=== PATIENT | female | born 1940 | race Caucasian/White ===

== ENCOUNTER → 2017-02-22 | Outpatient (CLI) | payer MEDICARE ==
--- NOTE | 2017-02-22 12:15 | CARD ---
APPROVED REPORT EXAM: Two-dimensional and M-mode echocardiogram with Doppler and color Doppler. Other Information Quality : Good INDICATION Aortic Valve Disease Murmur 2D DIMENSIONS RVDd1.9 (2.9-3.5cm)Left Atrium(2D)3.4 (1.6-4.0cm) IVSd1.1 (0.7-1.1cm)Aortic Root(2D)2.4 (2.0-3.7cm) LVDd4.3 (3.9-5.9cm)LVOT Diameter1.9 (1.8-2.4cm) PWd1.0 (0.7-1.1cm)LVDs2.4 (2.5-4.0cm) FS (%) 30.0 %SV61.8 ml LVEF(%)60.0 (>50%) M-Mode DIMENSIONS Aortic Cusp Exc1.21 (1.5-2.0cm) Aortic Valve AoV Peak Richard.222.2cm/sAoV VTI42.1cm AO Peak GR.21.0mmHgLVOT Peak Richard.113.7cm/s LVOT VTI 25.35cmAO Mean GR.12mmHg ASHA (VMAX)1.02hu1DRQ (VTI)1.53cm2 Mitral Valve MV E Eaauygsa93.6cm/sMV DECEL GCDT412ze MV A Ptsrnkor548.3cm/sMV VCW58rv E/A Ratio0.7MVA (PHT)2.69cm2 TDI E/Lateral E'10.6E/Medial E'12.7 Tricuspid Valve TR P. Qwljwskr589wj/sRAP MQYYDJSO1aiZs TR Peak Gr.51kzIiCAKB17uzBs Pulmonary Vein S1 Cqfkxatu48.4cm/sD2 Ofufpbwn53.8cm/s LEFT VENTRICLE The left ventricle is normal size. There is normal left ventricular wall thickness. The left ventricu lar systolic function is normal. The Ejection Fraction is 55-60%. There is normal LV segmental wall m otion. Transmitral Doppler flow pattern is Grade I-abnormal relaxation pattern. RIGHT VENTRICLE The right ventricle is normal size. The right ventricular systolic function is normal. ATRIA The left atrium size is normal. The right atrium size is normal. The interatrial septum is intact wit h no evidence for an atrial septal defect or patent foramen ovale as noted on 2-D or Doppler imaging. AORTIC VALVE The aortic valve is calcified and displays decreased opening. Doppler and Color Flow revealed no sign ificant aortic regurgitation. Calculated aortic valve area is 1.53 cm2 with maximum pressure gradient of 21 mmHg and mean pressure gradient of 12 mmHg. Doppler and color-flow analysis revealed mild aort ic stenosis. MITRAL VALVE The mitral valve is calcified but opens well. There is no evidence of mitral valve prolapse. There is no mitral valve stenosis. Doppler and Color-flow revealed trace to mild mitral regurgitation. TRICUSPID VALVE The tricuspid valve is normal in structure and function. Doppler and Color Flow revealed trace tricus pid regurgitation. The PA pressure was estimated at 18 mmHg. There is no tricuspid valve stenosis. PULMONIC VALVE The pulmonary valve is normal in structure and function. Doppler and Color Flow revealed no pulmonic valvular regurgitation. There is no pulmonic valvular stenosis. GREAT VESSELS The aortic root is normal in size. The ascending aorta is normal in size. The IVC is normal in size a nd collapses >50% with inspiration. PERICARDIAL EFFUSION There is no evidence of significant pericardial effusion. Critical Notification Critical Value: No <Conclusion> The left ventricular systolic function is normal. The Ejection Fraction is 55-60%. There is normal LV segmental wall motion. Transmitral Doppler flow pattern is Grade I-abnormal relaxation pattern. Mild aortic stenosis. Trace to mild mitral regurgitation. Trace tricuspid regurgitation. The PA pressure was estimated at 18 mmHg. There is no evidence of significant pericardial effusion.
== END | disposition home or self-care (01) ==
LOC: ECHO 09:38
PROVIDERS: ATTEND Family Medicine
DX: I35.0 Nonrheumatic aortic (valve) stenosis (principal); R01.1 Cardiac murmur, unspecified
CPT/HCPCS: 93306

== ENCOUNTER 2017-03-27 09:53 | Emergency (ER) | payer MEDICARE ==
[2017-03-27] MEDS ORDERED: OXYMETAZOLINE 0.05% NASAL SPRAY 30ML BOTTLE. NS ONE ×2 (10:06→10:15)
--- NOTE | 2017-03-27 10:29 | ED.ADGEN ---
Past Medical History Past Medical History: No Pertinent History Past Surgical History: Other Additional Past Surgical Histo: EGD, cataracts Alcohol Use: None Drug Use: None Adult General Chief Complaint Chief Complaint: NOSEBLEED HPI HPI Patient is a 76 year old woman, who does not take any medications regular basis , who presents to the emergency department with complaint of recurrent nosebleed. Patient states that on , , she began experiencing a nosebleed, on the right nostril. She states this occurred after she blew her nose, states she had been experiencing some nasal congestion and a mild cough over the past several days. She denies any difficulty breathing or swallowing, any chest pain or shortness of breath. No fevers or chills. Denies any digital manipulation or insertions. She states that she began having recurrent bleeding around around 8:45 this morning states that she had began blowing her nose before the bleeding started only from the right Mun[place]. She states that she did insert a cotton ball into the nose, but then subsequently did sneeze that out. She denies any other insertions, denies any nausea, vomiting, or other concerns. As stated she has not take any medications regular basis, does not use any blood thinners or anticoagulants, she states she is around more dry air and "sawdust", due to construction that is occurring in her home which she believes may have triggered the symptoms. Review of Systems Review of Systems Constitutional: Denies fever or chills. [] Eyes: Denies change in visual acuity. [] HENT: Nasal congestion, no sore throat, with recurrent bleeding from the right Muniz.[] Respiratory: Denies cough or shortness of breath. [] Cardiovascular: Denies chest pain or edema. [] GI: Denies abdominal pain, nausea, vomiting, bloody stools or diarrhea. [] : Denies dysuria. [] Musculoskeletal: Denies back pain or joint pain. [] Integument: Denies rash. [] Neurologic: Denies headache, focal weakness or sensory changes. [] Endocrine: Denies polyuria or polydipsia. [] Lymphatic: Denies swollen glands. [] Psychiatric: Denies depression or anxiety. [] Current Medications Current Medications Current Medications Medications (Trade) Dose Ordered Sig/Sugar Start Time Stop Time Status Last Admin Dose Admin Acetaminophen (Tylenol) 1,000 mg 1X ONCE 03/27/17 16:30 03/27/17 16:31 DC Amoxicillin/ Clavulanate Potassium (Augmentin 875/ 125mg) 1 tab 1X ONCE 03/27/17 16:30 03/27/17 16:31 DC Lidocaine HCl (Viscous Lidocaine) 15 ml STK-MED ONCE 03/27/17 13:39 03/27/17 13:40 DC Oxymetazoline HCl (Afrin) 2 spray 1X ONCE 03/27/17 10:15 03/27/17 10:20 DC 03/27/17 10:37 2 SPRAY Allergies Allergies Allergies Coded Allergies Type Severity Reaction Last Updated Verified No Known Drug Allergies 03/27/17 No Physical Exam Physical Exam Constitutional: Well developed, well nourished, no acute distress, non-toxic appearance. [] HENT: Normocephalic, atraumatic, bilateral external ears normal, oropharynx moist, no oral exudates, external nose is normal, patient noted to have bright red blood from the right Muniz, no visualization of foreign body or significant turbinate swelling identified, left naris clear, mild mucosal irritation noted. No evidence of deep nature vessels identified, patient partially cleared Muniz by blowing nose, with application of Afrin. Continued to have oozing from right Muniz. Noted to have blood in the oropharynx, which did clear after patient gargled with water. Eyes: PERRLA, EOMI, conjunctiva normal, no discharge. [] Neck: Normal range of motion, no tenderness, supple, no stridor. [] Cardiovascular:Heart rate regular rhythm, no murmur [, S1, S2, no rubs or gallops.] Lungs & Thorax: Bilateral breath sounds clear to auscultation , no wheezing, rhonchi, rales. No chest wall crepitus or tenderness.[] Abdomen: Bowel sounds normal, soft, no tenderness, no masses, no pulsatile masses. [] Skin: Warm, dry, no erythema, no rash. [] Back: No tenderness, no CVA tenderness. [] Extremities: No tenderness, no cyanosis, no clubbing, ROM intact, no edema. Negative Homans sign. [] Neurologic: Alert and oriented X 3, normal motor function, normal sensory function, no focal deficits noted. [] Psychologic: Affect normal, judgement normal, mood normal. [] Current Patient Data Vital Signs Vital Signs Date Time Temp Pulse Resp B/P (MAP) Pulse Ox O2 Delivery O2 Flow Rate FiO2 03/27/17 16:15 72 175/77 (109) 98 Room Air 03/27/17 12:45 18 03/27/17 09:56 98.4 98.4 Lab Values Laboratory Tests Test 03/27/17 10:38 White Blood Count 5.0 x10^3/uL (4.0-11.0) Red Blood Count 4.82 x10^6/uL (3.50-5.40) Hemoglobin 11.6 g/dL (12.0-15.5) L Hematocrit 36.6 % (36.0-47.0) Mean Corpuscular Volume 76 fL (79-100) L Mean Corpuscular Hemoglobin 24 pg (25-35) L Mean Corpuscular Hemoglobin Concent 32 g/dL (31-37) Red Cell Distribution Width 16.1 % (11.5-14.5) H Platelet Count 350 x10^3/uL (140-400) Neutrophils (%) (Auto) 71 % (31-73) Lymphocytes (%) (Auto) 16 % (24-48) L Monocytes (%) (Auto) 10 % (0-9) H Eosinophils (%) (Auto) 2 % (0-3) Basophils (%) (Auto) 1 % (0-3) Neutrophils # (Auto) 3.5 x10^3uL (1.8-7.7) Lymphocytes # (Auto) 0.8 x10^3/uL (1.0-4.8) L Monocytes # (Auto) 0.5 x10^3/uL (0.0-1.1) Eosinophils # (Auto) 0.1 x10^3/uL (0.0-0.7) Basophils # (Auto) 0.1 x10^3/uL (0.0-0.2) Laboratory Tests 03/27/17 10:38 EKG EKG Not indicated. Radiology/Procedures Radiology/Procedures Not indicated.[] Course & Med Decision Making Course & Med Decision Making Pertinent Labs and Imaging studies reviewed. (See chart for details) Patient states that she has been experiencing increasingly dry air, and irritation due to sawdust and other elements in her home due to her son's construction project at this time. She states she does have [employer] [place] at home which she has not been using. Patient initially evaluated did have noted to have some small amount of oozing from the right Muniz, did not visualize any area of discrete due to vessels or injury. Isolated to the right Muniz. Patient had nasal clamp placed in the ED, for about 25 minutes, on reevaluation patient is not evidencing any active bleeding, Afrin was also applied. However, patient did sneeze, and was noted to have continued oozing from the right Muniz. Patient' s hemoglobin At that point nasal tampon was placed, and then patient was observed again. Patient again was noted to have a small amount of leakage from the Muniz, which again was consistent with an anterior bleeding, I do not have any evidence of posterior bleeding on examination she is a small amount of blood in the back of the throat which did clear after she again gargled with cold water. At that time his nasal tampon was not apparently effective, a anterior posterior 7.5 Rhino Rocket was placed, with a total of 10 mL of normal saline injected into the balloon. Patient was then again observed for period of time without any evidence of significant bleeding or other complication. She did decline pain medication, I did discuss findings as above with Dr. Blanchard of otolaryngology, she requested the patient follow-up in office on Tuesday, I did confirm with patient that the doctor's office will be close enough for her to obtain a ride, we also discussed the ENT recommendation the patient be given Augmentin as a prophylactic measure, patient states that she is uncomfortable taking antibiotics due to previous, locations, however was agreeable to receiving a good Rx coupon, and prescription for Augmentin, states she will consider taking the medication but did decline taking medication in the ED. As stated she has declined pain medication, states she's been comfortable this time. Patient is ambulating in the ED without issue, vital signs remained within normal limits. Hemoglobin was 11.6 stated, she does not have evidence of significant bleeding after a prolonged observation in the ED, states she is rated be discharged home, and I do not anticipate any complications at this time based in her examination was consistent with an anterior epistaxis bleed. I did discuss in detail with patient concerning symptoms that prompt return to the emergency department for additional evaluation, and importance of follow-up with ENT, patient contact the office tomorrow morning to schedule an appointment. Patient instructed use [place] in the other Muniz, where she is noted to have some mucosal irritation but no evidence of bleeding. Patient voiced understanding and agreement with plan as stated, was discharged home with friend, she states her son will be at her home this afternoon and this evening, and she will return immediately if any concerning symptoms to develop. Patient ambulating without difficulty upon exiting the emergency department with prescriptions, precautions, and plan as stated. Dragon Disclaimer Dragon Disclaimer This electronic medical record was generated, in whole or in part, using a voice recognition dictation system. Departure Impression: Primary Impression: Acute anterior epistaxis Additional Impression: Nose irritation Disposition: 01 HOME, SELF-CARE Condition: IMPROVED Scripts Amoxicillin/Potassium Clav (AMOX TR-K CLV 875-125 MG TAB) 1 Each Tablet 1 TAB PO BID, #20 TAB Prov: PILLO MITCHELL DO 03/27/17 Problem Qualifiers PILLO MITCHELL DO Mar 27, 2017 10:29
[2017-03-27 11:23] LABS: BASO # 0.1 x10^3/uL (0.0-0.2); BASO % 1 % (0-3); EOS % 2 % (0-3); HEMATOCRIT 36.6 % (36.0-47.0); HEMOGLOBIN 11.6 g/dL (12.0-15.5); LYMPH # 0.8 x10^3/uL (1.0-4.8); LYMPH % 16 % (24-48); MEAN CORPUSCULAR HEMOGLOBIN 24 pg (25-35); MEAN CORPUSCULAR HGB CONC 32 g/dL (31-37); MEAN CORPUSCULAR VOLUME 76 fL (79-100); MONO % 10 % (0-9); NEUT % 71 % (31-73); PLATELET COUNT 350 x10^3/uL (140-400); RED BLOOD COUNT 4.82 x10^6/uL (3.50-5.40); RED CELL DISTRIBUTION WIDTH 16.1 % (11.5-14.5)
[2017-03-27] MEDS ORDERED: LIDOCAINE 2% VISCOUS 15 ML SOLUTION. ONE (13:39)
[2017-03-27] MEDS ORDERED: LIDOCAINE 2% VISCOUS 15 ML SOLUTION. SWSW ONE (14:00)
[2017-03-27 16:15] VITALS: BP 175/77
[2017-03-27] MEDS ORDERED: AMOX1TAB11 PO (16:17)
[2017-03-27] MEDS ORDERED: ACETAMINOPHEN 500 MG TABLET PO ONE (16:30)
[2017-03-27] MEDS ORDERED: AMOXICILLIN/K CLAV 875/125MG TABLET. PO ONE (16:30)
== END 2017-03-27 16:39 | disposition home or self-care (01) ==
LOC: ER 09:53
DX: R04.0 Epistaxis (principal); J34.89 Other specified disorders of nose and nasal sinuses; R05 Cough; R09.81 Nasal congestion; Z98.49 Cataract extraction status, unspecified eye
CPT/HCPCS: 30903; 30905; 36415; 85025; 99284-25

== ENCOUNTER → 2017-10-11 | Outpatient (CLI) | payer MEDICARE | END | disposition home or self-care (01) | LOC: KCIC US 11:44 | DX: I65.23 Occlusion and stenosis of bilateral carotid arteries (principal) | CPT/HCPCS: 93880 ==

== ENCOUNTER → 2018-02-27 | Outpatient (CLI) | payer MEDICARE ==
[~2018-02-27] MED LIST: AMOX1TAB11 PO
--- NOTE | 2018-02-27 15:28 | CARD ---
MR#: [id number] Date of Study: 02/27/2018 Ordering Physician: GAYLA ELIZABETH, Referring Physician: GAYLA ELIZABETH, Tech: Beatriz Sepulveda APPROVED REPORT EXAM: Two-dimensional and M-mode echocardiogram with Doppler and color Doppler. Other Information Quality : AverageHR: 73bpm Rhythm : NSR INDICATION Aortic Stenosis RISK FACTORS Hypertension Hyperlipidemia 2D DIMENSIONS Left Atrium(2D)3.2 (1.6-4.0cm)IVSd0.8 (0.7-1.1cm) Aortic Root(2D)3.0 (2.0-3.7cm)LVDd3.9 (3.9-5.9cm) LVOT Diameter2.0 (1.8-2.4cm)PWd0.7 (0.7-1.1cm) LVDs2.3 (2.5-4.0cm)FS (%) 40.9 % SV47.1 mlLVEF(%)72.4 (>50%) Aortic Valve AoV Peak Richard.243.0cm/sAoV VTI53.2cm AO Peak GR.23.6mmHgLVOT Peak Richard.114.2cm/s AO Mean GR.13mmHgAVA (VMAX)1.41cm2 Mitral Valve MV E Kbsumsis68.9cm/sMV DECEL JCZI151kx MV A Cxkinput01.2cm/sE/A Ratio0.7 Pulmonary Valve PV Peak Lmtrayyu730.5cm/s Tricuspid Valve TR P. Fikoopdb866lc/sRAP VUYZUBBZ20zbQm TR Peak Gr.19mmHg Pulmonary Vein S1 Hbxfyrsz79.1cm/sD2 Oytvwurb17.6cm/s PVa [id number] LEFT VENTRICLE The left ventricle is normal size. There is normal left ventricular wall thickness. The Left ventricu lar systolic function is normal. The Ejection Fraction is 60-65%. There is normal LV segmental wall m otion. Transmitral Doppler flow pattern is Grade I-abnormal relaxation pattern. RIGHT VENTRICLE The right ventricle is normal size. There is normal right ventricular wall thickness. The right ventr icular systolic function is normal. ATRIA The left atrium size is normal. The right atrium size is normal. The interatrial septum is intact wit h no evidence for an atrial septal defect or patent foramen ovale as noted on 2-D or Doppler imaging. AORTIC VALVE The aortic valve is moderately thickened. Doppler and Color Flow revealed trace to mild aortic regurg itation. There is mild aortic valvular stenosis. MITRAL VALVE The mitral valve is thickened but opens well. There is no mitral valve stenosis. Doppler and Color-fl ow revealed trace mitral regurgitation. TRICUSPID VALVE The tricuspid valve is normal in structure and function. Doppler and Color Flow revealed trace tricus pid regurgitation. There is no tricuspid valve stenosis. PULMONIC VALVE The pulmonic valve is not well visualized. Doppler and Color Flow revealed trace pulmonic valvular re gurgitation. GREAT VESSELS The aortic root is normal in size. The IVC is normal in size and collapses >50% with inspiration. PERICARDIAL EFFUSION There is no evidence of significant pericardial effusion. Critical Notification Critical Value: No <Conclusion> The Left ventricular systolic function is normal. The Ejection Fraction is 60-65%. There is normal LV segmental wall motion. Transmitral Doppler flow pattern is Grade I-abnormal relaxation pattern. There is mild aortic valvular stenosis. Trace mitral regurgitation. Trace tricuspid regurgitation. There is no evidence of significant pericardial effusion. Signed by : Kishor Denis, Electronically Approved : 02/27/2018 15:27:34
== END | disposition home or self-care (01) ==
LOC: ECHO 09:37
PROVIDERS: ATTEND Family Medicine
DX: I35.0 Nonrheumatic aortic (valve) stenosis (principal); I10 Essential (primary) hypertension; E78.5 Hyperlipidemia, unspecified
CPT/HCPCS: 93306

== ENCOUNTER → 2018-06-05 | Outpatient (CLI) | payer MEDICARE ==
--- NOTE | 2018-06-05 16:47 | RAD ---
Two-view chest 06/05/2017 CLINICAL INDICATION: Dyspnea. COMPARISON: None. FINDINGS: Cardiac and mediastinal silhouettes are unremarkable. There are diffuse, predominant coarse, interstitial opacities throughout both lungs. There are patchy airspace opacities in the right perihilar and lower lungs. No pleural effusion or pneumothorax. There is multilevel thoracic spondylosis. Gas-filled small bowel loops beneath the left hemidiaphragm. IMPRESSION: 1. Diffuse coarse interstitial opacities consistent with fibrosis, however there are additional bilateral airspace opacities concerning for superimposed infection versus pulmonary edema versus pneumonitis with aspiration not excluded. Follow-up two-view chest radiograph is recommended after a course of therapy to assess for resolution. 2. Gaseous distended small bowel loops, may be physiologic. If clinically indicated, dedicated abdominal radiograph could be obtained for further evaluation. Electronically signed by: Adam Rocha MD (06/05/2018 4:42 PM) [facility]
== END | disposition home or self-care (01) ==
LOC: RAD 16:08
PROVIDERS: ATTEND Internal Medicine Pulmonary Disease
DX: R91.8 Other nonspecific abnormal finding of lung field (principal); M47.894 Other spondylosis, thoracic region
CPT/HCPCS: 71046

== ENCOUNTER → 2018-06-09 | Outpatient (CLI) | payer MEDICARE ==
[~2018-06-09] MED LIST changes: +IPRA3AMP29 NEB; +SODI14.1 NS
[2018-06-09 12:30] LABS: CALCIUM 9.2 mg/dL (8.5-10.1); CREATININE 0.5 mg/dL (0.6-1.0); GFR 119.3; POTASSIUM 4.2 mmol/L (3.5-5.1)
== END | disposition home or self-care (01) ==
LOC: LAB 11:43
PROVIDERS: ATTEND Internal Medicine Pulmonary Disease
DX: R06.02 Shortness of breath (principal)
CPT/HCPCS: 36415; 80048; 83880

== ENCOUNTER → 2018-06-12 | Outpatient (CLI) | payer MEDICARE ==
[~2018-06-12] MED LIST changes: -IPRA3AMP29 NEB; -SODI14.1 NS
== END | disposition home or self-care (01) ==
LOC: LAB 16:28
PROVIDERS: ATTEND Internal Medicine Pulmonary Disease
DX: R93.89 Abnormal findings on diagnostic imaging of other specified body structures (principal); R05 Cough; R06.02 Shortness of breath
CPT/HCPCS: 36415; 84443; 86703; 87070; 87102; 87116; 87205

== ENCOUNTER 2018-06-27 11:02 | Inpatient (IN) | payer MEDICARE ==
[~2018-06-27] VITALS: Ht 160 cm; Wt 50.8 kg
[2018-06-27] MEDS ORDERED: ALBUTEROL SULFATE 2.5 MG/3 ML NEBU. NEB ONE (11:15)
[2018-06-27] MEDS ORDERED: IPRATRPIUM/ALBUTEROL 0.5/2.5MG 3 ML NEBU. NEB ONE (11:15)
--- NOTE | 2018-06-27 11:21 | PHYS DOC ---
Past Medical History Past Medical History: No Pertinent History Past Surgical History: Other Additional Past Surgical Histo: EGD, cataracts Alcohol Use: None Drug Use: None Adult General Chief Complaint Chief Complaint: SHORTNESS OF BREATH HPI HPI Patient is a 78 year old male who presents with shortness of breath that has been going on since March 2018. Patient was seen by her primary care physician within the past 2 weeks and started on home oxygen therapy which helps but she is still short of breath. Were short of breath with laying flat, she is unable to sleep in her bed having to sleep instead in a recliner. Denies any new swelling in her legs feet or ankles. Denies any recent travel, trauma, or known hypercoagulable state. Denies any fevers. Does note that there is a mild cough. Symptoms are moderate in intensity. She denies any chest pain or palpitations.[] Review of Systems Review of Systems Constitutional: Denies fever or chills [] Eyes: Denies change in visual acuity, redness, or eye pain [] HENT: Denies nasal congestion or sore throat [] Respiratory: See history of present illness[] Cardiovascular: No chest pain or palpitations[] GI: Denies abdominal pain, nausea, vomiting, bloody stools or diarrhea [] : Denies dysuria or hematuria [] Musculoskeletal: Denies back pain or joint pain [] Integument: Denies rash or skin lesions [] Neurologic: Denies headache, focal weakness or sensory changes [] Endocrine: Denies polyuria or polydipsia [] All other systems were reviewed and found to be within normal limits, except as documented in this note. Current Medications Current Medications Current Medications Medications (Trade) Dose Ordered Sig/Sugar Start Time Stop Time Status Last Admin Dose Admin Albuterol Sulfate (Ventolin Neb Soln) 2.5 mg 1X ONCE 06/27/18 11:15 06/27/18 11:18 DC 06/27/18 12:01 2.5 MG Albuterol/ Ipratropium (Duoneb) 3 ml 1X ONCE 06/27/18 11:15 06/27/18 11:18 DC 06/27/18 12:01 3 ML Info (CONTRAST GIVEN -- Rx MONITORING) 1 each PRN DAILY PRN 06/27/18 12:30 06/29/18 12:29 Iohexol (Omnipaque 350 Mg/ml) 75 ml 1X ONCE 06/27/18 12:30 06/27/18 12:31 DC 06/27/18 12:31 75 ML Methylprednisolone Sodium Succinate (SOLU-Medrol 125MG VIAL) 125 mg 1X ONCE 06/27/18 12:15 06/27/18 12:16 DC 06/27/18 12:42 125 MG Allergies Allergies Allergies Coded Allergies Type Severity Reaction Last Updated Verified No Known Drug Allergies 03/27/17 No Physical Exam Physical Exam Constitutional: Well developed, well nourished, no acute distress, non-toxic appearance. [] HENT: Normocephalic, atraumatic, bilateral external ears normal, oropharynx moist, no oral exudates, nose normal. [] Eyes: PERRLA, EOMI, conjunctiva normal, no discharge. [] Neck: Normal range of motion, no tenderness, supple, no stridor. [] Cardiovascular:Heart rate is tachycardic in the low 100s, with a regular rhythm , no murmur [] Lungs & Thorax: Bilateral breath sounds are diminished[] Abdomen: Bowel sounds normal, soft, no tenderness, no masses, no pulsatile masses. [] Skin: Warm, dry, no erythema, no rash. [] Back: No tenderness, no CVA tenderness. [] Extremities: No tenderness, no cyanosis, no clubbing, ROM intact, 1-2+ pretibial edema. [] Neurologic: Alert and oriented X 3, normal motor function, normal sensory function, no focal deficits noted. [] Psychologic: Affect normal, judgement normal, mood normal. [] Current Patient Data Vital Signs Vital Signs Date Time Temp Pulse Resp B/P (MAP) Pulse Ox O2 Delivery O2 Flow Rate FiO2 06/27/18 12:10 99 Nasal Cannula 2.0 06/27/18 11:10 98.1 101 22 172/85 (114) 98.1 Lab Values Laboratory Tests Test 06/27/18 11:20 White Blood Count 9.9 x10^3/uL (4.0-11.0) Red Blood Count 6.01 x10^6/uL (3.50-5.40) H Hemoglobin 14.2 g/dL (12.0-15.5) Hematocrit 43.5 % (36.0-47.0) Mean Corpuscular Volume 72 fL (79-100) L Mean Corpuscular Hemoglobin 24 pg (25-35) L Mean Corpuscular Hemoglobin Concent 33 g/dL (31-37) Red Cell Distribution Width 18.8 % (11.5-14.5) H Platelet Count 452 x10^3/uL (140-400) H Neutrophils (%) (Auto) 77 % (31-73) H Lymphocytes (%) (Auto) 11 % (24-48) L Monocytes (%) (Auto) 10 % (0-9) H Eosinophils (%) (Auto) 2 % (0-3) Basophils (%) (Auto) 1 % (0-3) Neutrophils # (Auto) 7.6 x10^3uL (1.8-7.7) Lymphocytes # (Auto) 1.1 x10^3/uL (1.0-4.8) Monocytes # (Auto) 1.0 x10^3/uL (0.0-1.1) Eosinophils # (Auto) 0.2 x10^3/uL (0.0-0.7) Basophils # (Auto) 0.1 x10^3/uL (0.0-0.2) Prothrombin Time 13.1 SEC (11.7-14.0) Prothrombin Time INR 1.0 (0.8-1.1) D-Dimer (Cara) 0.75 ug/mlFEU (0.00-0.50) H Sodium Level 131 mmol/L (136-145) L Potassium Level 4.5 mmol/L (3.5-5.1) Chloride Level 93 mmol/L (98-107) L Carbon Dioxide Level 28 mmol/L (21-32) Anion Gap 10 (6-14) Blood Urea Nitrogen 13 mg/dL (7-20) Creatinine 0.6 mg/dL (0.6-1.0) Estimated GFR (Cockcroft-Gault) 96.7 BUN/Creatinine Ratio 22 (6-20) H Glucose Level 132 mg/dL (70-99) H Calcium Level 9.3 mg/dL (8.5-10.1) Total Bilirubin 0.4 mg/dL (0.2-1.0) Aspartate Amino Transferase (AST) 26 U/L (15-37) Alanine Aminotransferase (ALT) 24 U/L (14-59) Alkaline Phosphatase 111 U/L (46-116) Troponin I Quantitative < 0.017 ng/mL (0.000-0.055) OJ-Mqm-K-Type Natriuretic Peptide 220 pg/mL (0-449) Total Protein 8.1 g/dL (6.4-8.2) Albumin 3.1 g/dL (3.4-5.0) L Albumin/Globulin Ratio 0.6 (1.0-1.7) L Laboratory Tests 06/27/18 11:20 Laboratory Tests 06/27/18 11:20 EKG EKG EKG shows a sinus rhythm at 96 bpm, normal axis, QTC of 408 ms, no ST elevations , no old EKG available for comparison, interpreted by me at 1120[] Radiology/Procedures Radiology/Procedures Examination: CT angiography chest HISTORY: History of shortness of breath, elevated d-dimer COMPARISON: None available TECHNIQUE: Axial CT angiography images of chest were performed with IV contrast. Coronal and sagittal reformats are performed Exposure: One or more of the following individualized dose reduction techniques were utilized for this examination: 1. Automated exposure control 2. Adjustment of the mA and/or kV according to patient size 3. Use of iterative reconstruction technique FINDINGS: Moderate cardiomegaly. The caliber of the aorta grossly appears unremarkable. Coronary artery calcifications. There is no evidence of filling defect identified in the main pulmonary arterial trunk and right and left main pulmonary arteries and the visualized lobar, segmental branches of the pulmonary arteries. Mildly enlarged bilateral hilar lymph nodes and subcarinal lymph lymph node measuring 2.6 cm. Diffuse reticular interstitial lung markings with honeycombing changes identified in the periphery of the lungs with bronchiectatic changes identified in the bilateral upper lobes, right middle lobe and right bilateral lower lobes of the lungs. Mild groundglass airspace opacities identified in the bilateral lungs. The visualized liver, spleen, adrenals grossly appears unremarkable Moderate degenerative changes thoracic spine. IMPRESSION: 1. No evidence of pulmonary embolism. 2. Diffuse interstitial lung markings identified diffuse bronchiectatic changes with honeycombing changes identified in bilateral lungs likely interstitial lung disease probably idiopathic pulmonary fibrosis. 3. Mild groundglass airspace opacities identified in the bilateral lungs likely atelectasis or infiltrates with the few prominent mediastinal and bilateral hilar lymph nodes probably reactive lymphadenopathy. Follow-up examination is recommended to document stability. Electronically signed by: Amaury Pedersen MD (06/27/2018 1:01 PM) [facility] Portable chest, 06/27/2018: HISTORY: Shortness of breath, cough Comparison is made to a study from 06/05/2018. The heart is within normal limits in size. There are moderate diffuse interstitial opacities in both lungs which appear unchanged. No pleural fluid or pneumothorax is evident. Surgical clips are present in the upper abdomen. IMPRESSION: Unchanged diffuse interstitial pulmonary opacities suggesting a chronic fibrosing process. A component of ongoing or recurrent pulmonary edema or atypical pneumonia cannot be excluded. Electronically signed by: Henry Germain MD (06/27/2018 11:45 AM) [facility][] Course & Med Decision Making Course & Med Decision Making Pertinent Labs and Imaging studies reviewed. (See chart for details) ED course and medical decision making: Patient arrived, was placed in bed, in tolerated exam well. She was able to oxygenate better with turning the supplemental nasal cannula oxygen to a higher level. She reported feeling better after breathing treatments but not to her usual baseline. Baseline of the past couple weeks since she's been on oxygen therapy. She was noted to have an elevated d-dimer so she was transported to [place] with any complications and there was no evidence for pulmonary embolism on her CT scan. Due to the continued need for supple mental oxygen along with not feeling at her baseline, discussion was made with the patient regarding the results and options. Patient requests to be admitted for further evaluation and treatment and I feel that this is a reasonable option. Consultation was made with hospitalist service who graciously admitted the patient.[] Dragon Disclaimer Dragon Disclaimer This electronic medical record was generated, in whole or in part, using a voice recognition dictation system. Departure Departure Impression: Primary Impression: Dyspnea Additional Impression: Interstitial lung disease Disposition: ADMITTED INPATIENT Admitting Physician: Other Condition: IMPROVED Referrals: GAYLA ELIZABETH MD (PCP) Problem Qualifiers Primary Impression: Dyspnea Dyspnea type: unspecified Qualified Codes: R06.00 - Dyspnea, unspecified ABBYMARY DO Jun 27, 2018 11:21
[2018-06-27 11:34] LABS: BASO # 0.1 x10^3/uL (0.0-0.2); BASO % 1 % (0-3); EOS # 0.2 x10^3/uL (0.0-0.7); EOS % 2 % (0-3); HEMATOCRIT 43.5 % (36.0-47.0); HEMOGLOBIN 14.2 g/dL (12.0-15.5); LYMPH # 1.1 x10^3/uL (1.0-4.8); LYMPH % 11 % (24-48); MEAN CORPUSCULAR HEMOGLOBIN 24 pg (25-35); MEAN CORPUSCULAR HGB CONC 33 g/dL (31-37); MEAN CORPUSCULAR VOLUME 72 fL (79-100); MONO % 10 % (0-9); NEUT # 7.6 x10^3uL (1.8-7.7); NEUT % 77 % (31-73); PLATELET COUNT 452 x10^3/uL (140-400); RED BLOOD COUNT 6.01 x10^6/uL (3.50-5.40); RED CELL DISTRIBUTION WIDTH 18.8 % (11.5-14.5); WHITE BLOOD COUNT 9.9 x10^3/uL (4.0-11.0)
[2018-06-27 11:45] LABS: CALCIUM 9.3 mg/dL (8.5-10.1); CREATININE 0.6 mg/dL (0.6-1.0); GFR 96.7; POTASSIUM 4.5 mmol/L (3.5-5.1)
--- NOTE | 2018-06-27 11:48 | RAD ---
Portable chest, 06/27/2018: HISTORY: Shortness of breath, cough Comparison is made to a study from 06/05/2018. The heart is within normal limits in size. There are moderate diffuse interstitial opacities in both lungs which appear unchanged. No pleural fluid or pneumothorax is evident. Surgical clips are present in the upper abdomen. IMPRESSION: Unchanged diffuse interstitial pulmonary opacities suggesting a chronic fibrosing process. A component of ongoing or recurrent pulmonary edema or atypical pneumonia cannot be excluded. Electronically signed by: Henry Germain MD (06/27/2018 11:45 AM) [facility]
[2018-06-27 11:50] LABS: ALBUMIN 3.1 g/dL (3.4-5.0); ALBUMIN/GLOBULIN RATIO 0.6 (1.0-1.7); TOTAL BILIRUBIN 0.4 mg/dL (0.2-1.0); TOTAL PROTEIN 8.1 g/dL (6.4-8.2)
[2018-06-27] MEDS ORDERED: methylPREDNISolone SOD SUCC PF 125 MG/2 ML VIAL. IV ONE (12:15)
[2018-06-27 12:23] LABS: PROTHROMBIN TIME PATIENT 13.1 SEC (11.7-14.0)
[2018-06-27] MEDS ORDERED: CONTRAST GIVEN. MC PRN (12:30)
[2018-06-27] MEDS ORDERED: IOHEXOL 350 MG/ML 100 ML VIAL. IV ONE (12:30)
--- NOTE | 2018-06-27 13:04 | RAD ---
Examination: CT angiography chest HISTORY: History of shortness of breath, elevated d-dimer COMPARISON: None available TECHNIQUE: Axial CT angiography images of chest were performed with IV contrast. Coronal and sagittal reformats are performed Exposure: One or more of the following individualized dose reduction techniques were utilized for this examination: 1. Automated exposure control 2. Adjustment of the mA and/or kV according to patient size 3. Use of iterative reconstruction technique FINDINGS: Moderate cardiomegaly. The caliber of the aorta grossly appears unremarkable. Coronary artery calcifications. There is no evidence of filling defect identified in the main pulmonary arterial trunk and right and left main pulmonary arteries and the visualized lobar, segmental branches of the pulmonary arteries. Mildly enlarged bilateral hilar lymph nodes and subcarinal lymph lymph node measuring 2.6 cm. Diffuse reticular interstitial lung markings with honeycombing changes identified in the periphery of the lungs with bronchiectatic changes identified in the bilateral upper lobes, right middle lobe and right bilateral lower lobes of the lungs. Mild groundglass airspace opacities identified in the bilateral lungs. The visualized liver, spleen, adrenals grossly appears unremarkable Moderate degenerative changes thoracic spine. IMPRESSION: 1. No evidence of pulmonary embolism. 2. Diffuse interstitial lung markings identified diffuse bronchiectatic changes with honeycombing changes identified in bilateral lungs likely interstitial lung disease probably idiopathic pulmonary fibrosis. 3. Mild groundglass airspace opacities identified in the bilateral lungs likely atelectasis or infiltrates with the few prominent mediastinal and bilateral hilar lymph nodes probably reactive lymphadenopathy. Follow-up examination is recommended to document stability. Electronically signed by: Amaury Pedersen MD (06/27/2018 1:01 PM) [place] [id number]
[2018-06-27 14:05] LABS: BILIRUBIN,URINE NEGATIVE (NEG); CLARITY,URINE CLEAR; COLOR,URINE YELLOW; NITRITE,URINE NEGATIVE (NEG); PH,URINE 6.5; PROTEIN,URINE NEGATIVE (NEG-TRACE); UROBILINOGEN,URINE 0.2 mg/dL (0.2 mg/dL)
[2018-06-27] MEDS ORDERED: ONDANSETRON PF 4 MG/2 ML VIAL. IV PRN ×2 (14:30→14:45)
[2018-06-27] MEDS ORDERED: ACETAMINOPHEN 325 MG TABLET. PO PRN ×2 (14:30→14:45)
[2018-06-27 14:34] LABS: BACTERIA,URINE 0 /HPF (0-FEW); RBC,URINE 0 /HPF (0-2); WBC,URINE 0 /HPF (0-4)
[2018-06-27] MEDS ORDERED: ELECTROLYTE (NON-ICU) PROTOCOL MC PRN (14:45)
[2018-06-27] MEDS ORDERED: ZOLPIDEM 5 MG TABLET. PO PRN (14:45)
[2018-06-27] MEDS ORDERED: LACTULOSE 20 GM/30 ML SOLUTION. PO PRN (14:45)
[2018-06-27] MEDS ORDERED: CALCIUM CARBONATE 500 MG TAB.CHEW PO PRN (14:45)
[2018-06-27] MEDS ORDERED: ALBUTEROL SULFATE 2.5 MG/3 ML NEBU. NEB PRN (14:45)
[2018-06-27 15:25] VITALS: BP 142/98
[2018-06-27] MEDS ORDERED: IPRATRPIUM/ALBUTEROL 0.5/2.5MG 3 ML NEBU. NEB SCH (16:00)
[2018-06-27] MEDS: IPRATRPIUM/ALBUTEROL 0.5/2.5MG 3 ML NEBU. NEB SCH ×2 (16:15→19:11)
--- NOTE | 2018-06-27 16:33 | PDOC1 ---
History and Physical Date of Admission Date of Admission June 27, 2018 Identification/Chief Complaint Chief Complaint I can't breathe Problems: (1) Interstitial lung disease (2) Dyspnea Source Source: Chart review, Patient History of Present Illness History of Present Illness Patient is a 78-year-old female who comes today with a history of several months duration off aggressive dyspnea and initially started on exertion and she started noticing that she could not go up and down her driveway without significant symptoms. The patient denies pleurisy she denies cold-like symptoms no cough sputum production has been reported no sick contacts, the patient denies chest pain palpitations no paroxysmal nocturnal dyspnea nor orthopnea although she refers that lately she has been sleeping on an angle since it's more comfortable for her to sleep at a 45 angle. The patient denies night sweats no lymphadenopathy. She does relate having some weight loss over the last month approximately 10 pounds. This has been unintentional and most likely is associated with a lack of appetite. Patient denies having pets at home, she was exposed to fumes in the early specifically pesticides and she used to work in the [employer]y. She denies history of smoking was not exposed to secondhand smoking either. Patient was evaluated in the emergency department and findings on CAT scan revealed some interstitial lung disease reason why we have been asked to admit the patient for further evaluation by pulmonology. There is also a comment on pulmonary fibrosis which could explain certainly the symptoms at this time. Reassurance has been provided she has voiced no other complaints except for her dyspnea plan of care explained detail all concerns address to the best of my abilities Past Medical History Cardiovascular: No pertinent hx Pulmonary: No pertinent hx GI: No pertinent hx Heme/Onc: No pertinent hx Hepatobiliary: No pertinent hx Psych: No pertinent hx Rheumatologic: No pertinent hx Infectious disease: No pertinent hx ENT: No pertinent hx Renal/: No pertinent hx Endocrine: No pertinent hx Dermatology: No pertinent hx Past Surgical History Past Surgical History: No pertinent history Family History Family History: Other (reviewed and found noncontributory to the present) Social History Smoke: No ALCOHOL: rare Drugs: None Current Problem List Problem List Problems Medical Problems: (1) Dyspnea Status: Acute (2) Interstitial lung disease Status: Acute Current Medications Current Medications Current Medications Medications (Trade) Dose Ordered Sig/Sugar Start Time Stop Time Status Last Admin Dose Admin Acetaminophen (Tylenol) 650 mg PRN Q6HRS PRN 06/27/18 14:45 Albuterol Sulfate (Ventolin Neb Soln) 2.5 mg PRN Q4HRS PRN 06/27/18 14:45 Albuterol/ Ipratropium (Duoneb) 3 ml RTQID 06/27/18 16:00 Calcium Carbonate/ Glycine (Tums) 500 mg PRN Q3HRS PRN 06/27/18 14:45 Enoxaparin Sodium (Lovenox 40mg Syringe) 30 mg Q24H 06/27/18 21:00 Guaifenesin (Mucinex) 600 mg BID 06/27/18 21:00 Info (CONTRAST GIVEN -- Rx MONITORING) 1 each PRN DAILY PRN 06/27/18 12:30 06/29/18 12:29 Info (Non-Icu Electrolyte Protocol) 1 ea PRN DAILY PRN 06/27/18 14:45 Iohexol (Omnipaque 350 Mg/ml) 75 ml 1X ONCE 06/27/18 12:30 06/27/18 12:31 DC 06/27/18 12:31 75 ML Lactulose (Lactulose) 20 gm PRN Q12HR PRN 06/27/18 14:45 Methylprednisolone Sodium Succinate (SOLU-Medrol 125MG VIAL) 125 mg Q8HRS 06/27/18 22:00 Ondansetron HCl (Zofran) 4 mg PRN Q6HRS PRN 06/27/18 14:45 Senna/Docusate Sodium (Senna Plus) 1 tab BID 06/27/18 21:00 Zolpidem Tartrate (Ambien) 5 mg PRN QHS PRN 06/27/18 14:45 Allergies Allergies Allergies Coded Allergies Type Severity Reaction Last Updated Verified No Known Drug Allergies 03/27/17 No ROS Review of System CONSTITUTIONAL: No fever or chills EYES: No recent changes SKIN: No rash or itching CARDIOVASCULAR: No chest pain, syncope, palpitations, or edema RESPIRATORY: postive for SOB no cough GASTROINTESTINAL: No nausea, vomiting or abdominal pain NEUROLOGICAL: No headaches or weakness ENDOCRINE: No cold or heat intolerance GENITOURINARY: No urgency or frequency of urination MUSCULOSKELETAL: No back pain or joint pain LYMPHATICS: No enlarged lymph nodes PSYCHIATRIC: No anxiety or depression Physical Exam Physical Exam GEN.: No apparent distress. Alert and oriented. HEENT: Head is normocephalic, atraumatic NECK: Supple. No JVD carotid bruit present LUNGS: Bilateral rails shallow inspiratory effort no wheezing no other abnormal lung findings no accessory muscle use HEART: RRR, S1, S2 present. Loud holosystolic murmur 3 out of 6E to carotids Peripheral pulses intact ABDOMEN: Soft, nontender. Positive bowel sounds. EXTREMITIES: Without any cyanosis. NEUROLOGIC: Normal speech, normal tone PSYCHIATRIC: Normal affect, normal mood. SKIN: No ulcerations Vitals Vitals Vital Signs Date Time Temp Pulse Resp B/P (MAP) Pulse Ox O2 Delivery O2 Flow Rate FiO2 06/27/18 14:30 92 160/81 (107) 98 Nasal Cannula 2.0 06/27/18 11:30 20 06/27/18 11:10 98.1 98.1 Labs Labs Laboratory Tests Test 06/27/18 11:20 06/27/18 13:50 White Blood Count 9.9 x10^3/uL (4.0-11.0) Red Blood Count 6.01 x10^6/uL (3.50-5.40) Hemoglobin 14.2 g/dL (12.0-15.5) Hematocrit 43.5 % (36.0-47.0) Mean Corpuscular Volume 72 fL (79-100) Mean Corpuscular Hemoglobin 24 pg (25-35) Mean Corpuscular Hemoglobin Concent 33 g/dL (31-37) Red Cell Distribution Width 18.8 % (11.5-14.5) Platelet Count 452 x10^3/uL (140-400) Neutrophils (%) (Auto) 77 % (31-73) Lymphocytes (%) (Auto) 11 % (24-48) Monocytes (%) (Auto) 10 % (0-9) Eosinophils (%) (Auto) 2 % (0-3) Basophils (%) (Auto) 1 % (0-3) Neutrophils # (Auto) 7.6 x10^3uL (1.8-7.7) Lymphocytes # (Auto) 1.1 x10^3/uL (1.0-4.8) Monocytes # (Auto) 1.0 x10^3/uL (0.0-1.1) Eosinophils # (Auto) 0.2 x10^3/uL (0.0-0.7) Basophils # (Auto) 0.1 x10^3/uL (0.0-0.2) Prothrombin Time 13.1 SEC (11.7-14.0) Prothromb Time International Ratio 1.0 (0.8-1.1) D-Dimer (Cara) 0.75 ug/mlFEU (0.00-0.50) Sodium Level 131 mmol/L (136-145) Potassium Level 4.5 mmol/L (3.5-5.1) Chloride Level 93 mmol/L (98-107) Carbon Dioxide Level 28 mmol/L (21-32) Anion Gap 10 (6-14) Blood Urea Nitrogen 13 mg/dL (7-20) Creatinine 0.6 mg/dL (0.6-1.0) Estimated GFR (Cockcroft-Gault) 96.7 BUN/Creatinine Ratio 22 (6-20) Glucose Level 132 mg/dL (70-99) Calcium Level 9.3 mg/dL (8.5-10.1) Total Bilirubin 0.4 mg/dL (0.2-1.0) Aspartate Amino Transf (AST/SGOT) 26 U/L (15-37) Alanine Aminotransferase (ALT/SGPT) 24 U/L (14-59) Alkaline Phosphatase 111 U/L (46-116) Troponin I Quantitative < 0.017 ng/mL (0.000-0.055) WZ-Lpf-G-Type Natriuretic Peptide 220 pg/mL (0-449) Total Protein 8.1 g/dL (6.4-8.2) Albumin 3.1 g/dL (3.4-5.0) Albumin/Globulin Ratio 0.6 (1.0-1.7) Urine Color Yellow Urine Clarity Clear Urine pH 6.5 Urine Specific Leonardo >=1.030 Urine Protein Negative mg/dL (NEG-TRACE) Urine Glucose (UA) Negative mg/dL (NEG) Urine Ketones (Stick) Negative mg/dL (NEG) Urine Blood Negative (NEG) Urine Nitrite Negative (NEG) Urine Bilirubin Negative (NEG) Urine Urobilinogen Dipstick 0.2 mg/dL (0.2 mg/dL) Urine Leukocyte Esterase Negative (NEG) Urine RBC 0 /HPF (0-2) Urine WBC 0 /HPF (0-4) Urine Squamous Epithelial Cells None /LPF Urine Bacteria 0 /HPF (0-FEW) Laboratory Tests Test 06/27/18 11:20 06/27/18 13:50 White Blood Count 9.9 x10^3/uL (4.0-11.0) Red Blood Count 6.01 x10^6/uL (3.50-5.40) Hemoglobin 14.2 g/dL (12.0-15.5) Hematocrit 43.5 % (36.0-47.0) Mean Corpuscular Volume 72 fL (79-100) Mean Corpuscular Hemoglobin 24 pg (25-35) Mean Corpuscular Hemoglobin Concent 33 g/dL (31-37) Red Cell Distribution Width 18.8 % (11.5-14.5) Platelet Count 452 x10^3/uL (140-400) Neutrophils (%) (Auto) 77 % (31-73) Lymphocytes (%) (Auto) 11 % (24-48) Monocytes (%) (Auto) 10 % (0-9) Eosinophils (%) (Auto) 2 % (0-3) Basophils (%) (Auto) 1 % (0-3) Neutrophils # (Auto) 7.6 x10^3uL (1.8-7.7) Lymphocytes # (Auto) 1.1 x10^3/uL (1.0-4.8) Monocytes # (Auto) 1.0 x10^3/uL (0.0-1.1) Eosinophils # (Auto) 0.2 x10^3/uL (0.0-0.7) Basophils # (Auto) 0.1 x10^3/uL (0.0-0.2) Prothrombin Time 13.1 SEC (11.7-14.0) Prothromb Time International Ratio 1.0 (0.8-1.1) D-Dimer (Cara) 0.75 ug/mlFEU (0.00-0.50) Sodium Level 131 mmol/L (136-145) Potassium Level 4.5 mmol/L (3.5-5.1) Chloride Level 93 mmol/L (98-107) Carbon Dioxide Level 28 mmol/L (21-32) Anion Gap 10 (6-14) Blood Urea Nitrogen 13 mg/dL (7-20) Creatinine 0.6 mg/dL (0.6-1.0) Estimated GFR (Cockcroft-Gault) 96.7 BUN/Creatinine Ratio 22 (6-20) Glucose Level 132 mg/dL (70-99) Calcium Level 9.3 mg/dL (8.5-10.1) Total Bilirubin 0.4 mg/dL (0.2-1.0) Aspartate Amino Transf (AST/SGOT) 26 U/L (15-37) Alanine Aminotransferase (ALT/SGPT) 24 U/L (14-59) Alkaline Phosphatase 111 U/L (46-116) Troponin I Quantitative < 0.017 ng/mL (0.000-0.055) RP-Gcu-R-Type Natriuretic Peptide 220 pg/mL (0-449) Total Protein 8.1 g/dL (6.4-8.2) Albumin 3.1 g/dL (3.4-5.0) Albumin/Globulin Ratio 0.6 (1.0-1.7) Urine Color Yellow Urine Clarity Clear Urine pH 6.5 Urine Specific Leonardo >=1.030 Urine Protein Negative mg/dL (NEG-TRACE) Urine Glucose (UA) Negative mg/dL (NEG) Urine Ketones (Stick) Negative mg/dL (NEG) Urine Blood Negative (NEG) Urine Nitrite Negative (NEG) Urine Bilirubin Negative (NEG) Urine Urobilinogen Dipstick 0.2 mg/dL (0.2 mg/dL) Urine Leukocyte Esterase Negative (NEG) Urine RBC 0 /HPF (0-2) Urine WBC 0 /HPF (0-4) Urine Squamous Epithelial Cells None /LPF Urine Bacteria 0 /HPF (0-FEW) VTE Prophylaxis Ordered VTE Prophylaxis Devices: No VTE Pharmacological Prophylaxi: Yes Assessment/Plan Assessment/Plan Dyspnea at rest secondary to pulmonary fibrosis evident on CAT scan Arctic stenosis? Elevated d-dimer which is normal adjusted for age Hyponatremia most likely secondary to low effective circulatory volume. No clinical consequence Plan Start steroids Consult pulmonology Supportive measures Reassess in the a.m. Further recommendations based on the clinical course DVT prophylaxis with Lovenox Problem Qualifiers (1) Dyspnea: Dyspnea type: unspecified Qualified Codes: R06.00 - Dyspnea, unspecified AIXA MCCALLUM MD Jun 27, 2018 16:33
[2018-06-27 19:46] VITALS: BP 155/82
[2018-06-27] MEDS: ENOXAPARIN 40 MG/0.4 ML SYRINGE. SQ SCH ×2 (21:00→22:17)
--- NOTE | 2018-06-27 22:00 | NUR ---
Pt refusing Lovenox. Education provided on VTE prophylaxis. Will attempt to administer if pt becomes agreeable.
[2018-06-27] MEDS: SENNOSIDES/DOCUSATE 8.6/50MG TABLET. PO SCH (22:14)
[2018-06-27] MEDS: methylPREDNISolone SOD SUCC PF 125 MG/2 ML VIAL. IV SCH (22:15)
[2018-06-27 23:57] VITALS: BP 149/84
[2018-06-28 03:43] VITALS: BP 134/84
[2018-06-28] MEDS: methylPREDNISolone SOD SUCC PF 125 MG/2 ML VIAL. IV SCH (06:27)
[2018-06-28 07:09] VITALS: BP 152/83
[2018-06-28] MEDS: SENNOSIDES/DOCUSATE 8.6/50MG TABLET. PO SCH ×2 (07:48→21:00)
[2018-06-28] MEDS: IPRATRPIUM/ALBUTEROL 0.5/2.5MG 3 ML NEBU. NEB SCH ×4 (09:12→20:11)
--- NOTE | 2018-06-28 10:13 | EKG ---
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
--- NOTE | 2018-06-28 10:27 | PDOC ---
PROGRESS NOTES Chief Complaint Chief Complaint Dyspnea at rest secondary to pulmonary fibrosis evident on CAT scan Arctic stenosis? Elevated d-dimer which is normal adjusted for age Hyponatremia most likely secondary to low effective circulatory volume. No clinical consequence History of Present Illness History of Present Illness 78-year-old female who comes with a history of several months duration off aggressive dyspnea and initially started on exertion and she started noticing that she could not go up and down her driveway without significant symptoms. The patient denies pleurisy she denies cold-like symptoms no cough sputum production has been reported no sick contacts, the patient denies chest pain palpitations no paroxysmal nocturnal dyspnea nor orthopnea although she refers that lately she has been sleeping on an angle since it's more comfortable for her to sleep at a 45 angle. The patient denies night sweats no lymphadenopathy. She does relate having some weight loss over the last month approximately 10 pounds. This has been unintentional and most likely is associated with a lack of appetite. Patient denies having pets at home, she was exposed to fumes in the early specifically pesticides and she used to work in the [employer]. She denies history of smoking was not exposed to secondhand smoking either. Patient was evaluated in the emergency department and findings on CAT scan revealed some interstitial lung disease reason why we have been asked to admit the patient for further evaluation by pulmonology. There is also a comment on pulmonary fibrosis which could explain certainly the symptoms at this time. Feeling improved, would like to take her home supplements and c/o dry mouth at night and occasional dry nares and epistaxis. Still SOB on even minimal movements with quick desaturations. Plan Start steroids Biotene and nasal saline Consult pulmonology Supportive measures Reassess daily Further recommendations based on the clinical course DVT prophylaxis with Lovenox Vitals Vitals Vital Signs Date Time Temp Pulse Resp B/P (MAP) Pulse Ox O2 Delivery O2 Flow Rate FiO2 06/28/18 09:12 94 Nasal Cannula 3.0 06/28/18 07:09 97.4 90 19 152/83 (106) 97.4 Physical Exam General: Alert, Oriented X3, Cooperative Heart: Regular rate, Normal S1, Normal S2 Lungs: Wheezing Abdomen: Normal bowel sounds Extremities: No clubbing, No cyanosis Skin: No rashes, No breakdown Labs LABS Laboratory Tests Test 06/27/18 11:20 06/27/18 13:50 White Blood Count 9.9 x10^3/uL (4.0-11.0) Red Blood Count 6.01 x10^6/uL (3.50-5.40) Hemoglobin 14.2 g/dL (12.0-15.5) Hematocrit 43.5 % (36.0-47.0) Mean Corpuscular Volume 72 fL (79-100) Mean Corpuscular Hemoglobin 24 pg (25-35) Mean Corpuscular Hemoglobin Concent 33 g/dL (31-37) Red Cell Distribution Width 18.8 % (11.5-14.5) Platelet Count 452 x10^3/uL (140-400) Neutrophils (%) (Auto) 77 % (31-73) Lymphocytes (%) (Auto) 11 % (24-48) Monocytes (%) (Auto) 10 % (0-9) Eosinophils (%) (Auto) 2 % (0-3) Basophils (%) (Auto) 1 % (0-3) Neutrophils # (Auto) 7.6 x10^3uL (1.8-7.7) Lymphocytes # (Auto) 1.1 x10^3/uL (1.0-4.8) Monocytes # (Auto) 1.0 x10^3/uL (0.0-1.1) Eosinophils # (Auto) 0.2 x10^3/uL (0.0-0.7) Basophils # (Auto) 0.1 x10^3/uL (0.0-0.2) Prothrombin Time 13.1 SEC (11.7-14.0) Prothromb Time International Ratio 1.0 (0.8-1.1) D-Dimer (Cara) 0.75 ug/mlFEU (0.00-0.50) Sodium Level 131 mmol/L (136-145) Potassium Level 4.5 mmol/L (3.5-5.1) Chloride Level 93 mmol/L (98-107) Carbon Dioxide Level 28 mmol/L (21-32) Anion Gap 10 (6-14) Blood Urea Nitrogen 13 mg/dL (7-20) Creatinine 0.6 mg/dL (0.6-1.0) Estimated GFR (Cockcroft-Gault) 96.7 BUN/Creatinine Ratio 22 (6-20) Glucose Level 132 mg/dL (70-99) Calcium Level 9.3 mg/dL (8.5-10.1) Total Bilirubin 0.4 mg/dL (0.2-1.0) Aspartate Amino Transf (AST/SGOT) 26 U/L (15-37) Alanine Aminotransferase (ALT/SGPT) 24 U/L (14-59) Alkaline Phosphatase 111 U/L (46-116) Troponin I Quantitative < 0.017 ng/mL (0.000-0.055) MM-Yvu-O-Type Natriuretic Peptide 220 pg/mL (0-449) Total Protein 8.1 g/dL (6.4-8.2) Albumin 3.1 g/dL (3.4-5.0) Albumin/Globulin Ratio 0.6 (1.0-1.7) Urine Color Yellow Urine Clarity Clear Urine pH 6.5 Urine Specific Hoffman >=1.030 Urine Protein Negative mg/dL (NEG-TRACE) Urine Glucose (UA) Negative mg/dL (NEG) Urine Ketones (Stick) Negative mg/dL (NEG) Urine Blood Negative (NEG) Urine Nitrite Negative (NEG) Urine Bilirubin Negative (NEG) Urine Urobilinogen Dipstick 0.2 mg/dL (0.2 mg/dL) Urine Leukocyte Esterase Negative (NEG) Urine RBC 0 /HPF (0-2) Urine WBC 0 /HPF (0-4) Urine Squamous Epithelial Cells None /LPF Urine Bacteria 0 /HPF (0-FEW) Assessment and Plan Assessmemt and Plan Problems Medical Problems: (1) Dyspnea Status: Acute (2) Interstitial lung disease Status: Acute Comment Review of Relevant I have reviewed the following items alyce (where applicable) has been applied. Labs Laboratory Tests Test 06/27/18 11:20 06/27/18 13:50 White Blood Count 9.9 x10^3/uL (4.0-11.0) Red Blood Count 6.01 x10^6/uL (3.50-5.40) Hemoglobin 14.2 g/dL (12.0-15.5) Hematocrit 43.5 % (36.0-47.0) Mean Corpuscular Volume 72 fL (79-100) Mean Corpuscular Hemoglobin 24 pg (25-35) Mean Corpuscular Hemoglobin Concent 33 g/dL (31-37) Red Cell Distribution Width 18.8 % (11.5-14.5) Platelet Count 452 x10^3/uL (140-400) Neutrophils (%) (Auto) 77 % (31-73) Lymphocytes (%) (Auto) 11 % (24-48) Monocytes (%) (Auto) 10 % (0-9) Eosinophils (%) (Auto) 2 % (0-3) Basophils (%) (Auto) 1 % (0-3) Neutrophils # (Auto) 7.6 x10^3uL (1.8-7.7) Lymphocytes # (Auto) 1.1 x10^3/uL (1.0-4.8) Monocytes # (Auto) 1.0 x10^3/uL (0.0-1.1) Eosinophils # (Auto) 0.2 x10^3/uL (0.0-0.7) Basophils # (Auto) 0.1 x10^3/uL (0.0-0.2) Prothrombin Time 13.1 SEC (11.7-14.0) Prothromb Time International Ratio 1.0 (0.8-1.1) D-Dimer (Cara) 0.75 ug/mlFEU (0.00-0.50) Sodium Level 131 mmol/L (136-145) Potassium Level 4.5 mmol/L (3.5-5.1) Chloride Level 93 mmol/L (98-107) Carbon Dioxide Level 28 mmol/L (21-32) Anion Gap 10 (6-14) Blood Urea Nitrogen 13 mg/dL (7-20) Creatinine 0.6 mg/dL (0.6-1.0) Estimated GFR (Cockcroft-Gault) 96.7 BUN/Creatinine Ratio 22 (6-20) Glucose Level 132 mg/dL (70-99) Calcium Level 9.3 mg/dL (8.5-10.1) Total Bilirubin 0.4 mg/dL (0.2-1.0) Aspartate Amino Transf (AST/SGOT) 26 U/L (15-37) Alanine Aminotransferase (ALT/SGPT) 24 U/L (14-59) Alkaline Phosphatase 111 U/L (46-116) Troponin I Quantitative < 0.017 ng/mL (0.000-0.055) CT-Wsa-S-Type Natriuretic Peptide 220 pg/mL (0-449) Total Protein 8.1 g/dL (6.4-8.2) Albumin 3.1 g/dL (3.4-5.0) Albumin/Globulin Ratio 0.6 (1.0-1.7) Urine Color Yellow Urine Clarity Clear Urine pH 6.5 Urine Specific Hoffman >=1.030 Urine Protein Negative mg/dL (NEG-TRACE) Urine Glucose (UA) Negative mg/dL (NEG) Urine Ketones (Stick) Negative mg/dL (NEG) Urine Blood Negative (NEG) Urine Nitrite Negative (NEG) Urine Bilirubin Negative (NEG) Urine Urobilinogen Dipstick 0.2 mg/dL (0.2 mg/dL) Urine Leukocyte Esterase Negative (NEG) Urine RBC 0 /HPF (0-2) Urine WBC 0 /HPF (0-4) Urine Squamous Epithelial Cells None /LPF Urine Bacteria 0 /HPF (0-FEW) Laboratory Tests Test 06/27/18 11:20 06/27/18 13:50 White Blood Count 9.9 x10^3/uL (4.0-11.0) Red Blood Count 6.01 x10^6/uL (3.50-5.40) Hemoglobin 14.2 g/dL (12.0-15.5) Hematocrit 43.5 % (36.0-47.0) Mean Corpuscular Volume 72 fL (79-100) Mean Corpuscular Hemoglobin 24 pg (25-35) Mean Corpuscular Hemoglobin Concent 33 g/dL (31-37) Red Cell Distribution Width 18.8 % (11.5-14.5) Platelet Count 452 x10^3/uL (140-400) Neutrophils (%) (Auto) 77 % (31-73) Lymphocytes (%) (Auto) 11 % (24-48) Monocytes (%) (Auto) 10 % (0-9) Eosinophils (%) (Auto) 2 % (0-3) Basophils (%) (Auto) 1 % (0-3) Neutrophils # (Auto) 7.6 x10^3uL (1.8-7.7) Lymphocytes # (Auto) 1.1 x10^3/uL (1.0-4.8) Monocytes # (Auto) 1.0 x10^3/uL (0.0-1.1) Eosinophils # (Auto) 0.2 x10^3/uL (0.0-0.7) Basophils # (Auto) 0.1 x10^3/uL (0.0-0.2) Prothrombin Time 13.1 SEC (11.7-14.0) Prothromb Time International Ratio 1.0 (0.8-1.1) D-Dimer (Cara) 0.75 ug/mlFEU (0.00-0.50) Sodium Level 131 mmol/L (136-145) Potassium Level 4.5 mmol/L (3.5-5.1) Chloride Level 93 mmol/L (98-107) Carbon Dioxide Level 28 mmol/L (21-32) Anion Gap 10 (6-14) Blood Urea Nitrogen 13 mg/dL (7-20) Creatinine 0.6 mg/dL (0.6-1.0) Estimated GFR (Cockcroft-Gault) 96.7 BUN/Creatinine Ratio 22 (6-20) Glucose Level 132 mg/dL (70-99) Calcium Level 9.3 mg/dL (8.5-10.1) Total Bilirubin 0.4 mg/dL (0.2-1.0) Aspartate Amino Transf (AST/SGOT) 26 U/L (15-37) Alanine Aminotransferase (ALT/SGPT) 24 U/L (14-59) Alkaline Phosphatase 111 U/L (46-116) Troponin I Quantitative < 0.017 ng/mL (0.000-0.055) FD-Mhy-K-Type Natriuretic Peptide 220 pg/mL (0-449) Total Protein 8.1 g/dL (6.4-8.2) Albumin 3.1 g/dL (3.4-5.0) Albumin/Globulin Ratio 0.6 (1.0-1.7) Urine Color Yellow Urine Clarity Clear Urine pH 6.5 Urine Specific Hoffman >=1.030 Urine Protein Negative mg/dL (NEG-TRACE) Urine Glucose (UA) Negative mg/dL (NEG) Urine Ketones (Stick) Negative mg/dL (NEG) Urine Blood Negative (NEG) Urine Nitrite Negative (NEG) Urine Bilirubin Negative (NEG) Urine Urobilinogen Dipstick 0.2 mg/dL (0.2 mg/dL) Urine Leukocyte Esterase Negative (NEG) Urine RBC 0 /HPF (0-2) Urine WBC 0 /HPF (0-4) Urine Squamous Epithelial Cells None /LPF Urine Bacteria 0 /HPF (0-FEW) Medications Current Medications Albuterol/ Ipratropium (Duoneb) 3 ml 1X ONCE NEB Last administered on at 12:01; Start 06/27/18 at 11:15; Stop 06/27/18 at 11:18; Status DC Albuterol Sulfate (Ventolin Neb Soln) 2.5 mg 1X ONCE NEB Last administered on 06/27/18at 12:01; Start 06/27/18 at 11:15; Stop 06/27/18 at 11:18; Status DC Methylprednisolone Sodium Succinate (SOLU-Medrol 125MG VIAL) 125 mg 1X ONCE IV Last administered on 06/27/18at 12:42; Start 06/27/18 at 12:15; Stop 06/27/18 at 12:16; Status DC Iohexol (Omnipaque 350 Mg/ml) 75 ml 1X ONCE IV Last administered on 06/27/18at 12:31; Start 06/27/18 at 12:30; Stop 06/27/18 at 12:31; Status DC Info (CONTRAST GIVEN -- Rx MONITORING) 1 each PRN DAILY PRN MC SEE COMMENTS; Start 06/27/18 at 12:30; Stop 06/29/18 at 12:29 Ondansetron HCl (Zofran) 4 mg PRN Q8HRS PRN IV NAUSEA/VOMITING; Start 06/27/18 at 14:30; Stop 06/28/18 at 14:29 Acetaminophen (Tylenol) 650 mg PRN Q4HRS PRN PO FEVER; Start 06/27/18 at 14:30 ; Stop 06/28/18 at 14:29 Albuterol/ Ipratropium (Duoneb) 3 ml RTQID NEB ; Start 06/27/18 at 16:00; Stop 06/27/18 at 16:00; Status DC Ondansetron HCl (Zofran) 4 mg PRN Q6HRS PRN IV NAUSEA/VOMITING; Start 06/27/18 at 14:45 Calcium Carbonate/ Glycine (Tums) 500 mg PRN Q3HRS PRN PO UPSET STOMACH; Start 06/27/18 at 14:45 Zolpidem Tartrate (Ambien) 5 mg PRN QHS PRN PO INSOMNIA, MAY REPEAT IN 1HR; Start 06/27/18 at 14:45 Info (Non-Icu Electrolyte Protocol) 1 ea PRN DAILY PRN MC SEE COMMENTS; Start 06/27/18 at 14:45 Acetaminophen (Tylenol) 650 mg PRN Q6HRS PRN PO Headaches, Temp > 101.5F; Start 06/27/18 at 14:45 Senna/Docusate Sodium (Senna Plus) 1 tab BID PO Last administered on 06/27/18at 22:14; Start 06/27/18 at 21:00 Lactulose (Lactulose) 20 gm PRN Q12HR PRN PO CONSTIPATION; Start 06/27/18 at 14 :45 Enoxaparin Sodium (Lovenox 40mg Syringe) 30 mg Q24H SQ ; Start 06/27/18 at 21:00 Methylprednisolone Sodium Succinate (SOLU-Medrol 125MG VIAL) 125 mg Q8HRS IV Last administered on 06/28/18at 06:27; Start 06/27/18 at 22:00 Albuterol Sulfate (Ventolin Neb Soln) 2.5 mg PRN Q4HRS PRN NEB SHORTNESS OF BREATH; Start 06/27/18 at 14:45 Albuterol/ Ipratropium (Duoneb) 3 ml RTQID NEB Last administered on 06/28/18at 09:12; Start 06/27/18 at 16:00 Guaifenesin (Mucinex) 600 mg BID PO Last administered on 06/28/18at 07:47; Start 06/27/18 at 21:00 Active Scripts Active Amox Tr-K Clv 875-125 Mg Tab (Amoxicillin/Potassium Clav) 1 Each Tablet 1 Tab PO BID Vitals/I & O Vital Sign - Last 24 Hours 06/27/18 06/27/18 06/27/18 06/27/18 11:10 11:30 12:00 12:01 Temp 98.1 98.1 Pulse 101 96 84 Resp 22 20 B/P (MAP) 172/85 (114) 136/76 (96) 143/79 (100) Pulse Ox 94 97 94 94 O2 Delivery Room Air Nasal Cannula Nasal Cannula Nasal Cannula O2 Flow Rate 2.0 2.0 2.0 2/19/19 06/27/18 06/27/18 06/27/18 12:10 13:00 13:30 14:00 Pulse 90 92 92 B/P (MAP) 153/78 (103) 152/80 (104) 151/79 (103) Pulse Ox 99 98 98 98 O2 Delivery Nasal Cannula Nasal Cannula Nasal Cannula Nasal Cannula O2 Flow Rate 2.0 2.0 2.0 2.0 06/27/18 06/27/18 06/27/18 06/27/18 14:30 15:25 16:00 16:15 Temp 98.1 98.1 Pulse 92 102 Resp 19 B/P (MAP) 160/81 (107) 142/98 (113) Pulse Ox 98 95 98 O2 Delivery Nasal Cannula Room Air Nasal Cannula Nasal Cannula O2 Flow Rate 2.0 2.0 2.0 06/27/18 06/27/18 06/27/18 06/27/18 19:11 19:46 20:15 23:57 Temp 98.1 98.2 98.1 98.2 Pulse 106 78 Resp 18 18 B/P (MAP) 155/82 (106) 149/84 (105) Pulse Ox 96 92 96 O2 Delivery Nasal Cannula Room Air Nasal Cannula Nasal Cannula O2 Flow Rate 2.0 2.0 2.0 06/28/18 06/28/18 06/28/18 06/28/18 03:43 07:09 08:00 09:12 Temp 97.9 97.4 97.9 97.4 Pulse 78 90 Resp 16 19 B/P (MAP) 134/84 (101) 152/83 (106) Pulse Ox 96 97 94 O2 Delivery Room Air Room Air Nasal Cannula Nasal Cannula O2 Flow Rate 3.0 3.0 Intake and Output 06/27/18 06/27/18 06/28/18 14:59 22:59 06:59 Intake Total 0 ml 600 ml Balance 0 ml 600 ml DEBORAH HERNANDEZ MD Jun 28, 2018 10:27
[2018-06-28 10:30] VITALS: BP 148/87
--- NOTE | 2018-06-28 10:31 | CARD ---
MR#: [id number] Date of Study: 06/28/2018 Ordering Physician: AIXA MCCALLUM, Referring Physician: AIXA MCCALLUM, Tech: Beatriz Sepulveda APPROVED REPORT EXAM: Two-dimensional and M-mode echocardiogram with Doppler and color Doppler. INDICATION Dyspnea Tachycardia RISK FACTORS Smoking 2D DIMENSIONS Left Atrium(2D)3.3 (1.6-4.0cm)IVSd1.1 (0.7-1.1cm) Aortic Root(2D)2.8 (2.0-3.7cm)LVDd3.9 (3.9-5.9cm) LVOT Diameter2.1 (1.8-2.4cm)PWd1.0 (0.7-1.1cm) LVDs2.7 (2.5-4.0cm)FS (%) 32.2 % SV41.0 mlLVEF(%)61.1 (>50%) Aortic Valve AoV Peak Richard.233.3cm/sAoV VTI43.3cm AO Peak GR.21.8mmHgLVOT Peak Richard.106.8cm/s LVOT VTI 23.90cmAO Mean GR.10mmHg ASHA (VMAX)1.06zj0VQI (VTI)1.88cm2 Mitral Valve MV E Zkojsrpb51.2cm/sMV A Evbsfjyf341.2cm/s E/A Ratio0.5MV A [id number] TDI E/Lateral E'10.1E/Medial E'10.9 Pulmonary Valve PV Peak Dpbrarwm170.2cm/sPV Peak Grad.5mmHg Tricuspid Valve TR P. Ydvefoua103mt/sRAP QUYWZXGF3nrVr TR Peak Gr.34ntEjJPJA67lrTf Pulmonary Vein S1 Wucckyto62.3cm/sD2 Yzflopce99.1cm/s PVa [id number] LEFT VENTRICLE The left ventricle is normal size. There is borderline concentric left ventricular hypertrophy. The l eft ventricular systolic function is normal. The Ejection Fraction is 60%. There is normal LV segment al wall motion. Transmitral Doppler flow pattern is Grade I-abnormal relaxation pattern. RIGHT VENTRICLE The right ventricle is normal size. There is normal right ventricular wall thickness. The right ventr icular systolic function is normal. ATRIA The left atrium size is normal. The right atrium size is normal. The interatrial septum is intact wit h no evidence for an atrial septal defect or patent foramen ovale as noted on 2-D or Doppler imaging. AORTIC VALVE The aortic valve is thickened but opens well. Doppler and Color Flow revealed trace aortic regurgitat ion. There is mild aortic valvular stenosis. MITRAL VALVE The mitral valve is thickened but opens well. There is no evidence of mitral valve prolapse. There is no mitral valve stenosis. Doppler and Color Flow revealed trace mitral valve regurgitation. TRICUSPID VALVE The tricuspid valve is normal in structure and function. Doppler and Color Flow revealed trace tricus pid regurgitation. There is no tricuspid valve stenosis. PULMONIC VALVE The pulmonic valve is not well visualized. Doppler and Color Flow revealed no pulmonic valvular regur gitation. GREAT VESSELS The aortic root is normal in size. The IVC is normal in size and collapses >50% with inspiration. PERICARDIAL EFFUSION There is no evidence of significant pericardial effusion. Critical Notification Critical Value: No <Conclusion> The left ventricular systolic function is normal. The Ejection Fraction is 60%. There is normal LV segmental wall motion. Transmitral Doppler flow pattern is Grade I-abnormal relaxation pattern. There is mild aortic valvular stenosis. Trace mitral valve regurgitation. Trace tricuspid regurgitation. There is no evidence of significant pericardial effusion. Signed by : Kishor Denis, Electronically Approved : 06/28/2018 10:30:51
--- NOTE | 2018-06-28 10:57 | CONS ---
DATE OF CONSULTATION: ATTENDING PHYSICIAN: Dr. Spaulding. REASON FOR CONSULTATION: Abnormal CT chest. HISTORY OF PRESENT ILLNESS: The patient is a 78-year-old female who has no significant history of tobacco use. She was hospitalized with complaint of progressive dyspnea. In the history and physical, it was mentioned that she had several months of progressive dyspnea; however, she felt that it was worse and noticeable only in the last week or so. She has a cough, which dates back to March. The patient states it is nonproductive. No fever, no chills. No chest pain, no headache, no nausea or vomiting, no diarrhea. No focal edema and no focal weakness. The patient underwent imaging study including a chest x-ray and a CT of the chest. I have reviewed the CT of the chest and chest x-ray. There was no old CT available. She has extensive fibrotic lung disease. In the upper lobe, there is some more peripheral location was observed. She has honeycombing in the lower lobes. There may be some mild ground-glass infiltrates. As a result, I have been asked to see her for further evaluation. She denies any significant occupational exposures to any chemicals. 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 She does not have any pets at home. She takes herbal medication for her heart, she does not know the name and she states she takes it for years. PAST MEDICAL HISTORY: Significant for no chronic medical conditions. PAST SURGICAL HISTORY: No recent surgeries. FAMILY HISTORY: Noncontributory to lungs. SOCIAL HISTORY: Nonsmoker. ALLERGIES: None. MEDICATIONS: All reviewed, including IV steroids. Lovenox for DVT prophylaxis, SajioNeharvey. REVIEW OF SYSTEMS: Twelve-point system obtained. Pertinent positives discussed in my history of present illness, otherwise noncontributory. All systems that were negative were reviewed as well. PHYSICAL EXAMINATION: VITAL SIGNS: Reviewed. Pulse ox 95% on 2 liters, afebrile. Blood pressure is stable. HEENT: Sclerae nonicteric. NECK: Supple. LUNGS: With crackles chcf up. CARDIOVASCULAR: Regular rate. ABDOMEN: Soft, nontender. EXTREMITIES: With no pitting edema. LABORATORY DATA: Reviewed. White cell count 9.9, hemoglobin 14.2 and platelets are 452. BUN and creatinine 13 and 0.6. Albumin 3.1. IMPRESSION: 1. Acute hypoxic respiratory failure secondary to pulmonary fibrosis. 2. Abnormal CT chest with extensive fibrotic lung disease along with honeycombing at the bases. She has mild peripheral fibrotic changes. There is some mild ground-glass infiltrates. 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 4. Likely superimposed viral pneumonia, which cannot be ruled out. We will check influenza screen. 5. No significant history of tobacco use. RECOMMENDATIONS: 1. At this time, continue with present oxygen. She may likely need oxygen at home. We will do a 6-minute walk test at discharge. 2. Obtain sed rate and if it is high, we will continue with the slow steroid taper. 3. PFTs. 4. Obtain viral screen, rule out influenza. 5. Discussed with Dr. Spaulding, discussed with RN. We will also look at her ingredients in her herbal medication to make sure that is not the etiology for her fibrosis. MIGUEL A LAMBERT MD DR: AIMEE/severino JOB#: [id number] / [id number] AIXA Ann MD
[2018-06-28] MEDS ORDERED: SALIVA STIMULANT AGENT 44ML SPRAY BOTTLE. PO PRN (13:15)
[2018-06-28] MEDS ORDERED: guaiFENesin DM 200MG/20MG 10 ML SYRUP PO PRN (13:15)
[2018-06-28] MEDS ORDERED: SODIUM CHL/ALOE VERA NASAL GEL 14.1GM TUBE. NS PRN (13:15)
[2018-06-28 15:04] LABS: INFLUENZA A PATIENT NEGATIVE (NEGATIVE); INFLUENZA B PATIENT NEGATIVE (NEGATIVE)
[2018-06-28 15:14] VITALS: BP 138/80
[2018-06-28] MEDS: ENOXAPARIN 40 MG/0.4 ML SYRINGE. SQ SCH (15:48)
--- NOTE | 2018-06-28 16:00 | NUR ---
SW following pt for anticipated dc needs. Chart reviewed and GEORGES RN. Pt is from home alone and 2L 02. PT/OT pending. SW will await PT/OT recommendation to evaluate skilled needs. Will continue to follow.
[2018-06-28 19:56] VITALS: BP 139/84
[2018-06-28 23:33] VITALS: BP 164/96
[2018-06-29 03:42] VITALS: BP 140/80
[2018-06-29 07:05] VITALS: BP 127/77
[2018-06-29] MEDS: IPRATRPIUM/ALBUTEROL 0.5/2.5MG 3 ML NEBU. NEB SCH ×4 (07:13→18:55)
[2018-06-29] MEDS: SENNOSIDES/DOCUSATE 8.6/50MG TABLET. PO SCH ×2 (07:28→20:28)
--- NOTE | 2018-06-29 07:59 | PDOC ---
PROGRESS NOTES Chief Complaint Chief Complaint Dyspnea at rest secondary to pulmonary fibrosis evident on CAT scan Arctic stenosis? Elevated d-dimer which is normal adjusted for age Hyponatremia most likely secondary to low effective circulatory volume. No clinical consequence History of Present Illness History of Present Illness 78-year-old female who comes with a history of several months duration off aggressive dyspnea and initially started on exertion and she started noticing that she could not go up and down her driveway without significant symptoms. The patient denies pleurisy she denies cold-like symptoms no cough sputum production has been reported no sick contacts, the patient denies chest pain palpitations no paroxysmal nocturnal dyspnea nor orthopnea although she refers that lately she has been sleeping on an angle since it's more comfortable for her to sleep at a 45 angle. The patient denies night sweats no lymphadenopathy. She does relate having some weight loss over the last month approximately 10 pounds. This has been unintentional and most likely is associated with a lack of appetite. Patient denies having pets at home, she was exposed to fumes in the early specifically pesticides and she used to work in the [employer]. She denies history of smoking was not exposed to secondhand smoking either. Patient was evaluated in the emergency department and findings on CAT scan revealed some interstitial lung disease reason why we have been asked to admit the patient for further evaluation by pulmonology. There is also a comment on pulmonary fibrosis which could explain certainly the symptoms at this time. Feeling improved, would like to take her home supplements and c/o dry mouth at night and occasional dry nares and epistaxis. Still SOB on even minimal movements with quick desaturations. She worked with PT well, but desaturated to 84%. Her supplements from [employer] don't appear to have been reported for pulmonary fibrosis. ESR was 23. She is anxious feels she could get home right after breakfast tomorrow Plan Quick steroid taper if ok with pulm Biotene and nasal saline Consulted pulmonology Supportive measures Reassess daily 6 minute walk test today. She is trying to find her home O2 company name DVT prophylaxis with Lovenox Vitals Vitals Vital Signs Date Time Temp Pulse Resp B/P (MAP) Pulse Ox O2 Delivery O2 Flow Rate FiO2 06/29/18 07:14 98 Nasal Cannula 2.0 06/29/18 07:05 97.9 75 20 127/77 (94) 97.9 Physical Exam General: Alert, Oriented X3, Cooperative Heart: Regular rate, Normal S1, Normal S2 Lungs: Wheezing Abdomen: Normal bowel sounds Extremities: No clubbing, No cyanosis Skin: No rashes, No breakdown Labs LABS Laboratory Tests Test 06/28/18 11:15 06/28/18 13:48 Erythrocyte Sedimentation Rate 23 (0-25) Influenza Type A Antigen Negative (NEGATIVE) Influenza Type B Antigen Negative (NEGATIVE) Assessment and Plan Assessmemt and Plan Problems Medical Problems: (1) Dyspnea Status: Acute (2) Interstitial lung disease Status: Acute Comment Review of Relevant I have reviewed the following items alyce (where applicable) has been applied. Labs Laboratory Tests Test 06/27/18 11:20 06/27/18 13:50 06/28/18 11:15 06/28/18 13:48 White Blood Count 9.9 x10^3/uL (4.0-11.0) Red Blood Count 6.01 x10^6/uL (3.50-5.40) Hemoglobin 14.2 g/dL (12.0-15.5) Hematocrit 43.5 % (36.0-47.0) Mean Corpuscular Volume 72 fL (79-100) Mean Corpuscular Hemoglobin 24 pg (25-35) Mean Corpuscular Hemoglobin Concent 33 g/dL (31-37) Red Cell Distribution Width 18.8 % (11.5-14.5) Platelet Count 452 x10^3/uL (140-400) Neutrophils (%) (Auto) 77 % (31-73) Lymphocytes (%) (Auto) 11 % (24-48) Monocytes (%) (Auto) 10 % (0-9) Eosinophils (%) (Auto) 2 % (0-3) Basophils (%) (Auto) 1 % (0-3) Neutrophils # (Auto) 7.6 x10^3uL (1.8-7.7) Lymphocytes # (Auto) 1.1 x10^3/uL (1.0-4.8) Monocytes # (Auto) 1.0 x10^3/uL (0.0-1.1) Eosinophils # (Auto) 0.2 x10^3/uL (0.0-0.7) Basophils # (Auto) 0.1 x10^3/uL (0.0-0.2) Prothrombin Time 13.1 SEC (11.7-14.0) Prothromb Time International Ratio 1.0 (0.8-1.1) D-Dimer (Cara) 0.75 ug/mlFEU (0.00-0.50) Sodium Level 131 mmol/L (136-145) Potassium Level 4.5 mmol/L (3.5-5.1) Chloride Level 93 mmol/L (98-107) Carbon Dioxide Level 28 mmol/L (21-32) Anion Gap 10 (6-14) Blood Urea Nitrogen 13 mg/dL (7-20) Creatinine 0.6 mg/dL (0.6-1.0) Estimated GFR (Cockcroft-Gault) 96.7 BUN/Creatinine Ratio 22 (6-20) Glucose Level 132 mg/dL (70-99) Calcium Level 9.3 mg/dL (8.5-10.1) Total Bilirubin 0.4 mg/dL (0.2-1.0) Aspartate Amino Transf (AST/SGOT) 26 U/L (15-37) Alanine Aminotransferase (ALT/SGPT) 24 U/L (14-59) Alkaline Phosphatase 111 U/L (46-116) Troponin I Quantitative < 0.017 ng/mL (0.000-0.055) UG-Qst-V-Type Natriuretic Peptide 220 pg/mL (0-449) Total Protein 8.1 g/dL (6.4-8.2) Albumin 3.1 g/dL (3.4-5.0) Albumin/Globulin Ratio 0.6 (1.0-1.7) Urine Color Yellow Urine Clarity Clear Urine pH 6.5 Urine Specific Danielson >=1.030 Urine Protein Negative mg/dL (NEG-TRACE) Urine Glucose (UA) Negative mg/dL (NEG) Urine Ketones (Stick) Negative mg/dL (NEG) Urine Blood Negative (NEG) Urine Nitrite Negative (NEG) Urine Bilirubin Negative (NEG) Urine Urobilinogen Dipstick 0.2 mg/dL (0.2 mg/dL) Urine Leukocyte Esterase Negative (NEG) Urine RBC 0 /HPF (0-2) Urine WBC 0 /HPF (0-4) Urine Squamous Epithelial Cells None /LPF Urine Bacteria 0 /HPF (0-FEW) Erythrocyte Sedimentation Rate 23 (0-25) Influenza Type A Antigen Negative (NEGATIVE) Influenza Type B Antigen Negative (NEGATIVE) Laboratory Tests Test 06/28/18 11:15 06/28/18 13:48 Erythrocyte Sedimentation Rate 23 (0-25) Influenza Type A Antigen Negative (NEGATIVE) Influenza Type B Antigen Negative (NEGATIVE) Microbiology 06/27/18 Blood Culture - Preliminary, Resulted NO GROWTH AFTER 1 DAY Medications Current Medications Albuterol/ Ipratropium (Duoneb) 3 ml 1X ONCE NEB Last administered on at 12:01; Start 06/27/18 at 11:15; Stop 06/27/18 at 11:18; Status DC Albuterol Sulfate (Ventolin Neb Soln) 2.5 mg 1X ONCE NEB Last administered on 06/27/18at 12:01; Start 06/27/18 at 11:15; Stop 06/27/18 at 11:18; Status DC Methylprednisolone Sodium Succinate (SOLU-Medrol 125MG VIAL) 125 mg 1X ONCE IV Last administered on 06/27/18at 12:42; Start 06/27/18 at 12:15; Stop 06/27/18 at 12:16; Status DC Iohexol (Omnipaque 350 Mg/ml) 75 ml 1X ONCE IV Last administered on 06/27/18at 12:31; Start 06/27/18 at 12:30; Stop 06/27/18 at 12:31; Status DC Info (CONTRAST GIVEN -- Rx MONITORING) 1 each PRN DAILY PRN MC SEE COMMENTS; Start 06/27/18 at 12:30; Stop 06/29/18 at 12:29 Ondansetron HCl (Zofran) 4 mg PRN Q8HRS PRN IV NAUSEA/VOMITING; Start 06/27/18 at 14:30; Stop 06/28/18 at 14:29; Status DC Acetaminophen (Tylenol) 650 mg PRN Q4HRS PRN PO FEVER; Start 06/27/18 at 14:30 ; Stop 06/28/18 at 14:29; Status DC Albuterol/ Ipratropium (Duoneb) 3 ml RTQID NEB ; Start 06/27/18 at 16:00; Stop 06/27/18 at 16:00; Status DC Ondansetron HCl (Zofran) 4 mg PRN Q6HRS PRN IV NAUSEA/VOMITING; Start 06/27/18 at 14:45 Calcium Carbonate/ Glycine (Tums) 500 mg PRN Q3HRS PRN PO UPSET STOMACH; Start 06/27/18 at 14:45 Zolpidem Tartrate (Ambien) 5 mg PRN QHS PRN PO INSOMNIA, MAY REPEAT IN 1HR; Start 06/27/18 at 14:45 Info (Non-Icu Electrolyte Protocol) 1 ea PRN DAILY PRN MC SEE COMMENTS; Start 06/27/18 at 14:45 Acetaminophen (Tylenol) 650 mg PRN Q6HRS PRN PO Headaches, Temp > 101.5F; Start 06/27/18 at 14:45 Senna/Docusate Sodium (Senna Plus) 1 tab BID PO Last administered on 06/27/18at 22:14; Start 06/27/18 at 21:00 Lactulose (Lactulose) 20 gm PRN Q12HR PRN PO CONSTIPATION; Start 06/27/18 at 14 :45 Enoxaparin Sodium (Lovenox 40mg Syringe) 30 mg Q24H SQ ; Start 06/27/18 at 21:00 ; Stop 06/28/18 at 15:48; Status DC Methylprednisolone Sodium Succinate (SOLU-Medrol 125MG VIAL) 125 mg Q8HRS IV Last administered on 06/28/18at 06:27; Start 06/27/18 at 22:00; Stop 06/28/18 at 14:17; Status DC Albuterol Sulfate (Ventolin Neb Soln) 2.5 mg PRN Q4HRS PRN NEB SHORTNESS OF BREATH; Start 06/27/18 at 14:45 Albuterol/ Ipratropium (Duoneb) 3 ml RTQID NEB Last administered on 06/29/18at 07:13; Start 06/27/18 at 16:00 Guaifenesin (Mucinex) 600 mg BID PO Last administered on 06/28/18at 20:56; Start 06/27/18 at 21:00 Guaifenesin (Robitussin Dm) 10 ml PRN Q6HRS PRN PO COUGH Last administered on at 13:44; Start 06/28/18 at 13:15 Sodium Chloride ([place] Saline Nasal) 1 jamal PRN DAILY PRN NS NASAL CONGESTION; Start 06/28/18 at 13:15 Saliva Substitute (Biotene Moisturizing Mouth) 2 spray PRN Q15MIN PRN PO DRY MOUTH; Start 06/28/18 at 13:15 Enoxaparin Sodium (Lovenox 40mg Syringe) 40 mg Q24H SQ ; Start 06/28/18 at 15:48 Active Scripts Active Amox Tr-K Clv 875-125 Mg Tab (Amoxicillin/Potassium Clav) 1 Each Tablet 1 Tab PO BID Vitals/I & O Vital Sign - Last 24 Hours 06/28/18 06/28/18 06/28/18 06/28/18 08:00 09:12 10:30 12:05 Temp 98.1 98.1 Pulse 93 Resp 20 B/P (MAP) 148/87 (107) Pulse Ox 94 95 94 O2 Delivery Nasal Cannula Nasal Cannula Nasal Cannula Nasal Cannula O2 Flow Rate 3.0 3.0 2.0 2.0 06/28/18 06/28/18 06/28/18 06/28/18 15:14 15:38 19:56 20:00 Temp 97.7 97.6 97.7 97.6 Pulse 92 89 Resp 22 20 B/P (MAP) 138/80 (99) 139/84 (102) Pulse Ox 93 94 100 O2 Delivery Nasal Cannula Nasal Cannula Nasal Cannula Nasal Cannula O2 Flow Rate 2.0 2.0 2.0 3.0 06/28/18 06/28/18 06/29/18 06/29/18 20:11 23:33 03:42 07:05 Temp 98.1 97.8 97.9 98.1 97.8 97.9 Pulse 85 73 75 Resp 20 18 20 B/P (MAP) 164/96 (118) 140/80 (100) 127/77 (94) Pulse Ox 94 97 96 95 O2 Delivery Nasal Cannula Nasal Cannula Nasal Cannula Nasal Cannula O2 Flow Rate 2.0 2.0 2.0 2.0 06/29/18 07:14 Pulse Ox 98 O2 Delivery Nasal Cannula O2 Flow Rate 2.0 Intake and Output 06/28/18 06/28/18 06/29/18 14:59 22:59 06:59 Intake Total 300 ml 2100 ml 1110 ml Balance 300 ml 2100 ml 1110 ml DEBORAH HERNANDEZ MD Jun 29, 2018 07:59
[2018-06-29 11:05] VITALS: BP 139/66
--- NOTE | 2018-06-29 11:46 | NUR ---
SW following pt. Pt was evaluated by OT and not OT needs indicated. 6 min walk ordered to evaluate home 02 needs. Will continue to follow.
--- NOTE | 2018-06-29 12:50 | PDOC ---
PULMONARY PROGRESS NOTES Subjective feels better does not want to be on steroids Vitals Vital Signs Date Time Temp Pulse Resp B/P (MAP) Pulse Ox O2 Delivery O2 Flow Rate FiO2 06/29/18 11:55 Nasal Cannula 2.0 06/29/18 11:05 98.1 86 19 139/66 (90) 99 98.1 General: Alert, No acute distress Lungs: Crackles (half way up) Cardiovascular: S1 Abdomen: Soft Neuro Exam: Alert Extremities: No Edema Skin: Warm Labs Laboratory Tests Test 06/27/18 13:50 06/28/18 11:15 06/28/18 13:48 Urine Color Yellow Urine Clarity Clear Urine pH 6.5 Urine Specific [place] >=1.030 Urine Protein Negative mg/dL (NEG-TRACE) Urine Glucose (UA) Negative mg/dL (NEG) Urine Ketones (Stick) Negative mg/dL (NEG) Urine Blood Negative (NEG) Urine Nitrite Negative (NEG) Urine Bilirubin Negative (NEG) Urine Urobilinogen Dipstick 0.2 mg/dL (0.2 mg/dL) Urine Leukocyte Esterase Negative (NEG) Urine RBC 0 /HPF (0-2) Urine WBC 0 /HPF (0-4) Urine Squamous Epithelial Cells None /LPF Urine Bacteria 0 /HPF (0-FEW) Erythrocyte Sedimentation Rate 23 (0-25) Influenza Type A Antigen Negative (NEGATIVE) Influenza Type B Antigen Negative (NEGATIVE) Laboratory Tests Test 06/28/18 13:48 Influenza Type A Antigen Negative (NEGATIVE) Influenza Type B Antigen Negative (NEGATIVE) Medications Active Scripts Medications Dose Route/Sig Max Daily Dose Days Date Category Amox Tr-K Clv 875-125 Mg Tab (Amoxicillin/Potassium Clav) 1 Each Tablet 1 Tab PO BID 03/27/17 Rx Impression . 1. Acute hypoxic respiratory failure secondary to pulmonary fibrosis. 2. Abnormal CT chest with extensive fibrotic lung disease along with honeycombing at the bases. She has mild peripheral fibrotic changes. There is some mild ground-glass infiltrates. 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 4. Likely superimposed viral pneumonia, 5. No significant history of tobacco use. Plan . RECOMMENDATIONS: 1. At this time, continue with present oxygen. She may likely need oxygen at home. We will do a 6-minute walk test at discharge. 2. sed rate not high. she does not want steroids. Won't work either/ Does not want to consider anti-fibrotic agents either. Happy with oxygen 3. PFTs.as OP 4. influenza.NEG 5. Discussed with Dr. Spaulding, discussed with RN. Likely dc home in am with O2/ DC herbal meds MIGUEL A LAMBERT MD Jun 29, 2018 12:50
[2018-06-29] MEDS: ENOXAPARIN 40 MG/0.4 ML SYRINGE. SQ SCH (15:05)
[2018-06-29 15:18] VITALS: BP 140/79
--- NOTE | 2018-06-29 16:19 | NUR ---
SW following. Pt is already on service with [facility]. Plan of dc is to home tomorrow. Pt declined HH services. [facility] Physician.
[2018-06-29 19:30] VITALS: BP 138/78
[2018-06-29 23:30] VITALS: BP 145/80
[2018-06-30 03:30] VITALS: BP 139/76
[2018-06-30 07:00] VITALS: BP 164/83
--- NOTE | 2018-06-30 07:39 | PDOC ---
PROGRESS NOTES Chief Complaint Chief Complaint Dyspnea at rest secondary to pulmonary fibrosis evident on CAT scan Arctic stenosis? Elevated d-dimer which is normal adjusted for age Hyponatremia most likely secondary to low effective circulatory volume. No clinical consequence History of Present Illness History of Present Illness 78-year-old female who comes with a history of several months duration off aggressive dyspnea and initially started on exertion and she started noticing that she could not go up and down her driveway without significant symptoms. The patient denies pleurisy she denies cold-like symptoms no cough sputum production has been reported no sick contacts, the patient denies chest pain palpitations no paroxysmal nocturnal dyspnea nor orthopnea although she refers that lately she has been sleeping on an angle since it's more comfortable for her to sleep at a 45 angle. The patient denies night sweats no lymphadenopathy. She does relate having some weight loss over the last month approximately 10 pounds. This has been unintentional and most likely is associated with a lack of appetite. Patient denies having pets at home, she was exposed to fumes in the early specifically pesticides and she used to work in the [employer]. She denies history of smoking was not exposed to secondhand smoking either. Patient was evaluated in the emergency department and findings on CAT scan revealed some interstitial lung disease reason why we have been asked to admit the patient for further evaluation by pulmonology. There is also a comment on pulmonary fibrosis which could explain certainly the symptoms at this time. Feeling improved, would like to take her home supplements and c/o dry mouth at night and occasional dry nares and epistaxis. Still SOB on even minimal movements with quick desaturations. She worked with PT well, but desaturated to 84%. Her supplements from [employer] don't appear to have been reported for pulmonary fibrosis. ESR was 23. She is anxious feels she could get home right after breakfast tomorrow Plan Quick steroid taper if ok with pulm Does not want antifibrotic agents Biotene and nasal saline Consulted pulmonology Supportive measures Reassess daily 6 minute walk test - 6 liters on exertion. 2L at rest - She is trying to find her home O2 company name DVT prophylaxis with Lovenox Ok with d/c home today Vitals Vitals Vital Signs Date Time Temp Pulse Resp B/P (MAP) Pulse Ox O2 Delivery O2 Flow Rate FiO2 06/30/18 03:30 97.7 66 20 139/76 (97) 95 Nasal Cannula 2.0 97.7 Physical Exam General: Alert, Oriented X3, Cooperative Heart: Regular rate, Normal S1, Normal S2 Lungs: Crackles (half way up) Abdomen: Normal bowel sounds Extremities: No clubbing, No cyanosis Skin: No rashes, No breakdown Assessment and Plan Assessmemt and Plan Problems Medical Problems: (1) Dyspnea Status: Acute (2) Interstitial lung disease Status: Acute Comment Review of Relevant I have reviewed the following items alyce (where applicable) has been applied. Labs Laboratory Tests Test 06/28/18 11:15 06/28/18 13:48 Erythrocyte Sedimentation Rate 23 (0-25) Influenza Type A Antigen Negative (NEGATIVE) Influenza Type B Antigen Negative (NEGATIVE) Microbiology 06/27/18 Blood Culture - Preliminary, Resulted NO GROWTH AFTER 2 DAYS Medications Current Medications Albuterol/ Ipratropium (Duoneb) 3 ml 1X ONCE NEB Last administered on at 12:01; Start 06/27/18 at 11:15; Stop 06/27/18 at 11:18; Status DC Albuterol Sulfate (Ventolin Neb Soln) 2.5 mg 1X ONCE NEB Last administered on 06/27/18at 12:01; Start 06/27/18 at 11:15; Stop 06/27/18 at 11:18; Status DC Methylprednisolone Sodium Succinate (SOLU-Medrol 125MG VIAL) 125 mg 1X ONCE IV Last administered on 06/27/18at 12:42; Start 06/27/18 at 12:15; Stop 06/27/18 at 12:16; Status DC Iohexol (Omnipaque 350 Mg/ml) 75 ml 1X ONCE IV Last administered on 06/27/18at 12:31; Start 06/27/18 at 12:30; Stop 06/27/18 at 12:31; Status DC Info (CONTRAST GIVEN -- Rx MONITORING) 1 each PRN DAILY PRN MC SEE COMMENTS; Start 06/27/18 at 12:30; Stop 06/29/18 at 12:29; Status DC Ondansetron HCl (Zofran) 4 mg PRN Q8HRS PRN IV NAUSEA/VOMITING; Start 06/27/18 at 14:30; Stop 06/28/18 at 14:29; Status DC Acetaminophen (Tylenol) 650 mg PRN Q4HRS PRN PO FEVER; Start 06/27/18 at 14:30 ; Stop 06/28/18 at 14:29; Status DC Albuterol/ Ipratropium (Duoneb) 3 ml RTQID NEB ; Start 06/27/18 at 16:00; Stop 06/27/18 at 16:00; Status DC Ondansetron HCl (Zofran) 4 mg PRN Q6HRS PRN IV NAUSEA/VOMITING; Start 06/27/18 at 14:45 Calcium Carbonate/ Glycine (Tums) 500 mg PRN Q3HRS PRN PO UPSET STOMACH; Start 06/27/18 at 14:45 Zolpidem Tartrate (Ambien) 5 mg PRN QHS PRN PO INSOMNIA, MAY REPEAT IN 1HR; Start 06/27/18 at 14:45 Info (Non-Icu Electrolyte Protocol) 1 ea PRN DAILY PRN MC SEE COMMENTS; Start 06/27/18 at 14:45 Acetaminophen (Tylenol) 650 mg PRN Q6HRS PRN PO Headaches, Temp > 101.5F; Start 06/27/18 at 14:45 Senna/Docusate Sodium (Senna Plus) 1 tab BID PO Last administered on 06/27/18at 22:14; Start 06/27/18 at 21:00 Lactulose (Lactulose) 20 gm PRN Q12HR PRN PO CONSTIPATION; Start 06/27/18 at 14 :45 Enoxaparin Sodium (Lovenox 40mg Syringe) 30 mg Q24H SQ ; Start 06/27/18 at 21:00 ; Stop 06/28/18 at 15:48; Status DC Methylprednisolone Sodium Succinate (SOLU-Medrol 125MG VIAL) 125 mg Q8HRS IV Last administered on 06/28/18at 06:27; Start 06/27/18 at 22:00; Stop 06/28/18 at 14:17; Status DC Albuterol Sulfate (Ventolin Neb Soln) 2.5 mg PRN Q4HRS PRN NEB SHORTNESS OF BREATH; Start 06/27/18 at 14:45 Albuterol/ Ipratropium (Duoneb) 3 ml RTQID NEB Last administered on 06/29/18at 18:55; Start 06/27/18 at 16:00 Guaifenesin (Mucinex) 600 mg BID PO Last administered on 06/29/18at 21:12; Start 06/27/18 at 21:00 Guaifenesin (Robitussin Dm) 10 ml PRN Q6HRS PRN PO COUGH Last administered on at 13:44; Start 06/28/18 at 13:15 Sodium Chloride ([place] Saline Nasal) 1 jamal PRN DAILY PRN NS NASAL CONGESTION; Start 06/28/18 at 13:15 Saliva Substitute (Biotene Moisturizing Mouth) 2 spray PRN Q15MIN PRN PO DRY MOUTH; Start 06/28/18 at 13:15 Enoxaparin Sodium (Lovenox 40mg Syringe) 40 mg Q24H SQ ; Start 06/28/18 at 15:48 Active Scripts Active Amox Tr-K Clv 875-125 Mg Tab (Amoxicillin/Potassium Clav) 1 Each Tablet 1 Tab PO BID Vitals/I & O Vital Sign - Last 24 Hours 06/29/18 06/29/18 06/29/18 06/29/18 08:00 11:05 11:55 15:18 Temp 98.1 98.3 98.1 98.3 Pulse 86 64 Resp 19 18 B/P (MAP) 139/66 (90) 140/79 (99) Pulse Ox 99 98 O2 Delivery Nasal Cannula Nasal Cannula Nasal Cannula Nasal Cannula O2 Flow Rate 2.0 2.0 2.0 2.0 06/29/18 06/29/18 06/29/18 06/29/18 15:24 18:56 19:30 20:10 Temp 98.3 98.3 Pulse 83 Resp 20 B/P (MAP) 138/78 (98) Pulse Ox 96 O2 Delivery Nasal Cannula Nasal Cannula Nasal Cannula Nasal Cannula O2 Flow Rate 2.0 2.0 2.0 2.0 06/29/18 06/30/18 23:30 03:30 Temp 97.9 97.7 97.9 97.7 Pulse 69 66 Resp 20 20 B/P (MAP) 145/80 (101) 139/76 (97) Pulse Ox 96 95 O2 Delivery Nasal Cannula Nasal Cannula O2 Flow Rate 2.0 2.0 Intake and Output 06/29/18 06/29/18 06/30/18 15:00 23:00 07:00 Intake Total 1400 ml 360 ml 500 ml Balance 1400 ml 360 ml [address] Chest - Abnormal CT chest with extensive fibrotic lung disease along with honeycombing at the bases. She has mild peripheral fibrotic changes. There is some mild ground-glass infiltrates. 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 DEBORAH HERNANDEZ MD Jun 30, 2018 07:39
[2018-06-30] MEDS: IPRATRPIUM/ALBUTEROL 0.5/2.5MG 3 ML NEBU. NEB SCH ×2 (07:50→11:50)
[2018-06-30] MEDS: SENNOSIDES/DOCUSATE 8.6/50MG TABLET. PO SCH (08:14)
[2018-06-30] MEDS ORDERED: LACTOBACILLUS RHAMNOSUS GG 1 CAPSULE. PO SCH (09:00)
[2018-06-30 11:00] VITALS: BP 137/81
--- NOTE | 2018-06-30 12:05 | PDOC ---
PULMONARY PROGRESS NOTES Subjective c/o stomach pain does not want to be on steroids Vitals Vital Signs Date Time Temp Pulse Resp B/P (MAP) Pulse Ox O2 Delivery O2 Flow Rate FiO2 06/30/18 11:51 96 Nasal Cannula 2.0 06/30/18 11:00 97.9 87 20 137/81 (99) 97.9 General: Alert, No acute distress Lungs: Crackles (half way up) Cardiovascular: S1 Abdomen: Soft Neuro Exam: Alert Extremities: No Edema Skin: Warm Labs Laboratory Tests Test 06/28/18 13:48 Influenza Type A Antigen Negative (NEGATIVE) Influenza Type B Antigen Negative (NEGATIVE) Medications Active Scripts Medications Dose Route/Sig Max Daily Dose Days Date Category Amox Tr-K Clv 875-125 Mg Tab (Amoxicillin/Potassium Clav) 1 Each Tablet 1 Tab PO BID 03/27/17 Rx Impression . 1. Acute hypoxic respiratory failure secondary to pulmonary fibrosis. 2. Abnormal CT chest with extensive fibrotic lung disease along with honeycombing at the bases. She has mild peripheral fibrotic changes. There is some mild ground-glass infiltrates. 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 4. Likely superimposed viral pneumonia, 5. No significant history of tobacco use. Plan . 1. At this time, continue with present oxygen. Arrange home O2 based on a 6- minute walk test result 2. sed rate not high. she does not want steroids. Won't work either/ Does not want to consider anti-fibrotic agents either. Happy with oxygen 3. PFTs.as OP 4. influenza.NEG 5. Discussed with RN. Likely dc home today or am with O2/ DC herbal meds MIGUEL A LAMBERT MD Jun 30, 2018 12:05
--- NOTE | 2018-06-30 12:25 | NUR ---
SW following pt. SW phoned and faxed updated 02 orders to [facility]. Pt now wants [facility]. Physician notified for orders.
[2018-06-30] MEDS ORDERED: SODI14.1 NS (12:54)
[2018-06-30] MEDS ORDERED: IPRA3AMP29 NEB (12:54)
--- NOTE | 2018-06-30 12:56 | DISCH ---
DISCHARGE WITH HOME HEALTH DISCHARGE INFORMATION: Discharge Date: Jun 30, 2018 Final Diagnosis: Problems Medical Problems: (1) Dyspnea Status: Acute (2) Interstitial lung disease Status: Acute Condition on Discharge: Stable CODE STATUS: Code Status: Full HOME HEALTH: Face to Face: I certify this patient is under my care and that I, or a nurse practitioner or physician's animal care assistant working with me, had a face to face encounter that meets the physician face to face encounter requirements with this patient on 06/30/18. Medical Complications: COPD Care Home For: Assess Cardiopulm Status, Medication Management Home Health Aide For: Self-care TITLE CHECKER For: Community Resources Pt Meets Homebound Status: Extreme weakness w/ amb., Limited distance walking POST DISCHARGE ORDERS: Activity Instructions for Disc: No restrictions Weight Bearing Status after Di: No restrictions DIET AFTER DISCHARGE: Regular FOLLOW-UP: Follow up with: Pulmonology - Dr. Vickey Dailey TREATMENT/EQUIPMENT ORDERS: Adaptive Equipment Issued: None Discharge Respiratory Equipmen: Oxygen (2-6 Liters), Nebulizer CERTIFICATION STATEMENT: Certification Statement: Certification Statement: Based on the above finding, I certify that this patient is confined to the home and needs intermittent half-way care, physical therapy and/or speech therapy, or continues to need occupational therapy.~ This patient is under my care, and I have initiated the establishment of the plan of care.~ This patient will be followed by myself or a community physician who will periodically review the plan of care. Home Meds Active Scripts Sodium Chloride/Aloe Vera (AYR SALINE NASAL GEL) 14.1 Gm Gel..gram., 1 QUANG NS PRN DAILY PRN for NASAL CONGESTION for 30 Days, #30 EACH Prov:DEBORAH HERNANDEZ MD 06/30/18 Ipratropium/Albuterol Sulfate (DUONEB 0.5-3(2.5) MG/3 ML) 3 Ml Ampul.neb, 3 ML NEB RTQID for Pulm Fibrosis for 30 Days, #120 EACH 2 Refills Prov:DEBORAH HERNANDEZ MD 06/30/18 Discontinued Scripts Amoxicillin/Potassium Clav (AMOX TR-K CLV 875-125 MG TAB) 1 Each Tablet, 1 TAB PO BID, #20 TAB Prov:PILLO MITCHELL DO 03/27/17 DEBORAH HERNANDEZ MD Jun 30, 2018 12:56
--- NOTE | 2018-06-30 15:18 | NUR ---
RUDY following pt. RUDY phoned and faxed orders to [facility] . They will see pt tomorrow. RUDY provided pt with [facility] 02 tanks and informed her to call [facility] once she gets home. SW notified [facility] regarding tank and increased o2 needs. Pt reported she will drive herself back home. GEORGES VASQUES.
--- NOTE | 2018-06-30 15:45 | NUR ---
Discharge Note: KILO DIEZ F 6 [facility] Discharge instructions and discharge home medications reviewed with Patient and a copy given. All questions have been answered and understanding verbalized. The following instructions and handouts were given: Diet, activity, medication list and follow up instructions provided to patient. Discontinued lines and drains: Peripheral IV discontinued and catheter intact. Patient discharged to Home w/services with[facility]
--- NOTE | 2018-07-10 21:12 | PDOC3 ---
Discharge Summary Visit Information Date of Admission: Jun 27, 2018 Date of Discharge: Jun 30, 2018 Admitting Diagnosis: ILD Final Diagnosis Problems Medical Problems: (1) Dyspnea Status: Acute (2) Interstitial lung disease Status: Acute Brief Hospital Course Allergies Allergies Coded Allergies Type Severity Reaction Last Updated Verified No Known Drug Allergies 03/27/17 No Brief Hospital Course 78-year-old female who comes with a history of several months duration off aggressive dyspnea and initially started on exertion and she started noticing that she could not go up and down her driveway without significant symptoms. The patient denies pleurisy she denies cold-like symptoms no cough sputum production has been reported no sick contacts, the patient denies chest pain palpitations no paroxysmal nocturnal dyspnea nor orthopnea although she refers that lately she has been sleeping on an angle since it's more comfortable for her to sleep at a 45 angle. The patient denies night sweats no lymphadenopathy. She does relate having some weight loss over the last month approximately 10 pounds. This has been unintentional and most likely is associated with a lack of appetite. Patient denies having pets at home, she was exposed to fumes in the early specifically pesticides and she used to work in the [employer]. She denies history of smoking was not exposed to secondhand smoking either. Patient was evaluated in the emergency department and findings on CAT scan revealed some interstitial lung disease reason why we have been asked to admit the patient for further evaluation by pulmonology. There is also a comment on pulmonary fibrosis which could explain certainly the symptoms at this time. Feeling improved, would like to take her home supplements and c/o dry mouth at night and occasional dry nares and epistaxis. Still SOB on even minimal movements with quick desaturations. She worked with PT well, but desaturated to 84%. Her supplements from [email or web address] don't appear to have been reported for pulmonary fibrosis. ESR was 23. She is anxious feels she could get home [facility] Assessment: Dyspnea at rest secondary to pulmonary fibrosis evident on CAT scan Aortic stenosis Elevated d-dimer which is normal adjusted for age Hyponatremia most likely secondary to low effective circulatory volume. No clinical consequence Plan Quick steroid taper if ok with pulm Does not want antifibrotic agents Biotene and nasal saline Consulted pulmonology Supportive measures Reassess daily 6 minute walk test - 6 liters on exertion. 2L at rest - She is trying to find her home O2 company name DVT prophylaxis with Lovenox Ok with d/c home today. Greater than 30 minutes spent on discharge including confirmation of home Discharge Information Condition at Discharge: Improved Follow Up: Weeks (2) Disposition/Orders: D/C to Home w/ HH Scheduled Ipratropium/Albuterol Sulfate (Duoneb 0.5-3(2.5) Mg/3 Ml) 3 Ml Ampul.neb, 3 ML NEB RTQID for Pulm Fibrosis for 30 Days, #120 Ref 2 Prescribed by: DEBORAH HERNANDEZ MD on 06/30/18 1254 Scheduled PRN Sodium Chloride/Aloe Vera (Eolia Saline Nasal Gel) 14.1 Gm Gel..gram., 1 QUANG NS PRN DAILY PRN for NASAL CONGESTION for 30 Days, #30 Prescribed by: DEBORAH HERNANDEZ MD on 06/30/18 8434 DEBORAH HERNANDEZ MD Jul 10, 2018 21:12
== END 2018-06-30 15:00 | disposition home health service (06) | DRG 189 ==
LOC: ER 11:02 → 6 SOUTH 14:18
PROVIDERS: ADMIT Internal Medicine; ATTEND Internal Medicine
DX: J96.01 Acute respiratory failure with hypoxia (principal); J47.0 Bronchiectasis with acute lower respiratory infection; E87.1 Hypo-osmolality and hyponatremia; J84.112 Idiopathic pulmonary fibrosis; Z98.49 Cataract extraction status, unspecified eye
CPT/HCPCS: 36415; 71045; 71275; 80053; 81001; 83880; 84484; 85025; 85379; 85610; 85651; 87040; 87804; 93005; 93306; 94618; 94640; 94760; 96374; J1650; J2930; J7613; J7620; Q9967; 97116; 97535; 99285-25

== ENCOUNTER → 2018-08-30 | Day surgery (SDC) | payer MEDICARE ==
[~2018-08-30] MED LIST changes: +ALBUTEROL SULFATE 2.5 MG/3 ML NEBU. NEB PRN; +EPINEPHrine 1 MG/ML VIAL INJ PRN; +IPRA3AMP29 NEB; +IV RINGERS,LACTATED 1000ML 1,000 ML IV SCH; +LIDOCAINE 1% Multi-Dose 20 ML VIAL. INJ PRN; +LIDOCAINE 2% VISCOUS for RT 15 ML SOLUTION. SWSW PRN; +LIDOCAINE 4% TOPICAL 50 ML SOLUTION. MM PRN; +PROPOFOL 20 ML IV ONE; +SODI14.1 NS
[2018-08-30 13:15] LABS: BASO # 0.1 x10^3/uL (0.0-0.2); BASO % 1 % (0-3); EOS # 0.3 x10^3/uL (0.0-0.7); EOS % 4 % (0-3); HEMATOCRIT 40.6 % (36.0-47.0); HEMOGLOBIN 13.5 g/dL (12.0-15.5); LYMPH # 1.4 x10^3/uL (1.0-4.8); LYMPH % 17 % (24-48); MEAN CORPUSCULAR HEMOGLOBIN 26 pg (25-35); MEAN CORPUSCULAR HGB CONC 33 g/dL (31-37); MEAN CORPUSCULAR VOLUME 77 fL (79-100); MONO # 0.7 x10^3/uL (0.0-1.1); MONO % 8 % (0-9); NEUT # 5.7 x10^3uL (1.8-7.7); NEUT % 70 % (31-73); PLATELET COUNT 407 x10^3/uL (140-400); RED CELL DISTRIBUTION WIDTH 20.4 % (11.5-14.5); WHITE BLOOD COUNT 8.2 x10^3/uL (4.0-11.0)
[2018-08-30 13:31] LABS: PROTHROMBIN TIME PATIENT 12.4 SEC (11.7-14.0)
[2018-08-30 14:01] LABS: ANISOCYTOSIS SLIGHT; MICROCYTOSIS SLIGHT; PLT ESTIMATE ADEQUATE (ADEQUATE)
--- NOTE | 2018-08-30 14:35 | HP ---
ADMIT DATE: 08/30/2018 HISTORY OF PRESENT ILLNESS: The patient is a 78-year-old, undergoing diagnostic bronchoscopy. She presented back in May with bilateral pulmonary infiltrates, shortness of breath, cough. Sputum was collected, growing out Mycobacterium avium complex. She was seen in consultation by Infectious Disease. It was recommended that she undergo a diagnostic bronchoscopy to collect additional specimen. The patient reports continued shortness of breath, cough. No fever or chills. PAST MEDICAL HISTORY: Remarkable for a previous viral pneumonia superimposed with idiopathic pulmonary fibrosis, chronic respiratory failure. She has never smoked. Recent diagnosis of Mycobacterium avium infection in sputum. SOCIAL HISTORY: She has never smoked. FAMILY HISTORY: Negative for lung disease. REVIEW OF SYSTEMS: As indicated above; otherwise, a 10-point system was reviewed and negative. PHYSICAL EXAMINATION: VITAL SIGNS: Stable. O2 saturation was greater than 92%. LUNGS: Crackles bilaterally. CARDIOVASCULAR: Regular rate and rhythm with S1, S2. No S3. ABDOMEN: Soft. EXTREMITIES: No edema. ASSESSMENT: 1. Chronic respiratory failure. 2. Idiopathic pulmonary fibrosis. 3. 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 PLAN: I reviewed the risks, benefits and alternatives to bronchoscopy. The patient is undergoing a diagnostic bronchoscopy to obtain additional specimen and make ultimate decision on treatment for MAC. DENVER DAY MD DR: RONNIE/severino JOB#: [id number] / [id number] GAYLA De La Torre MD
[2018-08-30 15:24] VITALS: BP 140/72
--- NOTE | 2018-08-30 15:51 | OP ---
DATE OF SURGERY: 08/30/2018 PROCEDURE: Bronchoscopy, bronchoalveolar lavage. INDICATIONS: The patient with persistent bilateral infiltrates, previous sputum positive for MAC, undergoing a diagnostic bronchoscopy. Risks, benefits, and alternatives reviewed with the patient, she consented. SEDATION: Please see anesthesia's notes. DESCRIPTION OF PROCEDURE: Timeout was performed prior to sedation. Vital signs and O2 saturations were maintained within normal limits throughout the procedure. The bronchoscope was passed through the right naris. The vocal cords were identified moving bilaterally without any dysfunction. The bronchoscope was passed through the vocal cords into the proximal trachea, which was normal. The right and left segments and subsegments were visualized. There were no endobronchial lesions, no purulent secretions, no mucus plugging. Bronchoalveolar lavage was performed of the right lower lobe. Likewise, a bronchoalveolar lavage was performed of the left lower lobe. FINDINGS: 1. Normal vocal cords. 2. No endobronchial lesions. 3. No purulent secretions. 4. No mucus plugging. PLAN: We will await the bilateral BAL results. The patient tolerated procedure well with no immediate complications. DENVER DAY MD DR: RONNIE/severino JOB#: [id number] / [id number]
--- NOTE | 2018-08-30 21:40 | CONS ---
DATE OF CONSULTATION: 08/30/2018 ATTENDING PHYSICIAN: Dr. Day. HISTORY OF PRESENT ILLNESS: The patient is a 78-year-old that was initially seen in consultation back in 2019 for bilateral pulmonary infiltrates, shortness of breath. She had a sputum collected that grew out nontuberculous mycobacteria. She was referred to Infectious Disease for the possibility of treating Mycobacterium avium complex. The patient is undergoing diagnostic bronchoscopy with previous Mycobacterium growing on sputum. The patient continues to have a cough mainly productive of thick green sputum at times. No fever or chills. No nausea, vomiting or diarrhea. PAST MEDICAL HISTORY: Otherwise, unremarkable except for DICTATION ENDS HERE. DENVER DAY MD DR: RONNIE/nts JOB#: [id number] / [id number]
--- NOTE | 2018-09-01 16:06 | PATHOLOGY ---
Note [facility] Accession Number: [id number] TESTS RESULT FLAG UNITS REF RANGE LAB Clinician Provided Cytology Information No. of containers..01 Other (Miscellaneous) Source: RT BAL DIAGNOSIS: RT BAL NEGATIVE FOR MALIGNANT CELLS. BRONCHIAL EPITHELIAL CELLS, PULMONARY MACROPHAGES, AND SCATTERED INFLAMMATORY CELLS ARE PRESENT. Signed out by: 02 Jose Luis Hastings MD, Pathologist NPI- [id number] Performed by: Ashok Sampson, Director Medicare Sales ([facility]) Gross description: 01 5ML, PINK, CLOUDY /LCS FLAG LEGEND: L-Low Normal,H-High Normal,LL-Alert Low,HH-Alert High <-Panic Low,>-Panic High,A-Abnormal,AA-Critical Abnormal Performed at: [address] [place] [address] Kb Lawler MD, 02 [facility] [address] [place] [address] Jose Luis Hastings MD, Specimen Comment: A courtesy copy of this report has been sent to Specimen Comment: [phone], . Specimen Comment: Report sent to / DR ELIZABETH Specimen Comment: A duplicate report has been generated due to demographic updates. Performed at: [address] [place] [address] [address], [place], [place] [id number] MD Kb Lawler MD Phone: [phone]
--- NOTE | 2018-09-01 16:06 | PATHOLOGY ---
Note [facility] Accession Number: [id number] TESTS RESULT FLAG UNITS REF RANGE LAB Clinician Provided Cytology Information No. of containers..01 Other (Miscellaneous) Source: LT BAL DIAGNOSIS: LT BAL NEGATIVE FOR MALIGNANT CELLS. BRONCHIAL EPITHELIAL CELLS, PULMONARY MACROPHAGES, AND SCATTERED INFLAMMATORY CELLS PRESENT. Signed out by: 02 Jose Luis Hastings MD, Pathologist NPI- [id number] Performed by: Ashok Sampson, Superintendent Overhead Distribution ([facility]) Gross description: 01 5ML, OPAQUE PINK, CLEAR /LCS FLAG LEGEND: L-Low Normal,H-High Normal,LL-Alert Low,HH-Alert High <-Panic Low,>-Panic High,A-Abnormal,AA-Critical Abnormal Performed at: [address] [place] [address] Kb Lawler MD, 02 [facility] [address] [place] [address] Jose Luis Hastings MD, Specimen Comment: A courtesy copy of this report has been sent to Specimen Comment: [phone], . Specimen Comment: Report sent to / DR ELIZABETH Specimen Comment: A duplicate report has been generated due to demographic updates. Performed at: [address] [place] [address] [address], [place], [place] [id number] MD Kb Lawler MD Phone: [phone]
== END | disposition home or self-care (01) ==
LOC: SURG 12:08
PROVIDERS: ATTEND Internal Medicine Pulmonary Disease
DX: J84.112 Idiopathic pulmonary fibrosis (principal); J96.10 Chronic respiratory failure, unspecified whether with hypoxia or hypercapnia; Z91.09 Other allergy status, other than to drugs and biological substances; E78.5 Hyperlipidemia, unspecified; J44.9 Chronic obstructive pulmonary disease, unspecified; Z98.49 Cataract extraction status, unspecified eye; Z96.1 Presence of intraocular lens; Z98.890 Other specified postprocedural states
CPT/HCPCS: 31624; 36415; 85025; 85610; 87070; 87102; 87116; 87205; 88112; 94070; 94640; J2704; J7613

== ENCOUNTER 2018-09-08 13:07 | Inpatient (IN) | payer MEDICARE ==
[~2018-09-08] VITALS: Ht 154.9 cm; Wt 43.1 kg
[~2018-09-08 13:07] MED LIST changes: -ALBUTEROL SULFATE 2.5 MG/3 ML NEBU. NEB PRN; -EPINEPHrine 1 MG/ML VIAL INJ PRN; -IV RINGERS,LACTATED 1000ML 1,000 ML IV SCH; -LIDOCAINE 1% Multi-Dose 20 ML VIAL. INJ PRN; -LIDOCAINE 2% VISCOUS for RT 15 ML SOLUTION. SWSW PRN; -LIDOCAINE 4% TOPICAL 50 ML SOLUTION. MM PRN; -PROPOFOL 20 ML IV ONE
[2018-09-08] MEDS ORDERED: IV NORMAL SALINE 1000ML BAG 1,000 ML IV SCH (13:26)
[2018-09-08 13:33] LABS: HEMATOCRIT 41.4 % (36.0-47.0); HEMOGLOBIN 13.6 g/dL (12.0-15.5); RED BLOOD COUNT 5.35 x10^6/uL (3.50-5.40); RED CELL DISTRIBUTION WIDTH 19.3 % (11.5-14.5); WHITE BLOOD COUNT 8.8 x10^3/uL (4.0-11.0)
--- NOTE | 2018-09-08 13:34 | PHYS DOC ---
Past Medical History Past Medical History: Unknown Additional Past Medical Histor: PT DENIES HOME MEDS, STATES SHE HAS AN "UNKNOWN LUNG INFECTION" Past Surgical History: Other Additional Past Surgical Histo: EGD, cataracts Alcohol Use: None Drug Use: None Adult General Chief Complaint Chief Complaint: DIZZY/LIGHT HEADED HPI HPI Patient is a 78-year-old female who presents with acute onset of dizziness that started at about noon. She states that the dizziness felt like she might faint but states that when she got up to walk, she stumbled and fell and states that she tried to get up and walk again and stumbled and fell. Patient states that her balance is completely off and she is not able to even walk when she is holding onto something. She denies any nausea or vomiting. She also denies any chest pain or shortness of breath. Review of Systems Review of Systems Constitutional: Denies fever or chills [] Respiratory: Denies cough or shortness of breath [] Cardiovascular: No additional information not addressed in HPI [] GI: Denies abdominal pain, nausea, vomiting or diarrhea [] Integument: Denies rash or skin lesions [] Neurologic: Denies headache, focal weakness or sensory changes. Complains of dizziness with ataxic gait. [] All other systems were reviewed and found to be within normal limits, except as documented in this note. Current Medications Current Medications Current Medications Medications (Trade) Dose Ordered Sig/Sugar Start Time Stop Time Status Last Admin Dose Admin Aspirin (Josemanuel Aspirin) 325 mg 1X ONCE 09/08/18 15:30 09/08/18 15:31 UNV Info (CONTRAST GIVEN -- Rx MONITORING) 1 each PRN DAILY PRN 09/08/18 14:30 09/10/18 14:29 Iohexol (Omnipaque 350 Mg/ml) 75 ml 1X ONCE 09/08/18 14:30 09/08/18 14:31 DC 09/08/18 14:39 75 ML Sodium Chloride 1,000 ml @ 100 mls/hr Q10H 09/08/18 13:26 09/08/18 23:25 09/08/18 14:07 100 MLS/HR Allergies Allergies Allergies Coded Allergies Type Severity Reaction Last Updated Verified No Known Drug Allergies 08/30/18 No Physical Exam Physical Exam Constitutional: Well developed, well nourished, no acute distress, non-toxic appearance. [] HENT: Normocephalic, atraumatic, bilateral external ears normal, oropharynx moist, no oral exudates, nose normal. [] Eyes: PERRLA, EOMI, conjunctiva normal, no discharge. [] Neck: Normal range of motion, no tenderness, supple. [] Cardiovascular: Regular rate and rhythm[] Lungs & Thorax: Bilateral breath sounds clear to auscultation [] Abdomen: Bowel sounds normal, soft, no tenderness. [] Skin: Warm, dry, no erythema, no rash. [] Extremities: No tenderness, no cyanosis, no clubbing, ROM intact, no edema. [] Neurologic: Alert and oriented X 3, normal motor function, normal sensory function, cranial nerves II through XII are grossly intact. [] Current Patient Data Vital Signs Vital Signs Date Time Temp Pulse Resp B/P (MAP) Pulse Ox O2 Delivery O2 Flow Rate FiO2 09/08/18 14:48 82 97 09/08/18 13:07 98.2 24 158/73 (101) Nasal Cannula 4.0 98.2 Lab Values Laboratory Tests Test 09/08/18 13:21 White Blood Count 8.8 x10^3/uL (4.0-11.0) Red Blood Count 5.35 x10^6/uL (3.50-5.40) Hemoglobin 13.6 g/dL (12.0-15.5) Hematocrit 41.4 % (36.0-47.0) Mean Corpuscular Volume 77 fL (79-100) L Mean Corpuscular Hemoglobin 25 pg (25-35) Mean Corpuscular Hemoglobin Concent 33 g/dL (31-37) Red Cell Distribution Width 19.3 % (11.5-14.5) H Platelet Count 416 x10^3/uL (140-400) H Prothrombin Time 13.4 SEC (11.7-14.0) Prothrombin Time INR 1.1 (0.8-1.1) PTT 29 SEC (24-38) Sodium Level 134 mmol/L (136-145) L Potassium Level 4.6 mmol/L (3.5-5.1) Chloride Level 95 mmol/L (98-107) L Carbon Dioxide Level 32 mmol/L (21-32) Anion Gap 7 (6-14) Blood Urea Nitrogen 14 mg/dL (7-20) Creatinine 0.7 mg/dL (0.6-1.0) Estimated GFR (Cockcroft-Gault) 80.9 Glucose Level 188 mg/dL (70-99) H Calcium Level 8.8 mg/dL (8.5-10.1) Troponin I Quantitative < 0.017 ng/mL (0.000-0.055) Laboratory Tests 09/08/18 13:21 Laboratory Tests 09/08/18 13:21 EKG EKG [] Interpretation Time: EKG demonstrates normal sinus rhythm with rate of 89. Radiology/Procedures Radiology/Procedures [] Impressions: CT CODE STROKE HEAD WO History: Dizziness Comparison: None. Technique: Noncontrast CT imaging was performed of the head. Exposure: One or more of the following individualized dose reduction techniques were utilized for this examination: 1. Automated exposure control 2. Adjustment of the mA and/or kV according to patient size 3. Use of iterative reconstruction technique. Findings: No acute extra-axial or parenchymal hemorrhage is identified. There is no significant intra-axial mass effect, midline shift, or extra-axial fluid collection. The ramirez-white differentiation of the major vascular territories is preserved. There is some scattered at least mild ill-defined low-density of the supratentorial parenchyma bilaterally including of the bilateral basal ganglia greater on the right. The ventricles, sulci, and cisterns are within normal limits in size and configuration. The mastoid air cells and the visualized paranasal sinuses are aerated. No acute calvarial abnormality is identified. There is atherosclerotic calcification of the carotid siphons bilaterally. Impression: 1. No acute intracranial hemorrhage is identified. There is some scattered ill-defined low-density of the supratentorial parenchyma probably due to chronic microvascular ischemic disease in a patient this age. If there is suspicion for evolving or acute ischemia, MRI or CT follow-up may be beneficial. FOR INTERNAL CODING PURPOSES Critical result: Findings discussed with Dr. Peter at 09/08/2018 1:37 PM. RESULT CODE: (C) Electronically signed by: Arthur Bosch MD (09/08/2018 1:40 PM) [facility] Course & Med Decision Making Course & Med Decision Making Pertinent Labs and Imaging studies reviewed. (See chart for details) [] Dragon Disclaimer Dragon Disclaimer This electronic medical record was generated, in whole or in part, using a voice recognition dictation system. Departure Departure Impression: Primary Impression: Dizziness Additional Impression: Ataxia Disposition: 09 ADMITTED INPATIENT Admitting Physician: Kulwinder Butler Condition: IMPROVED Referrals: GAYLA ELIZABETH MD (PCP) Problem Qualifiers MOON PETER Jr. DO September 08, 2018 13:34
[2018-09-08 13:43] LABS: PROTHROMBIN TIME PATIENT 13.4 SEC (11.7-14.0)
--- NOTE | 2018-09-08 13:43 | RAD ---
CT CODE STROKE HEAD WO History: Dizziness Comparison: None. Technique: Noncontrast CT imaging was performed of the head. Exposure: One or more of the following individualized dose reduction techniques were utilized for this examination: 1. Automated exposure control 2. Adjustment of the mA and/or kV according to patient size 3. Use of iterative reconstruction technique. Findings: No acute extra-axial or parenchymal hemorrhage is identified. There is no significant intra-axial mass effect, midline shift, or extra-axial fluid collection. The ramirez-white differentiation of the major vascular territories is preserved. There is some scattered at least mild ill-defined low-density of the supratentorial parenchyma bilaterally including of the bilateral basal ganglia greater on the right. The ventricles, sulci, and cisterns are within normal limits in size and configuration. The mastoid air cells and the visualized paranasal sinuses are aerated. No acute calvarial abnormality is identified. There is atherosclerotic calcification of the carotid siphons bilaterally. Impression: 1. No acute intracranial hemorrhage is identified. There is some scattered ill-defined low-density of the supratentorial parenchyma probably due to chronic microvascular ischemic disease in a patient this age. If there is suspicion for evolving or acute ischemia, MRI or CT follow-up may be beneficial. FOR INTERNAL CODING PURPOSES Critical result: Findings discussed with Dr. Peter at 09/08/2018 1:37 PM. RESULT CODE: (C) Electronically signed by: Arthur Bosch MD (09/08/2018 1:40 PM) [facility]
--- NOTE | 2018-09-08 13:50 | RAD ---
EXAM: CHEST 1 VIEW History: Dizziness, ataxia COMPARISON: 06/27/2018 TECHNIQUE: Single portable radiograph of the chest FINDINGS: The cardiac silhouette is unremarkable. There is diffuse interstitial lung markings identified throughout the bilateral lungs could be chronic diffuse interstitial lung markings. Patchy bibasilar lung airspace opacities likely atelectasis or infiltrates.. IMPRESSION: Diffuse bilateral interstitial lung markings likely chronic interstitial changes or fibrosis with bibasilar lung airspace opacities likely atelectasis or infiltrates. Electronically signed by: Amaury Pedersen MD (09/08/2018 1:47 PM) [facility]
--- NOTE | 2018-09-08 14:10 | PDOC1 ---
History and Physical Date of Admission Date of Admission DATE: 09/08/18 TIME: 14:10 Identification/Chief Complaint Chief Complaint seen in er , 78-year-old female who presents with acute onset of dizziness that started at about noon. She states that the dizziness felt like she might faint but states that when she got up to walk, she stumbled and fell and states that she tried to get up and walk again and stumbled and fell. Patient states that her balance is completely off and she is not able to even walk She denies any nausea or vomiting. She also denies any chest pain or shortness of breath. Past Medical History Past Medical History Past Medical History Past Medical History: Unknown Additional Past Medical Histor: PT DENIES HOME MEDS, STATES SHE HAS AN "UNKNOWN LUNG INFECTION" Past Surgical History: Other Additional Past Surgical Histo: EGD, cataracts Alcohol Use: None Drug Use: None family hx htn Cardiovascular: No pertinent hx Pulmonary: No pertinent hx GI: No pertinent hx Heme/Onc: No pertinent hx Hepatobiliary: No pertinent hx Psych: No pertinent hx Rheumatologic: No pertinent hx Infectious disease: No pertinent hx Renal/: No pertinent hx Endocrine: No pertinent hx Dermatology: No pertinent hx Past Surgical History Past Surgical History: No pertinent history Family History Family History: High Cholestrol, Other Social History Smoke: No ALCOHOL: rare Drugs: None Current Medications Current Medications Current Medications Sodium Chloride 1,000 ml @ 100 mls/hr Q10H IV Last administered on 09/08/18at 14:07; Start 09/08/18 at 13:26; Stop 09/08/18 at 23:25 Active Scripts Active [place] Saline Nasal Gel (Sodium Chloride/Aloe Vera) 14.1 Gm Gel..gram. 1 [place] NS PRN DAILY PRN 30 Days Duoneb 0.5-3(2.5) Mg/3 Ml (Albuterol/Ipratropium) 3 Ml Ampul.neb 3 Ml NEB RTQID 30 Days Allergies Allergies: Coded Allergies: No Known Drug Allergies (Unverified , 08/30/18) ROS Review of System Review of Systems Review of Systems Constitutional: Denies fever or chills [] Respiratory: Denies cough or shortness of breath [] Cardiovascular: No additional information not addressed in HPI [] GI: Denies abdominal pain, nausea, vomiting or diarrhea [] Integument: Denies rash or skin lesions [] Neurologic: Denies headache, focal weakness or sensory changes. Complains of dizziness with ataxic gait. [] 14 pt systems were reviewed and found to be within normal limits, except as documented . PSYCHOLOGICAL ROS: YES: Anxiety Hematological and Lymphatic: No: Bleeding Problems, Blood Clots, Blood Transfusions, Brusing, Night Sweats, Pallor, Swollen Lymph Nodes, Other ENDOCRINE: No: Breast Changes, Galactorrhea, Hair Pattern Changes, Hot Flashes, Malaise/lethargy, Mood Swings, Palpitations, Polydipsia/polyuria, Skin Changes, Temperature Intolerance, Unexpected Weight Changes, Other Musculoskeletal: Yes Gait Disturbance Neurological: Yes Dizziness, Yes Gait Disturbance Skin: Yes Dry Skin Physical Exam Physical Exam Physical Exam Physical Exam Constitutional: Well developed, well nourished, mild acute distress, non-toxic appearance. [] HENT: Normocephalic, atraumatic, bilateral external ears normal, oropharynx moist, no oral exudates, nose normal. [] Eyes: PERRLA, EOMI, conjunctiva normal, no discharge. [] Neck: Normal range of motion, no tenderness, supple. [] Cardiovascular: Regular rate and rhythm[] Lungs & Thorax: Bilateral breath sounds clear to auscultation [] Abdomen: Bowel sounds normal, soft, no tenderness. [] Skin: Warm, dry, no erythema, no rash. [] Extremities: No tenderness, no cyanosis, no clubbing, ROM intact, no edema. [] Neurologic: Alert and oriented X 3, ataxic gait , normal sensory function, cranial nerves II through XII are grossly intact. [] General: mild distress HEENT: EOMI Lungs: Clear to auscultation, Normal air movement Heart: RRR, no thrills Breasts: Not examined Abdomen: Normal bowel sounds, Soft Rectal Exam: not examined PELVIC: Examination not indicated Extremities: No cyanosis Skin: No breakdown Neuro: Normal speech, Cranial nerves 3-12 NL Psych/Mental Status: Mental status NL, Mood NL Vitals Vitals Vital Signs Date Time Temp Pulse Resp B/P (MAP) Pulse Ox O2 Delivery O2 Flow Rate FiO2 09/08/18 13:07 98.2 98 24 158/73 (101) 95 Nasal Cannula 4.0 98.2 Labs Labs Laboratory Tests Test 09/08/18 13:21 White Blood Count 8.8 x10^3/uL (4.0-11.0) Red Blood Count 5.35 x10^6/uL (3.50-5.40) Hemoglobin 13.6 g/dL (12.0-15.5) Hematocrit 41.4 % (36.0-47.0) Mean Corpuscular Volume 77 fL (79-100) Mean Corpuscular Hemoglobin 25 pg (25-35) Mean Corpuscular Hemoglobin Concent 33 g/dL (31-37) Red Cell Distribution Width 19.3 % (11.5-14.5) Platelet Count 416 x10^3/uL (140-400) Prothrombin Time 13.4 SEC (11.7-14.0) Prothromb Time International Ratio 1.1 (0.8-1.1) Activated Partial Thromboplast Time 29 SEC (24-38) Laboratory Tests Test 09/08/18 13:21 White Blood Count 8.8 x10^3/uL (4.0-11.0) Red Blood Count 5.35 x10^6/uL (3.50-5.40) Hemoglobin 13.6 g/dL (12.0-15.5) Hematocrit 41.4 % (36.0-47.0) Mean Corpuscular Volume 77 fL (79-100) Mean Corpuscular Hemoglobin 25 pg (25-35) Mean Corpuscular Hemoglobin Concent 33 g/dL (31-37) Red Cell Distribution Width 19.3 % (11.5-14.5) Platelet Count 416 x10^3/uL (140-400) Prothrombin Time 13.4 SEC (11.7-14.0) Prothromb Time International Ratio 1.1 (0.8-1.1) Activated Partial Thromboplast Time 29 SEC (24-38) Images Images MITRAL VALVE The mitral valve is thickened but opens well. There is no evidence of mitral valve prolapse. There is no mitral valve stenosis. Doppler and Color Flow revealed trace mitral valve regurgitation. TRICUSPID VALVE The tricuspid valve is normal in structure and function. Doppler and Color Flow revealed trace tricuspid regurgitation. There is no tricuspid valve stenosis. PULMONIC VALVE The pulmonic valve is not well visualized. Doppler and Color Flow revealed no pulmonic valvular regurgitation. GREAT VESSELS The aortic root is normal in size. The IVC is normal in size and collapses >50% with inspiration. PERICARDIAL EFFUSION There is no evidence of significant pericardial effusion. Critical Notification Critical Value: No <Conclusion> The left ventricular systolic function is normal. The Ejection Fraction is 60%. There is normal LV segmental wall motion. Transmitral Doppler flow pattern is Grade I-abnormal relaxation pattern. There is mild aortic valvular stenosis. Trace mitral valve regurgitation. Trace tricuspid regurgitation. There is no evidence of significant pericardial effusion. Signed by : Kishor Denis, Electronically Approved : 06/28/2018 10:30:51 STATUS: PRE ER ORD. PHYSICIAN: MOON GRESHAM Jr. DO REASON: acute dizziness; ataxia-INJ 75ML OMNI 350 NO PREV PROCEDURE: CTA HEAD/NECK - CODE STROKE Examination: CT angiography head and neck with IV contrast COMPARISON: CT head same day exam History: Code stroke, acute dizziness, ataxia. TECHNIQUE: Axial CT images of the head was performed without contrast. Axial CT angiographic images of the head and neck were performed with IV contrast. Coronal and sagittal 3-D MIP reformats are performed. 3-D Volumetric reformats of the carotids and [place] were performed. Exposure: One or more of the following individualized dose reduction techniques were utilized for this examination: 1. Automated exposure control 2. Adjustment of the mA and/or kV according to patient size 3. Use of iterative reconstruction technique Stenosis calculations for CT, MR, and conventional angiography are based upon measurements of the distal ICA diameter in accordance with the NASCET methodology. Stenosis calculations for carotid ultrasound studies are derived from validated velocity criteria which are known to correlate with the NASCET methodology. FINDINGS: The visualized great vessels from the arch of the aorta grossly appears unremarkable. Partially visualized mild aortic atherosclerosis. The bilateral common carotid arteries, are patent. There is mild atherosclerotic plaque identified in the left carotid bulb. The bilateral internal carotid arteries are patent. The petrous portion of the bilateral internal carotid arteries are patent. There is mild atherosclerotic plaque identified in the bilateral cavernous internal carotid arteries. The bilateral middle cerebral arteries, anterior cerebral arteries are patent. The bilateral vertebral arteries are patent. The basilar artery, posterior cerebral arteries are patent. Apical lung scarring changes identified. Small hypodensity identified in the thyroid gland particularly in the left lobe of the largest measuring 9 mm likely thyroid nodules. Mild degenerative changes cervical spine. IMPRESSION: 1. No evidence of hemodynamically significant stenosis or occlusive thrombus identified in the major cervical and intracranial arteries. 2. Mild atherosclerotic calcifications identified in the cavernous internal carotid arteries. 3. Thyroid nodules with the largest measuring 9 mm in the left lower thyroid gland. Electronically signed by: Amaury Pedersen MD (09/08/2018 3:22 PM) [id number] DICTATED and SIGNED BY: AMAURY PEDERSEN MD DATE: 09/08/18 1522 VTE Prophylaxis Ordered VTE Prophylaxis Devices: Yes VTE Pharmacological Prophylaxi: Yes Assessment/Plan Assessment/Plan IMPRESSION: 1. No evidence of hemodynamically significant stenosis or occlusive thrombus identified in the major cervical and intracranial arteries. 2. DIZZINESS WITH ATAXIA 3. Dyspnea at rest secondary to pulmonary fibrosis evident on recent CAT scan 4. Aortic stenosis//// mild aortic valvular stenosis. PLAN Neurology consult mri head neurochecks q 4 hrs home meds dvt prophylaxis asa FLP ECHO 72 min pt exam, chart review, > 50% of time spent with exam, chart review, pt care coordination NICHOLE ARGUETA MD September 08, 2018 14:10
[2018-09-08 14:20] LABS: CALCIUM 8.8 mg/dL (8.5-10.1); CREATININE 0.7 mg/dL (0.6-1.0); GFR 80.9; POTASSIUM 4.6 mmol/L (3.5-5.1)
[2018-09-08] MEDS ORDERED: IOHEXOL 350 MG/ML 100 ML VIAL. IV ONE (14:30)
[2018-09-08] MEDS ORDERED: CONTRAST GIVEN. MC PRN (14:30)
--- NOTE | 2018-09-08 14:54 | EKG ---
[facility] [address] [place] [address] Test Date: 2018-09-08 Test Time: 13:16:26 Pat Name: KILO DIEZ Department: Room: Gender: F Garment Folder: : [phone] Requested By: MOON GRESHAM Order Number: [id number] Reading MD: Mati Lane MD Measurements Intervals [place] Rate: 89 P: 14 [place]: 204 QRS: -7 QRSD: 70 T: 40 QT: 342 QTc: 417 Interpretive Statements SINUS RHYTHM NON-SPECIFIC ST/T CHANGES Electronically Signed On 09-12-2018 14:03:[address] MD
--- NOTE | 2018-09-08 15:25 | RAD ---
Examination: CT angiography head and neck with IV contrast COMPARISON: CT head same day exam History: Code stroke, acute dizziness, ataxia. TECHNIQUE: Axial CT images of the head was performed without contrast. Axial CT angiographic images of the head and neck were performed with IV contrast. Coronal and sagittal 3-D MIP reformats are performed. 3-D Volumetric reformats of the carotids and [place] were performed. Exposure: One or more of the following individualized dose reduction techniques were utilized for this examination: 1. Automated exposure control 2. Adjustment of the mA and/or kV according to patient size 3. Use of iterative reconstruction technique Stenosis calculations for CT, MR, and conventional angiography are based upon measurements of the distal ICA diameter in accordance with the NASCET methodology. Stenosis calculations for carotid ultrasound studies are derived from validated velocity criteria which are known to correlate with the NASCET methodology. FINDINGS: The visualized great vessels from the arch of the aorta grossly appears unremarkable. Partially visualized mild aortic atherosclerosis. The bilateral common carotid arteries, are patent. There is mild atherosclerotic plaque identified in the left carotid bulb. The bilateral internal carotid arteries are patent. The petrous portion of the bilateral internal carotid arteries are patent. There is mild atherosclerotic plaque identified in the bilateral cavernous internal carotid arteries. The bilateral middle cerebral arteries, anterior cerebral arteries are patent. The bilateral vertebral arteries are patent. The basilar artery, posterior cerebral arteries are patent. Apical lung scarring changes identified. Small hypodensity identified in the thyroid gland particularly in the left lobe of the largest measuring 9 mm likely thyroid nodules. Mild degenerative changes cervical spine. IMPRESSION: 1. No evidence of hemodynamically significant stenosis or occlusive thrombus identified in the major cervical and intracranial arteries. 2. Mild atherosclerotic calcifications identified in the cavernous internal carotid arteries. 3. Thyroid nodules with the largest measuring 9 mm in the left lower thyroid gland. Electronically signed by: Amaury Pedersen MD (09/08/2018 3:22 PM) [id number]
[2018-09-08 15:29] LABS: BILIRUBIN,URINE NEGATIVE (NEG); CLARITY,URINE CLEAR; COLOR,URINE YELLOW; NITRITE,URINE NEGATIVE (NEG); PROTEIN,URINE NEGATIVE (NEG-TRACE); UROBILINOGEN,URINE 0.2 mg/dL (0.2 mg/dL)
[2018-09-08] MEDS ORDERED: ASPIRIN 325 MG TABLET PO ONE (15:30)
[2018-09-08 15:36] LABS: BACTERIA,URINE 0 /HPF (0-FEW); RBC,URINE 0 /HPF (0-2); SQUAMOUS EPITHELIAL CELL,UR FEW /LPF; WBC,URINE 0 /HPF (0-4)
[2018-09-08] MEDS ORDERED: ASPIRIN CHEWABLE 81 MG TABLET. PO ONE (15:45)
[2018-09-08] MEDS ORDERED: SODIUM CHL/ALOE VERA NASAL GEL 14.1GM TUBE. NS PRN (15:45)
[2018-09-08] MEDS: IPRATRPIUM/ALBUTEROL 0.5/2.5MG 3 ML NEBU. NEB SCH ×2 (16:00→20:00)
[2018-09-08 16:55] VITALS: BP 169/85
--- NOTE | 2018-09-08 17:05 | NUR ---
Pt arrives via gurney from ED. Report given by CAPRICE Vivar. Pt A&O x4 c/o pain 0. Pt son at bedside. Pt currently on 4L O2. Pt laying in bed with call light in reach, son at bedside. Admission requirements in progress.
[2018-09-08 19:00] VITALS: BP 150/87
[2018-09-08] MEDS: ATORVASTATIN CALCIUM 20 MG TABLET PO SCH (21:00)
[2018-09-08] MEDS: ENOXAPARIN 40 MG/0.4 ML SYRINGE. SQ SCH (21:00)
[2018-09-08 23:00] VITALS: BP 148/91
[2018-09-09 03:00] VITALS: BP 128/70
[2018-09-09 07:00] VITALS: BP 142/75
[2018-09-09 07:06] LABS: BASO # 0.1 x10^3/uL (0.0-0.2); BASO % 1 % (0-3); EOS # 0.3 x10^3/uL (0.0-0.7); EOS % 5 % (0-3); HEMATOCRIT 39.6 % (36.0-47.0); HEMOGLOBIN 12.7 g/dL (12.0-15.5); LYMPH # 1.6 x10^3/uL (1.0-4.8); LYMPH % 21 % (24-48); MEAN CORPUSCULAR HEMOGLOBIN 25 pg (25-35); MEAN CORPUSCULAR HGB CONC 32 g/dL (31-37); MEAN CORPUSCULAR VOLUME 77 fL (79-100); MONO # 0.8 x10^3/uL (0.0-1.1); MONO % 10 % (0-9); NEUT # 4.7 x10^3uL (1.8-7.7); NEUT % 63 % (31-73); PLATELET COUNT 407 x10^3/uL (140-400); RED BLOOD COUNT 5.12 x10^6/uL (3.50-5.40); RED CELL DISTRIBUTION WIDTH 18.9 % (11.5-14.5); WHITE BLOOD COUNT 7.5 x10^3/uL (4.0-11.0)
[2018-09-09] MEDS: IPRATRPIUM/ALBUTEROL 0.5/2.5MG 3 ML NEBU. NEB SCH ×4 (07:41→20:00)
[2018-09-09 07:42] LABS: CALCIUM 8.5 mg/dL (8.5-10.1); CREATININE 0.5 mg/dL (0.6-1.0); GFR 119.3; POTASSIUM 3.9 mmol/L (3.5-5.1)
[2018-09-09 07:45] LABS: ALBUMIN 2.6 g/dL (3.4-5.0); ALBUMIN/GLOBULIN RATIO 0.6 (1.0-1.7); TOTAL BILIRUBIN 0.2 mg/dL (0.2-1.0); TOTAL PROTEIN 6.7 g/dL (6.4-8.2)
--- NOTE | 2018-09-09 09:59 | PDOC ---
PROGRESS NOTES Chief Complaint Chief Complaint syncope weakness, ataxia, dizzyness recent hypoxia Dyspnea at rest secondary to pulmonary fibrosis, recent bronch, hypxoia, on 2 litersr mild aortic stenosis History of Present Illness History of Present Illness consult pulm, recent bronch on 08/30, Dr. Miller MRI today neuro consult, pulm issues need addressed Vitals Vitals Vital Signs Date Time Temp Pulse Resp B/P (MAP) Pulse Ox O2 Delivery O2 Flow Rate FiO2 09/09/18 07:00 97.5 69 18 142/75 (97) 95 Nasal Cannula 4.0 97.5 Physical Exam General: Alert, Oriented X3, Cooperative, No acute distress, mild distress Heart: Regular rate Lungs: Crackles, Other (lmited vol) Abdomen: Normal bowel sounds, Soft Extremities: No cyanosis Skin: No breakdown Labs LABS Laboratory Tests Test 09/08/18 13:21 09/08/18 13:55 09/09/18 06:30 White Blood Count 8.8 x10^3/uL (4.0-11.0) 7.5 x10^3/uL (4.0-11.0) Red Blood Count 5.35 x10^6/uL (3.50-5.40) 5.12 x10^6/uL (3.50-5.40) Hemoglobin 13.6 g/dL (12.0-15.5) 12.7 g/dL (12.0-15.5) Hematocrit 41.4 % (36.0-47.0) 39.6 % (36.0-47.0) Mean Corpuscular Volume 77 fL (79-100) 77 fL (79-100) Mean Corpuscular Hemoglobin 25 pg (25-35) 25 pg (25-35) Mean Corpuscular Hemoglobin Concent 33 g/dL (31-37) 32 g/dL (31-37) Red Cell Distribution Width 19.3 % (11.5-14.5) 18.9 % (11.5-14.5) Platelet Count 416 x10^3/uL (140-400) 407 x10^3/uL (140-400) Prothrombin Time 13.4 SEC (11.7-14.0) Prothromb Time International Ratio 1.1 (0.8-1.1) Activated Partial Thromboplast Time 29 SEC (24-38) Sodium Level 134 mmol/L (136-145) 138 mmol/L (136-145) Potassium Level 4.6 mmol/L (3.5-5.1) 3.9 mmol/L (3.5-5.1) Chloride Level 95 mmol/L (98-107) 101 mmol/L (98-107) Carbon Dioxide Level 32 mmol/L (21-32) 31 mmol/L (21-32) Anion Gap 7 (6-14) 6 (6-14) Blood Urea Nitrogen 14 mg/dL (7-20) 9 mg/dL (7-20) Creatinine 0.7 mg/dL (0.6-1.0) 0.5 mg/dL (0.6-1.0) Estimated GFR (Cockcroft-Gault) 80.9 119.3 Glucose Level 188 mg/dL (70-99) 111 mg/dL (70-99) Calcium Level 8.8 mg/dL (8.5-10.1) 8.5 mg/dL (8.5-10.1) Troponin I Quantitative < 0.017 ng/mL (0.000-0.055) Urine Collection Type Void Urine Color Yellow Urine Clarity Clear Urine pH 6.0 Urine Specific [place] 1.015 Urine Protein Negative mg/dL (NEG-TRACE) Urine Glucose (UA) Negative mg/dL (NEG) Urine Ketones (Stick) Negative mg/dL (NEG) Urine Blood Negative (NEG) Urine Nitrite Negative (NEG) Urine Bilirubin Negative (NEG) Urine Urobilinogen Dipstick 0.2 mg/dL (0.2 mg/dL) Urine Leukocyte Esterase Negative (NEG) Urine RBC 0 /HPF (0-2) Urine WBC 0 /HPF (0-4) Urine Squamous Epithelial Cells Few /LPF Urine Bacteria 0 /HPF (0-FEW) Neutrophils (%) (Auto) 63 % (31-73) Lymphocytes (%) (Auto) 21 % (24-48) Monocytes (%) (Auto) 10 % (0-9) Eosinophils (%) (Auto) 5 % (0-3) Basophils (%) (Auto) 1 % (0-3) Neutrophils # (Auto) 4.7 x10^3uL (1.8-7.7) Lymphocytes # (Auto) 1.6 x10^3/uL (1.0-4.8) Monocytes # (Auto) 0.8 x10^3/uL (0.0-1.1) Eosinophils # (Auto) 0.3 x10^3/uL (0.0-0.7) Basophils # (Auto) 0.1 x10^3/uL (0.0-0.2) BUN/Creatinine Ratio 18 (6-20) Total Bilirubin 0.2 mg/dL (0.2-1.0) Aspartate Amino Transf (AST/SGOT) 21 U/L (15-37) Alanine Aminotransferase (ALT/SGPT) 22 U/L (14-59) Alkaline Phosphatase 90 U/L (46-116) Total Protein 6.7 g/dL (6.4-8.2) Albumin 2.6 g/dL (3.4-5.0) Albumin/Globulin Ratio 0.6 (1.0-1.7) Triglycerides Level 51 mg/dL (0-150) Cholesterol Level 204 mg/dL (0-200) LDL Cholesterol, Calculated 126 mg/dL (0-100) VLDL Cholesterol, Calculated 10 mg/dL (0-40) Non-HDL Cholesterol Calculated 136 mg/dL (0-129) HDL Cholesterol 68 mg/dL (40-60) Cholesterol/HDL Ratio 3.0 Review of Systems Review of Systems weakness, dizzyness is better Assessment and Plan Assessmemt and Plan Problems Medical Problems: (1) Ataxia Status: Acute (2) Dizziness Status: Acute Comment Review of Relevant I have reviewed the following items alyce (where applicable) has been applied. Labs Laboratory Tests Test 09/08/18 13:21 09/08/18 13:55 09/09/18 06:30 White Blood Count 8.8 x10^3/uL (4.0-11.0) 7.5 x10^3/uL (4.0-11.0) Red Blood Count 5.35 x10^6/uL (3.50-5.40) 5.12 x10^6/uL (3.50-5.40) Hemoglobin 13.6 g/dL (12.0-15.5) 12.7 g/dL (12.0-15.5) Hematocrit 41.4 % (36.0-47.0) 39.6 % (36.0-47.0) Mean Corpuscular Volume 77 fL (79-100) 77 fL (79-100) Mean Corpuscular Hemoglobin 25 pg (25-35) 25 pg (25-35) Mean Corpuscular Hemoglobin Concent 33 g/dL (31-37) 32 g/dL (31-37) Red Cell Distribution Width 19.3 % (11.5-14.5) 18.9 % (11.5-14.5) Platelet Count 416 x10^3/uL (140-400) 407 x10^3/uL (140-400) Prothrombin Time 13.4 SEC (11.7-14.0) Prothromb Time International Ratio 1.1 (0.8-1.1) Activated Partial Thromboplast Time 29 SEC (24-38) Sodium Level 134 mmol/L (136-145) 138 mmol/L (136-145) Potassium Level 4.6 mmol/L (3.5-5.1) 3.9 mmol/L (3.5-5.1) Chloride Level 95 mmol/L (98-107) 101 mmol/L (98-107) Carbon Dioxide Level 32 mmol/L (21-32) 31 mmol/L (21-32) Anion Gap 7 (6-14) 6 (6-14) Blood Urea Nitrogen 14 mg/dL (7-20) 9 mg/dL (7-20) Creatinine 0.7 mg/dL (0.6-1.0) 0.5 mg/dL (0.6-1.0) Estimated GFR (Cockcroft-Gault) 80.9 119.3 Glucose Level 188 mg/dL (70-99) 111 mg/dL (70-99) Calcium Level 8.8 mg/dL (8.5-10.1) 8.5 mg/dL (8.5-10.1) Troponin I Quantitative < 0.017 ng/mL (0.000-0.055) Urine Collection Type Void Urine Color Yellow Urine Clarity Clear Urine pH 6.0 Urine Specific [place] 1.015 Urine Protein Negative mg/dL (NEG-TRACE) Urine Glucose (UA) Negative mg/dL (NEG) Urine Ketones (Stick) Negative mg/dL (NEG) Urine Blood Negative (NEG) Urine Nitrite Negative (NEG) Urine Bilirubin Negative (NEG) Urine Urobilinogen Dipstick 0.2 mg/dL (0.2 mg/dL) Urine Leukocyte Esterase Negative (NEG) Urine RBC 0 /HPF (0-2) Urine WBC 0 /HPF (0-4) Urine Squamous Epithelial Cells Few /LPF Urine Bacteria 0 /HPF (0-FEW) Neutrophils (%) (Auto) 63 % (31-73) Lymphocytes (%) (Auto) 21 % (24-48) Monocytes (%) (Auto) 10 % (0-9) Eosinophils (%) (Auto) 5 % (0-3) Basophils (%) (Auto) 1 % (0-3) Neutrophils # (Auto) 4.7 x10^3uL (1.8-7.7) Lymphocytes # (Auto) 1.6 x10^3/uL (1.0-4.8) Monocytes # (Auto) 0.8 x10^3/uL (0.0-1.1) Eosinophils # (Auto) 0.3 x10^3/uL (0.0-0.7) Basophils # (Auto) 0.1 x10^3/uL (0.0-0.2) BUN/Creatinine Ratio 18 (6-20) Total Bilirubin 0.2 mg/dL (0.2-1.0) Aspartate Amino Transf (AST/SGOT) 21 U/L (15-37) Alanine Aminotransferase (ALT/SGPT) 22 U/L (14-59) Alkaline Phosphatase 90 U/L (46-116) Total Protein 6.7 g/dL (6.4-8.2) Albumin 2.6 g/dL (3.4-5.0) Albumin/Globulin Ratio 0.6 (1.0-1.7) Triglycerides Level 51 mg/dL (0-150) Cholesterol Level 204 mg/dL (0-200) LDL Cholesterol, Calculated 126 mg/dL (0-100) VLDL Cholesterol, Calculated 10 mg/dL (0-40) Non-HDL Cholesterol Calculated 136 mg/dL (0-129) HDL Cholesterol 68 mg/dL (40-60) Cholesterol/HDL Ratio 3.0 Laboratory Tests Test 09/08/18 13:21 09/08/18 13:55 09/09/18 06:30 White Blood Count 8.8 x10^3/uL (4.0-11.0) 7.5 x10^3/uL (4.0-11.0) Red Blood Count 5.35 x10^6/uL (3.50-5.40) 5.12 x10^6/uL (3.50-5.40) Hemoglobin 13.6 g/dL (12.0-15.5) 12.7 g/dL (12.0-15.5) Hematocrit 41.4 % (36.0-47.0) 39.6 % (36.0-47.0) Mean Corpuscular Volume 77 fL (79-100) 77 fL (79-100) Mean Corpuscular Hemoglobin 25 pg (25-35) 25 pg (25-35) Mean Corpuscular Hemoglobin Concent 33 g/dL (31-37) 32 g/dL (31-37) Red Cell Distribution Width 19.3 % (11.5-14.5) 18.9 % (11.5-14.5) Platelet Count 416 x10^3/uL (140-400) 407 x10^3/uL (140-400) Prothrombin Time 13.4 SEC (11.7-14.0) Prothromb Time International Ratio 1.1 (0.8-1.1) Activated Partial Thromboplast Time 29 SEC (24-38) Sodium Level 134 mmol/L (136-145) 138 mmol/L (136-145) Potassium Level 4.6 mmol/L (3.5-5.1) 3.9 mmol/L (3.5-5.1) Chloride Level 95 mmol/L (98-107) 101 mmol/L (98-107) Carbon Dioxide Level 32 mmol/L (21-32) 31 mmol/L (21-32) Anion Gap 7 (6-14) 6 (6-14) Blood Urea Nitrogen 14 mg/dL (7-20) 9 mg/dL (7-20) Creatinine 0.7 mg/dL (0.6-1.0) 0.5 mg/dL (0.6-1.0) Estimated GFR (Cockcroft-Gault) 80.9 119.3 Glucose Level 188 mg/dL (70-99) 111 mg/dL (70-99) Calcium Level 8.8 mg/dL (8.5-10.1) 8.5 mg/dL (8.5-10.1) Troponin I Quantitative < 0.017 ng/mL (0.000-0.055) Urine Collection Type Void Urine Color Yellow Urine Clarity Clear Urine pH 6.0 Urine Specific [place] 1.015 Urine Protein Negative mg/dL (NEG-TRACE) Urine Glucose (UA) Negative mg/dL (NEG) Urine Ketones (Stick) Negative mg/dL (NEG) Urine Blood Negative (NEG) Urine Nitrite Negative (NEG) Urine Bilirubin Negative (NEG) Urine Urobilinogen Dipstick 0.2 mg/dL (0.2 mg/dL) Urine Leukocyte Esterase Negative (NEG) Urine RBC 0 /HPF (0-2) Urine WBC 0 /HPF (0-4) Urine Squamous Epithelial Cells Few /LPF Urine Bacteria 0 /HPF (0-FEW) Neutrophils (%) (Auto) 63 % (31-73) Lymphocytes (%) (Auto) 21 % (24-48) Monocytes (%) (Auto) 10 % (0-9) Eosinophils (%) (Auto) 5 % (0-3) Basophils (%) (Auto) 1 % (0-3) Neutrophils # (Auto) 4.7 x10^3uL (1.8-7.7) Lymphocytes # (Auto) 1.6 x10^3/uL (1.0-4.8) Monocytes # (Auto) 0.8 x10^3/uL (0.0-1.1) Eosinophils # (Auto) 0.3 x10^3/uL (0.0-0.7) Basophils # (Auto) 0.1 x10^3/uL (0.0-0.2) BUN/Creatinine Ratio 18 (6-20) Total Bilirubin 0.2 mg/dL (0.2-1.0) Aspartate Amino Transf (AST/SGOT) 21 U/L (15-37) Alanine Aminotransferase (ALT/SGPT) 22 U/L (14-59) Alkaline Phosphatase 90 U/L (46-116) Total Protein 6.7 g/dL (6.4-8.2) Albumin 2.6 g/dL (3.4-5.0) Albumin/Globulin Ratio 0.6 (1.0-1.7) Triglycerides Level 51 mg/dL (0-150) Cholesterol Level 204 mg/dL (0-200) LDL Cholesterol, Calculated 126 mg/dL (0-100) VLDL Cholesterol, Calculated 10 mg/dL (0-40) Non-HDL Cholesterol Calculated 136 mg/dL (0-129) HDL Cholesterol 68 mg/dL (40-60) Cholesterol/HDL Ratio 3.0 Medications Current Medications Sodium Chloride 1,000 ml @ 100 mls/hr Q10H IV Last administered on 09/08/18at 14:07; Start 09/08/18 at 13:26; Stop 09/08/18 at 23:25; Status DC Iohexol (Omnipaque 350 Mg/ml) 75 ml 1X ONCE IV Last administered on 09/08/18at 14:39; Start 09/08/18 at 14:30; Stop 09/08/18 at 14:31; Status DC Info (CONTRAST GIVEN -- Rx MONITORING) 1 each PRN DAILY PRN MC SEE COMMENTS; Start 09/08/18 at 14:30; Stop 09/10/18 at 14:29 Aspirin (Josemanuel Aspirin) 325 mg 1X ONCE PO Last administered on 09/08/18at 16:35; Start 09/08/18 at 15:30; Stop 09/08/18 at 15:32; Status DC Albuterol/ Ipratropium (Duoneb) 3 ml RTQID NEB ; Start 09/08/18 at 16:00 Sodium Chloride ([place] Saline Nasal) 1 kennedy PRN DAILY PRN NS NASAL CONGESTION; Start 09/08/18 at 15:45 Aspirin (Children'S Aspirin) 81 mg 1X ONCE PO ; Start 09/08/18 at 15:45; Stop 09/08/18 at 15:46; Status UNV Atorvastatin Calcium (Lipitor) 20 mg QHS PO ; Start 09/08/18 at 21:00 Enoxaparin Sodium (Lovenox 40mg Syringe) 40 mg HS SQ ; Start 09/08/18 at 21:00 Active Scripts Active [place] Saline Nasal Gel (Sodium Chloride/Aloe Vera) 14.1 Gm Gel..gram. 1 Kennedy NS PRN DAILY PRN 30 Days Duoneb 0.5-3(2.5) Mg/3 Ml (Albuterol/Ipratropium) 3 Ml Ampul.neb 3 Ml NEB RTQID 30 Days Vitals/I & O Vital Sign - Last 24 Hours 09/08/18 09/08/18 09/08/18 09/08/18 13:07 13:25 13:35 13:40 Temp 98.2 98.2 Pulse 98 90 90 93 Resp B/P (MAP) 158/73 (101) Pulse Ox 95 96 O2 Delivery Nasal Cannula O2 Flow Rate 4.0 09/08/18 09/08/18 09/08/18 09/08/18 13:55 14:10 14:25 14:48 Pulse 98 84 81 82 Pulse Ox 98 99 97 09/08/18 09/08/18 09/08/18 09/08/18 15:10 15:15 15:30 15:45 Pulse 80 94 83 80 Resp Pulse Ox 98 98 98 09/08/18 09/08/18 09/08/18 09/08/18 16:00 16:15 16:30 16:45 Pulse 77 77 79 77 Pulse Ox 99 99 99 98 09/08/18 09/08/18 09/08/18 09/08/18 16:55 17:05 17:29 19:00 Temp 98.5 98.1 98.5 98.1 Pulse 79 97 Resp B/P (MAP) 169/85 (113) 150/87 (108) Pulse Ox 98 97 93 O2 Delivery Nasal Cannula Nasal Cannula Nasal Cannula O2 Flow Rate 4.0 4.0 4.0 09/08/18 09/08/18 09/09/18 09/09/18 19:30 23:00 03:00 07:00 Temp 97.7 98.5 97.5 97.7 98.5 97.5 Pulse 79 71 69 Resp 20 B/P (MAP) 148/91 (110) 128/70 (89) 142/75 (97) Pulse Ox 94 95 95 O2 Delivery Nasal Cannula Nasal Cannula O2 Flow Rate 4.0 4.0 Intake and Output 09/08/18 09/08/18 09/09/18 15:00 23:00 07:00 Intake Total 240 ml Balance 240 ml DANN ABBASI MD September 09, 2018 09:59
[2018-09-09 11:00] VITALS: BP 143/67
--- NOTE | 2018-09-09 11:21 | CONS ---
DATE OF CONSULTATION: PULMONARY CONSULTATION ATTENDING PHYSICIAN: Kulwinder Lechuga M.D. REASON FOR CONSULTATION: History of MAC infection. HISTORY OF PRESENT ILLNESS: The patient is a 78-year-old who has history of pulmonary fibrosis, likely idiopathic type with chronic hypoxic respiratory failure. The patient has been followed by my partner, Dr. Gray, in the office and also was seen by Dr. 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 The patient was losing weight and clinically, it was suspected that she probably has true MAC infection. As a result, we did an outpatient bronchoscopy, performed by Dr. Miller. This was on 08/30/2018. To date, all cultures are still pending. AFB smear was negative. She was hospitalized because she felt dizzy, but she did not have any true syncopal episode. She even missed her followup appointment in our office this Tuesday. The patient did fall. She is in no respiratory distress. She remains anxious, which is chronic. Her blood pressure has been stable. She has history of weight loss. She said she has a chronic cough. She has some occasional night sweats as well. No fever, no chills. No headache. No nausea, vomiting or diarrhea. PAST MEDICAL HISTORY: History of chronic respiratory failure and history of pulmonary fibrosis. PAST SURGICAL HISTORY: No recent surgery. FAMILY HISTORY: Dyslipidemia. SOCIAL HISTORY: Nonsmoker, nonalcoholic. ALLERGIES: GLUTEN. MEDICATIONS: Reviewed as listed in the MRAD. REVIEW OF SYSTEMS: Twelve-point system obtained. Pertinent positives discussed in my history of present illness, otherwise noncontributory. All systems that were negative were reviewed as well. PHYSICAL EXAMINATION: VITAL SIGNS: On examination, vital signs were reviewed. Pulse ox 95% on 4 liters. NECK: Supple. LUNGS: With crackles at both the bases. CARDIOVASCULAR EXAMINATION: Regular rate and rhythm. ABDOMEN: Soft, nontender. EXTREMITIES: With no pitting edema. LABORATORY DATA: Labs were reviewed. Sodium 134 and now it is 138. White cell count 7.5, hemoglobin 12.7 and platelets of 407,000. IMPRESSION: 1. The patient with chronic hypoxic respiratory failure secondary to chronic pulmonary fibrosis. 2. 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 She was clinically thought to have true infection as she was having slowly progressive dyspnea along with weight loss and some occasional night sweats. As a result, she underwent bronchoscopy on 08/30/2018 to confirm true Mycobacterium avium complex infection. AFB smear was negative and culture is still pending. 3. Status post fall with dizziness. Blood pressure is stable. RECOMMENDATIONS: 1. From a Pulmonary standpoint, continue with present oxygen. 2. DVT prophylaxis. 3. DuoNebs. 4. We will wait for the final bronchoscopy cultures and if MAC is isolated again, then it will certainly be a true infection and we will discuss treatment options. 5. Also consult Infectious Disease. The patient was seen by Dr. Goldstein as an outpatient. 6. Discussed with RN. MIGUEL A LAMBERT MD DR: AIMEE/severino JOB#: [id number] / [id number] [place]
--- NOTE | 2018-09-09 11:53 | NUR ---
SW consulted for skilled. Chart reviewed. Pt is from home alone and has home 02 with [facility]. Pt also has been with [facility] in the past. PT/OT pending. SW will await PT/OT recommendation to evaluate skilled needs. Will continue to follow.
--- NOTE | 2018-09-09 12:16 | PDOC2 ---
NEUROLOGY CONSULT Date of Admission Date of Admission DATE: 09/09/18 TIME: 12:08 Reason for Consult Reason for Consult: dizziness Referring Physician Referring Physician: Dr. Cha History of Present Illness History of Present Illness The patient is a 78-year-old right-handed female who at about noon yesterday noticed dizziness. She describes disequilibrium rather than true vertigo or lightheadedness. However, she got up and felt like she was going to faint. She was also short of breath and she follows with pulmonary regarding possible mycobacterium avium complex infection with a recent bronchoscopy. She is on chronic oxygen. There was no headache, diplopia, dysphagia, dysarthria, numbness, weakness, tinnitus, or hearing loss. She is feeling a little better today. I discussed the case with Dr. Peter and we agreed that the patient was not a candidate for alteplase as there was low suspicion for stroke. I recommended CT angiogram and MRI of the brain. Past Medical History Cardiovascular: HTN Pulmonary: Pneumonia (possible mycobacterium avium, interstitial lung disease, home oxygen) GI: Constipation, GERD Psych: Anxiety, Depression Musculoskeletal: Osteoarthritis Renal/: Urinary Incontinence (and urgency) Past Surgical History Past Surgical History: Cataract Removal, Hernia Repair Family History Family History: Cancer, CAD Social History Social History , lives alone, no alcohol or tobacco Current Medications Current Medications Current Medications Sodium Chloride 1,000 ml @ 100 mls/hr Q10H IV Last administered on 09/08/18at 14:07; Start 09/08/18 at 13:26; Stop 09/08/18 at 23:25; Status DC Iohexol (Omnipaque 350 Mg/ml) 75 ml 1X ONCE IV Last administered on 09/08/18at 14:39; Start 09/08/18 at 14:30; Stop 09/08/18 at 14:31; Status DC Info (CONTRAST GIVEN -- Rx MONITORING) 1 each PRN DAILY PRN MC SEE COMMENTS; Start 09/08/18 at 14:30; Stop 09/10/18 at 14:29 Aspirin (Josemanuel Aspirin) 325 mg 1X ONCE PO Last administered on 09/08/18at 16:35; Start 09/08/18 at 15:30; Stop 09/08/18 at 15:32; Status DC Albuterol/ Ipratropium (Duoneb) 3 ml RTQID NEB ; Start 09/08/18 at 16:00 Sodium Chloride (Miller Saline Nasal) 1 kennedy PRN DAILY PRN NS NASAL CONGESTION; Start 09/08/18 at 15:45 Aspirin (Children'S Aspirin) 81 mg 1X ONCE PO ; Start 09/08/18 at 15:45; Stop 09/08/18 at 15:46; Status UNV Atorvastatin Calcium (Lipitor) 20 mg QHS PO ; Start 09/08/18 at 21:00 Enoxaparin Sodium (Lovenox 40mg Syringe) 40 mg HS SQ ; Start 09/08/18 at 21:00 Active Scripts Active Miller Saline Nasal Gel (Sodium Chloride/Aloe Vera) 14.1 Gm Gel..gram. 1 Kennedy NS PRN DAILY PRN 30 Days Duoneb 0.5-3(2.5) Mg/3 Ml (Albuterol/Ipratropium) 3 Ml Ampul.neb 3 Ml NEB RTQID 30 Days Allergies Allergies: Coded Allergies: gluten (Verified Allergy, Mild, Diarrhea, 09/08/18) pt reports ROS Review of System Negative for fever, chills, weight loss, chest pain, indigestion, hematochezia, melena, and dysuria. Positive for shortness of breath. Full 14-point review of systems is negative. Physical Exam Physical Examination General: Well-developed, well-nourished white female in a little bit of respiratory distress HEENT: Normocephalic andatraumatic.Temporal arteriespulsatile and nontender. Neck: Supple without bruit, no meningismus Musculoskeletal: Stability:see neurologic. Gait exam:see neurologic. Tone:see neurologic.Strength:see neurologic. Neurological: Mental Status:intact, orientation, memory, attention span/concentration, language, fund of knowledge normal. Cranial Nerves:Pupils equal and reactive to light, extraocular movements areintact, visual monte are full to confrontation. Facial sensation is normal. There is no facial asymmetry. Vestibulo-ocular reflex is intact. Palate elevates and tongue protrudes in midline. All other cranial related problems are negative except as mentioned before.Reflexes:2+ and symmetric with flexor plantar responses. Motor:5/5 strength with normal tone and bulk. Coordination:Finger-nose finger and nlpd-[id number] testing are normal. Rapid alternating movements and fine finger movements are intact. Gait:Normal, but a little unsteady with tandem. Sensory:Normal pinprick, vibration, light touch, proprioception. Vitals VITALS Vital Signs Date Time Temp Pulse Resp B/P (MAP) Pulse Ox O2 Delivery O2 Flow Rate FiO2 09/09/18 11:00 97.7 74 17 143/67 (92) 97 Nasal Cannula 2.0 97.7 Labs Labs Laboratory Tests Test 09/08/18 13:21 09/08/18 13:55 09/09/18 06:30 White Blood Count 8.8 x10^3/uL (4.0-11.0) 7.5 x10^3/uL (4.0-11.0) Red Blood Count 5.35 x10^6/uL (3.50-5.40) 5.12 x10^6/uL (3.50-5.40) Hemoglobin 13.6 g/dL (12.0-15.5) 12.7 g/dL (12.0-15.5) Hematocrit 41.4 % (36.0-47.0) 39.6 % (36.0-47.0) Mean Corpuscular Volume 77 fL (79-100) 77 fL (79-100) Mean Corpuscular Hemoglobin 25 pg (25-35) 25 pg (25-35) Mean Corpuscular Hemoglobin Concent 33 g/dL (31-37) 32 g/dL (31-37) Red Cell Distribution Width 19.3 % (11.5-14.5) 18.9 % (11.5-14.5) Platelet Count 416 x10^3/uL (140-400) 407 x10^3/uL (140-400) Prothrombin Time 13.4 SEC (11.7-14.0) Prothromb Time International Ratio 1.1 (0.8-1.1) Activated Partial Thromboplast Time 29 SEC (24-38) Sodium Level 134 mmol/L (136-145) 138 mmol/L (136-145) Potassium Level 4.6 mmol/L (3.5-5.1) 3.9 mmol/L (3.5-5.1) Chloride Level 95 mmol/L (98-107) 101 mmol/L (98-107) Carbon Dioxide Level 32 mmol/L (21-32) 31 mmol/L (21-32) Anion Gap 7 (6-14) 6 (6-14) Blood Urea Nitrogen 14 mg/dL (7-20) 9 mg/dL (7-20) Creatinine 0.7 mg/dL (0.6-1.0) 0.5 mg/dL (0.6-1.0) Estimated GFR (Cockcroft-Gault) 80.9 119.3 Glucose Level 188 mg/dL (70-99) 111 mg/dL (70-99) Calcium Level 8.8 mg/dL (8.5-10.1) 8.5 mg/dL (8.5-10.1) Troponin I Quantitative < 0.017 ng/mL (0.000-0.055) Urine Collection Type Void Urine Color Yellow Urine Clarity Clear Urine pH 6.0 Urine Specific [place] 1.015 Urine Protein Negative mg/dL (NEG-TRACE) Urine Glucose (UA) Negative mg/dL (NEG) Urine Ketones (Stick) Negative mg/dL (NEG) Urine Blood Negative (NEG) Urine Nitrite Negative (NEG) Urine Bilirubin Negative (NEG) Urine Urobilinogen Dipstick 0.2 mg/dL (0.2 mg/dL) Urine Leukocyte Esterase Negative (NEG) Urine RBC 0 /HPF (0-2) Urine WBC 0 /HPF (0-4) Urine Squamous Epithelial Cells Few /LPF Urine Bacteria 0 /HPF (0-FEW) Neutrophils (%) (Auto) 63 % (31-73) Lymphocytes (%) (Auto) 21 % (24-48) Monocytes (%) (Auto) 10 % (0-9) Eosinophils (%) (Auto) 5 % (0-3) Basophils (%) (Auto) 1 % (0-3) Neutrophils # (Auto) 4.7 x10^3uL (1.8-7.7) Lymphocytes # (Auto) 1.6 x10^3/uL (1.0-4.8) Monocytes # (Auto) 0.8 x10^3/uL (0.0-1.1) Eosinophils # (Auto) 0.3 x10^3/uL (0.0-0.7) Basophils # (Auto) 0.1 x10^3/uL (0.0-0.2) BUN/Creatinine Ratio 18 (6-20) Total Bilirubin 0.2 mg/dL (0.2-1.0) Aspartate Amino Transf (AST/SGOT) 21 U/L (15-37) Alanine Aminotransferase (ALT/SGPT) 22 U/L (14-59) Alkaline Phosphatase 90 U/L (46-116) Total Protein 6.7 g/dL (6.4-8.2) Albumin 2.6 g/dL (3.4-5.0) Albumin/Globulin Ratio 0.6 (1.0-1.7) Triglycerides Level 51 mg/dL (0-150) Cholesterol Level 204 mg/dL (0-200) LDL Cholesterol, Calculated 126 mg/dL (0-100) VLDL Cholesterol, Calculated 10 mg/dL (0-40) Non-HDL Cholesterol Calculated 136 mg/dL (0-129) HDL Cholesterol 68 mg/dL (40-60) Cholesterol/HDL Ratio 3.0 Laboratory Tests Test 09/08/18 13:21 09/08/18 13:55 09/09/18 06:30 White Blood Count 8.8 x10^3/uL (4.0-11.0) 7.5 x10^3/uL (4.0-11.0) Red Blood Count 5.35 x10^6/uL (3.50-5.40) 5.12 x10^6/uL (3.50-5.40) Hemoglobin 13.6 g/dL (12.0-15.5) 12.7 g/dL (12.0-15.5) Hematocrit 41.4 % (36.0-47.0) 39.6 % (36.0-47.0) Mean Corpuscular Volume 77 fL (79-100) 77 fL (79-100) Mean Corpuscular Hemoglobin 25 pg (25-35) 25 pg (25-35) Mean Corpuscular Hemoglobin Concent 33 g/dL (31-37) 32 g/dL (31-37) Red Cell Distribution Width 19.3 % (11.5-14.5) 18.9 % (11.5-14.5) Platelet Count 416 x10^3/uL (140-400) 407 x10^3/uL (140-400) Prothrombin Time 13.4 SEC (11.7-14.0) Prothromb Time International Ratio 1.1 (0.8-1.1) Activated Partial Thromboplast Time 29 SEC (24-38) Sodium Level 134 mmol/L (136-145) 138 mmol/L (136-145) Potassium Level 4.6 mmol/L (3.5-5.1) 3.9 mmol/L (3.5-5.1) Chloride Level 95 mmol/L (98-107) 101 mmol/L (98-107) Carbon Dioxide Level 32 mmol/L (21-32) 31 mmol/L (21-32) Anion Gap 7 (6-14) 6 (6-14) Blood Urea Nitrogen 14 mg/dL (7-20) 9 mg/dL (7-20) Creatinine 0.7 mg/dL (0.6-1.0) 0.5 mg/dL (0.6-1.0) Estimated GFR (Cockcroft-Gault) 80.9 119.3 Glucose Level 188 mg/dL (70-99) 111 mg/dL (70-99) Calcium Level 8.8 mg/dL (8.5-10.1) 8.5 mg/dL (8.5-10.1) Troponin I Quantitative < 0.017 ng/mL (0.000-0.055) Urine Collection Type Void Urine Color Yellow Urine Clarity Clear Urine pH 6.0 Urine Specific [place] 1.015 Urine Protein Negative mg/dL (NEG-TRACE) Urine Glucose (UA) Negative mg/dL (NEG) Urine Ketones (Stick) Negative mg/dL (NEG) Urine Blood Negative (NEG) Urine Nitrite Negative (NEG) Urine Bilirubin Negative (NEG) Urine Urobilinogen Dipstick 0.2 mg/dL (0.2 mg/dL) Urine Leukocyte Esterase Negative (NEG) Urine RBC 0 /HPF (0-2) Urine WBC 0 /HPF (0-4) Urine Squamous Epithelial Cells Few /LPF Urine Bacteria 0 /HPF (0-FEW) Neutrophils (%) (Auto) 63 % (31-73) Lymphocytes (%) (Auto) 21 % (24-48) Monocytes (%) (Auto) 10 % (0-9) Eosinophils (%) (Auto) 5 % (0-3) Basophils (%) (Auto) 1 % (0-3) Neutrophils # (Auto) 4.7 x10^3uL (1.8-7.7) Lymphocytes # (Auto) 1.6 x10^3/uL (1.0-4.8) Monocytes # (Auto) 0.8 x10^3/uL (0.0-1.1) Eosinophils # (Auto) 0.3 x10^3/uL (0.0-0.7) Basophils # (Auto) 0.1 x10^3/uL (0.0-0.2) BUN/Creatinine Ratio 18 (6-20) Total Bilirubin 0.2 mg/dL (0.2-1.0) Aspartate Amino Transf (AST/SGOT) 21 U/L (15-37) Alanine Aminotransferase (ALT/SGPT) 22 U/L (14-59) Alkaline Phosphatase 90 U/L (46-116) Total Protein 6.7 g/dL (6.4-8.2) Albumin 2.6 g/dL (3.4-5.0) Albumin/Globulin Ratio 0.6 (1.0-1.7) Triglycerides Level 51 mg/dL (0-150) Cholesterol Level 204 mg/dL (0-200) LDL Cholesterol, Calculated 126 mg/dL (0-100) VLDL Cholesterol, Calculated 10 mg/dL (0-40) Non-HDL Cholesterol Calculated 136 mg/dL (0-129) HDL Cholesterol 68 mg/dL (40-60) Cholesterol/HDL Ratio 3.[address] CODE STROKE HEAD WO History: Dizziness Comparison: None. Technique: Noncontrast CT imaging was performed of the head. Exposure: One or more of the following individualized dose reduction techniques were utilized for this examination: 1. Automated exposure control 2. Adjustment of the mA and/or kV according to patient size 3. Use of iterative reconstruction technique. Findings: No acute extra-axial or parenchymal hemorrhage is identified. There is no significant intra-axial mass effect, midline shift, or extra-axial fluid collection. The ramirez-white differentiation of the major vascular territories is preserved. There is some scattered at least mild ill-defined low-density of the supratentorial parenchyma bilaterally including of the bilateral basal ganglia greater on the right. The ventricles, sulci, and cisterns are within normal limits in size and configuration. The mastoid air cells and the visualized paranasal sinuses are aerated. No acute calvarial abnormality is identified. There is atherosclerotic calcification of the carotid siphons bilaterally. Impression: 1. No acute intracranial hemorrhage is identified. There is some scattered ill-defined low-density of the supratentorial parenchyma probably due to chronic microvascular ischemic disease in a patient this age. If there is suspicion for evolving or acute ischemia, MRI or CT follow-up may be beneficial. CT angiography head and neck with IV contrast The visualized great vessels from the arch of the aorta grossly appears unremarkable. Partially visualized mild aortic atherosclerosis. The bilateral common carotid arteries, are patent. There is mild atherosclerotic plaque identified in the left carotid bulb. The bilateral internal carotid arteries are patent. The petrous portion of the bilateral internal carotid arteries are patent. There is mild atherosclerotic plaque identified in the bilateral cavernous internal carotid arteries. The bilateral middle cerebral arteries, anterior cerebral arteries are patent. The bilateral vertebral arteries are patent. The basilar artery, posterior cerebral arteries are patent. Apical lung scarring changes identified. Small hypodensity identified in the thyroid gland particularly in the left lobe of the largest measuring 9 mm likely thyroid nodules. Mild degenerative changes cervical spine. IMPRESSION: 1. No evidence of hemodynamically significant stenosis or occlusive thrombus identified in the major cervical and intracranial arteries. 2. Mild atherosclerotic calcifications identified in the cavernous internal carotid arteries. 3. Thyroid nodules with the largest measuring 9 mm in the left lower thyroid gland. Assessment/Plan Assessment/Plan Impression: I think she got dizzy related to her lung disease, as I find no evidence of peripheral or central vestibular dysfunction, stroke, central nervous system mass lesion, or infection. Recommendations: * Await brain MRI * Hold off on additional neurological studies unless MRI is positive for stroke * Pulmonary evaluation * Rehabilitation modalities. Thank you for letting me help with the patient's care. CHUNG CRUZ MD September 09, 2018 12:16
--- NOTE | 2018-09-09 14:48 | RAD ---
EXAM: Brain MRI without contrast. HISTORY: Dizziness. TECHNIQUE: Multiplanar, multisequence magnetic resonance imaging of the brain was performed without contrast. COMPARISON: CT angiogram dated 09/08/2018. FINDINGS: There is no restricted diffusion to suggest acute or subacute infarction. There are foci of subtle effect within the left thalamus likely due to chronic microhemorrhage or calcification. There are scattered areas of signal change within the cerebral white matter and tracy, likely due to chronic small vessel disease. There is a chronic lacunar infarct within the right thalamus. There is also a suspected chronic infarct within the right external capsule. There are prominent perivascular spaces within the bilateral central ramirez nuclei. There is evidence of lens surgery. The paranasal sinuses and mastoid air cells are unremarkable. There are normal flow voids within the cerebral vessels. IMPRESSION: 1. No acute intracranial finding. 2. Multiple scattered focal areas of signal change within the cerebral white matter and tracy, likely due to chronic small vessel disease. 3. Suspected small chronic lacunar infarct within the right thalamus and external capsule. Electronically signed by: Yael Tabares MD (09/09/2018 2:45 PM) [id number]
[2018-09-09 15:00] VITALS: BP 146/70
[2018-09-09 19:50] VITALS: BP 169/72
[2018-09-09] MEDS: ENOXAPARIN 40 MG/0.4 ML SYRINGE. SQ SCH (21:00)
[2018-09-09] MEDS: ATORVASTATIN CALCIUM 20 MG TABLET PO SCH (21:00)
[2018-09-09 23:50] VITALS: BP 134/66
[2018-09-10 03:15] VITALS: BP 133/69
[2018-09-10 05:13] LABS: BASO # 0.1 x10^3/uL (0.0-0.2); BASO % 1 % (0-3); EOS # 0.5 x10^3/uL (0.0-0.7); EOS % 6 % (0-3); HEMATOCRIT 39.3 % (36.0-47.0); HEMOGLOBIN 12.8 g/dL (12.0-15.5); LYMPH # 1.5 x10^3/uL (1.0-4.8); LYMPH % 17 % (24-48); MEAN CORPUSCULAR HEMOGLOBIN 25 pg (25-35); MEAN CORPUSCULAR HGB CONC 33 g/dL (31-37); MEAN CORPUSCULAR VOLUME 78 fL (79-100); MONO # 0.7 x10^3/uL (0.0-1.1); MONO % 9 % (0-9); NEUT # 5.7 x10^3uL (1.8-7.7); NEUT % 67 % (31-73); PLATELET COUNT 381 x10^3/uL (140-400); RED BLOOD COUNT 5.07 x10^6/uL (3.50-5.40); RED CELL DISTRIBUTION WIDTH 19.4 % (11.5-14.5); WHITE BLOOD COUNT 8.5 x10^3/uL (4.0-11.0)
[2018-09-10 05:35] LABS: ALBUMIN 2.7 g/dL (3.4-5.0); ALBUMIN/GLOBULIN RATIO 0.7 (1.0-1.7); CREATININE 0.4 mg/dL (0.6-1.0); GFR 154.4; POTASSIUM 4.2 mmol/L (3.5-5.1); TOTAL BILIRUBIN 0.3 mg/dL (0.2-1.0); TOTAL PROTEIN 6.7 g/dL (6.4-8.2)
[2018-09-10 05:57] LABS: THYROID STIM HORMONE (TSH) 1.816 uIU/mL (0.358-3.74)
[2018-09-10 07:00] VITALS: BP 142/72
[2018-09-10] MEDS: IPRATRPIUM/ALBUTEROL 0.5/2.5MG 3 ML NEBU. NEB SCH ×4 (07:55→16:00)
--- NOTE | 2018-09-10 10:36 | PDOC ---
Infectious Disease Note Vital Sign Vital Signs Vital Signs Date Time Temp Pulse Resp B/P (MAP) Pulse Ox O2 Delivery O2 Flow Rate FiO2 09/10/18 08:57 96 Nasal Cannula 4.0 09/10/18 07:00 97.8 70 22 142/72 (95) 97.8 Labs Lab Laboratory Tests Test 09/10/18 04:50 White Blood Count 8.5 x10^3/uL (4.0-11.0) Red Blood Count 5.07 x10^6/uL (3.50-5.40) Hemoglobin 12.8 g/dL (12.0-15.5) Hematocrit 39.3 % (36.0-47.0) Mean Corpuscular Volume 78 fL (79-100) Mean Corpuscular Hemoglobin 25 pg (25-35) Mean Corpuscular Hemoglobin Concent 33 g/dL (31-37) Red Cell Distribution Width 19.4 % (11.5-14.5) Platelet Count 381 x10^3/uL (140-400) Neutrophils (%) (Auto) 67 % (31-73) Lymphocytes (%) (Auto) 17 % (24-48) Monocytes (%) (Auto) 9 % (0-9) Eosinophils (%) (Auto) 6 % (0-3) Basophils (%) (Auto) 1 % (0-3) Neutrophils # (Auto) 5.7 x10^3uL (1.8-7.7) Lymphocytes # (Auto) 1.5 x10^3/uL (1.0-4.8) Monocytes # (Auto) 0.7 x10^3/uL (0.0-1.1) Eosinophils # (Auto) 0.5 x10^3/uL (0.0-0.7) Basophils # (Auto) 0.1 x10^3/uL (0.0-0.2) Sodium Level 135 mmol/L (136-145) Potassium Level 4.2 mmol/L (3.5-5.1) Chloride Level 99 mmol/L (98-107) Carbon Dioxide Level 32 mmol/L (21-32) Anion Gap 4 (6-14) Blood Urea Nitrogen 11 mg/dL (7-20) Creatinine 0.4 mg/dL (0.6-1.0) Estimated GFR (Cockcroft-Gault) 154.4 BUN/Creatinine Ratio 28 (6-20) Glucose Level 104 mg/dL (70-99) Calcium Level 9.0 mg/dL (8.5-10.1) Total Bilirubin 0.3 mg/dL (0.2-1.0) Aspartate Amino Transf (AST/SGOT) 20 U/L (15-37) Alanine Aminotransferase (ALT/SGPT) 21 U/L (14-59) Alkaline Phosphatase 91 U/L (46-116) Total Protein 6.7 g/dL (6.4-8.2) Albumin 2.7 g/dL (3.4-5.0) Albumin/Globulin Ratio 0.7 (1.0-1.7) Thyroid Stimulating Hormone (TSH) 1.816 uIU/mL (0.358-3.74) Free Thyroxine 1.00 ng/dL (0.76-1.46) IMPRESSION: 1. No acute intracranial finding. 2. Multiple scattered focal areas of signal change within the cerebral white matter and tracy, likely due to chronic small vessel disease. 3. Suspected small chronic lacunar infarct within the right thalamus and external capsule. 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 Diag bronch 08/30 AFB smear neg Pulmonary fibrosis Chronic respiratory failure, O2 dependent HTN Dizziness. Plan Plan of Care Continue to hold treatment for MAC Awaiting final bronch cultures from 08/30. PT/OT Thank you [id number] Pt seen and examined Labs, imaging ,micro reviewed Agree with above A/P by PRINTING SCREEN ASSEMBLER D/W BRAND SPECIALIST D/W son and family at bedside F/U with us in 2-3 weeks JUAN BOUCHER APRN September 10, 2018 10:36 AMBIKA TURNER MD September 10, 2018 15:54
[2018-09-10 11:00] VITALS: BP 168/80
--- NOTE | 2018-09-10 11:09 | CONS ---
DATE OF CONSULTATION: 09/10/2018 REFERRING PHYSICIAN: Dr. Hurd. REASON FOR CONSULTATION: Microbacterium sputum culture. HISTORY OF PRESENT ILLNESS: This patient is a pleasant 78-year-old female who was hospitalized in 06/2018 for acute respiratory failure. CT showed pulmonary fibrosis. A sputum culture grew Mycobacterium avium complex (amikacin 8.0 ug/mL, ciprofloxacin 2.0 ug/mL, clarithromycin 0.06 ug/mL or less susceptible, ethambutol 4.0 ug/mL, linezolid 8.0 ug/mL, moxifloxacin 1.0 ug/mL, rifampin 2.0 ug/mL, streptomycin 16.0 ug/mL). On 08/30/2018, she underwent a diagnostic bronchoscopy with bilateral bronchioalveolar lavage. No endobronchial lesions, purulent secretions or mucus plugging was noted. Cultures grew routine respiratory miguel and Elena albicans. AFB smear was negative. Since then, she has been readmitted for complaints of dizziness. Head/neck CTA showed no evidence of hemodynamically significant stenosis or occlusive thrombus; mild arthrosclerotic calcifications identified in the cavernous internal carotid arteries. A followup brain MRI showed no acute intracranial findings. Suspected small chronic lacunar infarct within the right thalamus and external capsule noted. Neurology is following. The patient says she tires easily and becomes short of air with activities. She is normally on 2 liters of supplemental oxygen at night and 4 liters during the day. She denies headache, nasal/sinus congestion or sore throat. She has a mild cough with phlegm production. Denies chest pain or palpitations. She reports night sweats and a 10-15 pound weight loss recently. Her appetite is slowly improving. Denies fevers, chills or body aches. She has some nasal dryness, which she attributes to the oxygen. Denies nausea, vomiting or diarrhea. She says she normally wears eyeglasses for reading, but finds that her vision is getting worse. Her last eye exam was last year. PAST MEDICAL HISTORY: Pulmonary fibrosis, chronic respiratory failure, oxygen dependent; hyperlipidemia, hypertension, constipation, GERD, urinary incontinence, arthritis, depression and anxiety. PAST SURGICAL HISTORY: Cataract extraction, hernia repair. SOCIAL HISTORY: The patient lives at home alone. She has a son who lives out in [place] who comes by twice a week. She has neighbors that have been very supportive. Nonsmoker. FAMILY HISTORY: Dyslipidemia. ALLERGIES: GLUTEN. MEDICATIONS: Atorvastatin, Lovenox, DuoNeb, nasal spray. She is currently not on any antimicrobial agents. REVIEW OF SYSTEMS: As per HPI, otherwise all other review of systems are negative. PHYSICAL EXAMINATION: VITAL SIGNS: Temperature 97.8, blood pressure 142/72, heart rate 70, respiratory rate 22, pulse oximetry 96% on 4 liters oxygen, BMI 18. GENERAL: The patient is sitting upright in the chair, alert, no apparent distress. HEENT: Pupils equally round. Normal conjunctivae. Oral cavity: Pharynx pink and moist. Dentures in place. NECK: Supple. LUNGS: Clear to auscultation. HEART: S1 and S2. ABDOMEN: Nondistended, soft, nontender with bowel sounds present. EXTREMITIES: No gross edema or cyanosis. SKIN: Warm without generalized rash. NEUROLOGIC: Alert and oriented x 3. LABORATORY DATA: Today's WBC 8.5, hemoglobin 12.8, platelets 381,000. Sodium 135, potassium 4.2, creatinine 0.4, BUN 11, glucose 104, AST 20, ALT 21, total bilirubin 0.3, albumin 2.7. TSH 1.816. Urinalysis unremarkable for infection. Previous sputum and BAL cultures per HPI. Head/neck CTA and brain MRI per HPI. Chest x-ray shows diffuse bilateral interstitial lung markings, likely chronic interstitial changes with fibrosis with bibasilar lung airspace opacities, likely atelectasis or infiltrates from 09/08/2018. IMPRESSION: 1. 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 Diagnostic bronchoscopy on 08/30/2018 showed acid-fast bacilli smear negative.Elena albicans on bronchoscopy cultures ,likely contaminant. 2. Pulmonary fibrosis. 3. Chronic respiratory failure, oxygen dependent. 4. Hypertension. 5. Dizziness. PLAN: Continue to hold treatment for MAC. Awaiting final BAL cultures from 08/30/2018. PT and OT. F/u with us in 2-3 weeks Discussed with son and family at bedside Thank you, Dr. Hurd, for asking us to participate in this patient's care. Should you have further questions or concerns, please call. AMBIKA TURNER MD DR: MELVIN/severino JOB#: [id number] / [id number] TULIO
--- NOTE | 2018-09-10 11:49 | PDOC ---
PULMONARY PROGRESS NOTES Subjective no increase soa Vitals Vital Signs Date Time Temp Pulse Resp B/P (MAP) Pulse Ox O2 Delivery O2 Flow Rate FiO2 09/10/18 08:57 96 Nasal Cannula 4.0 09/10/18 07:00 97.8 70 22 142/72 (95) 97.8 General: Alert, No acute distress Lungs: Crackles Cardiovascular: S1 Abdomen: Soft Extremities: No Edema Labs Laboratory Tests Test 09/08/18 13:21 09/08/18 13:55 09/09/18 06:30 09/10/18 04:50 White Blood Count 8.8 x10^3/uL (4.0-11.0) 7.5 x10^3/uL (4.0-11.0) 8.5 x10^3/uL (4.0-11.0) Red Blood Count 5.35 x10^6/uL (3.50-5.40) 5.12 x10^6/uL (3.50-5.40) 5.07 x10^6/uL (3.50-5.40) Hemoglobin 13.6 g/dL (12.0-15.5) 12.7 g/dL (12.0-15.5) 12.8 g/dL (12.0-15.5) Hematocrit 41.4 % (36.0-47.0) 39.6 % (36.0-47.0) 39.3 % (36.0-47.0) Mean Corpuscular Volume 77 fL (79-100) 77 fL (79-100) 78 fL (79-100) Mean Corpuscular Hemoglobin 25 pg (25-35) 25 pg (25-35) 25 pg (25-35) Mean Corpuscular Hemoglobin Concent 33 g/dL (31-37) 32 g/dL (31-37) 33 g/dL (31-37) Red Cell Distribution Width 19.3 % (11.5-14.5) 18.9 % (11.5-14.5) 19.4 % (11.5-14.5) Platelet Count 416 x10^3/uL (140-400) 407 x10^3/uL (140-400) 381 x10^3/uL (140-400) Prothrombin Time 13.4 SEC (11.7-14.0) Prothromb Time International Ratio 1.1 (0.8-1.1) Activated Partial Thromboplast Time 29 SEC (24-38) Sodium Level 134 mmol/L (136-145) 138 mmol/L (136-145) 135 mmol/L (136-145) Potassium Level 4.6 mmol/L (3.5-5.1) 3.9 mmol/L (3.5-5.1) 4.2 mmol/L (3.5-5.1) Chloride Level 95 mmol/L (98-107) 101 mmol/L (98-107) 99 mmol/L (98-107) Carbon Dioxide Level 32 mmol/L (21-32) 31 mmol/L (21-32) 32 mmol/L (21-32) Anion Gap 7 (6-14) 6 (6-14) 4 (6-14) Blood Urea Nitrogen 14 mg/dL (7-20) 9 mg/dL (7-20) 11 mg/dL (7-20) Creatinine 0.7 mg/dL (0.6-1.0) 0.5 mg/dL (0.6-1.0) 0.4 mg/dL (0.6-1.0) Estimated GFR (Cockcroft-Gault) 80.9 119.3 154.4 Glucose Level 188 mg/dL (70-99) 111 mg/dL (70-99) 104 mg/dL (70-99) Calcium Level 8.8 mg/dL (8.5-10.1) 8.5 mg/dL (8.5-10.1) 9.0 mg/dL (8.5-10.1) Troponin I Quantitative < 0.017 ng/mL (0.000-0.055) Urine Collection Type Void Urine Color Yellow Urine Clarity Clear Urine pH 6.0 Urine Specific [place] 1.015 Urine Protein Negative mg/dL (NEG-TRACE) Urine Glucose (UA) Negative mg/dL (NEG) Urine Ketones (Stick) Negative mg/dL (NEG) Urine Blood Negative (NEG) Urine Nitrite Negative (NEG) Urine Bilirubin Negative (NEG) Urine Urobilinogen Dipstick 0.2 mg/dL (0.2 mg/dL) Urine Leukocyte Esterase Negative (NEG) Urine RBC 0 /HPF (0-2) Urine WBC 0 /HPF (0-4) Urine Squamous Epithelial Cells Few /LPF Urine Bacteria 0 /HPF (0-FEW) Neutrophils (%) (Auto) 63 % (31-73) 67 % (31-73) Lymphocytes (%) (Auto) 21 % (24-48) 17 % (24-48) Monocytes (%) (Auto) 10 % (0-9) 9 % (0-9) Eosinophils (%) (Auto) 5 % (0-3) 6 % (0-3) Basophils (%) (Auto) 1 % (0-3) 1 % (0-3) Neutrophils # (Auto) 4.7 x10^3uL (1.8-7.7) 5.7 x10^3uL (1.8-7.7) Lymphocytes # (Auto) 1.6 x10^3/uL (1.0-4.8) 1.5 x10^3/uL (1.0-4.8) Monocytes # (Auto) 0.8 x10^3/uL (0.0-1.1) 0.7 x10^3/uL (0.0-1.1) Eosinophils # (Auto) 0.3 x10^3/uL (0.0-0.7) 0.5 x10^3/uL (0.0-0.7) Basophils # (Auto) 0.1 x10^3/uL (0.0-0.2) 0.1 x10^3/uL (0.0-0.2) BUN/Creatinine Ratio 18 (6-20) 28 (6-20) Total Bilirubin 0.2 mg/dL (0.2-1.0) 0.3 mg/dL (0.2-1.0) Aspartate Amino Transf (AST/SGOT) 21 U/L (15-37) 20 U/L (15-37) Alanine Aminotransferase (ALT/SGPT) 22 U/L (14-59) 21 U/L (14-59) Alkaline Phosphatase 90 U/L (46-116) 91 U/L (46-116) Total Protein 6.7 g/dL (6.4-8.2) 6.7 g/dL (6.4-8.2) Albumin 2.6 g/dL (3.4-5.0) 2.7 g/dL (3.4-5.0) Albumin/Globulin Ratio 0.6 (1.0-1.7) 0.7 (1.0-1.7) Triglycerides Level 51 mg/dL (0-150) Cholesterol Level 204 mg/dL (0-200) LDL Cholesterol, Calculated 126 mg/dL (0-100) VLDL Cholesterol, Calculated 10 mg/dL (0-40) Non-HDL Cholesterol Calculated 136 mg/dL (0-129) HDL Cholesterol 68 mg/dL (40-60) Cholesterol/HDL Ratio 3.0 Thyroid Stimulating Hormone (TSH) 1.816 uIU/mL (0.358-3.74) Free Thyroxine 1.00 ng/dL (0.76-1.46) Laboratory Tests Test 09/10/18 04:50 White Blood Count 8.5 x10^3/uL (4.0-11.0) Red Blood Count 5.07 x10^6/uL (3.50-5.40) Hemoglobin 12.8 g/dL (12.0-15.5) Hematocrit 39.3 % (36.0-47.0) Mean Corpuscular Volume 78 fL (79-100) Mean Corpuscular Hemoglobin 25 pg (25-35) Mean Corpuscular Hemoglobin Concent 33 g/dL (31-37) Red Cell Distribution Width 19.4 % (11.5-14.5) Platelet Count 381 x10^3/uL (140-400) Neutrophils (%) (Auto) 67 % (31-73) Lymphocytes (%) (Auto) 17 % (24-48) Monocytes (%) (Auto) 9 % (0-9) Eosinophils (%) (Auto) 6 % (0-3) Basophils (%) (Auto) 1 % (0-3) Neutrophils # (Auto) 5.7 x10^3uL (1.8-7.7) Lymphocytes # (Auto) 1.5 x10^3/uL (1.0-4.8) Monocytes # (Auto) 0.7 x10^3/uL (0.0-1.1) Eosinophils # (Auto) 0.5 x10^3/uL (0.0-0.7) Basophils # (Auto) 0.1 x10^3/uL (0.0-0.2) Sodium Level 135 mmol/L (136-145) Potassium Level 4.2 mmol/L (3.5-5.1) Chloride Level 99 mmol/L (98-107) Carbon Dioxide Level 32 mmol/L (21-32) Anion Gap 4 (6-14) Blood Urea Nitrogen 11 mg/dL (7-20) Creatinine 0.4 mg/dL (0.6-1.0) Estimated GFR (Cockcroft-Gault) 154.4 BUN/Creatinine Ratio 28 (6-20) Glucose Level 104 mg/dL (70-99) Calcium Level 9.0 mg/dL (8.5-10.1) Total Bilirubin 0.3 mg/dL (0.2-1.0) Aspartate Amino Transf (AST/SGOT) 20 U/L (15-37) Alanine Aminotransferase (ALT/SGPT) 21 U/L (14-59) Alkaline Phosphatase 91 U/L (46-116) Total Protein 6.7 g/dL (6.4-8.2) Albumin 2.7 g/dL (3.4-5.0) Albumin/Globulin Ratio 0.7 (1.0-1.7) Thyroid Stimulating Hormone (TSH) 1.816 uIU/mL (0.358-3.74) Free Thyroxine 1.00 ng/dL (0.76-1.46) Medications Active Scripts Medications Dose Route/Sig Max Daily Dose Days Date Category [place] Saline Nasal Gel (Sodium Chloride/Aloe Vera) 14.1 Gm Gel..gram. 1 Kennedy NS PRN DAILY PRN 30 06/30/18 Rx Duoneb 0.5-3(2.5) Mg/3 Ml (Albuterol/Ipratropium) 3 Ml Ampul.neb 3 Ml NEB RTQID 30 06/30/18 Rx Impression . 1. The patient with chronic hypoxic respiratory failure secondary to chronic pulmonary fibrosis. 2. 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 She was clinically thought to have true infection as she was having slowly progressive dyspnea along with weight loss and some occasional night sweats. As a result, she underwent bronchoscopy on 08/30/2018 to confirm true Mycobacterium avium complex infection. AFB smear was negative and culture is still pending. 3. Status post fall with dizziness. Blood pressure is stable. Plan . RECOMMENDATIONS: 1. From a Pulmonary standpoint, continue with present oxygen. 2. DVT prophylaxis. 3. DuoNebs. 4. We will wait for the final bronchoscopy cultures and if MAC is isolated again, then it will certainly be a true infection and we will discuss treatment options. 5. Infectious Disease rec 6. Discussed with RN. MIGUEL A LAMBERT MD September 10, 2018 11:49
--- NOTE | 2018-09-10 14:09 | PDOC ---
PROGRESS NOTES Chief Complaint Chief Complaint syncope weakness, ataxia, dizzyness recent hypoxia Dyspnea at rest secondary to pulmonary fibrosis, recent bronch, hypxoia, on 2 litersr mild aortic stenosis History of Present Illness History of Present Illness very weak, almost falls with PT, would benefit from SNU, may refuse, she reports wanting to go home, family will be by later to discuss Vitals Vitals Vital Signs Date Time Temp Pulse Resp B/P (MAP) Pulse Ox O2 Delivery O2 Flow Rate FiO2 09/10/18 11:00 97.7 68 22 168/80 (109) 99 Nasal Cannula 2.0 97.7 Physical Exam General: Alert, Oriented X3, Cooperative, No acute distress, mild distress Heart: Regular rate Lungs: Crackles Abdomen: Normal bowel sounds, Soft Extremities: No cyanosis Skin: No breakdown Labs LABS Laboratory Tests Test 09/10/18 04:50 White Blood Count 8.5 x10^3/uL (4.0-11.0) Red Blood Count 5.07 x10^6/uL (3.50-5.40) Hemoglobin 12.8 g/dL (12.0-15.5) Hematocrit 39.3 % (36.0-47.0) Mean Corpuscular Volume 78 fL (79-100) Mean Corpuscular Hemoglobin 25 pg (25-35) Mean Corpuscular Hemoglobin Concent 33 g/dL (31-37) Red Cell Distribution Width 19.4 % (11.5-14.5) Platelet Count 381 x10^3/uL (140-400) Neutrophils (%) (Auto) 67 % (31-73) Lymphocytes (%) (Auto) 17 % (24-48) Monocytes (%) (Auto) 9 % (0-9) Eosinophils (%) (Auto) 6 % (0-3) Basophils (%) (Auto) 1 % (0-3) Neutrophils # (Auto) 5.7 x10^3uL (1.8-7.7) Lymphocytes # (Auto) 1.5 x10^3/uL (1.0-4.8) Monocytes # (Auto) 0.7 x10^3/uL (0.0-1.1) Eosinophils # (Auto) 0.5 x10^3/uL (0.0-0.7) Basophils # (Auto) 0.1 x10^3/uL (0.0-0.2) Sodium Level 135 mmol/L (136-145) Potassium Level 4.2 mmol/L (3.5-5.1) Chloride Level 99 mmol/L (98-107) Carbon Dioxide Level 32 mmol/L (21-32) Anion Gap 4 (6-14) Blood Urea Nitrogen 11 mg/dL (7-20) Creatinine 0.4 mg/dL (0.6-1.0) Estimated GFR (Cockcroft-Gault) 154.4 BUN/Creatinine Ratio 28 (6-20) Glucose Level 104 mg/dL (70-99) Calcium Level 9.0 mg/dL (8.5-10.1) Total Bilirubin 0.3 mg/dL (0.2-1.0) Aspartate Amino Transf (AST/SGOT) 20 U/L (15-37) Alanine Aminotransferase (ALT/SGPT) 21 U/L (14-59) Alkaline Phosphatase 91 U/L (46-116) Total Protein 6.7 g/dL (6.4-8.2) Albumin 2.7 g/dL (3.4-5.0) Albumin/Globulin Ratio 0.7 (1.0-1.7) Thyroid Stimulating Hormone (TSH) 1.816 uIU/mL (0.358-3.74) Free Thyroxine 1.00 ng/dL (0.76-1.46) Assessment and Plan Assessmemt and Plan Problems Medical Problems: (1) Ataxia Status: Acute (2) Dizziness Status: Acute Comment Review of Relevant I have reviewed the following items alyce (where applicable) has been applied. Labs Laboratory Tests Test 09/09/18 06:30 09/10/18 04:50 White Blood Count 7.5 x10^3/uL (4.0-11.0) 8.5 x10^3/uL (4.0-11.0) Red Blood Count 5.12 x10^6/uL (3.50-5.40) 5.07 x10^6/uL (3.50-5.40) Hemoglobin 12.7 g/dL (12.0-15.5) 12.8 g/dL (12.0-15.5) Hematocrit 39.6 % (36.0-47.0) 39.3 % (36.0-47.0) Mean Corpuscular Volume 77 fL (79-100) 78 fL (79-100) Mean Corpuscular Hemoglobin 25 pg (25-35) 25 pg (25-35) Mean Corpuscular Hemoglobin Concent 32 g/dL (31-37) 33 g/dL (31-37) Red Cell Distribution Width 18.9 % (11.5-14.5) 19.4 % (11.5-14.5) Platelet Count 407 x10^3/uL (140-400) 381 x10^3/uL (140-400) Neutrophils (%) (Auto) 63 % (31-73) 67 % (31-73) Lymphocytes (%) (Auto) 21 % (24-48) 17 % (24-48) Monocytes (%) (Auto) 10 % (0-9) 9 % (0-9) Eosinophils (%) (Auto) 5 % (0-3) 6 % (0-3) Basophils (%) (Auto) 1 % (0-3) 1 % (0-3) Neutrophils # (Auto) 4.7 x10^3uL (1.8-7.7) 5.7 x10^3uL (1.8-7.7) Lymphocytes # (Auto) 1.6 x10^3/uL (1.0-4.8) 1.5 x10^3/uL (1.0-4.8) Monocytes # (Auto) 0.8 x10^3/uL (0.0-1.1) 0.7 x10^3/uL (0.0-1.1) Eosinophils # (Auto) 0.3 x10^3/uL (0.0-0.7) 0.5 x10^3/uL (0.0-0.7) Basophils # (Auto) 0.1 x10^3/uL (0.0-0.2) 0.1 x10^3/uL (0.0-0.2) Sodium Level 138 mmol/L (136-145) 135 mmol/L (136-145) Potassium Level 3.9 mmol/L (3.5-5.1) 4.2 mmol/L (3.5-5.1) Chloride Level 101 mmol/L (98-107) 99 mmol/L (98-107) Carbon Dioxide Level 31 mmol/L (21-32) 32 mmol/L (21-32) Anion Gap 6 (6-14) 4 (6-14) Blood Urea Nitrogen 9 mg/dL (7-20) 11 mg/dL (7-20) Creatinine 0.5 mg/dL (0.6-1.0) 0.4 mg/dL (0.6-1.0) Estimated GFR (Cockcroft-Gault) 119.3 154.4 BUN/Creatinine Ratio 18 (6-20) 28 (6-20) Glucose Level 111 mg/dL (70-99) 104 mg/dL (70-99) Calcium Level 8.5 mg/dL (8.5-10.1) 9.0 mg/dL (8.5-10.1) Total Bilirubin 0.2 mg/dL (0.2-1.0) 0.3 mg/dL (0.2-1.0) Aspartate Amino Transf (AST/SGOT) 21 U/L (15-37) 20 U/L (15-37) Alanine Aminotransferase (ALT/SGPT) 22 U/L (14-59) 21 U/L (14-59) Alkaline Phosphatase 90 U/L (46-116) 91 U/L (46-116) Total Protein 6.7 g/dL (6.4-8.2) 6.7 g/dL (6.4-8.2) Albumin 2.6 g/dL (3.4-5.0) 2.7 g/dL (3.4-5.0) Albumin/Globulin Ratio 0.6 (1.0-1.7) 0.7 (1.0-1.7) Triglycerides Level 51 mg/dL (0-150) Cholesterol Level 204 mg/dL (0-200) LDL Cholesterol, Calculated 126 mg/dL (0-100) VLDL Cholesterol, Calculated 10 mg/dL (0-40) Non-HDL Cholesterol Calculated 136 mg/dL (0-129) HDL Cholesterol 68 mg/dL (40-60) Cholesterol/HDL Ratio 3.0 Thyroid Stimulating Hormone (TSH) 1.816 uIU/mL (0.358-3.74) Free Thyroxine 1.00 ng/dL (0.76-1.46) Laboratory Tests Test 09/10/18 04:50 White Blood Count 8.5 x10^3/uL (4.0-11.0) Red Blood Count 5.07 x10^6/uL (3.50-5.40) Hemoglobin 12.8 g/dL (12.0-15.5) Hematocrit 39.3 % (36.0-47.0) Mean Corpuscular Volume 78 fL (79-100) Mean Corpuscular Hemoglobin 25 pg (25-35) Mean Corpuscular Hemoglobin Concent 33 g/dL (31-37) Red Cell Distribution Width 19.4 % (11.5-14.5) Platelet Count 381 x10^3/uL (140-400) Neutrophils (%) (Auto) 67 % (31-73) Lymphocytes (%) (Auto) 17 % (24-48) Monocytes (%) (Auto) 9 % (0-9) Eosinophils (%) (Auto) 6 % (0-3) Basophils (%) (Auto) 1 % (0-3) Neutrophils # (Auto) 5.7 x10^3uL (1.8-7.7) Lymphocytes # (Auto) 1.5 x10^3/uL (1.0-4.8) Monocytes # (Auto) 0.7 x10^3/uL (0.0-1.1) Eosinophils # (Auto) 0.5 x10^3/uL (0.0-0.7) Basophils # (Auto) 0.1 x10^3/uL (0.0-0.2) Sodium Level 135 mmol/L (136-145) Potassium Level 4.2 mmol/L (3.5-5.1) Chloride Level 99 mmol/L (98-107) Carbon Dioxide Level 32 mmol/L (21-32) Anion Gap 4 (6-14) Blood Urea Nitrogen 11 mg/dL (7-20) Creatinine 0.4 mg/dL (0.6-1.0) Estimated GFR (Cockcroft-Gault) 154.4 BUN/Creatinine Ratio 28 (6-20) Glucose Level 104 mg/dL (70-99) Calcium Level 9.0 mg/dL (8.5-10.1) Total Bilirubin 0.3 mg/dL (0.2-1.0) Aspartate Amino Transf (AST/SGOT) 20 U/L (15-37) Alanine Aminotransferase (ALT/SGPT) 21 U/L (14-59) Alkaline Phosphatase 91 U/L (46-116) Total Protein 6.7 g/dL (6.4-8.2) Albumin 2.7 g/dL (3.4-5.0) Albumin/Globulin Ratio 0.7 (1.0-1.7) Thyroid Stimulating Hormone (TSH) 1.816 uIU/mL (0.358-3.74) Free Thyroxine 1.00 ng/dL (0.76-1.46) Medications Current Medications Sodium Chloride 1,000 ml @ 100 mls/hr Q10H IV Last administered on 09/08/18at 14:07; Start 09/08/18 at 13:26; Stop 09/08/18 at 23:25; Status DC Iohexol (Omnipaque 350 Mg/ml) 75 ml 1X ONCE IV Last administered on 09/08/18at 14:39; Start 09/08/18 at 14:30; Stop 09/08/18 at 14:31; Status DC Info (CONTRAST GIVEN -- Rx MONITORING) 1 each PRN DAILY PRN MC SEE COMMENTS; Start 09/08/18 at 14:30; Stop 09/10/18 at 14:29 Aspirin (Josemanuel Aspirin) 325 mg 1X ONCE PO Last administered on 09/08/18at 16:35; Start 09/08/18 at 15:30; Stop 09/08/18 at 15:32; Status DC Albuterol/ Ipratropium (Duoneb) 3 ml RTQID NEB Last administered on 09/10/18at 08:57; Start 09/08/18 at 16:00 Sodium Chloride ([place] Saline Nasal) 1 kennedy PRN DAILY PRN NS NASAL CONGESTION Last administered on 09/10/18at 01:55; Start 09/08/18 at 15:45 Aspirin (Children'S Aspirin) 81 mg 1X ONCE PO ; Start 09/08/18 at 15:45; Stop 09/08/18 at 15:46; Status UNV Atorvastatin Calcium (Lipitor) 20 mg QHS PO ; Start 09/08/18 at 21:00 Enoxaparin Sodium (Lovenox 40mg Syringe) 40 mg HS SQ ; Start 09/08/18 at 21:00 Active Scripts Active [place] Saline Nasal Gel (Sodium Chloride/Aloe Vera) 14.1 Gm Gel..gram. 1 Kennedy NS PRN DAILY PRN 30 Days Duoneb 0.5-3(2.5) Mg/3 Ml (Albuterol/Ipratropium) 3 Ml Ampul.neb 3 Ml NEB RTQID 30 Days Vitals/I & O Vital Sign - Last 24 Hours 09/09/18 09/09/18 09/09/18 09/09/18 15:00 19:50 20:00 23:50 Temp 97.5 97.5 97.7 97.5 97.5 97.7 Pulse 79 71 83 Resp 17 20 20 B/P (MAP) 146/70 (95) 169/72 (104) 134/66 (88) Pulse Ox 98 94 94 O2 Delivery Nasal Cannula Nasal Cannula Nasal Cannula Nasal Cannula O2 Flow Rate 2.0 2.0 4.0 2.0 09/10/18 09/10/18 09/10/18 09/10/18 03:15 07:00 08:57 11:00 Temp 97.9 97.8 97.7 97.9 97.8 97.7 Pulse 70 70 68 Resp 20 22 22 B/P (MAP) 133/69 (90) 142/72 (95) 168/80 (109) Pulse Ox 98 97 96 99 O2 Delivery Nasal Cannula Nasal Cannula Nasal Cannula Nasal Cannula O2 Flow Rate 2.0 2.0 4.0 2.0 Intake and Output 09/09/18 09/09/18 09/10/18 15:00 23:00 07:00 Intake Total 390 ml 370 ml 150 ml Balance 390 ml 370 ml 150 ml DANN ABBASI MD September 10, 2018 14:09
[2018-09-10 15:00] VITALS: BP 151/79
--- NOTE | 2018-09-10 15:04 | PDOC ---
PROGRESS NOTES Assessment Problems Medical Problems: (1) Ataxia Status: Acute (2) Dizziness Status: Acute * She got dizzy related to her lung disease, as I find no evidence of peripheral or central vestibular dysfunction, stroke, central nervous system mass lesion, or infection. * Prior chronic infarcts as described in more detail below, see MRI report Plan * No additional neurological studies * Pulmonary and ID evaluations done * Discussed with patient and her family, she wants to go home, I agree with her that I doubt that she needs inpatient rehabilitation, the family needs to keep an eye on her. * Continue outpatient infectious disease and pulmonary treatments. * Discharge today * Follow-up with neurology as needed. * I discussed with patient possibly starting aspirin but she is worried about stomach effects and does not want to begin aspirin. Subjective Feels fine, wants to go home Objective Vital Signs Date Time Temp Pulse Resp B/P (MAP) Pulse Ox O2 Delivery O2 Flow Rate FiO2 09/10/18 11:00 97.7 68 22 168/80 (109) 99 Nasal Cannula 2.0 97.7 Intake and Output 09/10/18 07:00 Intake Total 910 ml Balance 910 ml Intake Oral 910 ml # Voids 9 # Bowel Movements 1 PHYSICAL EXAM Alert. Oriented to time, place and person. PERRL. EOMI. CN: no focal findings. Muscle tone: normal. Muscle strength: 5/5 DTR: 2+ Plantar reflex: flexor Gait: normal for age Sensory exam: no abnormal findings. No cerebellar signs elicited. Review of Relevant I have reviewed the following items alyce (where applicable) has been applied. Labs Laboratory Tests Test 09/09/18 06:30 09/10/18 04:50 White Blood Count 7.5 x10^3/uL (4.0-11.0) 8.5 x10^3/uL (4.0-11.0) Red Blood Count 5.12 x10^6/uL (3.50-5.40) 5.07 x10^6/uL (3.50-5.40) Hemoglobin 12.7 g/dL (12.0-15.5) 12.8 g/dL (12.0-15.5) Hematocrit 39.6 % (36.0-47.0) 39.3 % (36.0-47.0) Mean Corpuscular Volume 77 fL (79-100) 78 fL (79-100) Mean Corpuscular Hemoglobin 25 pg (25-35) 25 pg (25-35) Mean Corpuscular Hemoglobin Concent 32 g/dL (31-37) 33 g/dL (31-37) Red Cell Distribution Width 18.9 % (11.5-14.5) 19.4 % (11.5-14.5) Platelet Count 407 x10^3/uL (140-400) 381 x10^3/uL (140-400) Neutrophils (%) (Auto) 63 % (31-73) 67 % (31-73) Lymphocytes (%) (Auto) 21 % (24-48) 17 % (24-48) Monocytes (%) (Auto) 10 % (0-9) 9 % (0-9) Eosinophils (%) (Auto) 5 % (0-3) 6 % (0-3) Basophils (%) (Auto) 1 % (0-3) 1 % (0-3) Neutrophils # (Auto) 4.7 x10^3uL (1.8-7.7) 5.7 x10^3uL (1.8-7.7) Lymphocytes # (Auto) 1.6 x10^3/uL (1.0-4.8) 1.5 x10^3/uL (1.0-4.8) Monocytes # (Auto) 0.8 x10^3/uL (0.0-1.1) 0.7 x10^3/uL (0.0-1.1) Eosinophils # (Auto) 0.3 x10^3/uL (0.0-0.7) 0.5 x10^3/uL (0.0-0.7) Basophils # (Auto) 0.1 x10^3/uL (0.0-0.2) 0.1 x10^3/uL (0.0-0.2) Sodium Level 138 mmol/L (136-145) 135 mmol/L (136-145) Potassium Level 3.9 mmol/L (3.5-5.1) 4.2 mmol/L (3.5-5.1) Chloride Level 101 mmol/L (98-107) 99 mmol/L (98-107) Carbon Dioxide Level 31 mmol/L (21-32) 32 mmol/L (21-32) Anion Gap 6 (6-14) 4 (6-14) Blood Urea Nitrogen 9 mg/dL (7-20) 11 mg/dL (7-20) Creatinine 0.5 mg/dL (0.6-1.0) 0.4 mg/dL (0.6-1.0) Estimated GFR (Cockcroft-Gault) 119.3 154.4 BUN/Creatinine Ratio 18 (6-20) 28 (6-20) Glucose Level 111 mg/dL (70-99) 104 mg/dL (70-99) Calcium Level 8.5 mg/dL (8.5-10.1) 9.0 mg/dL (8.5-10.1) Total Bilirubin 0.2 mg/dL (0.2-1.0) 0.3 mg/dL (0.2-1.0) Aspartate Amino Transf (AST/SGOT) 21 U/L (15-37) 20 U/L (15-37) Alanine Aminotransferase (ALT/SGPT) 22 U/L (14-59) 21 U/L (14-59) Alkaline Phosphatase 90 U/L (46-116) 91 U/L (46-116) Total Protein 6.7 g/dL (6.4-8.2) 6.7 g/dL (6.4-8.2) Albumin 2.6 g/dL (3.4-5.0) 2.7 g/dL (3.4-5.0) Albumin/Globulin Ratio 0.6 (1.0-1.7) 0.7 (1.0-1.7) Triglycerides Level 51 mg/dL (0-150) Cholesterol Level 204 mg/dL (0-200) LDL Cholesterol, Calculated 126 mg/dL (0-100) VLDL Cholesterol, Calculated 10 mg/dL (0-40) Non-HDL Cholesterol Calculated 136 mg/dL (0-129) HDL Cholesterol 68 mg/dL (40-60) Cholesterol/HDL Ratio 3.0 Thyroid Stimulating Hormone (TSH) 1.816 uIU/mL (0.358-3.74) Free Thyroxine 1.00 ng/dL (0.76-1.46) Laboratory Tests Test 09/10/18 04:50 White Blood Count 8.5 x10^3/uL (4.0-11.0) Red Blood Count 5.07 x10^6/uL (3.50-5.40) Hemoglobin 12.8 g/dL (12.0-15.5) Hematocrit 39.3 % (36.0-47.0) Mean Corpuscular Volume 78 fL (79-100) Mean Corpuscular Hemoglobin 25 pg (25-35) Mean Corpuscular Hemoglobin Concent 33 g/dL (31-37) Red Cell Distribution Width 19.4 % (11.5-14.5) Platelet Count 381 x10^3/uL (140-400) Neutrophils (%) (Auto) 67 % (31-73) Lymphocytes (%) (Auto) 17 % (24-48) Monocytes (%) (Auto) 9 % (0-9) Eosinophils (%) (Auto) 6 % (0-3) Basophils (%) (Auto) 1 % (0-3) Neutrophils # (Auto) 5.7 x10^3uL (1.8-7.7) Lymphocytes # (Auto) 1.5 x10^3/uL (1.0-4.8) Monocytes # (Auto) 0.7 x10^3/uL (0.0-1.1) Eosinophils # (Auto) 0.5 x10^3/uL (0.0-0.7) Basophils # (Auto) 0.1 x10^3/uL (0.0-0.2) Sodium Level 135 mmol/L (136-145) Potassium Level 4.2 mmol/L (3.5-5.1) Chloride Level 99 mmol/L (98-107) Carbon Dioxide Level 32 mmol/L (21-32) Anion Gap 4 (6-14) Blood Urea Nitrogen 11 mg/dL (7-20) Creatinine 0.4 mg/dL (0.6-1.0) Estimated GFR (Cockcroft-Gault) 154.4 BUN/Creatinine Ratio 28 (6-20) Glucose Level 104 mg/dL (70-99) Calcium Level 9.0 mg/dL (8.5-10.1) Total Bilirubin 0.3 mg/dL (0.2-1.0) Aspartate Amino Transf (AST/SGOT) 20 U/L (15-37) Alanine Aminotransferase (ALT/SGPT) 21 U/L (14-59) Alkaline Phosphatase 91 U/L (46-116) Total Protein 6.7 g/dL (6.4-8.2) Albumin 2.7 g/dL (3.4-5.0) Albumin/Globulin Ratio 0.7 (1.0-1.7) Thyroid Stimulating Hormone (TSH) 1.816 uIU/mL (0.358-3.74) Free Thyroxine 1.00 ng/dL (0.76-1.46) Medications Current Medications Sodium Chloride 1,000 ml @ 100 mls/hr Q10H IV Last administered on 09/08/18at 14:07; Start 09/08/18 at 13:26; Stop 09/08/18 at 23:25; Status DC Iohexol (Omnipaque 350 Mg/ml) 75 ml 1X ONCE IV Last administered on 09/08/18at 14:39; Start 09/08/18 at 14:30; Stop 09/08/18 at 14:31; Status DC Info (CONTRAST GIVEN -- Rx MONITORING) 1 each PRN DAILY PRN MC SEE COMMENTS; Start 09/08/18 at 14:30; Stop 09/10/18 at 14:29; Status DC Aspirin (Josemanuel Aspirin) 325 mg 1X ONCE PO Last administered on 09/08/18at 16:35; Start 09/08/18 at 15:30; Stop 09/08/18 at 15:32; Status DC Albuterol/ Ipratropium (Duoneb) 3 ml RTQID NEB Last administered on 09/10/18at 08:57; Start 09/08/18 at 16:00 Sodium Chloride ([place] Saline Nasal) 1 kennedy PRN DAILY PRN NS NASAL CONGESTION Last administered on 09/10/18at 01:55; Start 09/08/18 at 15:45 Aspirin (Children'S Aspirin) 81 mg 1X ONCE PO ; Start 09/08/18 at 15:45; Stop 09/08/18 at 15:46; Status UNV Atorvastatin Calcium (Lipitor) 20 mg QHS PO ; Start 09/08/18 at 21:00 Enoxaparin Sodium (Lovenox 40mg Syringe) 40 mg HS SQ ; Start 09/08/18 at 21:00 Active Scripts Active [place] Saline Nasal Gel (Sodium Chloride/Aloe Vera) 14.1 Gm Gel..gram. 1 Kennedy NS PRN DAILY PRN 30 Days Duoneb 0.5-3(2.5) Mg/3 Ml (Albuterol/Ipratropium) 3 Ml Ampul.neb 3 Ml NEB RTQID 30 Days Vitals/I & O Vital Sign - Last 24 Hours 09/09/18 09/09/18 09/09/18 09/09/18 15:00 19:50 20:00 23:50 Temp 97.5 97.5 97.7 97.5 97.5 97.7 Pulse 79 71 83 Resp 17 20 20 B/P (MAP) 146/70 (95) 169/72 (104) 134/66 (88) Pulse Ox 98 94 94 O2 Delivery Nasal Cannula Nasal Cannula Nasal Cannula Nasal Cannula O2 Flow Rate 2.0 2.0 4.0 2.0 09/10/18 09/10/18 09/10/18 09/10/18 03:15 07:00 08:57 11:00 Temp 97.9 97.8 97.7 97.9 97.8 97.7 Pulse 70 70 68 Resp 20 22 22 B/P (MAP) 133/69 (90) 142/72 (95) 168/80 (109) Pulse Ox 98 97 96 99 O2 Delivery Nasal Cannula Nasal Cannula Nasal Cannula Nasal Cannula O2 Flow Rate 2.0 2.0 4.0 2.0 Intake and Output 09/09/18 09/09/18 09/10/18 15:00 23:00 07:00 Intake Total 390 ml 370 ml 150 ml Balance 390 ml 370 ml 150 ml Images Brain MRI without contrast. HISTORY: Dizziness. TECHNIQUE: Multiplanar, multisequence magnetic resonance imaging of the brain was performed without contrast. COMPARISON: CT angiogram dated 09/08/2018. FINDINGS: There is no restricted diffusion to suggest acute or subacute infarction. There are foci of subtle effect within the left thalamus likely due to chronic microhemorrhage or calcification. There are scattered areas of signal change within the cerebral white matter and tracy, likely due to chronic small vessel disease. There is a chronic lacunar infarct within the right thalamus. There is also a suspected chronic infarct within the right external capsule. There are prominent perivascular spaces within the bilateral central ramirez nuclei. There is evidence of lens surgery. The paranasal sinuses and mastoid air cells are unremarkable. There are normal flow voids within the cerebral vessels. IMPRESSION: 1. No acute intracranial finding. 2. Multiple scattered focal areas of signal change within the cerebral white matter and tracy, likely due to chronic small vessel disease. 3. Suspected small chronic lacunar infarct within the right thalamus and external capsule. CHUNG CRUZ MD September 10, 2018 15:04
--- NOTE | 2018-09-10 15:11 | NUR ---
Pt was seen by Dr Hart and was ok for discharge to home. Spoke to Dr Cha and he really would like pt to go to skilled but if the son is ok with taking her home, he will ok the discharge with orders for home health. I spoke to the son and discussed the doctors concerns. The son is wanting to take her home with home health. I notified them that [facility] would be contacted tomorrow. Family is ok with this. Will proceed with discharge.
--- NOTE | 2018-09-19 11:55 | SNU/HH DC ---
DISCHARGE WITH HOME HEALTH DISCHARGE INFORMATION: Discharge Date: September 10, 2018 Final Diagnosis: hypoxia copd weakness Problems Medical Problems: (1) Ataxia Status: Acute (2) Dizziness Status: Acute Condition on Discharge: Stable CODE STATUS: Code Status: Full HOME HEALTH: Face to Face: I certify this patient is under my care and that I, or a nurse practitioner or physician's parts room assistant working with me, had a face to face encounter that meets the physician face to face encounter requirements with this patient on 07/11 Medical Complications: COPD Alf For: Other: (respiratory therapy eval) RN For Eval/Treatment: Yes Physical Therapy For: Evalulation/Treatment Occupational Therapy For: Evaluation/Treatment Pt Meets Homebound Status: Extreme weakness w/ amb., Limited distance walking POST DISCHARGE ORDERS: Activity Instructions for Disc: Activity as tolerated Weight Bearing Status after Di: No restrictions DIET AFTER DISCHARGE: Regular FOLLOW-UP: Follow up with: Infectious Disease (Dr Goldstein) Follow Up With: Pulmonary (Dr Hurd TREATMENT/EQUIPMENT ORDERS: Adaptive Equipment Issued: None Discharge Respiratory Equipmen: Oxygen, Nebulizer CERTIFICATION STATEMENT: Certification Statement: Certification Statement: Based on the above finding, I certify that this patient is confined to the home and needs intermittent senior living care, physical therapy and/or speech therapy, or continues to need occupational therapy.~ This patient is under my care, and I have initiated the establishment of the plan of care.~ This patient will be followed by myself or a community physician who will periodically review the plan of care. Home Meds Active Scripts Sodium Chloride/Aloe Vera (AYR SALINE NASAL GEL) 14.1 Gm Gel..gram., 1 QUANG NS PRN DAILY PRN for NASAL CONGESTION for 30 Days, #30 EACH Prov:DEBORAH HERNANDEZ MD 06/30/18 Ipratropium/Albuterol Sulfate (DUONEB 0.5-3(2.5) MG/3 ML) 3 Ml Ampul.neb, 3 ML NEB RTQID for Pulm Fibrosis for 30 Days, #120 EACH 2 Refills Prov:DEBORAH HERNANDEZ MD 06/30/18 DANN ABBASI MD September 19, 2018 11:55
--- NOTE | 2018-10-03 14:47 | PDOC3 ---
Discharge Summary Visit Information Date of Admission: September 08, 2018 Date of Discharge: September 10, 2018 Admitting Diagnosis: syncope Final Diagnosis syncope weakness, ataxia, dizzyness recent hypoxia Dyspnea at rest secondary to pulmonary fibrosis, recent bronch, hypxoia, on 2 litersr mild aortic stenosis Problems Medical Problems: (1) Ataxia Status: Acute (2) Dizziness Status: Acute Brief Hospital Course Allergies Allergies Coded Allergies Type Severity Reaction Last Updated Verified gluten Adverse Reaction Mild Diarrhea 09/09/18 Yes Brief Hospital Course Ms. Crowe is a 78 old admit with syncope and weakness, chronic lung disease listed above, very weak, almost falls with PT, would benefit from SNU, may refuse, she reports wanting to go home, family will be by later to discuss Discharge Information Condition at Discharge: Improved Disposition/Orders: D/C to Another Facility (skilled) Scheduled Ipratropium/Albuterol Sulfate (Duoneb 0.5-3(2.5) Mg/3 Ml) 3 Ml Ampul.neb, 3 ML NEB RTQID for Pulm Fibrosis for 30 Days, #120 Ref 2 Prescribed by: DEBORAH HERNANDEZ MD on 06/30/181253 Last Action: Continued on 09/08/181543 by NICHOLE ARGUETA MD Scheduled PRN Sodium Chloride/Aloe Vera ([place] Saline Nasal Gel) 14.1 Gm Gel..gram., 1 QUANG NS PRN DAILY PRN for NASAL CONGESTION for 30 Days, #30 Prescribed by: DEBORAH HERNANDEZ MD on 06/30/18 1254 Last Action: Continued on 09/08/181543 by MD ELROY DRAKE IRA W MD October 03, 2018 14:47
== END 2018-09-10 17:00 | disposition home health service (06) | DRG 189 ==
LOC: ER 13:07 → 6 SOUTH 15:32
PROVIDERS: ADMIT Family Medicine; ATTEND Family Medicine
DX: J96.21 Acute and chronic respiratory failure with hypoxia (principal); I35.0 Nonrheumatic aortic (valve) stenosis; J84.10 Pulmonary fibrosis, unspecified; I10 Essential (primary) hypertension; K21.9 Gastro-esophageal reflux disease without esophagitis; F32.9 Major depressive disorder, single episode, unspecified; F41.9 Anxiety disorder, unspecified; E78.5 Hyperlipidemia, unspecified; M19.90 Unspecified osteoarthritis, unspecified site; W01.0XXA Fall on same level from slipping, tripping and stumbling without subsequent striking against object, initial encounter; Z88.8 Allergy status to other drugs, medicaments and biological substances; Z82.49 Family history of ischemic heart disease and other diseases of the circulatory system; Y93.89 Activity, other specified; Y92.89 Other specified places as the place of occurrence of the external cause; Y99.8 Other external cause status; Z99.81 Dependence on supplemental oxygen; Z87.01 Personal history of pneumonia (recurrent); Z98.49 Cataract extraction status, unspecified eye
CPT/HCPCS: 36415; 70450; 70496; 70498; 70551; 71045; 80048; 80053; 80061; 81001; 84439; 84443; 84484; 85025; 85027; 85610; 85730; 93005; 94640; 96360; 96361; J7030; J7620; Q9967; 97110; 97116; 97530; 99285-25

== ENCOUNTER → 2018-12-04 | Outpatient (CLI) | payer MEDICARE ==
[2018-12-04 13:20] LABS: BASO % 0 % (0-3); EOS % 0 % (0-3); HEMOGLOBIN 15.4 g/dL (12.0-15.5); LYMPH # 0.7 x10^3/uL (1.0-4.8); LYMPH % 6 % (24-48); MEAN CORPUSCULAR HEMOGLOBIN 26 pg (25-35); MEAN CORPUSCULAR HGB CONC 33 g/dL (31-37); MEAN CORPUSCULAR VOLUME 80 fL (79-100); MONO # 0.1 x10^3/uL (0.0-1.1); MONO % 1 % (0-9); NEUT # 10.7 x10^3/uL (1.8-7.7); NEUT % 92 % (31-73); PLATELET COUNT 344 x10^3/uL (140-400); RED BLOOD COUNT 5.89 x10^6/uL (3.50-5.40); RED CELL DISTRIBUTION WIDTH 17.7 % (11.5-14.5); WHITE BLOOD COUNT 11.6 x10^3/uL (4.0-11.0)
[2018-12-04 13:29] LABS: PROTHROMBIN TIME PATIENT 12.8 SEC (11.7-14.0)
[2018-12-04 14:06] LABS: % BANDS 3 % (0-9); % LYMPHS 4 % (24-48); % MONOS 1 % (0-10); % SEGS 92 % (35-66); PLT ESTIMATE ADEQUATE (ADEQUATE); TOXIC GRANULATION SLIGHT
[2018-12-04 14:07] LABS: SCHISTOCYTES OCC; TARGET CELLS OCC
== END | disposition home or self-care (01) ==
LOC: LAB 12:54
PROVIDERS: ATTEND Internal Medicine Pulmonary Disease
DX: R06.00 Dyspnea, unspecified (principal); Z98.890 Other specified postprocedural states
CPT/HCPCS: 36415; 82947; 85007; 85025; 85610

== ENCOUNTER → 2018-12-25 | Outpatient (CLI) | payer MEDICARE ==
--- NOTE | 2018-12-25 14:08 | KCIC ---
EXAM: Chest, 2 views. HISTORY: Respiratory failure. Poor fibrosis. COMPARISON: 09/08/2018 FINDINGS: 2 views the chest are obtained. There are stable coarse diffuse increased interstitial markings due to known pulmonary fibrosis. No consolidation, pleural effusion or pneumothorax is seen. There is stable enlargement of the cardiac silhouette and rightward deviation of the lower trachea. There is increased thoracic kyphosis. IMPRESSION: 1. Pulmonary fibrosis. The possibility of superimposed interstitial infiltrate is not excluded. No consolidation is seen. 2. Stable prominent cardiac silhouette. Electronically signed by: Yael Tabares MD (12/25/2018 2:04 PM) [place] [id number]
== END | disposition home or self-care (01) ==
LOC: KCIC 12:46
PROVIDERS: ATTEND Internal Medicine Pulmonary Disease
DX: M40.294 Other kyphosis, thoracic region (principal); J84.10 Pulmonary fibrosis, unspecified; J96.90 Respiratory failure, unspecified, unspecified whether with hypoxia or hypercapnia; Z86.711 Personal history of pulmonary embolism
CPT/HCPCS: 71046

== ENCOUNTER → 2019-03-02 | Outpatient (CLI) | payer MEDICARE ==
--- NOTE | 2019-03-02 16:38 | RAD ---
EXAM: Chest, 2 views. HISTORY: Shortness of air. COMPARISON: 12/25/2018 FINDINGS: 2 views of the chest are obtained. There is stable coarse diffuse increased interstitial opacity throughout both lungs due to known pulmonary fibrosis. This limits evaluation for superimposed interstitial infiltrate. No consolidation, pleural effusion or pneumothorax is seen. There is stable enlargement of the cardiac silhouette. There are surgical clips within the left upper quadrant. IMPRESSION: Pulmonary fibrosis. This limits evaluation for interstitial infiltrate. No consolidation is seen. Electronically signed by: Yael Tabares MD (03/02/2019 4:36 PM) [place] [id number]
== END | disposition home or self-care (01) ==
LOC: RAD 12:43
PROVIDERS: ATTEND Internal Medicine Pulmonary Disease
DX: J84.10 Pulmonary fibrosis, unspecified (principal)
CPT/HCPCS: 71046

== ENCOUNTER → 2019-05-11 | Outpatient (CLI) | payer MEDICARE ==
--- NOTE | 2019-05-11 14:31 | RAD ---
Examination: CT CHEST HIGH RESOLUTION WO History: Interstitial lung disease Comparison/Correlation: 03/02/2019 two-view chest x-ray exam, 06/27/2018 CTA of the chest with contrast Findings: Axial images of the chest were obtained without contrast. Imaging was also performed with the patient prone as well as supine with 0.1 cm sections acquired for high-resolution imaging purposes. Extensive fibrotic involvement of the lung monte noted. Honeycombing is evident at the lung bases as well as more superiorly involving the lung monte. Involvement of the upper lung monte is new since the previous CTA chest examination. Extensive bronchiectatic findings also are present especially involving the lower lung monte. Tracheobronchial wall calcifications noted. Scattered patchy interstitial infiltrates involving the upper lung monte noted. No enlarged thoracic lymph nodes. Borderline subcarinal lymph node is stable. Partially visualized upper abdomen is unremarkable. Bony structures are unremarkable. Impression: Progression of pulmonary fibrosis is noted since the previous CTA chest exam at the upper lung field level. Significant honeycombing and bilateral lower lobe bronchiectasis again seen likely representing a hepatic pulmonary fibrosis in the appropriate clinical setting. Patchy interstitial infiltrates involving the upper lung monte also new in the interval. PQRS Compliance Statement: One or more of the following individualized dose reduction techniques were utilized for this examination: 1. Automated exposure control 2. Adjustment of the mA and/or kV according to patient size 3. Use of iterative reconstruction technique Electronically signed by: Rob Case MD (05/11/2019 2:28 PM) [facility]
== END | disposition home or self-care (01) ==
LOC: CT 13:02
PROVIDERS: ATTEND Internal Medicine Pulmonary Disease
DX: J47.9 Bronchiectasis, uncomplicated (principal); J84.10 Pulmonary fibrosis, unspecified; R91.8 Other nonspecific abnormal finding of lung field; J98.09 Other diseases of bronchus, not elsewhere classified; J84.89 Other specified interstitial pulmonary diseases
CPT/HCPCS: 71250

== ENCOUNTER 2019-10-11 10:53 | Inpatient (IN) | payer MEDICARE ==
[~2019-10-11] VITALS: Ht 154.9 cm; Wt 51.0 kg
[~2019-10-11 10:53] MED LIST changes: +FURO-68 PO; +LACT1CAP19 PO; +LISI10TA2 PO; +PRED20TA PO
[2019-10-11] MEDS ORDERED: methylPREDNISolone SOD SUCC PF 125 MG/2 ML VIAL. IV ONE (12:15)
[2019-10-11] MEDS ORDERED: IPRATRPIUM/ALBUTEROL 0.5/2.5MG 3 ML NEBU. NEB ONE (12:15)
[2019-10-11] MEDS ORDERED: FUROSEMIDE 40 MG/4 ML VIAL. IVP ONE (12:15)
[2019-10-11 12:40] LABS: BASO # 0.1 x10^3/uL (0.0-0.2); BASO % 1 % (0-3); EOS # 0.1 x10^3/uL (0.0-0.7); EOS % 1 % (0-3); HEMATOCRIT 44.6 % (36.0-47.0); HEMOGLOBIN 14.4 g/dL (12.0-15.5); LYMPH # 0.7 x10^3/uL (1.0-4.8); LYMPH % 6 % (24-48); MEAN CORPUSCULAR HEMOGLOBIN 26 pg (25-35); MEAN CORPUSCULAR HGB CONC 32 g/dL (31-37); MEAN CORPUSCULAR VOLUME 80 fL (79-100); MONO # 0.6 x10^3/uL (0.0-1.1); MONO % 6 % (0-9); NEUT # 9.7 x10^3/uL (1.8-7.7); NEUT % 87 % (31-73); PLATELET COUNT 319 x10^3/uL (140-400); RED CELL DISTRIBUTION WIDTH 18.8 % (11.5-14.5); WHITE BLOOD COUNT 11.1 x10^3/uL (4.0-11.0)
[2019-10-11 12:50] LABS: CALCIUM 8.4 mg/dL (8.5-10.1); CREATININE 0.9 mg/dL (0.6-1.0); GFR 60.4; POTASSIUM 4.2 mmol/L (3.5-5.1)
[2019-10-11 13:04] LABS: ALBUMIN 3.1 g/dL (3.4-5.0); MAGNESIUM 2.2 mg/dL (1.8-2.4); TOTAL BILIRUBIN 0.4 mg/dL (0.2-1.0); TOTAL PROTEIN 6.3 g/dL (6.4-8.2)
--- NOTE | 2019-10-11 13:40 | RAD ---
CHEST AP ONLY History: Reason: soa / Spl. Instructions: / History: Comparison: August 13, 2019 Findings: Diffuse coarse interstitial opacities. No new consolidation. No pleural effusion. No pneumothorax. Unchanged heart size. Impression: 1. Diffuse coarse interstitial thickening, unchanged. No new consolidation. Electronically signed by: Juan Mauricio DO (10/11/2019 1:36 PM) [facility]
[2019-10-11 13:42] LABS: % BANDS 1 % (0-9); % BASOS 1 % (0-3); % EOS 1 % (0-5); % LYMPHS 8 % (24-48); % MONOS 7 % (0-10); % SEGS 82 % (35-66); PLT ESTIMATE ADEQUATE (ADEQUATE)
[2019-10-11 13:43] LABS: ANISOCYTOSIS SLIGHT
--- NOTE | 2019-10-11 14:08 | EKG ---
[facility] [address] [place] [address] Test Date: 2019-10-11 Test Time: 12:45:53 Pat Name: KILO DIEZ Department: Room: Gender: F Motorcycle Repairer: : 1940 Requested By: TED IGNACIO Order Number: [id number] Reading MD: Mati Lane MD Measurements Intervals [place] Rate: 92 P: 180 RI: 208 QRS: 20 QRSD: 246 T: -42 QT: 418 QTc: 523 Interpretive Statements SR CONSIDER EDGAR CONSIDER LVH NON-SPECIFIC ST/T CHANGES Electronically Signed On 10-18-2019 10:09:[address] MD
--- NOTE | 2019-10-11 14:18 | PHYS DOC ---
Past Medical History Past Medical History: Unknown Additional Past Medical Histor: PT DENIES HOME MEDS, STATES SHE HAS AN "UNKNOWN LUNG INFECTION" Past Surgical History: Other Additional Past Surgical Histo: EGD, cataracts Smoking Status: Never Smoker Alcohol Use: None Drug Use: None General Adult EDM: Chief Complaint: SHORTNESS OF BREATH HPI: HPI: Patient is a 79-year-old female with multiple medical problems including pulmonary fibrosis and congestive heart failure who presents with increased shortness of breath dyspnea on exertion and orthopnea. Patient wears 3 L of oxygen at home and today despite trying to adjust her oxygen and taking an extra dose of Lasix she remained short of breath with low oxygen saturation. She also states that she has quite a bit of swelling in her lower extremities. She denies any fever chills or sweats. She has a chronic cough which is unchanged. She denies hemoptysis.. [] Review of Systems: Review of Systems: Constitutional: Denies fever or chills. [] Eyes: Denies change in visual acuity. [] HENT: Denies nasal congestion or sore throat. [] Respiratory: Per HPI. [] Cardiovascular: Denies chest pain or edema. [] GI: Denies abdominal pain, nausea, vomiting, bloody stools or diarrhea. [] : Denies dysuria. [] Musculoskeletal: Reports lower extremity edema. [] Integument: Denies rash. [] Neurologic: Denies headache, focal weakness or sensory changes. [] Endocrine: Denies polyuria or polydipsia. [] Lymphatic: Denies swollen glands. [] Psychiatric: Denies depression or anxiety. [] Heart Score: Risk Factors: Risk Factors: DM, Current or recent (<one month) smoker, HTN, HLP, family history of CAD, obesity. Risk Scores: Score 0 - 3: 2.5% MACE over next 6 weeks - Discharge Home Score 4 - 6: 20.3% MACE over next 6 weeks - Admit for Clinical Observation Score 7 - 10: 72.7% MACE over next 6 weeks - Early Invasive Strategies Current Medications: Current Medications Medications (Trade) Dose Ordered Sig/Sugar Start Time Stop Time Status Last Admin Dose Admin Albuterol/ Ipratropium (Duoneb) 6 ml 1X ONCE 10/11/19 12:15 10/11/19 12:18 DC Furosemide (Lasix) 80 mg 1X ONCE 10/11/19 12:15 10/11/19 12:18 DC 10/11/19 12:34 80 MG Methylprednisolone Sodium Succinate (SOLU-Medrol 125MG VIAL) 125 mg 1X ONCE 10/11/19 12:15 10/11/19 12:18 DC 10/11/19 12:34 125 MG Allergies: Allergies: Allergies Coded Allergies Type Severity Reaction Last Updated Verified No Known Medication Allergies Allergy Unknown 08/10/19 Yes gluten Adverse Reaction Mild Diarrhea 09/09/18 Yes Physical Exam: PE: Constitutional: Frail, elderly appears acutely ill [] HENT: Normocephalic, atraumatic, bilateral external ears normal, oropharynx moist, no oral exudates, nose normal. [] Eyes: PERRLA, EOMI, conjunctiva normal, no discharge. [] Neck: Normal range of motion, no tenderness, supple, no stridor. [] Cardiovascular:Heart rate regular rhythm, no murmur [] Lungs & Thorax: Scattered rhonchi and rales throughout both lungs [] Abdomen: Bowel sounds normal, soft, no tenderness, no masses, no pulsatile masses. [] Skin: Warm, dry, no erythema, no rash. [] Back: No tenderness, no CVA tenderness. [] Extremities: 2+ lower extremity edema [] Neurologic: Alert and oriented X 3, normal motor function, normal sensory f unction, no focal deficits noted. [] Psychologic: Anxious [] Current Patient Data: Labs: Laboratory Tests Test 10/11/19 11:20 White Blood Count 11.1 x10^3/uL (4.0-11.0) H Red Blood Count 5.60 x10^6/uL (3.50-5.40) H Hemoglobin 14.4 g/dL (12.0-15.5) Hematocrit 44.6 % (36.0-47.0) Mean Corpuscular Volume 80 fL (79-100) Mean Corpuscular Hemoglobin 26 pg (25-35) Mean Corpuscular Hemoglobin Concent 32 g/dL (31-37) Red Cell Distribution Width 18.8 % (11.5-14.5) H Platelet Count 319 x10^3/uL (140-400) Neutrophils (%) (Auto) 87 % (31-73) H Lymphocytes (%) (Auto) 6 % (24-48) L Monocytes (%) (Auto) 6 % (0-9) Eosinophils (%) (Auto) 1 % (0-3) Basophils (%) (Auto) 1 % (0-3) Neutrophils # (Auto) 9.7 x10^3/uL (1.8-7.7) H Lymphocytes # (Auto) 0.7 x10^3/uL (1.0-4.8) L Monocytes # (Auto) 0.6 x10^3/uL (0.0-1.1) Eosinophils # (Auto) 0.1 x10^3/uL (0.0-0.7) Basophils # (Auto) 0.1 x10^3/uL (0.0-0.2) Segmented Neutrophils % 82 % (35-66) H Band Neutrophils % 1 % (0-9) Lymphocytes % 8 % (24-48) L Monocytes % 7 % (0-10) Eosinophils % 1 % (0-5) Basophils % 1 % (0-3) Platelet Estimate Adequate (ADEQUATE) Anisocytosis Slight Sodium Level 141 mmol/L (136-145) Potassium Level 4.2 mmol/L (3.5-5.1) Chloride Level 101 mmol/L (98-107) Carbon Dioxide Level 35 mmol/L (21-32) H Anion Gap 5 (6-14) L Blood Urea Nitrogen 19 mg/dL (7-20) Creatinine 0.9 mg/dL (0.6-1.0) Estimated GFR (Cockcroft-Gault) 60.4 BUN/Creatinine Ratio 21 (6-20) H Glucose Level 93 mg/dL (70-99) Calcium Level 8.4 mg/dL (8.5-10.1) L Magnesium Level 2.2 mg/dL (1.8-2.4) Total Bilirubin 0.4 mg/dL (0.2-1.0) Aspartate Amino Transferase (AST) 43 U/L (15-37) H Alanine Aminotransferase (ALT) 58 U/L (14-59) Alkaline Phosphatase 80 U/L (46-116) Troponin I Quantitative < 0.017 ng/mL (0.000-0.055) [id number]-[id number]-P-Type Natriuretic Peptide 2375 pg/mL (0-449) H Total Protein 6.3 g/dL (6.4-8.2) L Albumin 3.1 g/dL (3.4-5.0) L Albumin/Globulin Ratio 1.0 (1.0-1.7) Laboratory Tests 10/11/19 11:20 Laboratory Tests 10/11/19 11:20 EKG: EKG: EKG: Normal sinus rhythm rate of [address]-T changes [] Radiology/Procedures: Radiology/Procedures: []REASON: soa PROCEDURE: CHEST AP ONLY CHEST AP ONLY History: Reason: soa / Spl. Instructions: / History: Comparison: August 13, 2019 Findings: Diffuse coarse interstitial opacities. No new consolidation. No pleural effusion. No pneumothorax. Unchanged heart size. Impression: 1. Diffuse coarse interstitial thickening, unchanged. No new consolidation. Course & Med Decision Making: Course & Med Decision Making Pertinent Labs and Imaging studies reviewed. (See chart for details) [ED course: Evaluation reveals a 79-year-old female with likely a mixed cardiac/pulmonary issue. Clinically her lung exam sounds more like congestive heart failure she does have a slightly elevated BNP at 2500 lower extremity edema. She was given 80 mg of Lasix IV. Initially she was on a nonrebreather to keep her oxygen saturation above 90% after some diuresis she is now down to 6 L nasal cannula allowing for her to maintain a 92% oxygen saturation. She refused any breathing treatments stating that they make her too anxious and jittery.] [place] Disclaimer: [place] Disclaimer: This electronic medical record was generated, in whole or in part, using a voice recognition dictation system. Departure Departure Referrals: GAYLA ELIZABETH MD (PCP) Justicifation of Admission Dx: Justifications for Admission: Justification of Admission Dx: Yes CHF: Hemodynamic Instability TED IGNACIO DO Oct 11, 2019 14:18
[2019-10-11] MEDS ORDERED: ACETAMINOPHEN 325 MG TABLET. PO PRN (14:30)
[2019-10-11] MEDS ORDERED: ONDANSETRON PF 4 MG/2 ML VIAL. IV PRN (14:30)
--- NOTE | 2019-10-11 14:59 | PDOC1 ---
History and Physical Date of Admission Date of Admission DATE: 10/11/19 TIME: 14:59 Identification/Chief Complaint Chief Complaint SEEN IN ER WITH ACUTE CHF, 79-year-old female with multiple medical problems including pulmonary fibrosis and congestive heart failure who presents with increased shortness of breath dyspnea on exertion and orthopnea. wears 3 L of oxygen at home and today despite trying to adjust her oxygen and taking an extra dose of Lasix she remained short of breath with low oxygen saturation. states that she has quite a bit of swelling in her lower extremities. She denies any fever chills or sweats. NOTES chronic cough which is unchanged. Past Medical History Past Medical History Past Medical History Past Medical History: Unknown Additional Past Medical Histor: PT DENIES HOME MEDS, STATES SHE HAS AN "UNKNOWN LUNG INFECTION" Past Surgical History: Other Additional Past Surgical Histo: EGD, cataracts Smoking Status: Never Smoker Alcohol Use: None Drug Use: None Cardiovascular: HTN, Hyperlipidemia Pulmonary: Pneumonia GI: Constipation, GERD Heme/Onc: No pertinent hx Hepatobiliary: No pertinent hx Psych: Anxiety, Depression Musculoskeletal: Osteoarthritis Rheumatologic: No pertinent hx Infectious disease: No pertinent hx Renal/: Urinary Incontinence Endocrine: No pertinent hx Past Surgical History Past Surgical History: Cataract Removal, Hernia Repair Family History Family History: Chronic Bronchitis, High Cholestrol, Other Social History Smoke: No ALCOHOL: rare Drugs: None Current Medications Current Medications Current Medications Furosemide (Lasix) 80 mg 1X ONCE IVP Last administered on 10/11/19at 12:34; Start 10/11/19 at 12:15; Stop 10/11/19 at 12:18; Status DC Albuterol/ Ipratropium (Duoneb) 6 ml 1X ONCE NEB ; Start 10/11/19 at 12:15; Stop 10/11/19 at 12:18; Status DC Methylprednisolone Sodium Succinate (SOLU-Medrol 125MG VIAL) 125 mg 1X ONCE IV Last administered on 10/11/19at 12:34; Start 10/11/19 at 12:15; Stop 10/11/19 at 12:18; Status DC Ondansetron HCl (Zofran) 4 mg PRN Q8HRS PRN IV NAUSEA/VOMITING; Start 10/11/19 at 14:30; Stop 10/12/19 at 14:29 Acetaminophen (Tylenol) 650 mg PRN Q4HRS PRN PO FEVER > 100.3'F; Start 10/11/19 at 14:30; Stop 10/12/19 at 14:29 Active Scripts Active Culturelle (Lactobacillus Rhamnosus Gg) 1 Each Cap.sprink 1 Cap PO BID 30 Days Amox Tr-K Clv 875-125 Mg Tab (Amoxicillin/Potassium Clav) 1 Each Tablet 1 Tab PO BID 5 Days [place] Saline Nasal Gel (Sodium Chloride/Aloe Vera) 14.1 Gm Gel..gram. 1 [place] NS PRN DAILY PRN 30 Days Duoneb 0.5-3(2.5) Mg/3 Ml (Albuterol/Ipratropium) 3 Ml Ampul.neb 3 Ml NEB RTQID 30 Days Reported Lasix (Furosemide) 40 Mg Tablet 1 Tab PO PRN DAILY PRN 30 Days Lisinopril 10 Mg Tablet 1 Tab PO DAILY Prednisone 20 Mg Tablet 20 Mg PO DAILY Allergies Allergies: Coded Allergies: No Known Medication Allergies (Verified Allergy, Unknown, 08/10/19) gluten (Verified Adverse Reaction, Mild, Diarrhea, 09/09/18) pt reports ROS Review of System Review of Systems: Review of Systems: Constitutional: Denies fever or chills. [] Eyes: Denies change in visual acuity. [] HENT: Denies nasal congestion or sore throat. [] Respiratory: Per HPI. [] Cardiovascular: Denies chest pain , notes ankle edema. [] GI: Denies abdominal pain, nausea, vomiting, bloody stools or diarrhea. [] : Denies dysuria. [] Musculoskeletal: lower extremity edema. [] Integument: Denies rash. [] Neurologic: Denies headache, focal weakness or sensory changes. [] Endocrine: Denies polyuria or polydipsia. [] Lymphatic: Denies swollen glands. [] Psychiatric: Denies depression or anxiety. [] 14 pt ros otherwise neg General: YES: Fatigue PSYCHOLOGICAL ROS: No: Anxiety, Behavioral Disorder, Concentration difficultie, Decreased libido, Depression, Disorientation, Hallucinations, Hostility, Irritablity, Memory difficulties, Mood Swings, Obsessive thoughts, Physical abuse, Sexual abuse, Sleep disturbances, Suicidal ideation, Other ALLERGY AND IMMUNOLOGY: No: Hives, Insect Bite Sensitivity, Itchy/Watery Eyes, Nasal Congestion, Post Nasal Drip, Seasonal Allergies, Other Hematological and Lymphatic: No: Bleeding Problems, Blood Clots, Blood Transfusions, Brusing, Night Sweats, Pallor, Swollen Lymph Nodes, Other Respiratory: YES: Shortness of breath, SOB with excertion Cardiovascular: yes Paroxysmal Noc. Dyspnea, yes Edema; No Chest Pain, No Palpitations, No Orthopnea, No Lt Headedness, No Other Gastrointestinal: No Nausea, No Vomiting, No Abdominal Pain, No Diarrhea, No Constipation, No Melena, No Hematochezia, No Other Musculoskeletal: Yes Gait Disturbance, Yes Joint Stiffness Neurological: Yes Gait Disturbance Physical Exam Physical Exam Alert. Oriented to time, place and person. PERRL. EOMI. CN: no focal findings. Muscle tone: normal. GENERAL: Propped up in bed, alert in NAD HEENT: Oral cavity pink, dry. + dentures NECK: Supple LUNGS: DISTANT , MILD RESP Distress HEART: S1, S2 regular. ABDOMEN: Soft, nontender EXTREMITIES: 2 PLUS ANKLE edema, NO cyanosis. SKIN: warm to touch. No signs of rash NEUROLOGIC: Alert, answers questions appropriately Sensory exam: no abnormal findings. No cerebellar signs elicited. General: Alert, Oriented X3, Cooperative, HEENT: Atraumatic Heart: RRR Breasts: Not examined Abdomen: Soft Rectal Exam: not examined PELVIC: Examination not indicated Extremities: No cyanosis Neuro: Normal speech, Cranial nerves 3-12 NL Psych/Mental Status: Mental status NL, Mood NL General: Alert, Oriented X3, Cooperative, mild distress HEENT: Atraumatic, EOMI Heart: other (JVD) Breasts: Not examined Abdomen: Normal bowel sounds, Soft, No tenderness Rectal Exam: not examined PELVIC: Examination not indicated Extremities: No cyanosis Skin: No significant lesion Neuro: Normal speech, Sensation intact, Cranial nerves 3-12 NL Vitals Vitals Vital Signs Date Time Temp Pulse Resp B/P (MAP) Pulse Ox O2 Delivery O2 Flow Rate FiO2 10/11/19 14:21 87 103/67 (79) 94 Nasal Cannula 6.0 10/11/19 11:00 98.4 26 98.4 Labs Labs Laboratory Tests Test 10/11/19 11:20 White Blood Count 11.1 x10^3/uL (4.0-11.0) Red Blood Count 5.60 x10^6/uL (3.50-5.40) Hemoglobin 14.4 g/dL (12.0-15.5) Hematocrit 44.6 % (36.0-47.0) Mean Corpuscular Volume 80 fL (79-100) Mean Corpuscular Hemoglobin 26 pg (25-35) Mean Corpuscular Hemoglobin Concent 32 g/dL (31-37) Red Cell Distribution Width 18.8 % (11.5-14.5) Platelet Count 319 x10^3/uL (140-400) Neutrophils (%) (Auto) 87 % (31-73) Lymphocytes (%) (Auto) 6 % (24-48) Monocytes (%) (Auto) 6 % (0-9) Eosinophils (%) (Auto) 1 % (0-3) Basophils (%) (Auto) 1 % (0-3) Neutrophils # (Auto) 9.7 x10^3/uL (1.8-7.7) Lymphocytes # (Auto) 0.7 x10^3/uL (1.0-4.8) Monocytes # (Auto) 0.6 x10^3/uL (0.0-1.1) Eosinophils # (Auto) 0.1 x10^3/uL (0.0-0.7) Basophils # (Auto) 0.1 x10^3/uL (0.0-0.2) Segmented Neutrophils % 82 % (35-66) Band Neutrophils % 1 % (0-9) Lymphocytes % 8 % (24-48) Monocytes % 7 % (0-10) Eosinophils % 1 % (0-5) Basophils % 1 % (0-3) Platelet Estimate Adequate (ADEQUATE) Anisocytosis Slight Sodium Level 141 mmol/L (136-145) Potassium Level 4.2 mmol/L (3.5-5.1) Chloride Level 101 mmol/L (98-107) Carbon Dioxide Level 35 mmol/L (21-32) Anion Gap 5 (6-14) Blood Urea Nitrogen 19 mg/dL (7-20) Creatinine 0.9 mg/dL (0.6-1.0) Estimated GFR (Cockcroft-Gault) 60.4 BUN/Creatinine Ratio 21 (6-20) Glucose Level 93 mg/dL (70-99) Calcium Level 8.4 mg/dL (8.5-10.1) Magnesium Level 2.2 mg/dL (1.8-2.4) Total Bilirubin 0.4 mg/dL (0.2-1.0) Aspartate Amino Transf (AST/SGOT) 43 U/L (15-37) Alanine Aminotransferase (ALT/SGPT) 58 U/L (14-59) Alkaline Phosphatase 80 U/L (46-116) Troponin I Quantitative < 0.017 ng/mL (0.000-0.055) VL-Aes-I-Type Natriuretic Peptide 2375 pg/mL (0-449) Total Protein 6.3 g/dL (6.4-8.2) Albumin 3.1 g/dL (3.4-5.0) Albumin/Globulin Ratio 1.0 (1.0-1.7) Laboratory Tests Test 10/11/19 11:20 White Blood Count 11.1 x10^3/uL (4.0-11.0) Red Blood Count 5.60 x10^6/uL (3.50-5.40) Hemoglobin 14.4 g/dL (12.0-15.5) Hematocrit 44.6 % (36.0-47.0) Mean Corpuscular Volume 80 fL (79-100) Mean Corpuscular Hemoglobin 26 pg (25-35) Mean Corpuscular Hemoglobin Concent 32 g/dL (31-37) Red Cell Distribution Width 18.8 % (11.5-14.5) Platelet Count 319 x10^3/uL (140-400) Neutrophils (%) (Auto) 87 % (31-73) Lymphocytes (%) (Auto) 6 % (24-48) Monocytes (%) (Auto) 6 % (0-9) Eosinophils (%) (Auto) 1 % (0-3) Basophils (%) (Auto) 1 % (0-3) Neutrophils # (Auto) 9.7 x10^3/uL (1.8-7.7) Lymphocytes # (Auto) 0.7 x10^3/uL (1.0-4.8) Monocytes # (Auto) 0.6 x10^3/uL (0.0-1.1) Eosinophils # (Auto) 0.1 x10^3/uL (0.0-0.7) Basophils # (Auto) 0.1 x10^3/uL (0.0-0.2) Segmented Neutrophils % 82 % (35-66) Band Neutrophils % 1 % (0-9) Lymphocytes % 8 % (24-48) Monocytes % 7 % (0-10) Eosinophils % 1 % (0-5) Basophils % 1 % (0-3) Platelet Estimate Adequate (ADEQUATE) Anisocytosis Slight Sodium Level 141 mmol/L (136-145) Potassium Level 4.2 mmol/L (3.5-5.1) Chloride Level 101 mmol/L (98-107) Carbon Dioxide Level 35 mmol/L (21-32) Anion Gap 5 (6-14) Blood Urea Nitrogen 19 mg/dL (7-20) Creatinine 0.9 mg/dL (0.6-1.0) Estimated GFR (Cockcroft-Gault) 60.4 BUN/Creatinine Ratio 21 (6-20) Glucose Level 93 mg/dL (70-99) Calcium Level 8.4 mg/dL (8.5-10.1) Magnesium Level 2.2 mg/dL (1.8-2.4) Total Bilirubin 0.4 mg/dL (0.2-1.0) Aspartate Amino Transf (AST/SGOT) 43 U/L (15-37) Alanine Aminotransferase (ALT/SGPT) 58 U/L (14-59) Alkaline Phosphatase 80 U/L (46-116) Troponin I Quantitative < 0.017 ng/mL (0.000-0.055) JX-Pxy-D-Type Natriuretic Peptide 2375 pg/mL (0-449) Total Protein 6.3 g/dL (6.4-8.2) Albumin 3.1 g/dL (3.4-5.0) Albumin/Globulin Ratio 1.0 (1.0-1.7) Images Images Examination: CT CHEST HIGH RESOLUTION WO History: Interstitial lung disease Comparison/Correlation: 03/02/2019 two-view chest x-ray exam, 06/27/2018 CTA of the chest with contrast Findings: Axial images of the chest were obtained without contrast. Imaging was also performed with the patient prone as well as supine with 0.1 cm sections acquired for high-resolution imaging purposes. Extensive fibrotic involvement of the lung monte noted. Honeycombing is evident at the lung bases as well as more superiorly involving the lung monte. Involvement of the upper lung monte is new since the previous CTA chest examination. Extensive bronchiectatic findings also are present especially involving the lower lung monte. Tracheobronchial wall calcifications noted. Scattered patchy interstitial infiltrates involving the upper lung monte noted. No enlarged thoracic lymph nodes. Borderline subcarinal lymph node is stable. Partially visualized upper abdomen is unremarkable. Bony structures are unremarkable. Impression: Progression of pulmonary fibrosis is noted since the previous CTA chest exam at the upper lung field level. Significant honeycombing and bilateral lower lobe bronchiectasis again seen likely representing a hepatic pulmonary fibrosis in the appropriate clinical setting. Patchy interstitial infiltrates involving the upper lung monte also new in the interval. PQRS Compliance Statement: One or more of the following individualized dose reduction techniques were utilized for this examination: 1. Automated exposure control 2. Adjustment of the mA and/or kV according to patient size 3. Use of iterative reconstruction technique Electronically signed by: Rob Britton MD (05/11/2019 2:28 PM) [facility] DICTATED and SIGNED BY: ROB BRITTON MD DATE: 05/11/19 1428 CHEST AP ONLY History: Reason: soa / Spl. Instructions: / History: Comparison: August 13, 2019 Findings: Diffuse coarse interstitial opacities. No new consolidation. No pleural effusion. No pneumothorax. Unchanged heart size. Impression: 1. Diffuse coarse interstitial thickening, unchanged. No new consolidation. Electronically signed by: Juan Mauricio DO (10/11/2019 1:36 PM) [facility] DICTATED and SIGNED BY: JUAN MAURICIO DO DATE: 10/11/19 1336 Pulmonary Valve PV Peak Velocity 111.2cm/s PV Peak Grad. 5mmHg Tricuspid Valve TR P. Velocity 181cm/s RAP ESTIMATE 3mmHg TR Peak Gr. 13mmHg RVSP 16mmHg Pulmonary Vein S1 Velocity 45.3cm/s D2 Velocity 26.1cm/s PVa duration 116msec LEFT VENTRICLE The left ventricle is normal size. There is borderline concentric left ventricular hypertrophy. The left ventricular systolic function is normal. The Ejection Fraction is 60%. There is normal LV segmental wall motion. Transmitral Doppler flow pattern is Grade I-abnormal relaxation pattern. RIGHT VENTRICLE The right ventricle is normal size. There is normal right ventricular wall thickness. The right ventricular systolic function is normal. ATRIA The left atrium size is normal. The right atrium size is normal. The interatrial septum is intact with no evidence for an atrial septal defect or patent foramen ovale as noted on 2-D or Doppler imaging. AORTIC VALVE The aortic valve is thickened but opens well. Doppler and Color Flow revealed trace aortic regurgitation. There is mild aortic valvular stenosis. MITRAL VALVE The mitral valve is thickened but opens well. There is no evidence of mitral va lve prolapse. There is no mitral valve stenosis. Doppler and Color Flow revealed trace mitral valve regurgitation. TRICUSPID VALVE The tricuspid valve is normal in structure and function. Doppler and Color Flow revealed trace tricuspid regurgitation. There is no tricuspid valve stenosis. PULMONIC VALVE The pulmonic valve is not well visualized. Doppler and Color Flow revealed no pulmonic valvular regurgitation. GREAT VESSELS The aortic root is normal in size. The IVC is normal in size and collapses >50% with inspiration. PERICARDIAL EFFUSION There is no evidence of significant pericardial effusion. Critical Notification Critical Value: No <Conclusion> The left ventricular systolic function is normal. The Ejection Fraction is 60%. There is normal LV segmental wall motion. Transmitral Doppler flow pattern is Grade I-abnormal relaxation pattern. There is mild aortic valvular stenosis. Trace mitral valve regurgitation. Trace tricuspid regurgitation. There is no evidence of significant pericardial effusion. Signed by : Kishor Denis, Electronically Approved : 06/28/2018 10:30:51 VTE Prophylaxis Ordered VTE Prophylaxis Devices: Yes VTE Pharmacological Prophylaxi: Yes Assessment/Plan Assessment/Plan impression Acute EXACERBATION OF chf concern for covid-19 related illness seems low weakness, acute hypoxic resp failure, REQUIRIG 15 LITER O2 ON PRESENTATION Acute on chronic diastolic CHF; Slight increase in interstitial thickening of the lung monte which may represent interstitial infiltrates or related to CHF. Progression of pulmonary fibrosis is noted since the previous CTA chest exam at the upper lung field level. Significant honeycombing and bilateral lower lobe bronchiectasis 05/28 CT chest Dyspnea secondary to pulmonary fibrosis, ? COVID -19 recent bronch, mild aortic stenosis plan admit o2 support 80 mg of Lasix IV. in er pulm consult Cardiology consult lasix 40 mg iv q 24 hrs dvt prophylaxis D/W RN Justicifation of Admission Dx: Justifications for Admission: Justification of Admission Dx: Yes Respiratory Failure: Severe Resp Distress Aspiration Pneumonia: Hypoxemia Acute COPD Exacerbation: Acute COPD Exacerbation NICHOLE ARGUETA MD Oct 11, 2019 14:59
[2019-10-11 15:54] VITALS: BP 139/85
--- NOTE | 2019-10-11 17:38 | PDOC2 ---
AMADOR ANDREA [employer] TE[employer]ER 10/11/19 1738: CARDIAC CONSULT DATE OF CONSULT Date of Consult DATE: 10/11/19 TIME: 17:27 REASON FOR CONSULT Reason for Consult: CHF REFERRING PHYSICIAN Referring Physician: Dr. Ybarra SOURCE Source: Chart review, Patient HISTORY OF PRESENT ILLNESS HISTORY OF PRESENT ILLNESS This is a 79 yo female who presented secondary to shortness of breath. Patient with history of chronic respiratory failure, pulmonary fibrosis/ILD. wears 3LNC at home. Has been more short of breath the last couple of days. LE edema has been worse recent. took extra Lasix at home without significant improvement. Yesterday, was more short of breath and oxygen was low so she came into the ED for further evaluation and treatment. denies any chest pain, dizziness, diaphoresis, or nausea/vomiting. No recent illness/fevers. PAST MEDICAL HISTORY Cardiovascular: CHF, HTN, Hyperlipidemia Pulmonary: Other (ILD) GI: GERD Psych: Anxiety, Depression Musculoskeletal: Osteoarthritis PAST SURGICAL HISTORY Past Surgical History: Hernia Repair FAMILY HISTORY Family History: High Cholestrol SOCIAL HISTORY Smoke: No ALCOHOL: none Drugs: None Lives: Alone CURRENT MEDICATIONS CURRENT MEDICATIONS Current Medications Medications (Trade) Dose Ordered Sig/Sugar Route PRN Reason Start Time Stop Time Status Last Admin Dose Admin Furosemide (Lasix) 80 mg 1X ONCE IVP 10/11/19 12:15 10/11/19 12:18 DC 10/11/19 12:34 Methylprednisolone Sodium Succinate (SOLU-Medrol 125MG VIAL) 125 mg 1X ONCE IV 10/11/19 12:15 10/11/19 12:18 DC 10/11/19 12:34 ALLERGIES ALLERGIES: Coded Allergies: No Known Medication Allergies (Verified Allergy, Unknown, 08/10/19) gluten (Verified Adverse Reaction, Mild, Diarrhea, 09/09/18) pt reports ROS Review of System 14 point ROS conducted with pertinent positives noted above in HPI PHYSICAL EXAM General: Alert, Oriented X3, Cooperative, No acute distress HEENT: Atraumatic, Mucous membr. moist/pink Lungs: Other (diminished ) Heart: Regular rate, Other (2/6 systolic mumur) Abdomen: Soft Extremities: Other (2+ bilateral LE edema ) Skin: No significant lesion Neuro: Normal speech, Sensation intact Psych/Mental Status: Mental status NL, Mood NL MUSCULOSKELETAL: Osteoarthritic changes both hands VITALS/I&O VITALS/I&O: Vital Signs Date Time Temp Pulse Resp B/P (MAP) Pulse Ox O2 Delivery O2 Flow Rate FiO2 10/11/19 16:01 Nasal Cannula 6.0 10/11/19 15:54 97.8 100 22 139/85 (103) 93 97.8 LABS Lab: Laboratory Tests Test 10/11/19 11:20 White Blood Count 11.1 x10^3/uL (4.0-11.0) H Red Blood Count 5.60 x10^6/uL (3.50-5.40) H Hemoglobin 14.4 g/dL (12.0-15.5) Hematocrit 44.6 % (36.0-47.0) Mean Corpuscular Volume 80 fL (79-100) Mean Corpuscular Hemoglobin 26 pg (25-35) Mean Corpuscular Hemoglobin Concent 32 g/dL (31-37) Red Cell Distribution Width 18.8 % (11.5-14.5) H Platelet Count 319 x10^3/uL (140-400) Neutrophils (%) (Auto) 87 % (31-73) H Lymphocytes (%) (Auto) 6 % (24-48) L Monocytes (%) (Auto) 6 % (0-9) Eosinophils (%) (Auto) 1 % (0-3) Basophils (%) (Auto) 1 % (0-3) Neutrophils # (Auto) 9.7 x10^3/uL (1.8-7.7) H Lymphocytes # (Auto) 0.7 x10^3/uL (1.0-4.8) L Monocytes # (Auto) 0.6 x10^3/uL (0.0-1.1) Eosinophils # (Auto) 0.1 x10^3/uL (0.0-0.7) Basophils # (Auto) 0.1 x10^3/uL (0.0-0.2) Segmented Neutrophils % 82 % (35-66) H Band Neutrophils % 1 % (0-9) Lymphocytes % 8 % (24-48) L Monocytes % 7 % (0-10) Eosinophils % 1 % (0-5) Basophils % 1 % (0-3) Platelet Estimate Adequate (ADEQUATE) Anisocytosis Slight Sodium Level 141 mmol/L (136-145) Potassium Level 4.2 mmol/L (3.5-5.1) Chloride Level 101 mmol/L (98-107) Carbon Dioxide Level 35 mmol/L (21-32) H Anion Gap 5 (6-14) L Blood Urea Nitrogen 19 mg/dL (7-20) Creatinine 0.9 mg/dL (0.6-1.0) Estimated GFR (Cockcroft-Gault) 60.4 BUN/Creatinine Ratio 21 (6-20) H Glucose Level 93 mg/dL (70-99) Calcium Level 8.4 mg/dL (8.5-10.1) L Magnesium Level 2.2 mg/dL (1.8-2.4) Total Bilirubin 0.4 mg/dL (0.2-1.0) Aspartate Amino Transferase (AST) 43 U/L (15-37) H Alanine Aminotransferase (ALT) 58 U/L (14-59) Alkaline Phosphatase 80 U/L (46-116) Troponin I Quantitative < 0.017 ng/mL (0.000-0.055) EA-Bil-O-Type Natriuretic Peptide 2375 pg/mL (0-449) H Total Protein 6.3 g/dL (6.4-8.2) L Albumin 3.1 g/dL (3.4-5.0) L Albumin/Globulin Ratio 1.0 (1.0-1.7) Laboratory Tests 10/11/19 11:20 Laboratory Tests 10/11/19 11:20 ECHOCARDIOGRAM ECHOCARDIOGRAM <Conclusion> The left ventricular systolic function is normal. The Ejection Fraction is 60%. There is normal LV segmental wall motion. Transmitral Doppler flow pattern is Grade I-abnormal relaxation pattern. There is mild aortic valvular stenosis. Trace mitral valve regurgitation. Trace tricuspid regurgitation. There is no evidence of significant pericardial effusion. DATE: 06/28/18 1030 ASSESSMENT/PLAN ASSESSMENT/PLAN 1. Acute on chronic respiratory failure with pulmonary fibrosis/ILD and a/c CHF. Lung optimization as per pulm 2. Acute on chronic diastolic CHF; s/p IV Lasix. Echo to assess LV systolic function. Additional Lasix as warranted. Accurate I and O. 3. Hypertension; controlled. Resume home lisinopril. 4. Hyperlipidemia; lipids 5. Anxiety, depression ANITHA GILL MD 10/12/19 9258: CARDIAC CONSULT ASSESSMENT/PLAN ASSESSMENT/PLAN Patient seen and examined 10/11/19 - agree with [employer]BLER's assessment and box Continue diuresis for acute on chronic diast HF BP better controlled Agree with TTE to evaluate LVEF Than you for your consultation. AMADOR ANDREA APRN Oct 11, 2019 17:38 AINTHA GILL MD Oct 12, 2019 16:48
[2019-10-11] MEDS ORDERED: FUROSEMIDE 40 MG TABLET. PO PRN (17:45)
[2019-10-11] MEDS ORDERED: SODIUM CHL/ALOE VERA NASAL GEL 14.1GM TUBE. NS PRN (18:15)
[2019-10-11 18:54] LABS: CHOLESTEROL/HDL RATIO 2.7
[2019-10-11 19:00] VITALS: BP 135/67
[2019-10-11] MEDS ORDERED: IPRATRPIUM/ALBUTEROL 0.5/2.5MG 3 ML NEBU. NEB PRN (20:00)
[2019-10-11] MEDS ORDERED: IPRATRPIUM/ALBUTEROL 0.5/2.5MG 3 ML NEBU. NEB SCH (20:00)
[2019-10-11] MEDS: LACTOBACILLUS RHAMNOSUS GG 1 CAPSULE. PO SCH (21:00)
[2019-10-11 23:00] VITALS: BP 113/75
[2019-10-12 03:00] VITALS: BP 105/50
[2019-10-12 04:24] LABS: BASO # 0.1 x10^3/uL (0.0-0.2); BASO % 1 % (0-3); EOS % 0 % (0-3); HEMOGLOBIN 13.7 g/dL (12.0-15.5); LYMPH % 11 % (24-48); MEAN CORPUSCULAR HEMOGLOBIN 26 pg (25-35); MEAN CORPUSCULAR HGB CONC 33 g/dL (31-37); MEAN CORPUSCULAR VOLUME 79 fL (79-100); MONO # 0.7 x10^3/uL (0.0-1.1); MONO % 8 % (0-9); NEUT # 7.9 x10^3/uL (1.8-7.7); NEUT % 81 % (31-73); PLATELET COUNT 303 x10^3/uL (140-400); RED BLOOD COUNT 5.31 x10^6/uL (3.50-5.40); RED CELL DISTRIBUTION WIDTH 19.1 % (11.5-14.5); WHITE BLOOD COUNT 9.7 x10^3/uL (4.0-11.0)
[2019-10-12 04:49] LABS: ALBUMIN 2.5 g/dL (3.4-5.0); ALBUMIN/GLOBULIN RATIO 0.8 (1.0-1.7); CALCIUM 7.9 mg/dL (8.5-10.1); CREATININE 0.9 mg/dL (0.6-1.0); GFR 60.4; POTASSIUM 4.8 mmol/L (3.5-5.1); TOTAL BILIRUBIN 0.3 mg/dL (0.2-1.0); TOTAL PROTEIN 5.7 g/dL (6.4-8.2)
[2019-10-12 07:00] VITALS: BP 123/83
[2019-10-12] MEDS: LISINOPRIL 10 MG TABLET PO SCH (08:31)
[2019-10-12] MEDS: predniSONE 20 MG TABLET PO SCH (08:31)
[2019-10-12] MEDS: LACTOBACILLUS RHAMNOSUS GG 1 CAPSULE. PO SCH ×2 (08:31→20:03)
[2019-10-12] MEDS ORDERED: FUROSEMIDE 40 MG/4 ML VIAL. IVP SCH (09:00)
--- NOTE | 2019-10-12 09:56 | CONS ---
DATE OF CONSULTATION: PULMONARY CONSULTATION ATTENDING PHYSICIAN: Kulwinder Lechuga MD REASON FOR CONSULTATION: Respiratory failure. HISTORY OF PRESENT ILLNESS: The patient is a 79-year-old, who is known to me from a previous admission in August. 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 She is on chronic prednisone. She has required frequent hospitalization. She was brought into the hospital with increasing shortness of breath and lower extremity edema. She denies any increased cough, no fever, no chills, no chest pain, no headaches, no nausea, vomiting or diarrhea. Her chest x-ray was reviewed and it was consistent with pulmonary fibrosis/interstitial lung disease. Her CT chest from 05/09/2019 was reviewed and it showed evidence of pulmonary fibrosis with honeycombing and bronchiectasis. She is currently requiring 6 liters of oxygen. Normally, she is at 3 liters at home. PAST MEDICAL HISTORY: Significant for history of pulmonary fibrosis, progressive, on 3 liters at home. In the past, she had declined Ofev and other antifibrotic agents. At one point, she had a sputum that grew Mycobacterium avium complex; but subsequently, bronchoscopy did not grew, and as a result, it was not treated. No significant tobacco history. History of EGD, history of cataracts, hyperlipidemia, osteoarthritis, depression. SURGERIES: Cataract removal and hernia repair. FAMILY HISTORY: Dyslipidemia. SOCIAL HISTORY: Nonsmoker. ALLERGIES: NONE EXCEPT GLUTEN. MEDICATIONS: Reviewed as listed in the MRAD. REVIEW OF SYSTEMS: Twelve-point systems obtained. Pertinent positives discussed in my history of present illness, otherwise noncontributory. All systems that were negative were reviewed as well. PHYSICAL EXAMINATION: GENERAL: She is mildly tachypneic. VITAL SIGNS: Blood pressure stable, pulse ox 93% on 6 liters, afebrile. NECK: Supple. LUNGS: Crackles at the bases. CARDIOVASCULAR: With a regular rate. ABDOMEN: Soft. EXTREMITIES: With bilateral pitting edema. LABORATORIES: Reviewed. BUN and creatinine 27 and 0.9. White cell count 9.7, hemoglobin 13.7, platelets are normal. IMPRESSION: 1. [id number] hypoxic respiratory failure secondary to right heart failure resulting from chronic pulmonary fibrosis. 2. The patient with chronic respiratory failure related to chronic pulmonary fibrosis. She has previous CAT scan with honeycombing and bronchiectasis. 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 She has been on chronic prednisone, but as such not made any progress. 3. No significant tobacco history. 4. Clinical suspicion for COVID pneumonia is less likely, but she is currently under isolation for that until ruled out. RECOMMENDATIONS: 1. Continue with present oxygen at 6 liters and gradually wean to keep saturation 92 and above. 2. Continue IV Lasix. 3. Continue with IV Solu-Medrol. She is on home prednisone. 4. Bronchodilators p.r.n. 5. We will follow another CAT scan noncontrast and make comparisons from previous films. We will assess for any ground glass infiltrates. 6. Discussed with RN. I discussed advanced directives with the patient. At this time, she wants to discuss with her son. She has been in the hospice in the past. MIGUEL A LAMBERT MD DR: AIMEE/severino JOB#: [id number] / [id number]
[2019-10-12 11:00] VITALS: BP 104/63
--- NOTE | 2019-10-12 11:41 | PDOC ---
BEAR RODRIGUEZ CLINICAL APPLICATION SPECIALIST 10/12/19 1141: CARDIO Progress Notes Date and Time Date of Service 10/12/2019 Time of Evaluation 1120 Subjective Subjective: No Chest Pain, No Palpitations, Other (Still has SOA but better) Vitals Vitals Vital Signs Date Time Temp Pulse Resp B/P (MAP) Pulse Ox O2 Delivery O2 Flow Rate FiO2 10/12/19 11:00 97.3 94 19 104/63 (77) 90 Nasal Cannula 5.0 97.3 Weight Weight [ ] Input and Output Intake and Output Intake and Output 10/12/19 07:00 Intake Total 560 ml Output Total 900 ml Balance -340 ml Intake Oral 560 ml Output Urine Total 900 ml Laboratory Labs Laboratory Tests Test 10/11/19 14:35 10/11/19 17:40 10/12/19 00:01 10/12/19 04:10 Coronavirus (COVID-19)(PCR) Not detected (NOT DETECT.) Troponin I Quantitative < 0.017 ng/mL (0.000-0.055) < 0.017 ng/mL (0.000-0.055) Triglycerides Level 41 mg/dL (0-150) Cholesterol Level 194 mg/dL (0-200) LDL Cholesterol, Calculated 113 mg/dL (0-100) VLDL Cholesterol, Calculated 8 mg/dL (0-40) Non-HDL Cholesterol Calculated 121 mg/dL (0-129) HDL Cholesterol 73 mg/dL (40-60) Cholesterol/HDL Ratio 2.7 Thyroid Stimulating Hormone (TSH) 0.634 uIU/mL (0.358-3.74) White Blood Count 9.7 x10^3/uL (4.0-11.0) Red Blood Count 5.31 x10^6/uL (3.50-5.40) Hemoglobin 13.7 g/dL (12.0-15.5) Hematocrit 42.0 % (36.0-47.0) Mean Corpuscular Volume 79 fL (79-100) Mean Corpuscular Hemoglobin 26 pg (25-35) Mean Corpuscular Hemoglobin Concent 33 g/dL (31-37) Red Cell Distribution Width 19.1 % (11.5-14.5) Platelet Count 303 x10^3/uL (140-400) Neutrophils (%) (Auto) 81 % (31-73) Lymphocytes (%) (Auto) 11 % (24-48) Monocytes (%) (Auto) 8 % (0-9) Eosinophils (%) (Auto) 0 % (0-3) Basophils (%) (Auto) 1 % (0-3) Neutrophils # (Auto) 7.9 x10^3/uL (1.8-7.7) Lymphocytes # (Auto) 1.0 x10^3/uL (1.0-4.8) Monocytes # (Auto) 0.7 x10^3/uL (0.0-1.1) Eosinophils # (Auto) 0.0 x10^3/uL (0.0-0.7) Basophils # (Auto) 0.1 x10^3/uL (0.0-0.2) Sodium Level 139 mmol/L (136-145) Potassium Level 4.8 mmol/L (3.5-5.1) Chloride Level 101 mmol/L (98-107) Carbon Dioxide Level 34 mmol/L (21-32) Anion Gap 4 (6-14) Blood Urea Nitrogen 27 mg/dL (7-20) Creatinine 0.9 mg/dL (0.6-1.0) Estimated GFR (Cockcroft-Gault) 60.4 BUN/Creatinine Ratio 30 (6-20) Glucose Level 152 mg/dL (70-99) Calcium Level 7.9 mg/dL (8.5-10.1) Total Bilirubin 0.3 mg/dL (0.2-1.0) Aspartate Amino Transf (AST/SGOT) 27 U/L (15-37) Alanine Aminotransferase (ALT/SGPT) 42 U/L (14-59) Alkaline Phosphatase 68 U/L (46-116) Total Protein 5.7 g/dL (6.4-8.2) Albumin 2.5 g/dL (3.4-5.0) Albumin/Globulin Ratio 0.8 (1.0-1.7) Physical Exam HEENT: Neck Supple W Full Motion Chest: Symmetric LUNGS: Other (diminshed) Heart: RRR (SR) Abdomen: Soft N/T Extremities: Other (1+ bilateral Le pitting edema better than yesterday) Neurology: alert, oriented, follow commands Assessment Assessment 1. Acute on chronic respiratory failure with pulmonary fibrosis/ILD/CHF 2. Acute on chronic diastolic CHF; received IV lasix today 3. Hypertension; controlled. 4. Hyperlipidemia; LDL 113 5. Anxiety, depression 6. Prerenal azotemia 7. Covid PUI 8. NSVT; brief episode x2 oovernight otherwise SR Recommendations 1. Continue lasix change to PO and IV PRN. Notable for poor hydration and cachexia. 2. Follow pulmonary recommendations 3. Consider TTE if covid neg 4. Continue BP regimen. BMP and Mg in AM Justicifation of Admission Dx: Justifications for Admission: Justification of Admission Dx: Yes Respiratory Failure: Severe Resp Distress Aspiration Pneumonia: Hypoxemia Acute COPD Exacerbation: Acute COPD Exacerbation ANITHA GILL MD 10/12/19 1650: CARDIO Progress Notes Assessment Assessment Patient seen and examined - agree with BILLING MACHINE OPERATOR's assessment and box Continue diuresis for acute on chronic diast HF BP controlled Agree with TTE to evaluate LVEF once COVID ruled out BEAR RODRIGUEZ APRN Oct 12, 2019 11:41 ANITHA GILL MD Oct 12, 2019 16:50
[2019-10-12] MEDS ORDERED: FUROSEMIDE 40 MG/4 ML VIAL. IVP PRN (11:45)
--- NOTE | 2019-10-12 12:17 | PDOC ---
PROGRESS NOTES Chief Complaint Chief Complaint Acute exacerbation of chronic congestive heart failure which seems to be diastolic in nature concern for covid-19 related illness with negative test, low suspicion weakness, probably a result of advanced age and multiple comorbidities acute hypoxic resp failure, REQUIRIG 15 LITER O2 ON PRESENTATION Slight increase in interstitial thickening of the lung monte which may represent interstitial infiltrates or related to CHF. Progression of pulmonary fibrosis is noted since the previous CTA chest exam at the upper lung field level. Significant honeycombing and bilateral lower lobe bronchiectasis 05/28 CT chest Dyspnea secondary to pulmonary fibrosis, ? COVID -19 recent bronch, mild aortic stenosis plan Transfer to regular floor o2 support Continue with Lasix therapy pulm consult Cardiology consult lasix 40 mg iv q 24 hrs dvt prophylaxis Further recommendations based on clinical course History of Present Illness History of Present Illness No acute events reported overnight, case discussed with nursing staff patient in no acute distress no complaints during my visit Vitals Vitals Vital Signs Date Time Temp Pulse Resp B/P (MAP) Pulse Ox O2 Delivery O2 Flow Rate FiO2 10/12/19 11:00 97.3 94 19 104/63 (77) 90 Nasal Cannula 5.0 97.3 Physical Exam General: Alert, Oriented X3, Cooperative, mild distress Heart: Regular rate, Other (2/6 systolic mumur) Lungs: Other Abdomen: Soft Extremities: Other (2+ bilateral LE edema ) Skin: No significant lesion Labs LABS Laboratory Tests Test 10/11/19 14:35 10/11/19 17:40 10/12/19 00:01 10/12/19 04:10 Coronavirus (COVID-19)(PCR) Not detected (NOT DETECT.) Troponin I Quantitative < 0.017 ng/mL (0.000-0.055) < 0.017 ng/mL (0.000-0.055) Triglycerides Level 41 mg/dL (0-150) Cholesterol Level 194 mg/dL (0-200) LDL Cholesterol, Calculated 113 mg/dL (0-100) VLDL Cholesterol, Calculated 8 mg/dL (0-40) Non-HDL Cholesterol Calculated 121 mg/dL (0-129) HDL Cholesterol 73 mg/dL (40-60) Cholesterol/HDL Ratio 2.7 Thyroid Stimulating Hormone (TSH) 0.634 uIU/mL (0.358-3.74) White Blood Count 9.7 x10^3/uL (4.0-11.0) Red Blood Count 5.31 x10^6/uL (3.50-5.40) Hemoglobin 13.7 g/dL (12.0-15.5) Hematocrit 42.0 % (36.0-47.0) Mean Corpuscular Volume 79 fL (79-100) Mean Corpuscular Hemoglobin 26 pg (25-35) Mean Corpuscular Hemoglobin Concent 33 g/dL (31-37) Red Cell Distribution Width 19.1 % (11.5-14.5) Platelet Count 303 x10^3/uL (140-400) Neutrophils (%) (Auto) 81 % (31-73) Lymphocytes (%) (Auto) 11 % (24-48) Monocytes (%) (Auto) 8 % (0-9) Eosinophils (%) (Auto) 0 % (0-3) Basophils (%) (Auto) 1 % (0-3) Neutrophils # (Auto) 7.9 x10^3/uL (1.8-7.7) Lymphocytes # (Auto) 1.0 x10^3/uL (1.0-4.8) Monocytes # (Auto) 0.7 x10^3/uL (0.0-1.1) Eosinophils # (Auto) 0.0 x10^3/uL (0.0-0.7) Basophils # (Auto) 0.1 x10^3/uL (0.0-0.2) Sodium Level 139 mmol/L (136-145) Potassium Level 4.8 mmol/L (3.5-5.1) Chloride Level 101 mmol/L (98-107) Carbon Dioxide Level 34 mmol/L (21-32) Anion Gap 4 (6-14) Blood Urea Nitrogen 27 mg/dL (7-20) Creatinine 0.9 mg/dL (0.6-1.0) Estimated GFR (Cockcroft-Gault) 60.4 BUN/Creatinine Ratio 30 (6-20) Glucose Level 152 mg/dL (70-99) Calcium Level 7.9 mg/dL (8.5-10.1) Total Bilirubin 0.3 mg/dL (0.2-1.0) Aspartate Amino Transf (AST/SGOT) 27 U/L (15-37) Alanine Aminotransferase (ALT/SGPT) 42 U/L (14-59) Alkaline Phosphatase 68 U/L (46-116) Total Protein 5.7 g/dL (6.4-8.2) Albumin 2.5 g/dL (3.4-5.0) Albumin/Globulin Ratio 0.8 (1.0-1.7) Review of Systems Review of Systems -10 point review of systems only pertinent as per HPI Assessment and Plan Assessmemt and Plan Problems Medical Problems: (1) CHF (congestive heart failure) Status: Acute (2) Person under investigation for COVID-19 Status: Acute Comment Review of Relevant I have reviewed the following items alyce (where applicable) has been applied. Labs Laboratory Tests Test 10/11/19 11:20 10/11/19 14:35 10/11/19 17:40 10/12/19 00:01 White Blood Count 11.1 x10^3/uL (4.0-11.0) Red Blood Count 5.60 x10^6/uL (3.50-5.40) Hemoglobin 14.4 g/dL (12.0-15.5) Hematocrit 44.6 % (36.0-47.0) Mean Corpuscular Volume 80 fL (79-100) Mean Corpuscular Hemoglobin 26 pg (25-35) Mean Corpuscular Hemoglobin Concent 32 g/dL (31-37) Red Cell Distribution Width 18.8 % (11.5-14.5) Platelet Count 319 x10^3/uL (140-400) Neutrophils (%) (Auto) 87 % (31-73) Lymphocytes (%) (Auto) 6 % (24-48) Monocytes (%) (Auto) 6 % (0-9) Eosinophils (%) (Auto) 1 % (0-3) Basophils (%) (Auto) 1 % (0-3) Neutrophils # (Auto) 9.7 x10^3/uL (1.8-7.7) Lymphocytes # (Auto) 0.7 x10^3/uL (1.0-4.8) Monocytes # (Auto) 0.6 x10^3/uL (0.0-1.1) Eosinophils # (Auto) 0.1 x10^3/uL (0.0-0.7) Basophils # (Auto) 0.1 x10^3/uL (0.0-0.2) Segmented Neutrophils % 82 % (35-66) Band Neutrophils % 1 % (0-9) Lymphocytes % 8 % (24-48) Monocytes % 7 % (0-10) Eosinophils % 1 % (0-5) Basophils % 1 % (0-3) Platelet Estimate Adequate (ADEQUATE) Anisocytosis Slight Sodium Level 141 mmol/L (136-145) Potassium Level 4.2 mmol/L (3.5-5.1) Chloride Level 101 mmol/L (98-107) Carbon Dioxide Level 35 mmol/L (21-32) Anion Gap 5 (6-14) Blood Urea Nitrogen 19 mg/dL (7-20) Creatinine 0.9 mg/dL (0.6-1.0) Estimated GFR (Cockcroft-Gault) 60.4 BUN/Creatinine Ratio 21 (6-20) Glucose Level 93 mg/dL (70-99) Calcium Level 8.4 mg/dL (8.5-10.1) Magnesium Level 2.2 mg/dL (1.8-2.4) Total Bilirubin 0.4 mg/dL (0.2-1.0) Aspartate Amino Transf (AST/SGOT) 43 U/L (15-37) Alanine Aminotransferase (ALT/SGPT) 58 U/L (14-59) Alkaline Phosphatase 80 U/L (46-116) Troponin I Quantitative < 0.017 ng/mL (0.000-0.055) < 0.017 ng/mL (0.000-0.055) < 0.017 ng/mL (0.000-0.055) MH-Gry-W-Type Natriuretic Peptide 2375 pg/mL (0-449) Total Protein 6.3 g/dL (6.4-8.2) Albumin 3.1 g/dL (3.4-5.0) Albumin/Globulin Ratio 1.0 (1.0-1.7) Coronavirus (COVID-19)(PCR) Not detected (NOT DETECT.) Triglycerides Level 41 mg/dL (0-150) Cholesterol Level 194 mg/dL (0-200) LDL Cholesterol, Calculated 113 mg/dL (0-100) VLDL Cholesterol, Calculated 8 mg/dL (0-40) Non-HDL Cholesterol Calculated 121 mg/dL (0-129) HDL Cholesterol 73 mg/dL (40-60) Cholesterol/HDL Ratio 2.7 Thyroid Stimulating Hormone (TSH) 0.634 uIU/mL (0.358-3.74) Test 10/12/19 04:10 White Blood Count 9.7 x10^3/uL (4.0-11.0) Red Blood Count 5.31 x10^6/uL (3.50-5.40) Hemoglobin 13.7 g/dL (12.0-15.5) Hematocrit 42.0 % (36.0-47.0) Mean Corpuscular Volume 79 fL (79-100) Mean Corpuscular Hemoglobin 26 pg (25-35) Mean Corpuscular Hemoglobin Concent 33 g/dL (31-37) Red Cell Distribution Width 19.1 % (11.5-14.5) Platelet Count 303 x10^3/uL (140-400) Neutrophils (%) (Auto) 81 % (31-73) Lymphocytes (%) (Auto) 11 % (24-48) Monocytes (%) (Auto) 8 % (0-9) Eosinophils (%) (Auto) 0 % (0-3) Basophils (%) (Auto) 1 % (0-3) Neutrophils # (Auto) 7.9 x10^3/uL (1.8-7.7) Lymphocytes # (Auto) 1.0 x10^3/uL (1.0-4.8) Monocytes # (Auto) 0.7 x10^3/uL (0.0-1.1) Eosinophils # (Auto) 0.0 x10^3/uL (0.0-0.7) Basophils # (Auto) 0.1 x10^3/uL (0.0-0.2) Sodium Level 139 mmol/L (136-145) Potassium Level 4.8 mmol/L (3.5-5.1) Chloride Level 101 mmol/L (98-107) Carbon Dioxide Level 34 mmol/L (21-32) Anion Gap 4 (6-14) Blood Urea Nitrogen 27 mg/dL (7-20) Creatinine 0.9 mg/dL (0.6-1.0) Estimated GFR (Cockcroft-Gault) 60.4 BUN/Creatinine Ratio 30 (6-20) Glucose Level 152 mg/dL (70-99) Calcium Level 7.9 mg/dL (8.5-10.1) Total Bilirubin 0.3 mg/dL (0.2-1.0) Aspartate Amino Transf (AST/SGOT) 27 U/L (15-37) Alanine Aminotransferase (ALT/SGPT) 42 U/L (14-59) Alkaline Phosphatase 68 U/L (46-116) Total Protein 5.7 g/dL (6.4-8.2) Albumin 2.5 g/dL (3.4-5.0) Albumin/Globulin Ratio 0.8 (1.0-1.7) Laboratory Tests Test 10/11/19 14:35 10/11/19 17:40 10/12/19 00:01 10/12/19 04:10 Coronavirus (COVID-19)(PCR) Not detected (NOT DETECT.) Troponin I Quantitative < 0.017 ng/mL (0.000-0.055) < 0.017 ng/mL (0.000-0.055) Triglycerides Level 41 mg/dL (0-150) Cholesterol Level 194 mg/dL (0-200) LDL Cholesterol, Calculated 113 mg/dL (0-100) VLDL Cholesterol, Calculated 8 mg/dL (0-40) Non-HDL Cholesterol Calculated 121 mg/dL (0-129) HDL Cholesterol 73 mg/dL (40-60) Cholesterol/HDL Ratio 2.7 Thyroid Stimulating Hormone (TSH) 0.634 uIU/mL (0.358-3.74) White Blood Count 9.7 x10^3/uL (4.0-11.0) Red Blood Count 5.31 x10^6/uL (3.50-5.40) Hemoglobin 13.7 g/dL (12.0-15.5) Hematocrit 42.0 % (36.0-47.0) Mean Corpuscular Volume 79 fL (79-100) Mean Corpuscular Hemoglobin 26 pg (25-35) Mean Corpuscular Hemoglobin Concent 33 g/dL (31-37) Red Cell Distribution Width 19.1 % (11.5-14.5) Platelet Count 303 x10^3/uL (140-400) Neutrophils (%) (Auto) 81 % (31-73) Lymphocytes (%) (Auto) 11 % (24-48) Monocytes (%) (Auto) 8 % (0-9) Eosinophils (%) (Auto) 0 % (0-3) Basophils (%) (Auto) 1 % (0-3) Neutrophils # (Auto) 7.9 x10^3/uL (1.8-7.7) Lymphocytes # (Auto) 1.0 x10^3/uL (1.0-4.8) Monocytes # (Auto) 0.7 x10^3/uL (0.0-1.1) Eosinophils # (Auto) 0.0 x10^3/uL (0.0-0.7) Basophils # (Auto) 0.1 x10^3/uL (0.0-0.2) Sodium Level 139 mmol/L (136-145) Potassium Level 4.8 mmol/L (3.5-5.1) Chloride Level 101 mmol/L (98-107) Carbon Dioxide Level 34 mmol/L (21-32) Anion Gap 4 (6-14) Blood Urea Nitrogen 27 mg/dL (7-20) Creatinine 0.9 mg/dL (0.6-1.0) Estimated GFR (Cockcroft-Gault) 60.4 BUN/Creatinine Ratio 30 (6-20) Glucose Level 152 mg/dL (70-99) Calcium Level 7.9 mg/dL (8.5-10.1) Total Bilirubin 0.3 mg/dL (0.2-1.0) Aspartate Amino Transf (AST/SGOT) 27 U/L (15-37) Alanine Aminotransferase (ALT/SGPT) 42 U/L (14-59) Alkaline Phosphatase 68 U/L (46-116) Total Protein 5.7 g/dL (6.4-8.2) Albumin 2.5 g/dL (3.4-5.0) Albumin/Globulin Ratio 0.8 (1.0-1.7) Medications Current Medications Furosemide (Lasix) 80 mg 1X ONCE IVP Last administered on 10/11/19at 12:34; Start 10/11/19 at 12:15; Stop 10/11/19 at 12:18; Status DC Albuterol/ Ipratropium (Duoneb) 6 ml 1X ONCE NEB ; Start 10/11/19 at 12:15; Stop 10/11/19 at 12:18; Status DC Methylprednisolone Sodium Succinate (SOLU-Medrol 125MG VIAL) 125 mg 1X ONCE IV Last administered on 10/11/19at 12:34; Start 10/11/19 at 12:15; Stop 10/11/19 at 12:18; Status DC Ondansetron HCl (Zofran) 4 mg PRN Q8HRS PRN IV NAUSEA/VOMITING; Start 10/11/19 at 14:30; Stop 10/12/19 at 14:29 Acetaminophen (Tylenol) 650 mg PRN Q4HRS PRN PO FEVER > 100.3'F; Start 10/11/19 at 14:30; Stop 10/12/19 at 14:29 Furosemide (Lasix) 40 mg PRN DAILY PRN PO CHF; Start 10/11/19 at 17:45 Lisinopril (Prinivil) 10 mg DAILY PO Last administered on 10/12/19at 08:31; Start 10/12/19 at 09:00 Albuterol/ Ipratropium (Duoneb) 3 ml RTQID NEB ; Start 10/11/19 at 20:00; Stop 10/11/19 at 18:29; Status DC Lactobacillus Rhamnosus (Culturelle) 1 cap BID PO Last administered on 10/12/19at 08:31; Start 10/11/19 at 21:00 Prednisone (Prednisone) 20 mg DAILY PO Last administered on 10/12/19at 08:31; Start 10/12/19 at 09:00 Sodium Chloride ([place] Saline Nasal) 1 kennedy PRN DAILY PRN NS NASAL CONGESTION; Start 10/11/19 at 18:15 Furosemide (Lasix) 40 mg DAILY IVP Last administered on 10/12/19at 08:32; Start 10/12/19 at 09:00; Stop 10/12/19 at 11:37; Status DC Albuterol/ Ipratropium (Duoneb) 3 ml PRN Q4HRS PRN NEB SHORTNESS OF BREATH; Start 10/11/19 at 20:00 Methylprednisolone Sodium Succinate (SOLU-Medrol 40MG VIAL) 40 mg Q8HRS IV ; Start 10/12/19 at 14:00 Furosemide (Lasix) 40 mg PRN DAILY PRN IVP SEE COMMENTS; Start 10/12/19 at 11:45 Active Scripts Active Culturelle (Lactobacillus Rhamnosus Gg) 1 Each Cap.sprink 1 Cap PO BID 30 Days Amox Tr-K Clv 875-125 Mg Tab (Amoxicillin/Potassium Clav) 1 Each Tablet 1 Tab PO BID 5 Days [place] Saline Nasal Gel (Sodium Chloride/Aloe Vera) 14.1 Gm Gel..gram. 1 Kennedy NS PRN DAILY PRN 30 Days Duoneb 0.5-3(2.5) Mg/3 Ml (Albuterol/Ipratropium) 3 Ml Ampul.neb 3 Ml NEB RTQID 30 Days Reported Lasix (Furosemide) 40 Mg Tablet 1 Tab PO PRN DAILY PRN 30 Days Lisinopril 10 Mg Tablet 1 Tab PO DAILY Prednisone 20 Mg Tablet 20 Mg PO DAILY Vitals/I & O Vital Sign - Last 24 Hours 10/11/19 10/11/19 10/11/19 10/11/19 12:33 12:51 13:21 13:51 Pulse 99 96 95 92 B/P (MAP) 126/80 (95) 116/76 (89) 126/74 (91) 112/74 (87) Pulse Ox 100 100 100 90 O2 Delivery NonRebreather Mask NonRebreather Mask NonRebreather Mask Nasal Cannula O2 Flow Rate 15.0 15.0 15.0 6.0 10/11/19 10/11/19 10/11/19 10/11/19 14:21 15:54 16:01 19:00 Temp 97.8 98.0 97.8 98.0 Pulse 87 100 100 Resp 22 20 B/P (MAP) 103/67 (79) 139/85 (103) 135/67 (89) Pulse Ox 94 93 94 O2 Delivery Nasal Cannula Nasal Cannula Nasal Cannula Nasal Cannula O2 Flow Rate 6.0 6.0 6.0 6.0 10/11/19 10/11/19 10/12/19 10/12/19 20:00 23:00 03:00 03:00 Temp 98.5 98.5 Pulse 101 80 Resp 18 B/P (MAP) 113/75 (88) 105/50 (68) Pulse Ox 95 95 O2 Delivery Nasal Cannula Nasal Cannula Nasal Cannula O2 Flow Rate 5.0 6.0 6.0 10/12/19 10/12/19 10/12/19 10/12/19 07:00 08:00 08:31 11:00 Temp 97.2 97.3 97.2 97.3 Pulse 82 82 94 Resp 19 19 B/P (MAP) 123/83 (96) 123/83 104/63 (77) Pulse Ox 93 90 O2 Delivery Nasal Cannula Nasal Cannula Nasal Cannula O2 Flow Rate 6.0 6.0 5.0 Intake and Output 10/11/19 10/11/19 10/12/19 15:00 23:00 07:00 Intake Total 200 ml 360 ml Output Total 900 ml Balance -700 ml 360 ml AIXA MCCALLUM MD Oct 12, 2019 12:17
--- NOTE | 2019-10-12 13:37 | NUR ---
SS following for discharge planning. SS reviewed pt chart and discussed with pt RN. Pt is from home and is currently requiring oxygen. Pt has home oxygen and was previously on services with [facility], ; fax [phone]. Pt is COVID19 negative. SS will continue to follow for discharge planning.
[2019-10-12 13:50] LABS: BILIRUBIN,URINE NEGATIVE (NEG); CLARITY,URINE CLEAR; COLOR,URINE YELLOW; NITRITE,URINE NEGATIVE (NEG); PH,URINE 7.5 (<5.0-8.0); PROTEIN,URINE NEGATIVE (NEG-TRACE); UROBILINOGEN,URINE 0.2 mg/dL (0.2 mg/dL)
--- NOTE | 2019-10-12 14:02 | RAD ---
Chest CT without contrast Clinical indications: Pulmonary fibrosis. COMPARISON: May 11, 2019. TECHNIQUE: Noncontrast helical CT scanning of the chest was performed. PQRS compliance Statement One or more of the following individualized dose reduction techniques were utilized for this study: 1. Automated exposure control 2. Adjustment of the mA and/or kV according to patient size 3. Use of iterative reconstruction technique FINDINGS: The heart size is enlarged. Calcified atheromatous coronary arterial disease is seen. Small pericardial effusion is seen. This is new. Minimal bilateral pleural effusions are seen. No focal aneurysmal dilatation of the thoracic aorta is seen. Calcification of mediastinal lymph nodes is seen due to old granulomatous disease. There is a precarinal lymph node measuring 14 mm. There is a right paratracheal lymph node measuring 8 mm. These are stable. Otherwise no bulky thoracic lymphadenopathy is seen. Again seen is diffuse interstitial lung disease with multiple air-filled cystic spaces and honeycombing consistent with chronic pulmonary fibrosis. This is stable. No new lung infiltrate or lung consolidation is seen. Bilateral bronchiectasis is seen. No lytic process is evident. No compression fracture of the thoracic spine is seen. Old healed anterolateral right eighth and ninth rib fractures are seen. No adrenal mass is seen. IMPRESSION: No change in chronic pulmonary fibrosis. Chronic bilateral bronchiectasis. Cardiomegaly. New finding of a small pericardial effusion. Calcified atheromatous disease of the coronary arteries. New finding of minimal bilateral pleural effusions. Electronically signed by: Jean Barahona MD (10/12/2019 1:59 PM) [id number]
[2019-10-12 14:14] LABS: BACTERIA,URINE 0 /HPF (0-FEW); WBC,URINE RARE /HPF (0-4)
[2019-10-12] MEDS: methylPREDNISolone SOD SUCC PF 40 MG/ML VIAL. IV SCH ×2 (14:22→22:06)
[2019-10-12 14:52] VITALS: BP 94/61
[2019-10-12 19:00] VITALS: BP 100/65
[2019-10-12 23:00] VITALS: BP 112/77
[2019-10-13 03:01] VITALS: BP 100/67
[2019-10-13 04:21] LABS: CALCIUM 7.7 mg/dL (8.5-10.1); CREATININE 0.9 mg/dL (0.6-1.0); GFR 60.4; POTASSIUM 4.8 mmol/L (3.5-5.1)
[2019-10-13] MEDS: methylPREDNISolone SOD SUCC PF 40 MG/ML VIAL. IV SCH (07:25)
[2019-10-13 07:42] VITALS: BP 94/63
[2019-10-13] MEDS: LACTOBACILLUS RHAMNOSUS GG 1 CAPSULE. PO SCH ×2 (09:27→22:51)
[2019-10-13] MEDS: FUROSEMIDE 40 MG TABLET. PO SCH (09:28)
[2019-10-13] MEDS: LISINOPRIL 10 MG TABLET PO SCH (09:28)
[2019-10-13] MEDS: predniSONE 20 MG TABLET PO SCH (09:28)
[2019-10-13 11:22] VITALS: BP 113/73
--- NOTE | 2019-10-13 11:41 | PDOC ---
PULMONARY PROGRESS NOTES Subjective Pt. is now on 5 liters N/C , denies increased cough Feeling better today Vitals Vital Signs Date Time Temp Pulse Resp B/P (MAP) Pulse Ox O2 Delivery O2 Flow Rate FiO2 10/13/19 11:22 97.4 103 24 113/73 (86) 93 Nasal Cannula 5.0 97.4 ROS: No Nausea, No Chest Pain, No Abdominal Pain, No Increase Cough General: Alert, No acute distress Lungs: Other (, perih. crackles ) Cardiovascular: S1 Abdomen: Soft Neuro Exam: Alert Extremities: No Edema Skin: Warm, Dry Labs Laboratory Tests Test 10/11/19 14:35 10/11/19 17:40 10/12/19 00:01 10/12/19 04:10 Coronavirus (COVID-19)(PCR) Not detected (NOT DETECT.) Troponin I Quantitative < 0.017 ng/mL (0.000-0.055) < 0.017 ng/mL (0.000-0.055) Triglycerides Level 41 mg/dL (0-150) Cholesterol Level 194 mg/dL (0-200) LDL Cholesterol, Calculated 113 mg/dL (0-100) VLDL Cholesterol, Calculated 8 mg/dL (0-40) Non-HDL Cholesterol Calculated 121 mg/dL (0-129) HDL Cholesterol 73 mg/dL (40-60) Cholesterol/HDL Ratio 2.7 Thyroid Stimulating Hormone (TSH) 0.634 uIU/mL (0.358-3.74) White Blood Count 9.7 x10^3/uL (4.0-11.0) Red Blood Count 5.31 x10^6/uL (3.50-5.40) Hemoglobin 13.7 g/dL (12.0-15.5) Hematocrit 42.0 % (36.0-47.0) Mean Corpuscular Volume 79 fL (79-100) Mean Corpuscular Hemoglobin 26 pg (25-35) Mean Corpuscular Hemoglobin Concent 33 g/dL (31-37) Red Cell Distribution Width 19.1 % (11.5-14.5) Platelet Count 303 x10^3/uL (140-400) Neutrophils (%) (Auto) 81 % (31-73) Lymphocytes (%) (Auto) 11 % (24-48) Monocytes (%) (Auto) 8 % (0-9) Eosinophils (%) (Auto) 0 % (0-3) Basophils (%) (Auto) 1 % (0-3) Neutrophils # (Auto) 7.9 x10^3/uL (1.8-7.7) Lymphocytes # (Auto) 1.0 x10^3/uL (1.0-4.8) Monocytes # (Auto) 0.7 x10^3/uL (0.0-1.1) Eosinophils # (Auto) 0.0 x10^3/uL (0.0-0.7) Basophils # (Auto) 0.1 x10^3/uL (0.0-0.2) Sodium Level 139 mmol/L (136-145) Potassium Level 4.8 mmol/L (3.5-5.1) Chloride Level 101 mmol/L (98-107) Carbon Dioxide Level 34 mmol/L (21-32) Anion Gap 4 (6-14) Blood Urea Nitrogen 27 mg/dL (7-20) Creatinine 0.9 mg/dL (0.6-1.0) Estimated GFR (Cockcroft-Gault) 60.4 BUN/Creatinine Ratio 30 (6-20) Glucose Level 152 mg/dL (70-99) Calcium Level 7.9 mg/dL (8.5-10.1) Magnesium Level 2.0 mg/dL (1.8-2.4) Total Bilirubin 0.3 mg/dL (0.2-1.0) Aspartate Amino Transf (AST/SGOT) 27 U/L (15-37) Alanine Aminotransferase (ALT/SGPT) 42 U/L (14-59) Alkaline Phosphatase 68 U/L (46-116) Total Protein 5.7 g/dL (6.4-8.2) Albumin 2.5 g/dL (3.4-5.0) Albumin/Globulin Ratio 0.8 (1.0-1.7) Test 10/12/19 13:15 10/13/19 03:40 Urine Collection Type Unknown Urine Color Yellow Urine Clarity Clear Urine pH 7.5 (<5.0-8.0) Urine Specific [place] 1.010 (1.000-1.030) Urine Protein Negative mg/dL (NEG-TRACE) Urine Glucose (UA) Negative mg/dL (NEG) Urine Ketones (Stick) Negative mg/dL (NEG) Urine Blood Negative (NEG) Urine Nitrite Negative (NEG) Urine Bilirubin Negative (NEG) Urine Urobilinogen Dipstick 0.2 mg/dL (0.2 mg/dL) Urine Leukocyte Esterase Trace (NEG) Urine RBC 3-5 /HPF (0-2) Urine WBC Rare /HPF (0-4) Urine Squamous Epithelial Cells None /LPF Urine Bacteria 0 /HPF (0-FEW) Sodium Level 135 mmol/L (136-145) Potassium Level 4.8 mmol/L (3.5-5.1) Chloride Level 99 mmol/L (98-107) Carbon Dioxide Level 36 mmol/L (21-32) Anion Gap 0 (6-14) Blood Urea Nitrogen 26 mg/dL (7-20) Creatinine 0.9 mg/dL (0.6-1.0) Estimated GFR (Cockcroft-Gault) 60.4 Glucose Level 152 mg/dL (70-99) Calcium Level 7.7 mg/dL (8.5-10.1) Magnesium Level 2.0 mg/dL (1.8-2.4) Laboratory Tests Test 10/12/19 13:15 10/13/19 03:40 Urine Collection Type Unknown Urine Color Yellow Urine Clarity Clear Urine pH 7.5 (<5.0-8.0) Urine Specific [place] 1.010 (1.000-1.030) Urine Protein Negative mg/dL (NEG-TRACE) Urine Glucose (UA) Negative mg/dL (NEG) Urine Ketones (Stick) Negative mg/dL (NEG) Urine Blood Negative (NEG) Urine Nitrite Negative (NEG) Urine Bilirubin Negative (NEG) Urine Urobilinogen Dipstick 0.2 mg/dL (0.2 mg/dL) Urine Leukocyte Esterase Trace (NEG) Urine RBC 3-5 /HPF (0-2) Urine WBC Rare /HPF (0-4) Urine Squamous Epithelial Cells None /LPF Urine Bacteria 0 /HPF (0-FEW) Sodium Level 135 mmol/L (136-145) Potassium Level 4.8 mmol/L (3.5-5.1) Chloride Level 99 mmol/L (98-107) Carbon Dioxide Level 36 mmol/L (21-32) Anion Gap 0 (6-14) Blood Urea Nitrogen 26 mg/dL (7-20) Creatinine 0.9 mg/dL (0.6-1.0) Estimated GFR (Cockcroft-Gault) 60.4 Glucose Level 152 mg/dL (70-99) Calcium Level 7.7 mg/dL (8.5-10.1) Magnesium Level 2.0 mg/dL (1.8-2.4) Medications Active Scripts Medications Dose Route/Sig Max Daily Dose Days Date Category Culturelle (Lactobacillus Rhamnosus Gg) 1 Each Cap.sprink 1 Cap PO BID 30 08/13/19 Rx Amox Tr-K Clv 875-125 Mg Tab (Amoxicillin/Potassium Clav) 1 Each Tablet 1 Tab PO BID 5 08/13/19 Rx Lasix (Furosemide) 40 Mg Tablet 1 Tab PO PRN DAILY PRN 30 08/08/19 Reported Lisinopril 10 Mg Tablet 1 Tab PO DAILY 08/08/19 Reported Prednisone 20 Mg Tablet 20 Mg PO DAILY 08/08/19 Reported [place] Saline Nasal Gel (Sodium Chloride/Aloe Vera) 14.1 Gm Gel..gram. 1 Kennedy NS PRN DAILY PRN 30 06/30/18 Rx Duoneb 0.5-3(2.5) Mg/3 Ml (Albuterol/Ipratropium) 3 Ml Ampul.neb 3 Ml NEB RTQID 30 06/30/[address] chest IMPRESSION: No change in chronic pulmonary fibrosis. Chronic bilateral bronchiectasis. Cardiomegaly. New finding of a small pericardial effusion. Calcified atheromatous disease of the coronary arteries. New finding of minimal bilateral pleural effusions. Impression . IMPRESSION: 1. [id number] hypoxic respiratory failure secondary to right heart failure resulting from chronic pulmonary fibrosis. 2. The patient with chronic respiratory failure related to chronic pulmonary fibrosis. She has previous CAT scan with honeycombing and bronchiectasis. 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 She has been on chronic prednisone, but as such not made any progress. 3. No significant tobacco history. 4. Clinical suspicion for COVID pneumonia (-) Plan . RECOMMENDATIONS: 1. Continue with present oxygen at 6 liters and gradually wean to keep saturation 92 and above. 2. Continue IV Lasix, follow cardiology recs 3. Continue home prednisone. 4. Bronchodilators p.r.n. 5. CT chest reviewed 6. Discussed with CAPRICE. MIGUEL A LAMBERT MD Oct 13, 2019 11:41
[2019-10-13 15:01] VITALS: BP 108/56
--- NOTE | 2019-10-13 15:23 | PDOC ---
PROGRESS NOTES Chief Complaint Chief Complaint Acute exacerbation of chronic congestive heart failure which seems to be diastolic in nature concern for covid-19 related illness with negative test, low suspicion weakness, probably a result of advanced age and multiple comorbidities acute hypoxic resp failure, REQUIRIG 15 LITER O2 ON PRESENTATION Slight increase in interstitial thickening of the lung monte which may represent interstitial infiltrates or related to CHF. Progression of pulmonary fibrosis is noted since the previous CTA chest exam at the upper lung field level. Significant honeycombing and bilateral lower lobe bronchiectasis 05/28 CT chest Dyspnea secondary to pulmonary fibrosis, ? COVID -19 recent bronch, mild aortic stenosis plan Transfer to regular floor o2 support Continue with Lasix therapy pulm consult Cardiology consult lasix 40 mg iv q 24 hrs dvt prophylaxis Further recommendations based on clinical course History of Present Illness History of Present Illness No acute events reported overnight, case discussed with nursing staff patient in no acute distress no complaints during my visit Vitals Vitals Vital Signs Date Time Temp Pulse Resp B/P (MAP) Pulse Ox O2 Delivery O2 Flow Rate FiO2 10/13/19 15:01 97.6 103 20 108/56 (73) 92 Nasal Cannula 5.0 97.6 Physical Exam General: Alert, Oriented X3, Cooperative, mild distress Heart: Regular rate, Other (2/6 systolic mumur) Lungs: Other (, perih. crackles ) Abdomen: Soft Extremities: Other (2+ bilateral LE edema ) Skin: No significant lesion Labs LABS Laboratory Tests Test 10/13/19 03:40 Sodium Level 135 mmol/L (136-145) Potassium Level 4.8 mmol/L (3.5-5.1) Chloride Level 99 mmol/L (98-107) Carbon Dioxide Level 36 mmol/L (21-32) Anion Gap 0 (6-14) Blood Urea Nitrogen 26 mg/dL (7-20) Creatinine 0.9 mg/dL (0.6-1.0) Estimated GFR (Cockcroft-Gault) 60.4 Glucose Level 152 mg/dL (70-99) Calcium Level 7.7 mg/dL (8.5-10.1) Magnesium Level 2.0 mg/dL (1.8-2.4) Assessment and Plan Assessmemt and Plan Problems Medical Problems: (1) CHF (congestive heart failure) Status: Acute (2) Person under investigation for COVID-19 Status: Acute Comment Review of Relevant I have reviewed the following items alyce (where applicable) has been applied. Labs Laboratory Tests Test 10/11/19 17:40 10/12/19 00:01 10/12/19 04:10 10/12/19 13:15 Troponin I Quantitative < 0.017 ng/mL (0.000-0.055) < 0.017 ng/mL (0.000-0.055) Triglycerides Level 41 mg/dL (0-150) Cholesterol Level 194 mg/dL (0-200) LDL Cholesterol, Calculated 113 mg/dL (0-100) VLDL Cholesterol, Calculated 8 mg/dL (0-40) Non-HDL Cholesterol Calculated 121 mg/dL (0-129) HDL Cholesterol 73 mg/dL (40-60) Cholesterol/HDL Ratio 2.7 Thyroid Stimulating Hormone (TSH) 0.634 uIU/mL (0.358-3.74) White Blood Count 9.7 x10^3/uL (4.0-11.0) Red Blood Count 5.31 x10^6/uL (3.50-5.40) Hemoglobin 13.7 g/dL (12.0-15.5) Hematocrit 42.0 % (36.0-47.0) Mean Corpuscular Volume 79 fL (79-100) Mean Corpuscular Hemoglobin 26 pg (25-35) Mean Corpuscular Hemoglobin Concent 33 g/dL (31-37) Red Cell Distribution Width 19.1 % (11.5-14.5) Platelet Count 303 x10^3/uL (140-400) Neutrophils (%) (Auto) 81 % (31-73) Lymphocytes (%) (Auto) 11 % (24-48) Monocytes (%) (Auto) 8 % (0-9) Eosinophils (%) (Auto) 0 % (0-3) Basophils (%) (Auto) 1 % (0-3) Neutrophils # (Auto) 7.9 x10^3/uL (1.8-7.7) Lymphocytes # (Auto) 1.0 x10^3/uL (1.0-4.8) Monocytes # (Auto) 0.7 x10^3/uL (0.0-1.1) Eosinophils # (Auto) 0.0 x10^3/uL (0.0-0.7) Basophils # (Auto) 0.1 x10^3/uL (0.0-0.2) Sodium Level 139 mmol/L (136-145) Potassium Level 4.8 mmol/L (3.5-5.1) Chloride Level 101 mmol/L (98-107) Carbon Dioxide Level 34 mmol/L (21-32) Anion Gap 4 (6-14) Blood Urea Nitrogen 27 mg/dL (7-20) Creatinine 0.9 mg/dL (0.6-1.0) Estimated GFR (Cockcroft-Gault) 60.4 BUN/Creatinine Ratio 30 (6-20) Glucose Level 152 mg/dL (70-99) Calcium Level 7.9 mg/dL (8.5-10.1) Magnesium Level 2.0 mg/dL (1.8-2.4) Total Bilirubin 0.3 mg/dL (0.2-1.0) Aspartate Amino Transf (AST/SGOT) 27 U/L (15-37) Alanine Aminotransferase (ALT/SGPT) 42 U/L (14-59) Alkaline Phosphatase 68 U/L (46-116) Total Protein 5.7 g/dL (6.4-8.2) Albumin 2.5 g/dL (3.4-5.0) Albumin/Globulin Ratio 0.8 (1.0-1.7) Urine Collection Type Unknown Urine Color Yellow Urine Clarity Clear Urine pH 7.5 (<5.0-8.0) Urine Specific [place] 1.010 (1.000-1.030) Urine Protein Negative mg/dL (NEG-TRACE) Urine Glucose (UA) Negative mg/dL (NEG) Urine Ketones (Stick) Negative mg/dL (NEG) Urine Blood Negative (NEG) Urine Nitrite Negative (NEG) Urine Bilirubin Negative (NEG) Urine Urobilinogen Dipstick 0.2 mg/dL (0.2 mg/dL) Urine Leukocyte Esterase Trace (NEG) Urine RBC 3-5 /HPF (0-2) Urine WBC Rare /HPF (0-4) Urine Squamous Epithelial Cells None /LPF Urine Bacteria 0 /HPF (0-FEW) Test 10/13/19 03:40 Sodium Level 135 mmol/L (136-145) Potassium Level 4.8 mmol/L (3.5-5.1) Chloride Level 99 mmol/L (98-107) Carbon Dioxide Level 36 mmol/L (21-32) Anion Gap 0 (6-14) Blood Urea Nitrogen 26 mg/dL (7-20) Creatinine 0.9 mg/dL (0.6-1.0) Estimated GFR (Cockcroft-Gault) 60.4 Glucose Level 152 mg/dL (70-99) Calcium Level 7.7 mg/dL (8.5-10.1) Magnesium Level 2.0 mg/dL (1.8-2.4) Laboratory Tests Test 10/13/19 03:40 Sodium Level 135 mmol/L (136-145) Potassium Level 4.8 mmol/L (3.5-5.1) Chloride Level 99 mmol/L (98-107) Carbon Dioxide Level 36 mmol/L (21-32) Anion Gap 0 (6-14) Blood Urea Nitrogen 26 mg/dL (7-20) Creatinine 0.9 mg/dL (0.6-1.0) Estimated GFR (Cockcroft-Gault) 60.4 Glucose Level 152 mg/dL (70-99) Calcium Level 7.7 mg/dL (8.5-10.1) Magnesium Level 2.0 mg/dL (1.8-2.4) Medications Current Medications Furosemide (Lasix) 80 mg 1X ONCE IVP Last administered on 10/11/19at 12:34; Start 10/11/19 at 12:15; Stop 10/11/19 at 12:18; Status DC Albuterol/ Ipratropium (Duoneb) 6 ml 1X ONCE NEB ; Start 10/11/19 at 12:15; Stop 10/11/19 at 12:18; Status DC Methylprednisolone Sodium Succinate (SOLU-Medrol 125MG VIAL) 125 mg 1X ONCE IV Last administered on 10/11/19at 12:34; Start 10/11/19 at 12:15; Stop 10/11/19 at 12:18; Status DC Ondansetron HCl (Zofran) 4 mg PRN Q8HRS PRN IV NAUSEA/VOMITING; Start 10/11/19 at 14:30; Stop 10/12/19 at 14:29; Status DC Acetaminophen (Tylenol) 650 mg PRN Q4HRS PRN PO FEVER > 100.3'F; Start 10/11/19 at 14:30; Stop 10/12/19 at 14:29; Status DC Furosemide (Lasix) 40 mg PRN DAILY PRN PO CHF; Start 10/11/19 at 17:45 Lisinopril (Prinivil) 10 mg DAILY PO Last administered on 10/13/19at 09:28; Start 10/12/19 at 09:00 Albuterol/ Ipratropium (Duoneb) 3 ml RTQID NEB ; Start 10/11/19 at 20:00; Stop 10/11/19 at 18:29; Status DC Lactobacillus Rhamnosus (Culturelle) 1 cap BID PO Last administered on 10/13/19at 09:27; Start 10/11/19 at 21:00 Prednisone (Prednisone) 20 mg DAILY PO Last administered on 10/13/19at 09:28; Start 10/12/19 at 09:00 Sodium Chloride ([place] Saline Nasal) 1 kennedy PRN DAILY PRN NS NASAL CONGESTION; Start 10/11/19 at 18:15 Furosemide (Lasix) 40 mg DAILY IVP Last administered on 10/12/19at 08:32; Start 10/12/19 at 09:00; Stop 10/12/19 at 11:37; Status DC Albuterol/ Ipratropium (Duoneb) 3 ml PRN Q4HRS PRN NEB SHORTNESS OF BREATH; Start 10/11/19 at 20:00 Methylprednisolone Sodium Succinate (SOLU-Medrol 40MG VIAL) 40 mg Q8HRS IV Last administered on 10/13/19at 07:25; Start 10/12/19 at 14:00; Stop 10/13/19 at 11:39; Status DC Furosemide (Lasix) 40 mg PRN DAILY PRN IVP SEE COMMENTS; Start 10/12/19 at 11:45 Furosemide (Lasix) 40 mg DAILY PO Last administered on 10/13/19at 09:28; Start 10/13/19 at 09:00 Active Scripts Active Culturelle (Lactobacillus Rhamnosus Gg) 1 Each Cap.sprink 1 Cap PO BID 30 Days Amox Tr-K Clv 875-125 Mg Tab (Amoxicillin/Potassium Clav) 1 Each Tablet 1 Tab PO BID 5 Days [place] Saline Nasal Gel (Sodium Chloride/Aloe Vera) 14.1 Gm Gel..gram. 1 [place] NS PRN DAILY PRN 30 Days Duoneb 0.5-3(2.5) Mg/3 Ml (Albuterol/Ipratropium) 3 Ml Ampul.neb 3 Ml NEB RTQID 30 Days Reported Lasix (Furosemide) 40 Mg Tablet 1 Tab PO PRN DAILY PRN 30 Days Lisinopril 10 Mg Tablet 1 Tab PO DAILY Prednisone 20 Mg Tablet 20 Mg PO DAILY Vitals/I & O Vital Sign - Last 24 Hours 10/12/19 10/12/19 10/12/19 10/13/19 19:00 20:00 23:00 03:01 Temp 97.8 97.7 97.6 97.8 97.7 97.6 Pulse 107 93 89 Resp 20 20 20 B/P (MAP) 100/65 (77) 112/77 (89) 100/67 (78) Pulse Ox 89 95 95 O2 Delivery Nasal Cannula Nasal Cannula Nasal Cannula Nasal Cannula O2 Flow Rate 5.0 10/13/19 10/13/19 10/13/19 10/13/19 07:42 08:00 09:28 11:22 Temp 97.6 97.4 97.6 97.4 Pulse 76 76 103 Resp 18 24 B/P (MAP) 94/63 (73) 94/63 113/73 (86) Pulse Ox 98 93 O2 Delivery Nasal Cannula Nasal Cannula Nasal Cannula O2 Flow Rate 5.0 5.0 5.0 10/13/19 15:01 Temp 97.6 97.6 Pulse 103 Resp 20 B/P (MAP) 108/56 (73) Pulse Ox 92 O2 Delivery Nasal Cannula O2 Flow Rate 5.0 Intake and Output 10/12/19 10/12/19 10/13/19 15:00 23:00 07:00 Intake Total 460 ml 120 ml Output Total 1850 ml 850 ml 365 ml Balance -1390 ml -730 ml -365 ml AIXA MCCALLUM MD Oct 13, 2019 15:23
[2019-10-13 19:00] VITALS: BP 100/68
[2019-10-13 23:00] VITALS: BP 101/65
[2019-10-14 03:00] VITALS: BP 103/66
[2019-10-14 07:52] VITALS: BP 104/62
[2019-10-14] MEDS: FUROSEMIDE 40 MG TABLET. PO SCH (08:49)
[2019-10-14] MEDS: LACTOBACILLUS RHAMNOSUS GG 1 CAPSULE. PO SCH ×2 (08:49→20:33)
[2019-10-14] MEDS: predniSONE 20 MG TABLET PO SCH (08:49)
[2019-10-14] MEDS: LISINOPRIL 10 MG TABLET PO SCH (08:49)
--- NOTE | 2019-10-14 10:02 | PDOC ---
PULMONARY PROGRESS NOTES Subjective Pt. is now on 5 liters N/C , denies increased cough, denies increase in SOB continues to improve Vitals Vital Signs Date Time Temp Pulse Resp B/P (MAP) Pulse Ox O2 Delivery O2 Flow Rate FiO2 10/14/19 08:49 93 104/62 10/14/19 07:52 97.5 20 87 Nasal Cannula 5.0 97.5 ROS: No Nausea, No Chest Pain, No Abdominal Pain, No Increase Cough General: Alert, No acute distress Lungs: Other (, perih. crackles ) Cardiovascular: S1, S2 Abdomen: Soft Neuro Exam: Alert Extremities: Other (BLE edema trace ) Skin: Warm, Dry Labs Laboratory Tests Test 10/12/19 13:15 10/13/19 03:40 Urine Collection Type Unknown Urine Color Yellow Urine Clarity Clear Urine pH 7.5 (<5.0-8.0) Urine Specific [place] 1.010 (1.000-1.030) Urine Protein Negative mg/dL (NEG-TRACE) Urine Glucose (UA) Negative mg/dL (NEG) Urine Ketones (Stick) Negative mg/dL (NEG) Urine Blood Negative (NEG) Urine Nitrite Negative (NEG) Urine Bilirubin Negative (NEG) Urine Urobilinogen Dipstick 0.2 mg/dL (0.2 mg/dL) Urine Leukocyte Esterase Trace (NEG) Urine RBC 3-5 /HPF (0-2) Urine WBC Rare /HPF (0-4) Urine Squamous Epithelial Cells None /LPF Urine Bacteria 0 /HPF (0-FEW) Sodium Level 135 mmol/L (136-145) Potassium Level 4.8 mmol/L (3.5-5.1) Chloride Level 99 mmol/L (98-107) Carbon Dioxide Level 36 mmol/L (21-32) Anion Gap 0 (6-14) Blood Urea Nitrogen 26 mg/dL (7-20) Creatinine 0.9 mg/dL (0.6-1.0) Estimated GFR (Cockcroft-Gault) 60.4 Glucose Level 152 mg/dL (70-99) Calcium Level 7.7 mg/dL (8.5-10.1) Magnesium Level 2.0 mg/dL (1.8-2.4) Medications Active Scripts Medications Dose Route/Sig Max Daily Dose Days Date Category Culturelle (Lactobacillus Rhamnosus Gg) 1 Each Cap.sprink 1 Cap PO BID 30 4/6/20 Rx Amox Tr-K Clv 875-125 Mg Tab (Amoxicillin/Potassium Clav) 1 Each Tablet 1 Tab PO BID 5 08/13/19 Rx Lasix (Furosemide) 40 Mg Tablet 1 Tab PO PRN DAILY PRN 30 08/08/19 Reported Lisinopril 10 Mg Tablet 1 Tab PO DAILY 08/08/19 Reported Prednisone 20 Mg Tablet 20 Mg PO DAILY 08/08/19 Reported [place] Saline Nasal Gel (Sodium Chloride/Aloe Vera) 14.1 Gm Gel..gram. 1 [place] NS PRN DAILY PRN 30 06/30/18 Rx Duoneb 0.5-3(2.5) Mg/3 Ml (Albuterol/Ipratropium) 3 Ml Ampul.neb 3 Ml NEB RTQID 30 06/30/[address] chest IMPRESSION: No change in chronic pulmonary fibrosis. Chronic bilateral bronchiectasis. Cardiomegaly. New finding of a small pericardial effusion. Calcified atheromatous disease of the coronary arteries. New finding of minimal bilateral pleural effusions. Impression . IMPRESSION: 1. [id number] hypoxic respiratory failure secondary to right heart failure resulting from chronic pulmonary fibrosis- ongoing 2. The patient with chronic respiratory failure related to chronic pulmonary fibrosis. She has previous CAT scan with honeycombing and bronchiectasis. 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 She has been on chronic prednisone, but as such not made any progress. 3. No significant tobacco history. 4. Clinical suspicion for COVID pneumonia (-) Plan . RECOMMENDATIONS: 1. Continue with present oxygen at 5 liters and gradually wean to keep saturation 92 and above. 2. Lasix changed to po , follow cardiology recs 3. Continue home prednisone. 4. Bronchodilators p.r.n. 5. CT chest reviewed 6. Discussed with RN. Anticipate D/C home in next 24-48hours MIGUEL A LAMBERT MD Oct 14, 2019 10:02
--- NOTE | 2019-10-14 10:42 | PDOC ---
PROGRESS NOTES Chief Complaint Chief Complaint Acute exacerbation of chronic congestive heart failure which seems to be diastolic in nature concern for covid-19 related illness with negative test, low suspicion weakness, probably a result of advanced age and multiple comorbidities acute hypoxic resp failure, REQUIRIG 15 LITER O2 ON PRESENTATION Slight increase in interstitial thickening of the lung monte which may represent interstitial infiltrates or related to CHF. Progression of pulmonary fibrosis is noted since the previous CTA chest exam at the upper lung field level. Significant honeycombing and bilateral lower lobe bronchiectasis 05/28 CT chest Dyspnea secondary to pulmonary fibrosis most likely recent bronch, mild aortic stenosis plan o2 support Continue with Lasix therapy pulm consult Cardiology consult lasix 40 mg iv q 24 hrs dvt prophylaxis Further recommendations based on clinical course Hopefully discharge soon History of Present Illness History of Present Illness 10/12:No acute events reported overnight, case discussed with nursing staff madeline ient in no acute distress no complaints during my visit 10/13: Feeling better compared to yesterday and happy about diuresis and how her edema has improved. No acute events reported overnight, case discussed with nursing staff patient in no acute distress no complaints during my visit Vitals Vitals Vital Signs Date Time Temp Pulse Resp B/P (MAP) Pulse Ox O2 Delivery O2 Flow Rate FiO2 10/14/19 08:49 93 104/62 10/14/19 08:20 Nasal Cannula 5.0 10/14/19 07:52 97.5 20 87 97.5 Physical Exam General: Alert, Oriented X3, Cooperative, mild distress Heart: Regular rate, Other (2/6 systolic mumur) Lungs: Other (, perih. crackles ) Abdomen: Soft Extremities: Other (2+ bilateral LE edema ) Skin: No significant lesion Review of Systems Review of Systems Pertinent as per HPI otherwise 14 point review of system is negative Assessment and Plan Assessmemt and Plan Problems Medical Problems: (1) CHF (congestive heart failure) Status: Acute (2) Person under investigation for COVID-19 Status: Acute Comment Review of Relevant I have reviewed the following items alyce (where applicable) has been applied. Labs Laboratory Tests Test 10/12/19 13:15 10/13/19 03:40 Urine Collection Type Unknown Urine Color Yellow Urine Clarity Clear Urine pH 7.5 (<5.0-8.0) Urine Specific [place] 1.010 (1.000-1.030) Urine Protein Negative mg/dL (NEG-TRACE) Urine Glucose (UA) Negative mg/dL (NEG) Urine Ketones (Stick) Negative mg/dL (NEG) Urine Blood Negative (NEG) Urine Nitrite Negative (NEG) Urine Bilirubin Negative (NEG) Urine Urobilinogen Dipstick 0.2 mg/dL (0.2 mg/dL) Urine Leukocyte Esterase Trace (NEG) Urine RBC 3-5 /HPF (0-2) Urine WBC Rare /HPF (0-4) Urine Squamous Epithelial Cells None /LPF Urine Bacteria 0 /HPF (0-FEW) Sodium Level 135 mmol/L (136-145) Potassium Level 4.8 mmol/L (3.5-5.1) Chloride Level 99 mmol/L (98-107) Carbon Dioxide Level 36 mmol/L (21-32) Anion Gap 0 (6-14) Blood Urea Nitrogen 26 mg/dL (7-20) Creatinine 0.9 mg/dL (0.6-1.0) Estimated GFR (Cockcroft-Gault) 60.4 Glucose Level 152 mg/dL (70-99) Calcium Level 7.7 mg/dL (8.5-10.1) Magnesium Level 2.0 mg/dL (1.8-2.4) Medications Current Medications Furosemide (Lasix) 80 mg 1X ONCE IVP Last administered on 10/11/19at 12:34; Start 10/11/19 at 12:15; Stop 10/11/19 at 12:18; Status DC Albuterol/ Ipratropium (Duoneb) 6 ml 1X ONCE NEB ; Start 10/11/19 at 12:15; Stop 10/11/19 at 12:18; Status DC Methylprednisolone Sodium Succinate (SOLU-Medrol 125MG VIAL) 125 mg 1X ONCE IV Last administered on 10/11/19at 12:34; Start 10/11/19 at 12:15; Stop 10/11/19 at 12:18; Status DC Ondansetron HCl (Zofran) 4 mg PRN Q8HRS PRN IV NAUSEA/VOMITING; Start 10/11/19 at 14:30; Stop 10/12/19 at 14:29; Status DC Acetaminophen (Tylenol) 650 mg PRN Q4HRS PRN PO FEVER > 100.3'F; Start 10/11/19 at 14:30; Stop 10/12/19 at 14:29; Status DC Furosemide (Lasix) 40 mg PRN DAILY PRN PO CHF; Start 10/11/19 at 17:45 Lisinopril (Prinivil) 10 mg DAILY PO Last administered on 10/14/19at 08:49; Start 10/12/19 at 09:00 Albuterol/ Ipratropium (Duoneb) 3 ml RTQID NEB ; Start 10/11/19 at 20:00; Stop 10/11/19 at 18:29; Status DC Lactobacillus Rhamnosus (Culturelle) 1 cap BID PO Last administered on 10/14/19at 08:49; Start 10/11/19 at 21:00 Prednisone (Prednisone) 20 mg DAILY PO Last administered on 10/14/19at 08:49; Start 10/12/19 at 09:00 Sodium Chloride ([place] Saline Nasal) 1 kennedy PRN DAILY PRN NS NASAL CONGESTION; Start 10/11/19 at 18:15 Furosemide (Lasix) 40 mg DAILY IVP Last administered on 10/12/19at 08:32; Start 10/12/19 at 09:00; Stop 10/12/19 at 11:37; Status DC Albuterol/ Ipratropium (Duoneb) 3 ml PRN Q4HRS PRN NEB SHORTNESS OF BREATH; Start 10/11/19 at 20:00 Methylprednisolone Sodium Succinate (SOLU-Medrol 40MG VIAL) 40 mg Q8HRS IV Last administered on 10/13/19at 07:25; Start 10/12/19 at 14:00; Stop 10/13/19 at 11:39; Status DC Furosemide (Lasix) 40 mg PRN DAILY PRN IVP SEE COMMENTS; Start 10/12/19 at 11:45 Furosemide (Lasix) 40 mg DAILY PO Last administered on 10/14/19at 08:49; Start 10/13/19 at 09:00 Active Scripts Active Culturelle (Lactobacillus Rhamnosus Gg) 1 Each Cap.sprink 1 Cap PO BID 30 Days Amox Tr-K Clv 875-125 Mg Tab (Amoxicillin/Potassium Clav) 1 Each Tablet 1 Tab PO BID 5 Days [place] Saline Nasal Gel (Sodium Chloride/Aloe Vera) 14.1 Gm Gel..gram. 1 [place] NS PRN DAILY PRN 30 Days Duoneb 0.5-3(2.5) Mg/3 Ml (Albuterol/Ipratropium) 3 Ml Ampul.neb 3 Ml NEB RTQID 30 Days Reported Lasix (Furosemide) 40 Mg Tablet 1 Tab PO PRN DAILY PRN 30 Days Lisinopril 10 Mg Tablet 1 Tab PO DAILY Prednisone 20 Mg Tablet 20 Mg PO DAILY Vitals/I & O Vital Sign - Last 24 Hours 10/13/19 10/13/19 10/13/19 10/13/19 11:22 15:01 19:00 20:06 Temp 97.4 97.6 98.2 97.4 97.6 98.2 Pulse 103 103 102 Resp 24 20 18 B/P (MAP) 113/73 (86) 108/56 (73) 100/68 (79) Pulse Ox 93 92 91 O2 Delivery Nasal Cannula Nasal Cannula Nasal Cannula O2 Flow Rate 5.0 5.0 5.0 10/13/19 10/14/19 10/14/19 10/14/19 23:00 03:00 07:52 08:20 Temp 97.4 98.4 97.5 97.4 98.4 97.5 Pulse 103 88 93 Resp 20 B/P (MAP) 101/65 (77) 103/66 (78) 104/62 (76) Pulse Ox 91 97 87 O2 Delivery Nasal Cannula Nasal Cannula O2 Flow Rate 5.0 5.0 10/14/19 08:49 Pulse 93 B/P (MAP) 104/62 Intake and Output 10/13/19 10/13/19 10/14/19 15:00 23:00 07:00 Intake Total 600 ml 400 ml Output Total 3500 ml 525 ml Balance 600 ml -3100 ml -525 ml AIXA MCCALLUM MD Oct 14, 2019 10:42
[2019-10-14 11:05] VITALS: BP 91/60
[2019-10-14 14:43] VITALS: BP 99/66
[2019-10-14 19:05] VITALS: BP 105/64
[2019-10-14 23:00] VITALS: BP 101/68
[2019-10-15 03:00] VITALS: BP 110/67
[2019-10-15 07:00] VITALS: BP 127/79
[2019-10-15] MEDS: LACTOBACILLUS RHAMNOSUS GG 1 CAPSULE. PO SCH ×2 (10:16→20:39)
[2019-10-15] MEDS: predniSONE 20 MG TABLET PO SCH (10:16)
[2019-10-15] MEDS: FUROSEMIDE 40 MG TABLET. PO SCH (10:16)
[2019-10-15] MEDS: LISINOPRIL 10 MG TABLET PO SCH (10:16)
[2019-10-15 10:47] VITALS: BP 125/70
--- NOTE | 2019-10-15 12:38 | PDOC ---
PULMONARY PROGRESS NOTES Subjective Pt. is now on 5 liters N/C , denies increased cough, denies increase in SOB continues to improve Vitals Vital Signs Date Time Temp Pulse Resp B/P (MAP) Pulse Ox O2 Delivery O2 Flow Rate FiO2 10/15/19 10:47 97.8 82 18 125/70 (88) 92 Nasal Cannula 5.0 97.8 ROS: No Nausea, No Chest Pain, No Abdominal Pain, No Increase Cough General: Alert, No acute distress Lungs: Other (, perih. crackles ) Cardiovascular: S1, S2 Abdomen: Soft Neuro Exam: Alert Extremities: Other (BLE edema trace ) Skin: Warm, Dry Medications Active Scripts Medications Dose Route/Sig Max Daily Dose Days Date Category Culturelle (Lactobacillus Rhamnosus Gg) 1 Each Cap.sprink 1 Cap PO BID 30 08/13/19 Rx Amox Tr-K Clv 875-125 Mg Tab (Amoxicillin/Potassium Clav) 1 Each Tablet 1 Tab PO BID 5 08/13/19 Rx Lasix (Furosemide) 40 Mg Tablet 1 Tab PO PRN DAILY PRN 30 08/08/19 Reported Lisinopril 10 Mg Tablet 1 Tab PO DAILY 08/08/19 Reported Prednisone 20 Mg Tablet 20 Mg PO DAILY 08/08/19 Reported [place] Saline Nasal Gel (Sodium Chloride/Aloe Vera) 14.1 Gm Gel..gram. 1 [place] NS PRN DAILY PRN 30 06/30/18 Rx Duoneb 0.5-3(2.5) Mg/3 Ml (Albuterol/Ipratropium) 3 Ml Ampul.neb 3 Ml NEB RTQID 30 06/30/[address] chest IMPRESSION: No change in chronic pulmonary fibrosis. Chronic bilateral bronchiectasis. Cardiomegaly. New finding of a small pericardial effusion. Calcified atheromatous disease of the coronary arteries. New finding of minimal bilateral pleural effusions. Impression . IMPRESSION: 1. [id number] hypoxic respiratory failure secondary to right heart failure resulting from chronic pulmonary fibrosis- ongoing 2. The patient with chronic respiratory failure related to chronic pulmonary fibrosis. She has previous CAT scan with honeycombing and bronchiectasis. 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 She has been on chronic prednisone, but as such not made any progress. 3. No significant tobacco history. 4. Clinical suspicion for COVID pneumonia (-) Plan . RECOMMENDATIONS: 1. Continue with present oxygen at 5 liters and gradually wean to keep saturation 92 and above. 2. Lasix changed to po , follow cardiology recs 3. Continue home prednisone. 4. Bronchodilators p.r.n. 5. CT chest reviewed 6. Discussed with RN. Anticipate D/C home in next 24- MIGUEL A LAMBERT MD Oct 15, 2019 12:38
[2019-10-15 15:00] VITALS: BP 113/93
--- NOTE | 2019-10-15 16:01 | PDOC ---
PROGRESS NOTES Chief Complaint Chief Complaint Acute exacerbation of chronic congestive heart failure which seems to be diastolic in nature concern for covid-19 related illness with negative test, low suspicion weakness, probably a result of advanced age and multiple comorbidities acute hypoxic resp failure, REQUIRIG 15 LITER O2 ON PRESENTATION Slight increase in interstitial thickening of the lung monte which may represent interstitial infiltrates or related to CHF. Progression of pulmonary fibrosis is noted since the previous CTA chest exam at the upper lung field level. Significant honeycombing and bilateral lower lobe bronchiectasis 05/28 CT chest Dyspnea secondary to pulmonary fibrosis most likely recent bronch, mild aortic stenosis plan o2 support Continue with Lasix therapy pulm consult Cardiology consult lasix 40 mg iv q 24 hrs dvt prophylaxis Further recommendations based on clinical course Hopefully discharge soon History of Present Illness History of Present Illness 10/12:No acute events reported overnight, case discussed with nursing staff madeline shepard in no acute distress no complaints during my visit 10/13: Feeling better compared to yesterday and happy about diuresis and how her edema has improved. No acute events reported overnight, case discussed with nursing staff patient in no acute distress no complaints during my visit 10/14: Patient continues to feel better she complained of dry nose overnight, she was given surgi lub to put on her nose that seems to have stuffed her nose. She is requesting normal saline and she feels she is more short of breath. Reassurance provided Vitals Vitals Vital Signs Date Time Temp Pulse Resp B/P (MAP) Pulse Ox O2 Delivery O2 Flow Rate FiO2 10/15/19 15:00 97.7 109 19 113/93 (100) 91 Nasal Cannula 5.0 97.7 Physical Exam General: Alert, Oriented X3, Cooperative, mild distress Heart: Regular rate, Other (2/6 systolic mumur) Lungs: Other (, perih. crackles ) Abdomen: Soft Extremities: Other (2+ bilateral LE edema ) Skin: No significant lesion Assessment and Plan Assessmemt and Plan Problems Medical Problems: (1) CHF (congestive heart failure) Status: Acute (2) Person under investigation for COVID-19 Status: Acute Comment Review of Relevant I have reviewed the following items alyce (where applicable) has been applied. Medications Current Medications Furosemide (Lasix) 80 mg 1X ONCE IVP Last administered on 10/11/19at 12:34; Start 10/11/19 at 12:15; Stop 10/11/19 at 12:18; Status DC Albuterol/ Ipratropium (Duoneb) 6 ml 1X ONCE NEB ; Start 10/11/19 at 12:15; Stop 10/11/19 at 12:18; Status DC Methylprednisolone Sodium Succinate (SOLU-Medrol 125MG VIAL) 125 mg 1X ONCE IV Last administered on 10/11/19at 12:34; Start 10/11/19 at 12:15; Stop 10/11/19 at 12:18; Status DC Ondansetron HCl (Zofran) 4 mg PRN Q8HRS PRN IV NAUSEA/VOMITING; Start 10/11/19 at 14:30; Stop 10/12/19 at 14:29; Status DC Acetaminophen (Tylenol) 650 mg PRN Q4HRS PRN PO FEVER > 100.3'F; Start 10/11/19 at 14:30; Stop 10/12/19 at 14:29; Status DC Furosemide (Lasix) 40 mg PRN DAILY PRN PO CHF; Start 10/11/19 at 17:45 Lisinopril (Prinivil) 10 mg DAILY PO Last administered on 10/15/19at 10:16; Start 10/12/19 at 09:00 Albuterol/ Ipratropium (Duoneb) 3 ml RTQID NEB ; Start 10/11/19 at 20:00; Stop 10/11/19 at 18:29; Status DC Lactobacillus Rhamnosus (Culturelle) 1 cap BID PO Last administered on 10/15/19at 10:16; Start 10/11/19 at 21:00 Prednisone (Prednisone) 20 mg DAILY PO Last administered on 10/15/19at 10:16; Start 10/12/19 at 09:00 Sodium Chloride ([place] Saline Nasal) 1 kennedy PRN DAILY PRN NS NASAL CONGESTION; Start 10/11/19 at 18:15 Furosemide (Lasix) 40 mg DAILY IVP Last administered on 10/12/19at 08:32; Start 10/12/19 at 09:00; Stop 10/12/19 at 11:37; Status DC Albuterol/ Ipratropium (Duoneb) 3 ml PRN Q4HRS PRN NEB SHORTNESS OF BREATH; Start 10/11/19 at 20:00 Methylprednisolone Sodium Succinate (SOLU-Medrol 40MG VIAL) 40 mg Q8HRS IV Last administered on 10/13/19at 07:25; Start 10/12/19 at 14:00; Stop 10/13/19 at 11:39; Status DC Furosemide (Lasix) 40 mg PRN DAILY PRN IVP SEE COMMENTS; Start 10/12/19 at 11:45 Furosemide (Lasix) 40 mg DAILY PO Last administered on 10/15/19at 10:16; Start 10/13/19 at 09:00 Active Scripts Active Culturelle (Lactobacillus Rhamnosus Gg) 1 Each Cap.sprink 1 Cap PO BID 30 Days Amox Tr-K Clv 875-125 Mg Tab (Amoxicillin/Potassium Clav) 1 Each Tablet 1 Tab PO BID 5 Days [place] Saline Nasal Gel (Sodium Chloride/Aloe Vera) 14.1 Gm Gel..gram. 1 [place] NS PRN DAILY PRN 30 Days Duoneb 0.5-3(2.5) Mg/3 Ml (Albuterol/Ipratropium) 3 Ml Ampul.neb 3 Ml NEB RTQID 30 Days Reported Lasix (Furosemide) 40 Mg Tablet 1 Tab PO PRN DAILY PRN 30 Days Lisinopril 10 Mg Tablet 1 Tab PO DAILY Prednisone 20 Mg Tablet 20 Mg PO DAILY Vitals/I & O Vital Sign - Last 24 Hours 10/14/19 10/14/19 10/14/19 10/15/19 19:05 20:05 23:00 03:00 Temp 98.5 98.2 98.1 98.5 98.2 98.1 Pulse 98 93 92 Resp 32 30 28 B/P (MAP) 105/64 (78) 101/68 (79) 110/67 (81) Pulse Ox 90 94 91 O2 Delivery Nasal Cannula Nasal Cannula Nasal Cannula Nasal Cannula O2 Flow Rate 5.0 5.0 5.0 5.0 10/15/19 10/15/19 10/15/19 10/15/19 07:00 10:16 10:47 15:00 Temp 97.7 97.8 97.7 97.7 97.8 97.7 Pulse 86 86 82 109 Resp 18 18 19 B/P (MAP) 127/79 (95) 127/79 125/70 (88) 113/93 (100) Pulse Ox 91 92 91 O2 Delivery Nasal Cannula Nasal Cannula Nasal Cannula O2 Flow Rate 5.0 5.0 5.0 Intake and Output 10/14/19 10/14/19 10/15/19 15:00 23:00 07:00 Intake Total 850 ml Output Total 1065 ml Balance -215 ml AIXA MCCALLUM MD Oct 15, 2019 16:01
--- NOTE | 2019-10-15 16:03 | CARD ---
MR#: [id number] Date of Study: 10/15/2019 Ordering Physician: AMADOR ANDREA, Referring Physician: AMADOR ANDREA, Tech: Meghana Coley [facility] APPROVED REPORT EXAM: Two-dimensional and M-mode echocardiogram with Doppler and color Doppler. Other Information Quality : Good INDICATION Congestive Heart Failure 2D DIMENSIONS RVDd3.3 (2.9-3.5cm)Left Atrium(2D)2.9 (1.6-4.0cm) IVSd1.0 (0.7-1.1cm)Aortic Root(2D)2.2 (2.0-3.7cm) LVDd1.8 (3.9-5.9cm)LVOT Diameter2.0 (1.8-2.4cm) PWd1.1 (0.7-1.1cm)LVDs1.2 (2.5-4.0cm) FS (%) 34.8 %SV6.6 ml Aortic Valve AoV Peak Richard.247.4cm/sAoV VTI38.2cm AO Peak GR.24.5mmHgLVOT VTI 13.16cm AO Mean GR.16mmHgAVA (VTI)1.10cm2 TDI Lateral E' P. V14.35cm/sMedial E' P. V6.05cm/s Tricuspid Valve TR P. [id number]/sRAP [id number] TR Peak Gr.[id number] LEFT VENTRICLE The left ventricle cavity is mildly decreased. There is mild concentric left ventricular hypertrophy. The left ventricular systolic function is normal and the ejection fraction is within normal range. T he Ejection Fraction is 60-65%. Septal motion consistent with conduction abnormality. RIGHT VENTRICLE The right ventricle is mildly dilated. Systolic function is mildly reduced. ATRIA The left atrium size is normal. The right atrium size is normal. The interatrial septum is intact wit h no evidence for an atrial septal defect or patent foramen ovale as noted on 2-D or Doppler imaging. AORTIC VALVE The aortic valve is calcified and displays decreased opening. Doppler and Color Flow revealed no sign ificant aortic regurgitation. Calculated aortic valve area is 1.09 cm2 with maximum pressure gradient of 25 mmHg and mean pressure gradient of 16 mmHg. Doppler and color-flow analysis revealed moderate aortic stenosis. MITRAL VALVE The mitral valve is calcified but opens well. Mitral annular calcification is mild. There is no evide nce of mitral valve prolapse. There is no mitral valve stenosis. Doppler and Color-flow revealed trac e mitral regurgitation. TRICUSPID VALVE The tricuspid valve is normal in structure and function. Doppler and Color Flow revealed mild to mode rate tricuspid regurgitation. The PA pressure was estimated at 73 mmHg. There is no tricuspid valve s tenosis. PULMONIC VALVE The pulmonic valve is not well visualized. Doppler and Color Flow revealed trace pulmonic valvular re gurgitation. There is no pulmonic valvular stenosis. GREAT VESSELS The aortic root is normal in size. The ascending aorta is not well seen. The IVC is dilated and colla pses <50% with inspiration. PERICARDIAL EFFUSION There is no evidence of significant pericardial effusion. Critical Notification Critical Value: No <Conclusion> The left ventricle cavity is mildly decreased. The left ventricular systolic function is normal and the ejection fraction is within normal range. The Ejection Fraction is 60-65%. There is mild concentric left ventricular hypertrophy. Doppler and Color Flow revealed no significant aortic regurgitation. Calculated aortic valve area is 1.09 cm2 with maximum pressure gradient of 25 mmHg and mean pressure gradient of 16 mmHg. Doppler and color-flow analysis revealed moderate aortic stenosis. Doppler and Color-flow revealed trace mitral regurgitation. Doppler and Color Flow revealed mild to moderate tricuspid regurgitation. The PA pressure was estimated at 73 mmHg. Signed by : Juan M Sutton MD Electronically Approved : 10/15/2019 16:02:49
[2019-10-15 19:17] VITALS: BP 100/67
[2019-10-15 23:30] VITALS: BP 154/94
[2019-10-16 02:48] VITALS: BP 114/74
[2019-10-16 07:00] VITALS: BP 128/89
[2019-10-16] MEDS: LISINOPRIL 10 MG TABLET PO SCH (09:46)
[2019-10-16] MEDS: LACTOBACILLUS RHAMNOSUS GG 1 CAPSULE. PO SCH (09:46)
[2019-10-16] MEDS: predniSONE 20 MG TABLET PO SCH (09:46)
[2019-10-16] MEDS: FUROSEMIDE 40 MG TABLET. PO SCH (09:46)
[2019-10-16] MEDS ORDERED: FURO40TA4 PO (10:00)
[2019-10-16] MEDS ORDERED: PRED-220 PO (10:07)
[2019-10-16 11:00] VITALS: BP 130/84
--- NOTE | 2019-10-16 11:00 | NUR ---
Pt has voided after norton cath has been removed.
--- NOTE | 2019-10-16 11:23 | SNU/HH DC ---
DISCHARGE WITH HOME HEALTH DISCHARGE INFORMATION: Discharge Date: Oct 16, 2019 Final Diagnosis: Problems Medical Problems: (1) CHF (congestive heart failure) Status: Acute (2) negative COVID-19 Status: Acute Condition on Discharge: Stable CODE STATUS: Code Status: Full HOME HEALTH: Face to Face: I certify this patient is under my care and that I, or a nurse practitioner or physician's residential assistant working with me, had a face to face encounter that meets the physician face to face encounter requirements with this patient on []. Medical Complications: Falls RN For Eval/Treatment: Yes Physical Therapy For: Evalulation/Treatment Occupational Therapy For: Evaluation/Treatment Pt Meets Homebound Status: Extreme weakness w/ amb. POST DISCHARGE ORDERS: Activity Instructions for Disc: Activity as tolerated Weight Bearing Status after Di: No restrictions DIET AFTER DISCHARGE: Regular TREATMENT/EQUIPMENT ORDERS: Adaptive Equipment Issued: None Discharge Respiratory Equipmen: Oxygen CERTIFICATION STATEMENT: Certification Statement: Certification Statement: Based on the above finding, I certify that this patient is confined to the home and needs intermittent penitentiary care, physical therapy and/or speech therapy, or continues to need occupational therapy.~ This patient is under my care, and I have initiated the establishment of the plan of care.~ This patient will be followed by myself or a community physician who will periodically review the plan of care. Home Meds Active Scripts Prednisone (PREDNISONE ) 10 Mg Tablet, 1 TAB PO BID for Dyspnea for 5 Days, #10 TAB 0 Refills Prov:AIXA MCCALLUM MD 10/16/19 Furosemide (FUROSEMIDE) 40 Mg Tablet, 40 MG PO DAILY for CHF for 30 Days, #30 TAB Prov:AIXA MCCALLUM MD 10/16/19 Lactobacillus Rhamnosus Gg (CULTURELLE) 1 Each Cap.sprink, 1 CAP PO BID for probiotic for 30 Days, #60 CAP Prov:AIXA MCCALLUM MD 08/13/19 Sodium Chloride/Aloe Vera ([place] SALINE NASAL GEL) 14.1 Gm Gel..gram., 1 QUANG NS PRN DAILY PRN for NASAL CONGESTION for 30 Days, #30 EACH Prov:DEBORAH HERNANDEZ MD 06/30/18 Ipratropium/Albuterol Sulfate (DUONEB 0.5-3(2.5) MG/3 ML) 3 Ml Ampul.neb, 3 ML NEB RTQID for Pulm Fibrosis for 30 Days, #120 EACH 2 Refills Prov:DEBORAH HERNANDEZ MD 06/30/18 Reported Medications Lisinopril (LISINOPRIL) 10 Mg Tablet, 1 TAB PO DAILY for HTN, #30 TAB 5 Refills 08/08/19 Prednisone (PREDNISONE) 20 Mg Tablet, 20 MG PO DAILY for pulmb fibrosis 08/08/19 Discontinued Reported Medications Furosemide (LASIX) 40 Mg Tablet, 1 TAB PO PRN DAILY PRN for CHF for 30 Days, TAB 0 Refills 08/08/19 Discontinued Scripts Amoxicillin/Potassium Clav (AMOX TR-K CLV 875-125 MG TAB) 1 Each Tablet, 1 TAB PO BID for bronchitis for 5 Days, #10 TAB Prov:AIXA MCCALLUM MD 08/13/19 AIXA MCCALLUM MD Oct 16, 2019 11:23
--- NOTE | 2019-10-16 11:28 | PDOC3 ---
Discharge Summary Visit Information Date of Admission: Oct 11, 2019 Date of Discharge: Oct 16, 2019 Admitting Diagnosis Comment: Acute EXACERBATION OF chf concern for covid-19 related illness seems low weakness, acute hypoxic resp failure, REQUIRIG 15 LITER O2 ON PRESENTATION Acute on chronic diastolic CHF; Slight increase in interstitial thickening of the lung monte which may represent interstitial infiltrates or related to CHF. Progression of pulmonary fibrosis is noted since the previous CTA chest exam at the upper lung field level. Significant honeycombing and bilateral lower lobe bronchiectasis 05/28 CT chest Dyspnea secondary to pulmonary fibrosis, ? COVID -19 recent bronch, mild aortic stenosis Final Diagnosis Problems Medical Problems: (1) CHF (congestive heart failure) Status: Acute (2) Person under investigation for COVID-19 Status: Acute Acute exacerbation of chronic congestive heart failure which seems to be diastolic in nature concern for covid-19 related illness with negative test weakness, probably a result of advanced age and multiple comorbidities acute hypoxic resp failure, improved, secondary to pulmonary fibrosis Slight increase in interstitial thickening of the lung monte which may represent interstitial infiltrates or related to CHF. Progression of pulmonary fibrosis is noted since the previous CTA chest exam at the upper lung field level. Significant honeycombing and bilateral lower lobe bronchiectasis 05/28 CT chest Dyspnea secondary to pulmonary fibrosis most likely recent bronch, mild aortic stenosis Brief Hospital Course Allergies Allergies Coded Allergies Type Severity Reaction Last Updated Verified No Known Medication Allergies Allergy Unknown 08/10/19 Yes gluten Adverse Reaction Mild Diarrhea 09/09/18 Yes Vital Signs Vital Signs Date Time Temp Pulse Resp B/P (MAP) Pulse Ox O2 Delivery O2 Flow Rate FiO2 10/16/19 11:00 97.8 72 18 130/84 (99) 97 Nasal Cannula 5.0 97.8 Brief Hospital Course Ms. Crowe is a 79 old female who was admitted with the above-mentioned diagnosis of acute exacerbation of chronic congestive heart failure, echocardiogram did not reveal any decrease in the ejection fraction and given her findings of worsening pulmonary fibrosis most likely that this is the culprit regarding her dyspnea. Patient was seen in consultation by pulmonology no new recommendations were given except for steroids nevertheless patient does not seem to have responded well to this therapy either. The patient was tested for coronavirus and her tests came back negative. She had a recent bronchoscopy and her degree of aortic stenosis does not explain her shortness of breath either. Patient will be continued on steroids taper over the next 5 days moving forward I have encouraged her to increase mobility as much as tolerated and she will have home health care services restarted in order to monitor the patient more closely and try to avoid frequent readmissions. She was given Lasix therapy in light of her pleural effusions as well. She tolerated the Lasix well and she will continue with Lasix daily. Signs and symptoms of concern and when to seek medical attention were discussed with the patient prior to discharge she acknowledged understanding of all the instructions Assessment Assessment General: Alert, Oriented X3, Cooperative, mild distress Heart: Regular rate, Other (2/6 systolic mumur) Lungs: Other Abdomen: Soft Extremities: Other (2+ bilateral LE edema ) Skin: No significant lesion IMAGING REPORT Signed PATIENT: KILO CROWE ACCOUNT: [id number] : 1940 LOCATION: [address] [place] [address] AGE: 79 SEX: F EXAM STATUS: ADM IN ORD. PHYSICIAN: MIGUEL A LAMBERT MD REASON: PULMONARY FIBROSIS/ DO AFTER COVID TEST NEG PROCEDURE: CT CHEST WO CONTRAST Chest CT without contrast Clinical indications: Pulmonary fibrosis. COMPARISON: May 11, 2019. TECHNIQUE: Noncontrast helical CT scanning of the chest was performed. PQRS compliance Statement One or more of the following individualized dose reduction techniques were utilized for this study: 1. Automated exposure control 2. Adjustment of the mA and/or kV according to patient size 3. Use of iterative reconstruction technique FINDINGS: The heart size is enlarged. Calcified atheromatous coronary arterial disease is seen. Small pericardial effusion is seen. This is new. Minimal bilateral pleural effusions are seen. No focal aneurysmal dilatation of the thoracic aorta is seen. Calcification of mediastinal lymph nodes is seen due to old granulomatous disease. There is a precarinal lymph node measuring 14 mm. There is a right paratracheal lymph node measuring 8 mm. These are stable. Otherwise no bulky thoracic lymphadenopathy is seen. Again seen is diffuse interstitial lung disease with multiple air-filled cystic spaces and honeycombing consistent with chronic pulmonary fibrosis. This is stable. No new lung infiltrate or lung consolidation is seen. Bilateral bronchiectasis is seen. No lytic process is evident. No compression fracture of the thoracic spine is seen. Old healed anterolateral right eighth and ninth rib fractures are seen. No adrenal mass is seen. IMPRESSION: No change in chronic pulmonary fibrosis. Chronic bilateral bronchiectasis. Cardiomegaly. New finding of a small pericardial effusion. Calcified atheromatous disease of the coronary arteries. New finding of minimal bilateral pleural effusions. Electronically signed by: Jean Barahona MD (10/12/2019 1:59 PM) [id number] Discharge Information Condition at Discharge: Improved Follow Up: Weeks Disposition/Orders: D/C to Home w/ HH Scheduled Furosemide (Furosemide) 40 Mg Tablet, 40 MG PO DAILY for CHF for 30 Days, #30 Prescribed by: AIXA MCCALLUM MD on 10/16/19 1000 Ipratropium/Albuterol Sulfate (Duoneb 0.5-3(2.5) Mg/3 Ml) 3 Ml Ampul.neb, 3 ML NEB RTQID for Pulm Fibrosis for 30 Days, #120 Ref 2 Prescribed by: DEBORAH HERNANDEZ MD on 06/30/18 1254 Last Action: Continued on 10/11/191809 by NICHOLE ARGUETA MD Lactobacillus Rhamnosus Gg (Culturelle) 1 Each Cap.sprink, 1 CAP PO BID for probiotic for 30 Days, #60 Prescribed by: AIXA MCCALLUM MD on 08/13/19 1034 Last Action: Continued on 10/11/191809 by NICHOLE ARGUETA MD Lisinopril (Lisinopril) 10 Mg Tablet, 1 TAB PO DAILY for HTN, #30 Ref 5 (Reported) Entered as Reported by: KAYLA BORJA on 08/08/19 1234 Last Action: Continued on 10/11/19 173 by AMADOR ANDREA APRN Prednisone (Prednisone) 20 Mg Tablet, 20 MG PO DAILY for pulmb fibrosis, (Reported) Entered as Reported by: KAYLA BORJA on 08/08/19 1231 Last Action: Continued on 10/11/191809 by NICHOLE ARGUETA MD Prednisone (Prednisone ) 10 Mg Tablet, 1 TAB PO BID for Dyspnea for 5 Days, #10 Ref 0 Prescribed by: AIXA MCCALLUM MD on 10/16/19 1007 Scheduled PRN Sodium Chloride/Aloe Vera ([place] Saline Nasal Gel) 14.1 Gm Gel..gram., 1 QUANG NS PRN DAILY PRN for NASAL CONGESTION for 30 Days, #30 Prescribed by: DEBORAH HERNANDEZ MD on 06/30/18 1254 Last Action: Continued on 10/11/191809 by NICHOLE ARGUETA MD Discontinued Medications Amoxicillin/Potassium Clav (Amox Tr-K Clv 875-125 Mg Tab) 1 Each Tablet, 1 TAB PO BID for bronchitis for 5 Days, #10 Prescribed by: AIXA MCCALLUM MD on 08/13/19 1034 Last Action: HELD on 10/11/191809 by NICHOLE ARGUETA MD Furosemide (Lasix) 40 Mg Tablet, 1 TAB PO PRN DAILY PRN for CHF for 30 Days, Ref 0 (Reported) Entered as Reported by: KAYLA BORJA on 08/08/19 1234 Last Action: Continued on 10/11/191735 by AMADOR ANDREA APRN Justicifation of Admission Dx: Justifications for Admission: Justification of Admission Dx: Yes Respiratory Failure: Severe Resp Distress Aspiration Pneumonia: Hypoxemia Acute COPD Exacerbation: Acute COPD Exacerbation AIXA MCCALLUM MD Oct 16, 2019 11:28
[2019-10-16] MEDS ORDERED: ATOR10TA PO (12:38)
--- NOTE | 2019-10-16 12:49 | PDOC ---
BEAR RODRIGUEZ ROOFER ASSISTANT 10/16/19 1249: CARDIO Progress Notes Date and Time Date of Service 10/16/2019 Time of Evaluation 1220 Subjective Subjective: No Chest Pain, No Palpitations, Other (Still has SOA but better) Vitals Vitals Vital Signs Date Time Temp Pulse Resp B/P (MAP) Pulse Ox O2 Delivery O2 Flow Rate FiO2 10/16/19 11:00 97.8 72 18 130/84 (99) 97 Nasal Cannula 5.0 97.8 Weight Weight [ ] Input and Output Intake and Output Intake and Output 10/16/19 07:00 Intake Total 1100 ml Output Total 2700 ml Balance -1600 ml Intake Oral 1100 ml Output Urine Total 2700 ml # Bowel Movements 3 Physical Exam HEENT: Neck Supple W Full Motion Chest: Symmetric LUNGS: Other (diminieshed with some expiratory wheeze) Heart: RRR (SR) Abdomen: Soft N/T Extremities: Other (trace Le edema) Neurology: alert, oriented, follow commands Assessment Assessment 1. Acute on chronic respiratory failure with pulmonary fibrosis/ILD/CHF 2. Acute on chronic diastolic CHF: compensated. EF and LV wall motion nml 3. Hypertension; controlled. 4. Hyperlipidemia; LDL 113 5. Anxiety, depression 6. Prerenal azotemia; better 7. NSVT; x2 brief episode, none further 8. Valvular insufficiency: moderate and TR Recommendations 1. Continue lasix change to PO. 2. Follow pulmonary recommendations 3. Continue home BP regimen. 4. Baby ASA and statin 5. Follow up in office in a month. If SOA remains with continued pulmonary optimization then will consider for MPI. 6. Home with home health Justicifation of Admission Dx: Justifications for Admission: Justification of Admission Dx: Yes Respiratory Failure: Severe Resp Distress Aspiration Pneumonia: Hypoxemia Acute COPD Exacerbation: Acute COPD Exacerbation ANITHA GILL MD 10/16/19 1453: CARDIO Progress Notes Assessment Assessment Patient seen and examined. Agree with BRAKE MECHANIC's assessment and plan. Acute on chronic diastolic heart failure better compensated. Blood pressure better controlled. Continue management of ARF/ILD per pulmonary team Follow-up with our office as scheduled BEAR RODRIGUEZ APRN Oct 16, 2019 12:49 ANITHA GILL MD Oct 16, 2019 14:53
[2019-10-16] MEDS ORDERED: ASPIRIN ENTERIC COATED 81 MG TABLET.DR. PO SCH (13:00)
--- NOTE | 2019-10-16 13:12 | PDOC ---
PULMONARY PROGRESS NOTES Subjective Pt.on N/C , denies increased cough, denies increase in SOB very anxious Vitals Vital Signs Date Time Temp Pulse Resp B/P (MAP) Pulse Ox O2 Delivery O2 Flow Rate FiO2 10/16/19 11:00 97.8 72 18 130/84 (99) 97 Nasal Cannula 5.0 97.8 ROS: No Nausea, No Chest Pain, No Abdominal Pain, No Increase Cough General: Alert, No acute distress Lungs: Other (, perih. crackles ) Cardiovascular: S1, S2 Abdomen: Soft Neuro Exam: Alert Extremities: Other (BLE edema trace ) Skin: Warm, Dry Medications Active Scripts Medications Dose Route/Sig Max Daily Dose Days Date Category Culturelle (Lactobacillus Rhamnosus Gg) 1 Each Cap.sprink 1 Cap PO BID 30 08/13/19 Rx Amox Tr-K Clv 875-125 Mg Tab (Amoxicillin/Potassium Clav) 1 Each Tablet 1 Tab PO BID 5 08/13/19 Rx Lasix (Furosemide) 40 Mg Tablet 1 Tab PO PRN DAILY PRN 30 08/08/19 Reported Lisinopril 10 Mg Tablet 1 Tab PO DAILY 08/08/19 Reported Prednisone 20 Mg Tablet 20 Mg PO DAILY 08/08/19 Reported [place] Saline Nasal Gel (Sodium Chloride/Aloe Vera) 14.1 Gm Gel..gram. 1 [place] NS PRN DAILY PRN 30 06/30/18 Rx Duoneb 0.5-3(2.5) Mg/3 Ml (Albuterol/Ipratropium) 3 Ml Ampul.neb 3 Ml NEB RTQID 30 06/30/[address] chest IMPRESSION: No change in chronic pulmonary fibrosis. Chronic bilateral bronchiectasis. Cardiomegaly. New finding of a small pericardial effusion. Calcified atheromatous disease of the coronary arteries. New finding of minimal bilateral pleural effusions. Impression . IMPRESSION: 1. [id number] hypoxic respiratory failure secondary to right heart failure resulting from chronic pulmonary fibrosis- ongoing 2. The patient with chronic respiratory failure related to chronic pulmonary fibrosis. She has previous CAT scan with honeycombing and bronchiectasis. 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 She has been on chronic prednisone, but as such not made any progress. 3. No significant tobacco history. 4. COVID (-) Plan . RECOMMENDATIONS: 1. Continue with present oxygen at 3-4 liters and gradually wean to keep saturation 92 and above. 2. Lasix changed to po , follow cardiology recs 3. Continue home prednisone. 4. Bronchodilators p.r.n. 5. CT chest reviewed 6. Discussed with RN. Anticipate D/C home today and f/u with Dr Gray in office MIGUEL A LAMBERT MD Oct 16, 2019 13:12
[2019-10-16 14:58] VITALS: BP 124/72
--- NOTE | 2019-10-16 15:49 | NUR ---
Pt discharged to home with all belongings.
[2019-10-16] MEDS ORDERED: ATORVASTATIN CALCIUM 10 MG TABLET. PO SCH (21:00)
== END 2019-10-16 15:35 | disposition home health service (06) | DRG 291 ==
LOC: ER 10:53 → 6 SOUTH 14:20
PROVIDERS: ADMIT Family Medicine; ATTEND Family Medicine
DX: I11.0 Hypertensive heart disease with heart failure (principal); J96.21 Acute and chronic respiratory failure with hypoxia; I31.3 Pericardial effusion (noninflammatory); I47.2 Ventricular tachycardia; I50.33 Acute on chronic diastolic (congestive) heart failure; K21.9 Gastro-esophageal reflux disease without esophagitis; M19.90 Unspecified osteoarthritis, unspecified site; Z20.828 Contact with and (suspected) exposure to other viral communicable diseases; E78.5 Hyperlipidemia, unspecified; F32.9 Major depressive disorder, single episode, unspecified; F41.9 Anxiety disorder, unspecified; I35.0 Nonrheumatic aortic (valve) stenosis; J47.9 Bronchiectasis, uncomplicated; J84.112 Idiopathic pulmonary fibrosis; Z98.49 Cataract extraction status, unspecified eye; Z79.52 Long term (current) use of systemic steroids; Z88.8 Allergy status to other drugs, medicaments and biological substances; Z82.5 Family history of asthma and other chronic lower respiratory diseases; Z84.89 Family history of other specified conditions
CPT/HCPCS: 36415; 71045; 71250; 80048; 80053; 80061; 81001; 83735; 83880; 84443; 84484; 85007; 85025; 93005; 93306; J1940; J2920; J2930; J7512; G0378; U0003-CS

== ENCOUNTER 2019-11-08 21:43 | Inpatient (IN) | payer MEDICARE ==
[~2019-11-08] VITALS: Ht 160 cm; Wt 56.3 kg
[~2019-11-08 21:43] MED LIST changes: +ATOR10TA PO; +FURO40TA4 PO; +PRED-220 PO
[2019-11-08 22:04] LABS: BASO # 0.1 x10^3/uL (0.0-0.2); BASO % 1 % (0-3); EOS # 0.2 x10^3/uL (0.0-0.7); EOS % 2 % (0-3); HEMATOCRIT 47.4 % (36.0-47.0); HEMOGLOBIN 15.5 g/dL (12.0-15.5); LYMPH # 1.5 x10^3/uL (1.0-4.8); LYMPH % 16 % (24-48); MEAN CORPUSCULAR HEMOGLOBIN 26 pg (25-35); MEAN CORPUSCULAR HGB CONC 33 g/dL (31-37); MEAN CORPUSCULAR VOLUME 80 fL (79-100); MONO # 0.8 x10^3/uL (0.0-1.1); MONO % 9 % (0-9); NEUT # 6.6 x10^3/uL (1.8-7.7); NEUT % 72 % (31-73); PLATELET COUNT 283 x10^3/uL (140-400); RED BLOOD COUNT 5.95 x10^6/uL (3.50-5.40); RED CELL DISTRIBUTION WIDTH 20.4 % (11.5-14.5); WHITE BLOOD COUNT 9.1 x10^3/uL (4.0-11.0)
[2019-11-08 22:14] LABS: CALCIUM 8.6 mg/dL (8.5-10.1); CREATININE 1.6 mg/dL (0.6-1.0); GFR 31.1
[2019-11-08 22:19] LABS: ALBUMIN 2.9 g/dL (3.4-5.0); ALBUMIN/GLOBULIN RATIO 0.8 (1.0-1.7); TOTAL BILIRUBIN 0.5 mg/dL (0.2-1.0); TOTAL PROTEIN 6.4 g/dL (6.4-8.2)
[2019-11-08 22:21] LABS: POTASSIUM 5.4 mmol/L (3.5-5.1)
[2019-11-08 22:30] LABS: PLT ESTIMATE ADEQUATE (ADEQUATE)
[2019-11-08 22:31] LABS: ANISOCYTOSIS MOD
--- NOTE | 2019-11-08 22:41 | RAD ---
Exam: Chest one view INDICATION: Short of air TECHNIQUE: Frontal view of the chest Comparisons: 10/31/2019 FINDINGS: Heart is enlarged. Pulmonary vessels are within normal limits. Diffuse interstitial opacities not significantly changed compared to the prior exam. No pleural effusion. IMPRESSION: Persistent interstitial opacities not significantly changed compared to the prior exam. Electronically signed by: Cristi Perez MD (11/08/2019 10:38 PM) [id number]
[2019-11-08 23:20] LABS: BASE EXCESS ABG 2 mmol/L (-3-3); HCO3 ABG 27 mmol/L (21-28); PCO2 ABG 43 mmHg (35-46); PO2 ABG 67 mmHg (65-108); SAT O2 ABG 93 % (92-99)
[2019-11-08 23:26] LABS: FIO2 ABG 40
--- NOTE | 2019-11-08 23:45 | PHYS DOC ---
Past Medical History Past Medical History: Anxiety, Arthritis, Constipation, Depression, GERD, High Cholesterol, Hypertension, Other Additional Past Medical Histor: PULMONARY FIBROSIS, CATARACTS Past Surgical History: Other Additional Past Surgical Histo: EGD, cataracts Smoking Status: Never Smoker Alcohol Use: None Drug Use: None General Adult EDM: Chief Complaint: DYSPNEA/RESPIRATOY DISTRESS HPI: HPI: 79-year-old female past medical history of pulmonary fibrosis on 2 L nasal cannula, diastolic heart failure, mild aortic stenosis, presents to the ED with her son with concern for progressive worsening shortness of breath for the past 2 days. Patient reports she was recently weaned from prednisone 20 mg to 10 mg. Son states she he came over to visit her tonight and is never seen her so out of breath. EMS reports patient's saturation was 70% and patient was placed on [address] Bryant pulmonology. Also reports left upper cramping in her intestinal track that occurred last night. No known exposure to COVID. EMR was reviewed and patient was admitted to the hospital 1 month ago for acute hypoxic respiratory failure, COPD exacerbation and acute on chronic diastolic heart failure. Last CTA chest was 06/2019, no pulmonary emboli. ROS: Denies associated fever, chills, sore throat, cough, hemoptysis, nausea, vomiting, abdominal pain, back pain, dysuria, hematuria, new/worsening leg swelling, flank pain or neurologic deficits. Allergies: Allergies: Allergies Coded Allergies Type Severity Reaction Last Updated Verified No Known Medication Allergies Allergy Unknown 08/10/19 Yes gluten Adverse Reaction Mild Diarrhea 09/09/18 Yes Physical Exam: PE: Constitutional: Well developed, well nourished, no acute distress, non-toxic appearance. [] HENT: Normocephalic, atraumatic, bilateral external ears normal, oropharynx moist, no oral exudates, nose normal. [] Eyes: PERRLA, EOMI, conjunctiva normal, no discharge. [] Neck: Normal range of motion, no tenderness, supple, no stridor. [] Cardiovascular:Heart rate regular rhythm, no murmur [] Lungs & Thorax: Bilateral breath sounds clear to auscultation [] Abdomen: Bowel sounds normal, soft, no tenderness, no masses, no pulsatile masses. [] Skin: Warm, dry, no erythema, no rash. [] Back: No tenderness, no CVA tenderness. [] Extremities: No tenderness, no cyanosis, no clubbing, ROM intact, no edema. [] Neurologic: Alert and oriented X 3, normal motor function, normal sensory function, no focal deficits noted. [] Psychologic: Affect normal, judgement normal, mood normal. [] Current Patient Data: Labs: Laboratory Tests Test 11/08/19 21:45 11/08/19 23:11 White Blood Count 9.1 x10^3/uL (4.0-11.0) Red Blood Count 5.95 x10^6/uL (3.50-5.40) H Hemoglobin 15.5 g/dL (12.0-15.5) Hematocrit 47.4 % (36.0-47.0) H Mean Corpuscular Volume 80 fL (79-100) Mean Corpuscular Hemoglobin 26 pg (25-35) Mean Corpuscular Hemoglobin Concent 33 g/dL (31-37) Red Cell Distribution Width 20.4 % (11.5-14.5) H Platelet Count 283 x10^3/uL (140-400) Neutrophils (%) (Auto) 72 % (31-73) Lymphocytes (%) (Auto) 16 % (24-48) L Monocytes (%) (Auto) 9 % (0-9) Eosinophils (%) (Auto) 2 % (0-3) Basophils (%) (Auto) 1 % (0-3) Neutrophils # (Auto) 6.6 x10^3/uL (1.8-7.7) Lymphocytes # (Auto) 1.5 x10^3/uL (1.0-4.8) Monocytes # (Auto) 0.8 x10^3/uL (0.0-1.1) Eosinophils # (Auto) 0.2 x10^3/uL (0.0-0.7) Basophils # (Auto) 0.1 x10^3/uL (0.0-0.2) Platelet Estimate Adequate (ADEQUATE) Anisocytosis Mod Sodium Level 134 mmol/L (136-145) L Potassium Level 5.4 mmol/L (3.5-5.1) H Chloride Level 99 mmol/L (98-107) Carbon Dioxide Level 30 mmol/L (21-32) Anion Gap 5 (6-14) L Blood Urea Nitrogen 31 mg/dL (7-20) H Creatinine 1.6 mg/dL (0.6-1.0) H Estimated GFR (Cockcroft-Gault) 31.1 BUN/Creatinine Ratio 19 (6-20) Glucose Level 120 mg/dL (70-99) H Calcium Level 8.6 mg/dL (8.5-10.1) Total Bilirubin 0.5 mg/dL (0.2-1.0) Aspartate Amino Transferase (AST) 56 U/L (15-37) H Alanine Aminotransferase (ALT) 48 U/L (14-59) Alkaline Phosphatase 69 U/L (46-116) Troponin I Quantitative 0.023 ng/mL (0.000-0.055) XM-Qid-M-Type Natriuretic Peptide 2577 pg/mL (0-449) H Total Protein 6.4 g/dL (6.4-8.2) Albumin 2.9 g/dL (3.4-5.0) L Albumin/Globulin Ratio 0.8 (1.0-1.7) L O2 Saturation 93 % (92-99) Arterial Blood pH 7.42 (7.35-7.45) Arterial Blood pCO2 at Patient Temp 43 mmHg (35-46) Arterial Blood pO2 at Patient Temp 67 mmHg (65-108) Arterial Blood HCO3 27 mmol/L (21-28) Arterial Blood Base Excess 2 mmol/L (-3-3) FiO2 40 Laboratory Tests 11/08/19 21:45 Laboratory Tests 11/08/19 21:45 Vital Signs: Vital Signs Date Time Temp Pulse Resp B/P (MAP) Pulse Ox O2 Delivery O2 Flow Rate FiO2 11/08/19 21:43 99.0 113 26 114/85 (95) 100 NonRebreather Mask 6.0 99.0 EKG: EKG: Sinus tachycardia 111 bpm, no axis deviation, T wave inversion lead III, no ST elevations or ST depressions Radiology/Procedures: Radiology/Procedures: IMAGING REPORT Signed PATIENT: KILO DIEZ ACCOUNT: [id number] : 1940 LOCATION: ER AGE: 79 SEX: F EXAM STATUS: REG ER ORD. PHYSICIAN: RODNEY GOMEZ DO REASON: soa PROCEDURE: PORTABLE CHEST 1V Exam: Chest one view INDICATION: Short of air TECHNIQUE: Frontal view of the chest Comparisons: 10/31/2019 FINDINGS: Heart is enlarged. Pulmonary vessels are within normal limits. Diffuse interstitial opacities not significantly changed compared to the prior exam. No pleural effusion. IMPRESSION: Persistent interstitial opacities not significantly changed compared to the prior exam. Electronically signed by: Cristi Mendieta MD (11/08/2019 10:38 PM) [id number] DICTATED and SIGNED BY: CRISTI MENDIETA MD DATE: 11/08/19 2238 Impression: Blood gas shows hypoxia of 67, Pt requiring 5L NC and is tachypneic when speaking. Pt refusing any bipap/cipap at this time stating "it's getting better." Steroids started in ed. Close airway monitoring needed. Patient afebrile with no leukocytosis. COVID considered, was recently testing, has no cough, sore throat, nausea, vomiting or fever. Will admit with pulmonology consulted. Patient stable at time of admission and her and her son agree with this plan. Course & Med Decision Making: Course & Med Decision Making Pertinent Labs and Imaging studies reviewed. (See chart for details) [] Dragon Disclaimer: Dragon Disclaimer: This electronic medical record was generated, in whole or in part, using a voice recognition dictation system. Departure Departure Impression: Primary Impression: Acute and chronic respiratory failure with hypoxia Additional Impressions: LEXI (acute kidney injury) Pulmonary fibrosis Disposition: ADMITTED INPATIENT Admitting Physician: ALEX (Dr. Anguiano) Condition: GUARDED Referrals: GAYLA ELIZABETH MD (PCP) Justicifation of Admission Dx: Justifications for Admission: Justification of Admission Dx: Yes Respiratory Failure: Severe Resp Distress Aspiration Pneumonia: Hypoxemia Acute COPD Exacerbation: Acute COPD Exacerbation RODNEY GOMEZ DO Nov 08, 2019 23:45
[2019-11-09] MEDS ORDERED: fentaNYL PF VIAL 100 MCG/2 ML VIAL IV PRN (00:15)
--- NOTE | 2019-11-09 01:43 | NUR ---
The patient, KILO DIEZ, 79 y/o, F admitted by CAROLINA DANIEL III, DO, was given written information regarding hospital policies, unit procedures and contact persons. Valuables were checked and left with her.
[2019-11-09 02:33] VITALS: BP 128/84
[2019-11-09 07:17] VITALS: BP 115/74
[2019-11-09] MEDS ORDERED: SODIUM CHL/ALOE VERA NASAL GEL 14.1GM TUBE. NS PRN (10:15)
[2019-11-09 11:00] VITALS: BP 104/71
[2019-11-09] MEDS ORDERED: predniSONE 10 MG TABLET PO SCH (11:00)
[2019-11-09] MEDS: LACTOBACILLUS RHAMNOSUS GG 1 CAPSULE. PO SCH ×2 (11:10→20:49)
[2019-11-09] MEDS: guaiFENesin/CODEINE 100mg/10mg 5 ML LIQUID PO PRN ×2 (11:11→20:49)
[2019-11-09] MEDS: FUROSEMIDE 40 MG TABLET. PO SCH (11:11)
[2019-11-09] MEDS: LISINOPRIL 10 MG TABLET PO SCH (11:11)
--- NOTE | 2019-11-09 11:37 | HP ---
ADMIT DATE: 11/09/2019 CHIEF COMPLAINT: Shortness of breath. HISTORY OF PRESENT ILLNESS: The patient is a pleasant 79-year-old female who has pulmonary fibrosis. She is normally on 2 liters of oxygen at home. She also has multiple comorbidities, please see below. Basically, she presented to the ER with 2 days of worsening respiratory failure. Her sats were in the 70s when she was first checked by EMS. They placed her on 6 liters and brought her to the ER. She does follow with Dr. Gray of the Pulmonary Service. I discussed the case with ER physician. We are going to admit the patient. We are going to rule out COVID-19 and give her breathing treatments, oxygen, steroids, antibiotics and consult Pulmonary Medicine. PAST MEDICAL HISTORY: Pulmonary fibrosis, anxiety, arthritis, constipation, depression, GERD, hyperlipidemia, hypertension, cataracts. ALLERGIES: GLUTEN. FAMILY HISTORY: Coronary artery disease. SOCIAL HISTORY: She does not drink, smoke or take drugs. MEDICATIONS: Reviewed, please refer to the MRAD. REVIEW OF SYSTEMS: GENERAL: No history of weight change, weakness or fevers. SKIN: No bruising, hair changes or rashes. EYES: No blurred, double or loss of vision. NOSE AND THROAT: No history of nosebleeds, hoarseness or sore throat. HEART: No history of palpitations, chest pain or shortness of breath on exertion. PULMONARY: She complains of severe shortness of breath. GASTROINTESTINAL: Denies changes in appetite, nausea, vomiting, diarrhea or constipation. GENITOURINARY: No history of frequency, urgency, hesitancy or nocturia. NEUROLOGIC: Denies history of numbness, tingling, tremor or weakness. PSYCHIATRIC: No history of panic, anxiety or depression. ENDOCRINE: No history of heat or cold intolerance, polyuria or polydipsia. EXTREMITIES: Denies muscle weakness, joint pain, pain on walking or stiffness. PHYSICAL EXAMINATION: VITALS: Within normal limits and are stable. GENERAL: No apparent distress. Alert and oriented. HEENT: Head is normocephalic, atraumatic, pupils were equally round and reactive to light and accommodation. NECK: Supple, no JVD, no thyromegaly was noted. LUNGS: She has diffuse crackles. HEART: RRR, S1, S2 present. Peripheral pulses intact, no obvious murmurs were noted. ABDOMEN: Soft, nontender. Positive bowel sounds no organomegaly, normal bowel sounds. EXTREMITIES: Without any cyanosis, clubbing, or edema. Pedal pulses intact, Homans sign is negative. NEUROLOGIC: Normal speech, normal tone. A & O x3, moves all extremities, no obvious focal deficits. PSYCHIATRIC: She is quite anxious. SKIN: No ulcerations or rashes, good skin turgor, no jaundice. VASCULAR: Good capillary refill, neurovascular bundle appears to be intact. LABORATORY DATA: White count 9, hemoglobin 15, platelets 283. Her AST is high at 56. Sodium is low at 134, potassium 5.4. BNP 2577. ASSESSMENT AND PLAN: Multifactorial respiratory failure including progression of pulmonary fibrosis, possible COVID-19, congestive heart failure. The patient is being admitted. We will place her on oxygen, IV steroids, breathing treatments, oxygen. Consult Pulmonary, consult Cardiology. Rule out COVID-19. Home meds, deep venous thrombosis prophylaxis. Full code. Prognosis is extremely guarded at best. She is critically ill. CAROLINA DANIEL DO DR: NADEEM/severino JOB#: [id number] / [id number]
[2019-11-09] MEDS ORDERED: IPRATRPIUM/ALBUTEROL 0.5/2.5MG 3 ML NEBU. NEB SCH (12:00)
--- NOTE | 2019-11-09 12:53 | NUR ---
This RN put in the consult to [employer] security officers and guards via answering service.
[2019-11-09] MEDS ORDERED: FUROSEMIDE 20 MG/2 ML VIAL. IVP ONE (13:15)
[2019-11-09] MEDS ORDERED: DOXYCYCLINE HYCLATE 100 MG in IV DEXTROSE 5% 100ML 100 ML IV ONE (13:15)
--- NOTE | 2019-11-09 13:16 | PDOC ---
PULMONARY PROGRESS NOTES Vitals Vital Signs Date Time Temp Pulse Resp B/P (MAP) Pulse Ox O2 Delivery O2 Flow Rate FiO2 11/09/19 11:11 95 115/74 11/09/19 11:00 95.1 26 94 Nasal Cannula 4.5 95.1 General: Alert, No acute distress Lungs: Other Cardiovascular: S1, S2 Abdomen: Soft Extremities: Other Labs Laboratory Tests Test 11/08/19 21:45 11/08/19 23:11 White Blood Count 9.1 x10^3/uL (4.0-11.0) Red Blood Count 5.95 x10^6/uL (3.50-5.40) Hemoglobin 15.5 g/dL (12.0-15.5) Hematocrit 47.4 % (36.0-47.0) Mean Corpuscular Volume 80 fL (79-100) Mean Corpuscular Hemoglobin 26 pg (25-35) Mean Corpuscular Hemoglobin Concent 33 g/dL (31-37) Red Cell Distribution Width 20.4 % (11.5-14.5) Platelet Count 283 x10^3/uL (140-400) Neutrophils (%) (Auto) 72 % (31-73) Lymphocytes (%) (Auto) 16 % (24-48) Monocytes (%) (Auto) 9 % (0-9) Eosinophils (%) (Auto) 2 % (0-3) Basophils (%) (Auto) 1 % (0-3) Neutrophils # (Auto) 6.6 x10^3/uL (1.8-7.7) Lymphocytes # (Auto) 1.5 x10^3/uL (1.0-4.8) Monocytes # (Auto) 0.8 x10^3/uL (0.0-1.1) Eosinophils # (Auto) 0.2 x10^3/uL (0.0-0.7) Basophils # (Auto) 0.1 x10^3/uL (0.0-0.2) Platelet Estimate Adequate (ADEQUATE) Anisocytosis Mod Sodium Level 134 mmol/L (136-145) Potassium Level 5.4 mmol/L (3.5-5.1) Chloride Level 99 mmol/L (98-107) Carbon Dioxide Level 30 mmol/L (21-32) Anion Gap 5 (6-14) Blood Urea Nitrogen 31 mg/dL (7-20) Creatinine 1.6 mg/dL (0.6-1.0) Estimated GFR (Cockcroft-Gault) 31.1 BUN/Creatinine Ratio 19 (6-20) Glucose Level 120 mg/dL (70-99) Calcium Level 8.6 mg/dL (8.5-10.1) Total Bilirubin 0.5 mg/dL (0.2-1.0) Aspartate Amino Transf (AST/SGOT) 56 U/L (15-37) Alanine Aminotransferase (ALT/SGPT) 48 U/L (14-59) Alkaline Phosphatase 69 U/L (46-116) Troponin I Quantitative 0.023 ng/mL (0.000-0.055) GO-Ekt-A-Type Natriuretic Peptide 2577 pg/mL (0-449) Total Protein 6.4 g/dL (6.4-8.2) Albumin 2.9 g/dL (3.4-5.0) Albumin/Globulin Ratio 0.8 (1.0-1.7) O2 Saturation 93 % (92-99) Arterial Blood pH 7.42 (7.35-7.45) Arterial Blood pCO2 at Patient Temp 43 mmHg (35-46) Arterial Blood pO2 at Patient Temp 67 mmHg (65-108) Arterial Blood HCO3 27 mmol/L (21-28) Arterial Blood Base Excess 2 mmol/L (-3-3) FiO2 40 Laboratory Tests Test 11/08/19 21:45 11/08/19 23:11 White Blood Count 9.1 x10^3/uL (4.0-11.0) Red Blood Count 5.95 x10^6/uL (3.50-5.40) Hemoglobin 15.5 g/dL (12.0-15.5) Hematocrit 47.4 % (36.0-47.0) Mean Corpuscular Volume 80 fL (79-100) Mean Corpuscular Hemoglobin 26 pg (25-35) Mean Corpuscular Hemoglobin Concent 33 g/dL (31-37) Red Cell Distribution Width 20.4 % (11.5-14.5) Platelet Count 283 x10^3/uL (140-400) Neutrophils (%) (Auto) 72 % (31-73) Lymphocytes (%) (Auto) 16 % (24-48) Monocytes (%) (Auto) 9 % (0-9) Eosinophils (%) (Auto) 2 % (0-3) Basophils (%) (Auto) 1 % (0-3) Neutrophils # (Auto) 6.6 x10^3/uL (1.8-7.7) Lymphocytes # (Auto) 1.5 x10^3/uL (1.0-4.8) Monocytes # (Auto) 0.8 x10^3/uL (0.0-1.1) Eosinophils # (Auto) 0.2 x10^3/uL (0.0-0.7) Basophils # (Auto) 0.1 x10^3/uL (0.0-0.2) Platelet Estimate Adequate (ADEQUATE) Anisocytosis Mod Sodium Level 134 mmol/L (136-145) Potassium Level 5.4 mmol/L (3.5-5.1) Chloride Level 99 mmol/L (98-107) Carbon Dioxide Level 30 mmol/L (21-32) Anion Gap 5 (6-14) Blood Urea Nitrogen 31 mg/dL (7-20) Creatinine 1.6 mg/dL (0.6-1.0) Estimated GFR (Cockcroft-Gault) 31.1 BUN/Creatinine Ratio 19 (6-20) Glucose Level 120 mg/dL (70-99) Calcium Level 8.6 mg/dL (8.5-10.1) Total Bilirubin 0.5 mg/dL (0.2-1.0) Aspartate Amino Transf (AST/SGOT) 56 U/L (15-37) Alanine Aminotransferase (ALT/SGPT) 48 U/L (14-59) Alkaline Phosphatase 69 U/L (46-116) Troponin I Quantitative 0.023 ng/mL (0.000-0.055) CT-Qza-D-Type Natriuretic Peptide 2577 pg/mL (0-449) Total Protein 6.4 g/dL (6.4-8.2) Albumin 2.9 g/dL (3.4-5.0) Albumin/Globulin Ratio 0.8 (1.0-1.7) O2 Saturation 93 % (92-99) Arterial Blood pH 7.42 (7.35-7.45) Arterial Blood pCO2 at Patient Temp 43 mmHg (35-46) Arterial Blood pO2 at Patient Temp 67 mmHg (65-108) Arterial Blood HCO3 27 mmol/L (21-28) Arterial Blood Base Excess 2 mmol/L (-3-3) FiO2 40 Medications Active Scripts Medications Dose Route/Sig Max Daily Dose Days Date Category Lipitor (Atorvastatin Calcium) 10 Mg Tablet 1 Tab PO QHS 30 10/16/19 Rx Prednisone (Prednisone) 10 Mg Tablet 1 Tab PO BID 5 10/16/19 Rx Furosemide 40 Mg Tablet 40 Mg PO DAILY 30 10/16/19 Rx Culturelle (Lactobacillus Rhamnosus Gg) 1 Each Cap.sprink 1 Cap PO BID 30 08/13/19 Rx Lisinopril 10 Mg Tablet 1 Tab PO DAILY 08/08/19 Reported Prednisone 20 Mg Tablet 20 Mg PO DAILY 08/08/19 Reported [place] Saline Nasal Gel (Sodium Chloride/Aloe Vera) 14.1 Gm Gel..gram. 1 Kennedy NS PRN DAILY PRN 30 06/30/18 Rx Duoneb 0.5-3(2.5) Mg/3 Ml (Albuterol/Ipratropium) 3 Ml Ampul.neb 3 Ml NEB RTQID 30 06/30/18 Rx Impression . Full note dictated, acute exacerbation of underlying interstitial lung disease/fibrosis Diurese Increase prednisone 30 mg a day Add antibiotics, DVT prophylaxis DENVER DAY MD Nov 09, 2019 13:16
[2019-11-09] MEDS: predniSONE 10 MG TABLET PO SCH (14:12)
[2019-11-09 15:00] VITALS: BP 92/71
[2019-11-09] MEDS ORDERED: ALBUTEROL SULFATE 2.5 MG/3 ML NEBU. NEB PRN (15:15)
--- NOTE | 2019-11-09 15:29 | CONS ---
DATE OF CONSULTATION: 11/09/2019 ATTENDING PHYSICIAN: Dr. Anguiano. REASON FOR CONSULTATION: The patient is seen in pulmonary consultation at the request of Dr. Anguiano for increasing shortness of air. HISTORY OF PRESENT ILLNESS: The patient is a 79-year-old that is seen in the office by Dr. Gray, presented with increasing shortness of breath over the last several days. She states that she does well if she is sitting not exerting herself, but the moment she moves about she starts experiencing increasing shortness of air. The patient was recently admitted back in early part of October. At that time, she was discharged home on prednisone. She was on 20 mg a day. She spoke with Dr. Gray who decreased the prednisone down to 10. The patient comes in now. She is more short of air. She has mostly cough, nonproductive, no chest pain or pressure. She normally is at home around 3.5 liters, does not increase the oxygen supplementation with exertion. She denies any exposures to any patients with COVID-19. She had a chest x-ray, which I reviewed. I do not see any significant change in comparison to the previous film. PAST MEDICAL HISTORY: Remarkable for: 1. Pulmonary fibrosis as indicated above, chronic respiratory failure. In the past, she declined ____ and another antifibrotic agents. 2. 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 She subsequently underwent a bronchoscopy, which grew out no Mycobacterium. As a result, she was never treated. She did not require treatment. 3. No significant history of tobacco. 4. History of cataracts. 5. Hyperlipidemia. 6. Osteoarthritis. 7. Depression. 8. Mild anxiety. PAST SURGICAL HISTORY: Cataract removal. FAMILY HISTORY: Dyslipidemia. SOCIAL HISTORY: She has never smoked. ALLERGIES: No known drug allergies. She is allergic to GLUTEN. MEDICATIONS: List was reviewed. REVIEW OF SYSTEMS: As indicated in the history of present illness, otherwise other systems were reviewed and negative. PHYSICAL EXAMINATION: VITAL SIGNS: Stable. O2 saturation was greater than 92%, currently on 91. T-max was 99. HEENT: Eyes, the sclerae were nonicteric. NECK: Jugular venous distention was not elevated. No lymphadenopathy. CHEST: Full expansion. LUNGS: Crackles of ____ type with no wheezes. CARDIOVASCULAR: Regular rate and rhythm with S1, S2, no S3. ABDOMEN: Soft, nontender, nondistended. EXTREMITIES: No clubbing, cyanosis or pitting edema. NEUROLOGICAL: The patient was awake, alert, following commands. A detailed neuro exam was not performed. LABORATORY DATA: Reviewed. White count was 9.1, hemoglobin and hematocrit were noted. Arterial blood gas; pH of 742, paCO2 of 43, pO2 67. Electrolytes were noted. BUN is elevated. Creatinine is elevated. Albumin is slightly low. IMPRESSION: 1. Acute on chronic hypoxemic respiratory failure. 2. Acute exacerbation of underlying interstitial lung disease/pulmonary fibrosis. 3. COVID-19 suspect. 4. Psqzs-jf-avpocrj cor pulmonale. 5. Anxiety and depression. PLAN: 1. SARS-CoV2 is pending. 2. Recommend increasing prednisone to 30 mg a day. 3. No need for antibiotics. 4. Diurese. Lasix daily. The patient does have some lower extremity edema. 5. Follow clinical course and make adjustments. I do appreciate the privilege in sharing in the patient's care. DENVER DAY MD DR: RONNIE/severino JOB#: [id number] / [id number]
--- NOTE | 2019-11-09 17:38 | NUR ---
This RN wasted guafensein with codeine witnessed by Patty VASQUES, was unable to return med. Notified pharmacy. Pt changed mind.
[2019-11-09] MEDS: ALPRAZolam 0.25 MG TABLET PO PRN (18:57)
[2019-11-09 19:30] VITALS: BP 93/59
[2019-11-09] MEDS: ATORVASTATIN CALCIUM 10 MG TABLET. PO SCH (20:49)
[2019-11-09] MEDS: DOXYCYCLINE HYCLATE 100 MG in IV DEXTROSE 5% 100ML 100 ML IV SCH (20:50)
[2019-11-09 22:30] VITALS: BP 104/80
[2019-11-10 03:00] VITALS: BP 98/59
[2019-11-10 05:35] LABS: BASO % 0 % (0-3); EOS # 0.1 x10^3/uL (0.0-0.7); EOS % 1 % (0-3); HEMOGLOBIN 13.4 g/dL (12.0-15.5); LYMPH # 1.1 x10^3/uL (1.0-4.8); LYMPH % 11 % (24-48); MEAN CORPUSCULAR HEMOGLOBIN 26 pg (25-35); MEAN CORPUSCULAR HGB CONC 33 g/dL (31-37); MEAN CORPUSCULAR VOLUME 80 fL (79-100); MONO # 0.6 x10^3/uL (0.0-1.1); MONO % 6 % (0-9); NEUT # 8.1 x10^3/uL (1.8-7.7); NEUT % 82 % (31-73); PLATELET COUNT 219 x10^3/uL (140-400); RED BLOOD COUNT 5.16 x10^6/uL (3.50-5.40); RED CELL DISTRIBUTION WIDTH 20.3 % (11.5-14.5); WHITE BLOOD COUNT 9.9 x10^3/uL (4.0-11.0)
[2019-11-10 05:55] LABS: CALCIUM 7.8 mg/dL (8.5-10.1); GFR 53.5
[2019-11-10 07:00] VITALS: BP 103/67
[2019-11-10] MEDS: DOXYCYCLINE HYCLATE 100 MG in IV DEXTROSE 5% 100ML 100 ML IV SCH (08:23)
[2019-11-10] MEDS: FUROSEMIDE 20 MG/2 ML VIAL. IVP SCH (08:26)
[2019-11-10] MEDS: LISINOPRIL 10 MG TABLET PO SCH (08:27)
[2019-11-10] MEDS: predniSONE 10 MG TABLET PO SCH (08:27)
[2019-11-10] MEDS: ALPRAZolam 0.25 MG TABLET PO PRN (08:27)
[2019-11-10] MEDS: LACTOBACILLUS RHAMNOSUS GG 1 CAPSULE. PO SCH ×2 (08:28→21:30)
[2019-11-10] MEDS: FUROSEMIDE 40 MG TABLET. PO SCH (08:28)
--- NOTE | 2019-11-10 08:30 | NUR ---
Gave report to Delroy Ye RN, transferred patient at 0750 to [facility] [place] room. Negative covid-19. Deeper breaths than yesterday, alprazolam is effective. Pt was resting well.
--- NOTE | 2019-11-10 10:55 | PDOC ---
PULMONARY PROGRESS NOTES Subjective Pt. reports SOB with ambulation Denies increased cough Vitals Vital Signs Date Time Temp Pulse Resp B/P (MAP) Pulse Ox O2 Delivery O2 Flow Rate FiO2 11/10/19 08:27 103 98/59 11/10/19 07:00 95.0 36 96 Nasal Cannula 5.0 95.0 ROS: No Nausea, No Chest Pain, No Abdominal Pain, No Increase Cough General: Alert, No acute distress Lungs: Other Cardiovascular: S1, S2 Abdomen: Soft Neuro Exam: Alert, Oriented Extremities: Other (+2 edema BLE ) Skin: Warm Labs Laboratory Tests Test 11/08/19 21:45 11/08/19 23:11 11/09/19 00:40 11/10/19 05:09 White Blood Count 9.1 x10^3/uL (4.0-11.0) 9.9 x10^3/uL (4.0-11.0) Red Blood Count 5.95 x10^6/uL (3.50-5.40) 5.16 x10^6/uL (3.50-5.40) Hemoglobin 15.5 g/dL (12.0-15.5) 13.4 g/dL (12.0-15.5) Hematocrit 47.4 % (36.0-47.0) 41.0 % (36.0-47.0) Mean Corpuscular Volume 80 fL (79-100) 80 fL (79-100) Mean Corpuscular Hemoglobin 26 pg (25-35) 26 pg (25-35) Mean Corpuscular Hemoglobin Concent 33 g/dL (31-37) 33 g/dL (31-37) Red Cell Distribution Width 20.4 % (11.5-14.5) 20.3 % (11.5-14.5) Platelet Count 283 x10^3/uL (140-400) 219 x10^3/uL (140-400) Neutrophils (%) (Auto) 72 % (31-73) 82 % (31-73) Lymphocytes (%) (Auto) 16 % (24-48) 11 % (24-48) Monocytes (%) (Auto) 9 % (0-9) 6 % (0-9) Eosinophils (%) (Auto) 2 % (0-3) 1 % (0-3) Basophils (%) (Auto) 1 % (0-3) 0 % (0-3) Neutrophils # (Auto) 6.6 x10^3/uL (1.8-7.7) 8.1 x10^3/uL (1.8-7.7) Lymphocytes # (Auto) 1.5 x10^3/uL (1.0-4.8) 1.1 x10^3/uL (1.0-4.8) Monocytes # (Auto) 0.8 x10^3/uL (0.0-1.1) 0.6 x10^3/uL (0.0-1.1) Eosinophils # (Auto) 0.2 x10^3/uL (0.0-0.7) 0.1 x10^3/uL (0.0-0.7) Basophils # (Auto) 0.1 x10^3/uL (0.0-0.2) 0.0 x10^3/uL (0.0-0.2) Platelet Estimate Adequate (ADEQUATE) Anisocytosis Mod Sodium Level 134 mmol/L (136-145) 135 mmol/L (136-145) Potassium Level 5.4 mmol/L (3.5-5.1) 4.0 mmol/L (3.5-5.1) Chloride Level 99 mmol/L (98-107) 101 mmol/L (98-107) Carbon Dioxide Level 30 mmol/L (21-32) 29 mmol/L (21-32) Anion Gap 5 (6-14) 5 (6-14) Blood Urea Nitrogen 31 mg/dL (7-20) 25 mg/dL (7-20) Creatinine 1.6 mg/dL (0.6-1.0) 1.0 mg/dL (0.6-1.0) Estimated GFR (Cockcroft-Gault) 31.1 53.5 BUN/Creatinine Ratio 19 (6-20) Glucose Level 120 mg/dL (70-99) 199 mg/dL (70-99) Calcium Level 8.6 mg/dL (8.5-10.1) 7.8 mg/dL (8.5-10.1) Total Bilirubin 0.5 mg/dL (0.2-1.0) Aspartate Amino Transf (AST/SGOT) 56 U/L (15-37) Alanine Aminotransferase (ALT/SGPT) 48 U/L (14-59) Alkaline Phosphatase 69 U/L (46-116) Troponin I Quantitative 0.023 ng/mL (0.000-0.055) GV-Lzr-R-Type Natriuretic Peptide 2577 pg/mL (0-449) Total Protein 6.4 g/dL (6.4-8.2) Albumin 2.9 g/dL (3.4-5.0) Albumin/Globulin Ratio 0.8 (1.0-1.7) O2 Saturation 93 % (92-99) Arterial Blood pH 7.42 (7.35-7.45) Arterial Blood pCO2 at Patient Temp 43 mmHg (35-46) Arterial Blood pO2 at Patient Temp 67 mmHg (65-108) Arterial Blood HCO3 27 mmol/L (21-28) Arterial Blood Base Excess 2 mmol/L (-3-3) FiO2 40 Coronavirus (COVID-19)(PCR) Not detected (NOT DETECT.) Laboratory Tests Test 11/10/19 05:09 White Blood Count 9.9 x10^3/uL (4.0-11.0) Red Blood Count 5.16 x10^6/uL (3.50-5.40) Hemoglobin 13.4 g/dL (12.0-15.5) Hematocrit 41.0 % (36.0-47.0) Mean Corpuscular Volume 80 fL (79-100) Mean Corpuscular Hemoglobin 26 pg (25-35) Mean Corpuscular Hemoglobin Concent 33 g/dL (31-37) Red Cell Distribution Width 20.3 % (11.5-14.5) Platelet Count 219 x10^3/uL (140-400) Neutrophils (%) (Auto) 82 % (31-73) Lymphocytes (%) (Auto) 11 % (24-48) Monocytes (%) (Auto) 6 % (0-9) Eosinophils (%) (Auto) 1 % (0-3) Basophils (%) (Auto) 0 % (0-3) Neutrophils # (Auto) 8.1 x10^3/uL (1.8-7.7) Lymphocytes # (Auto) 1.1 x10^3/uL (1.0-4.8) Monocytes # (Auto) 0.6 x10^3/uL (0.0-1.1) Eosinophils # (Auto) 0.1 x10^3/uL (0.0-0.7) Basophils # (Auto) 0.0 x10^3/uL (0.0-0.2) Sodium Level 135 mmol/L (136-145) Potassium Level 4.0 mmol/L (3.5-5.1) Chloride Level 101 mmol/L (98-107) Carbon Dioxide Level 29 mmol/L (21-32) Anion Gap 5 (6-14) Blood Urea Nitrogen 25 mg/dL (7-20) Creatinine 1.0 mg/dL (0.6-1.0) Estimated GFR (Cockcroft-Gault) 53.5 Glucose Level 199 mg/dL (70-99) Calcium Level 7.8 mg/dL (8.5-10.1) Medications Active Scripts Medications Dose Route/Sig Max Daily Dose Days Date Category Lipitor (Atorvastatin Calcium) 10 Mg Tablet 1 Tab PO QHS 30 10/16/19 Rx Prednisone (Prednisone) 10 Mg Tablet 1 Tab PO BID 5 10/16/19 Rx Furosemide 40 Mg Tablet 40 Mg PO DAILY 30 10/16/19 Rx Culturelle (Lactobacillus Rhamnosus Gg) 1 Each Cap.sprink 1 Cap PO BID 30 08/13/19 Rx Lisinopril 10 Mg Tablet 1 Tab PO DAILY 08/08/19 Reported Prednisone 20 Mg Tablet 20 Mg PO DAILY 08/08/19 Reported [place] Saline Nasal Gel (Sodium Chloride/Aloe Vera) 14.1 Gm Gel..gram. 1 Kennedy NS PRN DAILY PRN 30 06/30/18 Rx Duoneb 0.5-3(2.5) Mg/3 Ml (Albuterol/Ipratropium) 3 Ml Ampul.neb 3 Ml NEB RTQID 30 06/30/18 Rx Comments IMPRESSION: Persistent interstitial opacities not significantly changed compared to the prior exam. Impression . IMPRESSION: 1. Acute on chronic hypoxemic respiratory failure. 2. Acute exacerbation of underlying interstitial lung disease/pulmonaryfibrosis. 3. COVID-19 suspect-- COVID-19 negative 4. Bocfp-fb-jmjeplf cor pulmonale. 5. Anxiety and depression. Plan . PLAN: Supplemental oxygen as needed to keep sats above 92 % NEBS SARS-CoV2 is negative Continue prednisone No need for antibiotics. Anae. Follow clinical course and make adjustments. D/W DENVER VAZ MD Nov 10, 2019 10:55
[2019-11-10 11:05] VITALS: BP 99/66
--- NOTE | 2019-11-10 11:24 | EKG ---
[facility] [address] [place] [address] Test Date: 2019-11-10 Test Time: 11:16:14 Pat Name: KILO DIEZ Department: Room: 652 1 Gender: F Pile Header: RAFAELA : [id number] Requested By: CAROLINA DANIEL Order Number: [id number] Reading MD: Mati Lane MD Measurements Intervals [place] Rate: 106 P: 36 AL: 184 QRS: 47 QRSD: 74 T: 6 QT: 384 QTc: 512 Interpretive Statements SINUS TACHYCARDIA RIGHT ATRIAL ENLARGEMENT POSSIBLY ABNORMAL ECG Electronically Signed On 12-27-2019 13:34:[address] MD
--- NOTE | 2019-11-10 12:19 | PDOC ---
[facility] [facility] PROGRESS NOTE Chief Complaint Chief Complaint Fulminant respiratory failure secondary to severe pulmonary fibrosis Covid-19 has now been officially ruled out Failure to thrive Right-sided heart failure Anxiety Depression I History of Present Illness History of Present Illness 11/10/2019 Patient seen and examined She is extremely short of breath appears uncomfortable Discussed with RN Chart reviewed Vitals/I&O Vitals/I&O: Vital Signs Date Time Temp Pulse Resp B/P (MAP) Pulse Ox O2 Delivery O2 Flow Rate FiO2 11/10/19 11:05 97.4 113 26 99/66 (77) 92 Nasal Cannula 5.0 97.4 I & O 11/09/19 11/09/19 11/10/19 15:00 23:00 07:00 Intake Total 450 ml 580 ml Output Total 550 ml 750 ml 350 ml Balance -100 ml -170 ml -350 ml Physical Exam General: moderate distress, Other (Extremely short of breath) Heart: Other (Tachycardic at 100 bpm) Lungs: Crackles, Other (Diffuse crackles consistent with pulmonary fibrosis) Abdomen: Normal bowel sounds Extremities: No clubbing Skin: No rashes Labs Labs: Laboratory Tests Test 11/10/19 05:09 White Blood Count 9.9 x10^3/uL (4.0-11.0) Red Blood Count 5.16 x10^6/uL (3.50-5.40) Hemoglobin 13.4 g/dL (12.0-15.5) Hematocrit 41.0 % (36.0-47.0) Mean Corpuscular Volume 80 fL (79-100) Mean Corpuscular Hemoglobin 26 pg (25-35) Mean Corpuscular Hemoglobin Concent 33 g/dL (31-37) Red Cell Distribution Width 20.3 % (11.5-14.5) Platelet Count 219 x10^3/uL (140-400) Neutrophils (%) (Auto) 82 % (31-73) Lymphocytes (%) (Auto) 11 % (24-48) Monocytes (%) (Auto) 6 % (0-9) Eosinophils (%) (Auto) 1 % (0-3) Basophils (%) (Auto) 0 % (0-3) Neutrophils # (Auto) 8.1 x10^3/uL (1.8-7.7) Lymphocytes # (Auto) 1.1 x10^3/uL (1.0-4.8) Monocytes # (Auto) 0.6 x10^3/uL (0.0-1.1) Eosinophils # (Auto) 0.1 x10^3/uL (0.0-0.7) Basophils # (Auto) 0.0 x10^3/uL (0.0-0.2) Sodium Level 135 mmol/L (136-145) Potassium Level 4.0 mmol/L (3.5-5.1) Chloride Level 101 mmol/L (98-107) Carbon Dioxide Level 29 mmol/L (21-32) Anion Gap 5 (6-14) Blood Urea Nitrogen 25 mg/dL (7-20) Creatinine 1.0 mg/dL (0.6-1.0) Estimated GFR (Cockcroft-Gault) 53.5 Glucose Level 199 mg/dL (70-99) Calcium Level 7.8 mg/dL (8.5-10.1) Assessment and Plan Assessmemt and Plan Problems Medical Problems: (1) Acute and chronic respiratory failure with hypoxia Status: Acute (2) LEXI (acute kidney injury) Status: Acute (3) Pulmonary fibrosis Status: Acute End-stage fulminant respiratory failure secondary to severe pulmonary fibrosis Covid-19 has now been officially ruled out Failure to thrive Right-sided heart failure Anxiety Depression Plan Supplemental O2 Duo nebs Prednisone Home meds DVT prophylaxis Full code for now but I think she should be DNR Suspect she will qualify for hospice on discharge Appreciate pulmonary input Per pulmonary please see below; I IMPRESSION: 1. Acute on chronic hypoxemic respiratory failure. 2. Acute exacerbation of underlying interstitial lung disease/pulmonaryfibrosis. 3. COVID-19 suspect-- COVID-19 negative 4. Yeeor-kf-jsfgojz cor pulmonale. 5. Anxiety and depression. Plan Plan . PLAN: Supplemental oxygen as needed to keep sats above 92 % NEBS SARS-CoV2 is negative Continue prednisone No need for antibiotics. Diurese. Follow clinical course and make adjustments. Comment Review of Relevant I have reviewed the following items alyce (where applicable) has been applied. Medications: Current Medications Medications (Trade) Dose Ordered Sig/Sugar Route PRN Reason Start Time Stop Time Status Last Admin Dose Admin Atorvastatin Calcium (Lipitor) 10 mg QHS PO 11/09/19 21:00 11/09/19 20:49 Doxycycline Hyclate 100 mg/ Dextrose 100 ml @ 50 mls/hr Q12HR IV 11/09/19 21:00 11/10/19 08:23 Doxycycline Hyclate 100 mg/ Dextrose 100 ml @ 50 mls/hr 1X ONCE IV 11/09/19 13:15 11/09/19 15:14 DC 11/09/19 14:11 Furosemide (Lasix) 20 mg 1X ONCE IVP 11/09/19 13:15 11/09/19 13:27 DC 11/09/19 14:12 Furosemide (Lasix) 20 mg DAILY IVP 11/10/19 09:00 11/10/19 08:26 Prednisone (Prednisone) 30 mg DAILY PO 11/09/19 13:30 11/10/19 08:27 Alprazolam (Xanax) 0.25 mg PRN Q6HRS PRN PO ANXIETY / AGITATION 11/09/19 16:45 11/10/19 08:27 Justicifation of Admission Dx: Justifications for Admission: Justification of Admission Dx: Yes Respiratory Failure: Severe Resp Distress Aspiration Pneumonia: Hypoxemia Acute COPD Exacerbation: Acute COPD Exacerbation CAROLINA DAINEL III DO Nov 10, 2019 12:19
[2019-11-10 15:08] VITALS: BP 95/61
--- NOTE | 2019-11-10 16:10 | NUR ---
Per Dr Anguiano, pt to be taken off tele and transfered off med/tele floor. Delroy Ye RN
[2019-11-10] MEDS ORDERED: ONDANSETRON ODT 4 MG TAB.RAPDIS. PO PRN (19:00)
[2019-11-10 19:10] VITALS: BP 107/76
[2019-11-10] MEDS: ATORVASTATIN CALCIUM 10 MG TABLET. PO SCH (21:00)
[2019-11-10] MEDS: DOXYCYCLINE HYCLATE 100 MG TABLET PO SCH (21:30)
[2019-11-10 23:39] VITALS: BP 111/79
[2019-11-11 03:45] VITALS: BP 101/74
[2019-11-11 07:33] LABS: BASO # 0.1 x10^3/uL (0.0-0.2); BASO % 1 % (0-3); EOS # 0.2 x10^3/uL (0.0-0.7); EOS % 2 % (0-3); HEMATOCRIT 43.8 % (36.0-47.0); LYMPH # 1.8 x10^3/uL (1.0-4.8); LYMPH % 20 % (24-48); MEAN CORPUSCULAR HEMOGLOBIN 26 pg (25-35); MEAN CORPUSCULAR HGB CONC 32 g/dL (31-37); MEAN CORPUSCULAR VOLUME 80 fL (79-100); MONO # 0.9 x10^3/uL (0.0-1.1); MONO % 9 % (0-9); NEUT # 6.3 x10^3/uL (1.8-7.7); NEUT % 68 % (31-73); PLATELET COUNT 228 x10^3/uL (140-400); RED BLOOD COUNT 5.51 x10^6/uL (3.50-5.40); WHITE BLOOD COUNT 9.3 x10^3/uL (4.0-11.0)
[2019-11-11 07:54] LABS: GFR 53.5; POTASSIUM 4.5 mmol/L (3.5-5.1)
[2019-11-11 07:59] VITALS: BP 109/75
[2019-11-11 08:45] LABS: % BANDS 4 % (0-9); % EOS 1 % (0-5); % LYMPHS 17 % (24-48); % MONOS 9 % (0-10); % SEGS 69 % (35-66); ANISOCYTOSIS SLIGHT; PLT ESTIMATE ADEQUATE (ADEQUATE)
[2019-11-11] MEDS: FUROSEMIDE 40 MG TABLET. PO SCH ×2 (09:00→10:15)
[2019-11-11] MEDS: FUROSEMIDE 20 MG/2 ML VIAL. IVP SCH (10:12)
[2019-11-11] MEDS: LACTOBACILLUS RHAMNOSUS GG 1 CAPSULE. PO SCH ×2 (10:13→20:14)
[2019-11-11] MEDS: predniSONE 10 MG TABLET PO SCH (10:13)
[2019-11-11] MEDS: LISINOPRIL 10 MG TABLET PO SCH (10:13)
[2019-11-11] MEDS: ALPRAZolam 0.25 MG TABLET PO PRN ×2 (10:13→20:14)
[2019-11-11] MEDS: DOXYCYCLINE HYCLATE 100 MG TABLET PO SCH ×2 (10:14→20:15)
[2019-11-11 11:59] VITALS: BP 108/77
--- NOTE | 2019-11-11 12:04 | PDOC ---
PULMONARY PROGRESS NOTES Subjective Is experiencing increased shortness of breath and hypoxia with any exertion now requiring 6 L nasal cannula Nursing also reports that she has been refusing to take her antianxiety medicat ion as she is scared that she will become addicted to it Vitals Vital Signs Date Time Temp Pulse Resp B/P (MAP) Pulse Ox O2 Delivery O2 Flow Rate FiO2 11/11/19 10:17 85 Nasal Cannula 5.0 11/11/19 10:13 92 109/75 11/11/19 07:59 97.5 22 97.5 ROS: No Nausea, No Chest Pain, No Abdominal Pain, No Increase Cough General: Alert, No acute distress Lungs: Crackles, Other (Diffuse crackles ) Cardiovascular: S1, S2 Abdomen: Soft Neuro Exam: Alert, Oriented Extremities: Other (+2 edema BLE ) Skin: Warm Labs Laboratory Tests Test 11/10/19 05:09 11/11/19 06:20 White Blood Count 9.9 x10^3/uL (4.0-11.0) 9.3 x10^3/uL (4.0-11.0) Red Blood Count 5.16 x10^6/uL (3.50-5.40) 5.51 x10^6/uL (3.50-5.40) Hemoglobin 13.4 g/dL (12.0-15.5) 14.0 g/dL (12.0-15.5) Hematocrit 41.0 % (36.0-47.0) 43.8 % (36.0-47.0) Mean Corpuscular Volume 80 fL (79-100) 80 fL (79-100) Mean Corpuscular Hemoglobin 26 pg (25-35) 26 pg (25-35) Mean Corpuscular Hemoglobin Concent 33 g/dL (31-37) 32 g/dL (31-37) Red Cell Distribution Width 20.3 % (11.5-14.5) 20.0 % (11.5-14.5) Platelet Count 219 x10^3/uL (140-400) 228 x10^3/uL (140-400) Neutrophils (%) (Auto) 82 % (31-73) 68 % (31-73) Lymphocytes (%) (Auto) 11 % (24-48) 20 % (24-48) Monocytes (%) (Auto) 6 % (0-9) 9 % (0-9) Eosinophils (%) (Auto) 1 % (0-3) 2 % (0-3) Basophils (%) (Auto) 0 % (0-3) 1 % (0-3) Neutrophils # (Auto) 8.1 x10^3/uL (1.8-7.7) 6.3 x10^3/uL (1.8-7.7) Lymphocytes # (Auto) 1.1 x10^3/uL (1.0-4.8) 1.8 x10^3/uL (1.0-4.8) Monocytes # (Auto) 0.6 x10^3/uL (0.0-1.1) 0.9 x10^3/uL (0.0-1.1) Eosinophils # (Auto) 0.1 x10^3/uL (0.0-0.7) 0.2 x10^3/uL (0.0-0.7) Basophils # (Auto) 0.0 x10^3/uL (0.0-0.2) 0.1 x10^3/uL (0.0-0.2) Sodium Level 135 mmol/L (136-145) 133 mmol/L (136-145) Potassium Level 4.0 mmol/L (3.5-5.1) 4.5 mmol/L (3.5-5.1) Chloride Level 101 mmol/L (98-107) 97 mmol/L (98-107) Carbon Dioxide Level 29 mmol/L (21-32) 32 mmol/L (21-32) Anion Gap 5 (6-14) 4 (6-14) Blood Urea Nitrogen 25 mg/dL (7-20) 26 mg/dL (7-20) Creatinine 1.0 mg/dL (0.6-1.0) 1.0 mg/dL (0.6-1.0) Estimated GFR (Cockcroft-Gault) 53.5 53.5 Glucose Level 199 mg/dL (70-99) 96 mg/dL (70-99) Calcium Level 7.8 mg/dL (8.5-10.1) 8.0 mg/dL (8.5-10.1) Segmented Neutrophils % 69 % (35-66) Band Neutrophils % 4 % (0-9) Lymphocytes % 17 % (24-48) Monocytes % 9 % (0-10) Eosinophils % 1 % (0-5) Platelet Estimate Adequate (ADEQUATE) Anisocytosis Slight Laboratory Tests Test 11/11/19 06:20 White Blood Count 9.3 x10^3/uL (4.0-11.0) Red Blood Count 5.51 x10^6/uL (3.50-5.40) Hemoglobin 14.0 g/dL (12.0-15.5) Hematocrit 43.8 % (36.0-47.0) Mean Corpuscular Volume 80 fL (79-100) Mean Corpuscular Hemoglobin 26 pg (25-35) Mean Corpuscular Hemoglobin Concent 32 g/dL (31-37) Red Cell Distribution Width 20.0 % (11.5-14.5) Platelet Count 228 x10^3/uL (140-400) Neutrophils (%) (Auto) 68 % (31-73) Lymphocytes (%) (Auto) 20 % (24-48) Monocytes (%) (Auto) 9 % (0-9) Eosinophils (%) (Auto) 2 % (0-3) Basophils (%) (Auto) 1 % (0-3) Neutrophils # (Auto) 6.3 x10^3/uL (1.8-7.7) Lymphocytes # (Auto) 1.8 x10^3/uL (1.0-4.8) Monocytes # (Auto) 0.9 x10^3/uL (0.0-1.1) Eosinophils # (Auto) 0.2 x10^3/uL (0.0-0.7) Basophils # (Auto) 0.1 x10^3/uL (0.0-0.2) Segmented Neutrophils % 69 % (35-66) Band Neutrophils % 4 % (0-9) Lymphocytes % 17 % (24-48) Monocytes % 9 % (0-10) Eosinophils % 1 % (0-5) Platelet Estimate Adequate (ADEQUATE) Anisocytosis Slight Sodium Level 133 mmol/L (136-145) Potassium Level 4.5 mmol/L (3.5-5.1) Chloride Level 97 mmol/L (98-107) Carbon Dioxide Level 32 mmol/L (21-32) Anion Gap 4 (6-14) Blood Urea Nitrogen 26 mg/dL (7-20) Creatinine 1.0 mg/dL (0.6-1.0) Estimated GFR (Cockcroft-Gault) 53.5 Glucose Level 96 mg/dL (70-99) Calcium Level 8.0 mg/dL (8.5-10.1) Medications Active Scripts Medications Dose Route/Sig Max Daily Dose Days Date Category Lipitor (Atorvastatin Calcium) 10 Mg Tablet 1 Tab PO QHS 30 10/16/19 Rx Prednisone (Prednisone) 10 Mg Tablet 1 Tab PO BID 5 10/16/19 Rx Furosemide 40 Mg Tablet 40 Mg PO DAILY 30 10/16/19 Rx Culturelle (Lactobacillus Rhamnosus Gg) 1 Each Cap.sprink 1 Cap PO BID 30 08/13/19 Rx Lisinopril 10 Mg Tablet 1 Tab PO DAILY 08/08/19 Reported Prednisone 20 Mg Tablet 20 Mg PO DAILY 08/08/19 Reported [place] Saline Nasal Gel (Sodium Chloride/Aloe Vera) 14.1 Gm Gel..gram. 1 Kennedy NS PRN DAILY PRN 30 06/30/18 Rx Duoneb 0.5-3(2.5) Mg/3 Ml (Albuterol/Ipratropium) 3 Ml Ampul.neb 3 Ml NEB RTQID 30 06/30/18 Rx Comments IMPRESSION: Persistent interstitial opacities not significantly changed compared to the prior exam. Impression . IMPRESSION: 1. Acute on chronic hypoxemic respiratory failure-worsening 2. Acute exacerbation of underlying interstitial lung disease/pulmonaryfibrosis--ongoing 3. COVID-19 suspect-- COVID-19 negative 4. [id number] cor pulmonale. 5. Anxiety and depression. Plan . Case discussed with [facility] LO DRIVER, Dr. Gray to visit with patient tomorrow, Dr. Gray to help with disposition Patient not enamored with antianxiety medication, she thinks she is going to be addicted Supplemental oxygen as needed to keep sats above 92 %, now requiring 6 L nasal cannula NEBS SARS-CoV2 is negative Continue prednisone No need for antibiotics. Diurese. Encourage the patient to continue with anti-anxiety medicine as anxiety is a big component Discussed CODE STATUS with the patient she is in favor of a DO NOT RESUSCITATE/DO NOT INTUBATE however would like to confirm/discussed with her son. Spoke with her son and DOPA he is in agreeable with a DNR/DNI D/W RN and RT DENVER DAY MD Nov 11, 2019 12:04
--- NOTE | 2019-11-11 13:48 | PDOC ---
[facility] PROGRESS NOTE Chief Complaint Chief Complaint Fulminant respiratory failure secondary to severe pulmonary fibrosis Covid-19 has now been officially ruled out Failure to thrive Right-sided heart failure Anxiety Depression I History of Present Illness History of Present Illness 11/11/2019 Patient seen and examined She is extremely short of breath and appears uncomfortable Chart reviewed Discussed with RN 11/10/2019 Patient seen and examined She is extremely short of breath appears uncomfortable Discussed with RN Chart reviewed Vitals/I&O Vitals/I&O: Vital Signs Date Time Temp Pulse Resp B/P (MAP) Pulse Ox O2 Delivery O2 Flow Rate FiO2 11/11/19 11:59 97.9 103 24 108/77 (87) 91 Nasal Cannula 5.0 97.9 I & O 11/10/19 11/10/19 11/11/19 15:00 23:00 07:00 Intake Total 250 ml 340 ml Output Total 101 ml Balance 250 ml 239 ml Physical Exam General: moderate distress, Other (Extremely short of breath) Heart: Other (Tachycardic at 100 bpm) Lungs: Crackles, Other (Diffuse crackles ) Abdomen: Normal bowel sounds Extremities: No clubbing Skin: No rashes Labs Labs: Laboratory Tests Test 11/11/19 06:20 White Blood Count 9.3 x10^3/uL (4.0-11.0) Red Blood Count 5.51 x10^6/uL (3.50-5.40) Hemoglobin 14.0 g/dL (12.0-15.5) Hematocrit 43.8 % (36.0-47.0) Mean Corpuscular Volume 80 fL (79-100) Mean Corpuscular Hemoglobin 26 pg (25-35) Mean Corpuscular Hemoglobin Concent 32 g/dL (31-37) Red Cell Distribution Width 20.0 % (11.5-14.5) Platelet Count 228 x10^3/uL (140-400) Neutrophils (%) (Auto) 68 % (31-73) Lymphocytes (%) (Auto) 20 % (24-48) Monocytes (%) (Auto) 9 % (0-9) Eosinophils (%) (Auto) 2 % (0-3) Basophils (%) (Auto) 1 % (0-3) Neutrophils # (Auto) 6.3 x10^3/uL (1.8-7.7) Lymphocytes # (Auto) 1.8 x10^3/uL (1.0-4.8) Monocytes # (Auto) 0.9 x10^3/uL (0.0-1.1) Eosinophils # (Auto) 0.2 x10^3/uL (0.0-0.7) Basophils # (Auto) 0.1 x10^3/uL (0.0-0.2) Segmented Neutrophils % 69 % (35-66) Band Neutrophils % 4 % (0-9) Lymphocytes % 17 % (24-48) Monocytes % 9 % (0-10) Eosinophils % 1 % (0-5) Platelet Estimate Adequate (ADEQUATE) Anisocytosis Slight Sodium Level 133 mmol/L (136-145) Potassium Level 4.5 mmol/L (3.5-5.1) Chloride Level 97 mmol/L (98-107) Carbon Dioxide Level 32 mmol/L (21-32) Anion Gap 4 (6-14) Blood Urea Nitrogen 26 mg/dL (7-20) Creatinine 1.0 mg/dL (0.6-1.0) Estimated GFR (Cockcroft-Gault) 53.5 Glucose Level 96 mg/dL (70-99) Calcium Level 8.0 mg/dL (8.5-10.1) Assessment and Plan Assessmemt and Plan Problems Medical Problems: (1) Acute and chronic respiratory failure with hypoxia Status: Acute (2) LEXI (acute kidney injury) Status: Acute (3) Pulmonary fibrosis Status: Acute End-stage fulminant respiratory failure secondary to severe pulmonary fibrosis Covid-19 has now been officially ruled out Failure to thrive Right-sided heart failure Anxiety Depression Plan Supplemental O2 Duo nebs Prednisone Home meds DVT prophylaxis Full code for now but I think she should be DNR Suspect she will qualify for hospice on discharge Appreciate pulmonary input Per pulmonary please see below; IMPRESSION: 1. Acute on chronic hypoxemic respiratory failure-worsening 2. Acute exacerbation of underlying interstitial lung disease/pulmonaryfibrosis--ongoing 3. COVID-19 suspect-- COVID-19 negative 4. Hmpns-yh-sipiamc cor pulmonale. 5. Anxiety and depression. Plan Plan . PLAN: Supplemental oxygen as needed to keep sats above 92 %, now requiring 6 L nasal cannula NEBS SARS-CoV2 is negative Continue prednisone No need for antibiotics. Diurese. Encourage the patient to continue with anti-anxiety medicine as anxiety is a big component Discussed CODE STATUS with the patient she is in favor of a DO NOT RESUSCITATE/DO NOT INTUBATE however would like to confirm/discussed with her son. Attempted to contact her son and voicemail left. Comment Review of Relevant I have reviewed the following items alyce (where applicable) has been applied. Medications: Current Medications Medications (Trade) Dose Ordered Sig/Sugar Route PRN Reason Start Time Stop Time Status Last Admin Dose Admin Doxycycline Hyclate (Vibra-Tab) 100 mg BID PO 11/10/19 21:00 11/11/19 10:14 Justicifation of Admission Dx: Justifications for Admission: Justification of Admission Dx: Yes Respiratory Failure: Severe Resp Distress Aspiration Pneumonia: Hypoxemia Acute COPD Exacerbation: Acute COPD Exacerbation CAROLINA DANIEL III DO Nov 11, 2019 13:48
[2019-11-11 15:59] VITALS: BP 93/71
[2019-11-11 19:00] VITALS: BP 104/71
[2019-11-11] MEDS: ATORVASTATIN CALCIUM 10 MG TABLET. PO SCH (21:00)
[2019-11-11 23:00] VITALS: BP 113/82
[2019-11-12 03:00] VITALS: BP 109/75
[2019-11-12 05:29] LABS: BASO % 0 % (0-3); EOS # 0.2 x10^3/uL (0.0-0.7); EOS % 2 % (0-3); HEMATOCRIT 45.3 % (36.0-47.0); HEMOGLOBIN 14.7 g/dL (12.0-15.5); LYMPH # 1.5 x10^3/uL (1.0-4.8); LYMPH % 17 % (24-48); MEAN CORPUSCULAR HEMOGLOBIN 26 pg (25-35); MEAN CORPUSCULAR HGB CONC 33 g/dL (31-37); MEAN CORPUSCULAR VOLUME 79 fL (79-100); MONO # 0.9 x10^3/uL (0.0-1.1); MONO % 10 % (0-9); NEUT # 6.6 x10^3/uL (1.8-7.7); NEUT % 71 % (31-73); PLATELET COUNT 252 x10^3/uL (140-400); RED BLOOD COUNT 5.71 x10^6/uL (3.50-5.40); RED CELL DISTRIBUTION WIDTH 20.4 % (11.5-14.5); WHITE BLOOD COUNT 9.2 x10^3/uL (4.0-11.0)
[2019-11-12 05:58] LABS: CALCIUM 8.1 mg/dL (8.5-10.1); CREATININE 0.8 mg/dL (0.6-1.0); GFR 69.2; POTASSIUM 4.9 mmol/L (3.5-5.1)
[2019-11-12 07:15] VITALS: BP 117/85
[2019-11-12] MEDS: FUROSEMIDE 20 MG/2 ML VIAL. IVP SCH (09:00)
--- NOTE | 2019-11-12 09:00 | PDOC ---
PROGRESS NOTES Chief Complaint Chief Complaint A/P: Acute on chronic respiratory failure. - Fulminant respiratory failure secondary to severe pulmonary fibrosis History of pulmonary fibrosis, interstitial lung disease. Abnormal x-ray, worsened interstitial infiltrates on today's x-ray. Protein malnutrition. Hyponatremia. Protein malnutrition. Covid-19 has now been officially ruled out Failure to thrive Right-sided heart failure Anxiety Depression I History of Present Illness History of Present Illness Ms Crowe is a 79 yo F w/ PMHx chronic hypoxica respiratory failure, pulmonary fibrosis/interstitial lung disease admitted with increasing shortness of breath failing outpatient increase in prednisone. She has conversational dyspnea. Afebrile. She is still using pure wick catheter for urination. She tells me she was placed into hospice after discharge from [facility] previously but transition to [facility], it is her goal to go back to this, but she thinks she needs acute rehab currently. Has not been out of bed since admission. Discussed with pulmonology to change to 20 mg prednisone. 11/11/2019 Patient seen and examined She is extremely short of breath and appears uncomfortable Chart reviewed Discussed with RN 11/10/2019 Patient seen and examined She is extremely short of breath appears uncomfortable Discussed with RN Chart reviewed Vitals Vitals Vital Signs Date Time Temp Pulse Resp B/P (MAP) Pulse Ox O2 Delivery O2 Flow Rate FiO2 11/12/19 07:15 97.6 88 20 117/85 (96) 92 Nasal Cannula 5.0 97.6 Physical Exam General: Alert, moderate distress, Other (Extremely short of breath) Heart: Other (Tachycardic at 100 bpm) Lungs: Crackles, Other (Diffuse crackles ) Abdomen: Normal bowel sounds Extremities: No clubbing Skin: No rashes Labs LABS Laboratory Tests Test 11/12/19 04:40 White Blood Count 9.2 x10^3/uL (4.0-11.0) Red Blood Count 5.71 x10^6/uL (3.50-5.40) Hemoglobin 14.7 g/dL (12.0-15.5) Hematocrit 45.3 % (36.0-47.0) Mean Corpuscular Volume 79 fL (79-100) Mean Corpuscular Hemoglobin 26 pg (25-35) Mean Corpuscular Hemoglobin Concent 33 g/dL (31-37) Red Cell Distribution Width 20.4 % (11.5-14.5) Platelet Count 252 x10^3/uL (140-400) Neutrophils (%) (Auto) 71 % (31-73) Lymphocytes (%) (Auto) 17 % (24-48) Monocytes (%) (Auto) 10 % (0-9) Eosinophils (%) (Auto) 2 % (0-3) Basophils (%) (Auto) 0 % (0-3) Neutrophils # (Auto) 6.6 x10^3/uL (1.8-7.7) Lymphocytes # (Auto) 1.5 x10^3/uL (1.0-4.8) Monocytes # (Auto) 0.9 x10^3/uL (0.0-1.1) Eosinophils # (Auto) 0.2 x10^3/uL (0.0-0.7) Basophils # (Auto) 0.0 x10^3/uL (0.0-0.2) Sodium Level 134 mmol/L (136-145) Potassium Level 4.9 mmol/L (3.5-5.1) Chloride Level 97 mmol/L (98-107) Carbon Dioxide Level 31 mmol/L (21-32) Anion Gap 6 (6-14) Blood Urea Nitrogen 28 mg/dL (7-20) Creatinine 0.8 mg/dL (0.6-1.0) Estimated GFR (Cockcroft-Gault) 69.2 Glucose Level 120 mg/dL (70-99) Calcium Level 8.1 mg/dL (8.5-10.1) Assessment and Plan Assessmemt and Plan Problems Medical Problems: (1) Acute and chronic respiratory failure with hypoxia Status: Acute (2) LEXI (acute kidney injury) Status: Acute (3) Pulmonary fibrosis Status: Acute Comment Review of Relevant I have reviewed the following items alyce (where applicable) has been applied. Labs Laboratory Tests Test 11/11/19 06:20 11/12/19 04:40 White Blood Count 9.3 x10^3/uL (4.0-11.0) 9.2 x10^3/uL (4.0-11.0) Red Blood Count 5.51 x10^6/uL (3.50-5.40) 5.71 x10^6/uL (3.50-5.40) Hemoglobin 14.0 g/dL (12.0-15.5) 14.7 g/dL (12.0-15.5) Hematocrit 43.8 % (36.0-47.0) 45.3 % (36.0-47.0) Mean Corpuscular Volume 80 fL (79-100) 79 fL (79-100) Mean Corpuscular Hemoglobin 26 pg (25-35) 26 pg (25-35) Mean Corpuscular Hemoglobin Concent 32 g/dL (31-37) 33 g/dL (31-37) Red Cell Distribution Width 20.0 % (11.5-14.5) 20.4 % (11.5-14.5) Platelet Count 228 x10^3/uL (140-400) 252 x10^3/uL (140-400) Neutrophils (%) (Auto) 68 % (31-73) 71 % (31-73) Lymphocytes (%) (Auto) 20 % (24-48) 17 % (24-48) Monocytes (%) (Auto) 9 % (0-9) 10 % (0-9) Eosinophils (%) (Auto) 2 % (0-3) 2 % (0-3) Basophils (%) (Auto) 1 % (0-3) 0 % (0-3) Neutrophils # (Auto) 6.3 x10^3/uL (1.8-7.7) 6.6 x10^3/uL (1.8-7.7) Lymphocytes # (Auto) 1.8 x10^3/uL (1.0-4.8) 1.5 x10^3/uL (1.0-4.8) Monocytes # (Auto) 0.9 x10^3/uL (0.0-1.1) 0.9 x10^3/uL (0.0-1.1) Eosinophils # (Auto) 0.2 x10^3/uL (0.0-0.7) 0.2 x10^3/uL (0.0-0.7) Basophils # (Auto) 0.1 x10^3/uL (0.0-0.2) 0.0 x10^3/uL (0.0-0.2) Segmented Neutrophils % 69 % (35-66) Band Neutrophils % 4 % (0-9) Lymphocytes % 17 % (24-48) Monocytes % 9 % (0-10) Eosinophils % 1 % (0-5) Platelet Estimate Adequate (ADEQUATE) Anisocytosis Slight Sodium Level 133 mmol/L (136-145) 134 mmol/L (136-145) Potassium Level 4.5 mmol/L (3.5-5.1) 4.9 mmol/L (3.5-5.1) Chloride Level 97 mmol/L (98-107) 97 mmol/L (98-107) Carbon Dioxide Level 32 mmol/L (21-32) 31 mmol/L (21-32) Anion Gap 4 (6-14) 6 (6-14) Blood Urea Nitrogen 26 mg/dL (7-20) 28 mg/dL (7-20) Creatinine 1.0 mg/dL (0.6-1.0) 0.8 mg/dL (0.6-1.0) Estimated GFR (Cockcroft-Gault) 53.5 69.2 Glucose Level 96 mg/dL (70-99) 120 mg/dL (70-99) Calcium Level 8.0 mg/dL (8.5-10.1) 8.1 mg/dL (8.5-10.1) Laboratory Tests Test 11/12/19 04:40 White Blood Count 9.2 x10^3/uL (4.0-11.0) Red Blood Count 5.71 x10^6/uL (3.50-5.40) Hemoglobin 14.7 g/dL (12.0-15.5) Hematocrit 45.3 % (36.0-47.0) Mean Corpuscular Volume 79 fL (79-100) Mean Corpuscular Hemoglobin 26 pg (25-35) Mean Corpuscular Hemoglobin Concent 33 g/dL (31-37) Red Cell Distribution Width 20.4 % (11.5-14.5) Platelet Count 252 x10^3/uL (140-400) Neutrophils (%) (Auto) 71 % (31-73) Lymphocytes (%) (Auto) 17 % (24-48) Monocytes (%) (Auto) 10 % (0-9) Eosinophils (%) (Auto) 2 % (0-3) Basophils (%) (Auto) 0 % (0-3) Neutrophils # (Auto) 6.6 x10^3/uL (1.8-7.7) Lymphocytes # (Auto) 1.5 x10^3/uL (1.0-4.8) Monocytes # (Auto) 0.9 x10^3/uL (0.0-1.1) Eosinophils # (Auto) 0.2 x10^3/uL (0.0-0.7) Basophils # (Auto) 0.0 x10^3/uL (0.0-0.2) Sodium Level 134 mmol/L (136-145) Potassium Level 4.9 mmol/L (3.5-5.1) Chloride Level 97 mmol/L (98-107) Carbon Dioxide Level 31 mmol/L (21-32) Anion Gap 6 (6-14) Blood Urea Nitrogen 28 mg/dL (7-20) Creatinine 0.8 mg/dL (0.6-1.0) Estimated GFR (Cockcroft-Gault) 69.2 Glucose Level 120 mg/dL (70-99) Calcium Level 8.1 mg/dL (8.5-10.1) Medications Current Medications Fentanyl Citrate (Fentanyl 2ml Vial) 50 mcg PRN Q1HR PRN IV SEVERE PAIN 7-10; Start 11/09/19 at 00:15; Stop 11/10/19 at 00:14; Status DC Guaifenesin/ Codeine Phosphate (Robitussin Ac) 5 ml PRN Q6HRS PRN PO COUGH Last administered on 11/09/19at 20:49; Start 11/09/19 at 10:00 Atorvastatin Calcium (Lipitor) 10 mg QHS PO Last administered on 11/09/19at 20:49; Start 11/09/19 at 21:00 Furosemide (Lasix) 40 mg DAILY PO Last administered on 11/10/19at 08:28; Start 11/09/19 at 11:00 Lactobacillus Rhamnosus (Culturelle) 1 cap BID PO Last administered on 11/11/19at 20:14; Start 11/09/19 at 11:00 Lisinopril (Prinivil) 10 mg DAILY PO Last administered on 11/11/19at 10:13; Start 11/09/19 at 11:00 Prednisone (Prednisone) 10 mg BID PO Last administered on 7/3/20at 11:10; Start 11/09/19 at 11:00; Stop 11/09/19 at 13:19; Status DC Sodium Chloride ([place] Saline Nasal) 1 kennedy PRN DAILY PRN NS NASAL CONGESTION Last administered on 11/09/19at 11:10; Start 11/09/19 at 10:15 Albuterol/ Ipratropium (Duoneb) 3 ml RTQID NEB ; Start 11/09/19 at 12:00; Stop 11/09/19 at 15:01; Status DC Doxycycline Hyclate 100 mg/ Dextrose 100 ml @ 50 mls/hr Q12HR IV Last administered on 11/10/19at 08:23; Start 11/09/19 at 21:00; Stop 11/10/19 at 16:07; Status DC Doxycycline Hyclate 100 mg/ Dextrose 100 ml @ 50 mls/hr 1X ONCE IV Last administered on 11/09/19at 14:11; Start 11/09/19 at 13:15; Stop 11/09/19 at 15:14; Status DC Furosemide (Lasix) 20 mg 1X ONCE IVP Last administered on 11/09/19at 14:12; Start 11/09/19 at 13:15; Stop 11/09/19 at 13:27; Status DC Furosemide (Lasix) 20 mg DAILY IVP Last administered on 11/11/19at 10:12; Start 11/10/19 at 09:00 Prednisone (Prednisone) 30 mg DAILY PO Last administered on 11/11/19at 10:13; Start 11/09/19 at 13:30 Albuterol Sulfate (Ventolin Neb Soln) 2.5 mg PRN Q4HRS PRN NEB SHORTNESS OF BREATH; Start 11/09/19 at 15:15 Alprazolam (Xanax) 0.25 mg PRN Q6HRS PRN PO ANXIETY / AGITATION Last administered on 11/11/19at 20:14; Start 11/09/19 at 16:45 Doxycycline Hyclate (Vibra-Tab) 100 mg BID PO Last administered on 11/11/19at 20:15; Start 11/10/19 at 21:00 Ondansetron HCl (Zofran Odt) 4 mg PRN Q6HRS PRN PO NAUSEA/VOMITING; Start 11/10/19 at 19:00 Active Scripts Active Lipitor (Atorvastatin Calcium) 10 Mg Tablet 1 Tab PO QHS 30 Days Prednisone (Prednisone) 10 Mg Tablet 1 Tab PO BID 5 Days Furosemide 40 Mg Tablet 40 Mg PO DAILY 30 Days Culturelle (Lactobacillus Rhamnosus Gg) 1 Each Cap.sprink 1 Cap PO BID 30 Days [place] Saline Nasal Gel (Sodium Chloride/Aloe Vera) 14.1 Gm Gel..gram. 1 [place] NS PRN DAILY PRN 30 Days Duoneb 0.5-3(2.5) Mg/3 Ml (Albuterol/Ipratropium) 3 Ml Ampul.neb 3 Ml NEB RTQID 30 Days Reported Lisinopril 10 Mg Tablet 1 Tab PO DAILY Prednisone 20 Mg Tablet 20 Mg PO DAILY Vitals/I & O Vital Sign - Last 24 Hours 11/11/19 11/11/19 11/11/19 11/11/19 10:13 10:17 11:59 15:59 Temp 97.9 97.2 97.9 97.2 Pulse 92 103 100 Resp B/P (MAP) 109/75 108/77 (87) 93/71 (78) Pulse Ox 85 91 96 O2 Delivery Nasal Cannula Nasal Cannula Nasal Cannula O2 Flow Rate 5.0 5.0 5.0 11/11/19 11/11/19 11/11/19 11/12/19 19:00 20:00 23:00 03:00 Temp 97.5 97.7 97.5 97.5 97.7 97.5 Pulse 107 107 102 Resp 22 B/P (MAP) 104/71 (82) 113/82 (92) 109/75 (86) Pulse Ox 84 89 90 O2 Delivery Nasal Cannula Nasal Cannula Nasal Cannula Nasal Cannula O2 Flow Rate 5.0 5.0 5.0 5.0 11/12/19 07:15 Temp 97.6 97.6 Pulse 88 Resp 20 B/P (MAP) 117/85 (96) Pulse Ox 92 O2 Delivery Nasal Cannula O2 Flow Rate 5.0 Intake and Output 11/11/19 11/11/19 11/12/19 15:00 23:00 07:00 Output Total 1000 ml 700 ml Balance -1000 ml -700 ml Justicifation of Admission Dx: Justifications for Admission: Justification of Admission Dx: Yes Respiratory Failure: Severe Resp Distress Aspiration Pneumonia: Hypoxemia Acute COPD Exacerbation: Acute COPD Exacerbation DEBORAH HERNANDEZ MD Nov 12, 2019 09:00
--- NOTE | 2019-11-12 09:05 | PDOC ---
PULMONARY PROGRESS NOTES Subjective Still short of air Vitals Vital Signs Date Time Temp Pulse Resp B/P (MAP) Pulse Ox O2 Delivery O2 Flow Rate FiO2 11/12/19 07:15 97.6 88 20 117/85 (96) 92 Nasal Cannula 5.0 97.6 ROS: No Nausea, No Chest Pain, No Abdominal Pain, No Increase Cough General: Alert, No acute distress Lungs: Crackles, Other (Diffuse crackles ) Cardiovascular: S1, S2 Abdomen: Soft Neuro Exam: Alert, Oriented Extremities: Other (+2 edema BLE ) Skin: Warm Labs Laboratory Tests Test 11/11/19 06:20 11/12/19 04:40 White Blood Count 9.3 x10^3/uL (4.0-11.0) 9.2 x10^3/uL (4.0-11.0) Red Blood Count 5.51 x10^6/uL (3.50-5.40) 5.71 x10^6/uL (3.50-5.40) Hemoglobin 14.0 g/dL (12.0-15.5) 14.7 g/dL (12.0-15.5) Hematocrit 43.8 % (36.0-47.0) 45.3 % (36.0-47.0) Mean Corpuscular Volume 80 fL (79-100) 79 fL (79-100) Mean Corpuscular Hemoglobin 26 pg (25-35) 26 pg (25-35) Mean Corpuscular Hemoglobin Concent 32 g/dL (31-37) 33 g/dL (31-37) Red Cell Distribution Width 20.0 % (11.5-14.5) 20.4 % (11.5-14.5) Platelet Count 228 x10^3/uL (140-400) 252 x10^3/uL (140-400) Neutrophils (%) (Auto) 68 % (31-73) 71 % (31-73) Lymphocytes (%) (Auto) 20 % (24-48) 17 % (24-48) Monocytes (%) (Auto) 9 % (0-9) 10 % (0-9) Eosinophils (%) (Auto) 2 % (0-3) 2 % (0-3) Basophils (%) (Auto) 1 % (0-3) 0 % (0-3) Neutrophils # (Auto) 6.3 x10^3/uL (1.8-7.7) 6.6 x10^3/uL (1.8-7.7) Lymphocytes # (Auto) 1.8 x10^3/uL (1.0-4.8) 1.5 x10^3/uL (1.0-4.8) Monocytes # (Auto) 0.9 x10^3/uL (0.0-1.1) 0.9 x10^3/uL (0.0-1.1) Eosinophils # (Auto) 0.2 x10^3/uL (0.0-0.7) 0.2 x10^3/uL (0.0-0.7) Basophils # (Auto) 0.1 x10^3/uL (0.0-0.2) 0.0 x10^3/uL (0.0-0.2) Segmented Neutrophils % 69 % (35-66) Band Neutrophils % 4 % (0-9) Lymphocytes % 17 % (24-48) Monocytes % 9 % (0-10) Eosinophils % 1 % (0-5) Platelet Estimate Adequate (ADEQUATE) Anisocytosis Slight Sodium Level 133 mmol/L (136-145) 134 mmol/L (136-145) Potassium Level 4.5 mmol/L (3.5-5.1) 4.9 mmol/L (3.5-5.1) Chloride Level 97 mmol/L (98-107) 97 mmol/L (98-107) Carbon Dioxide Level 32 mmol/L (21-32) 31 mmol/L (21-32) Anion Gap 4 (6-14) 6 (6-14) Blood Urea Nitrogen 26 mg/dL (7-20) 28 mg/dL (7-20) Creatinine 1.0 mg/dL (0.6-1.0) 0.8 mg/dL (0.6-1.0) Estimated GFR (Cockcroft-Gault) 53.5 69.2 Glucose Level 96 mg/dL (70-99) 120 mg/dL (70-99) Calcium Level 8.0 mg/dL (8.5-10.1) 8.1 mg/dL (8.5-10.1) Laboratory Tests Test 11/12/19 04:40 White Blood Count 9.2 x10^3/uL (4.0-11.0) Red Blood Count 5.71 x10^6/uL (3.50-5.40) Hemoglobin 14.7 g/dL (12.0-15.5) Hematocrit 45.3 % (36.0-47.0) Mean Corpuscular Volume 79 fL (79-100) Mean Corpuscular Hemoglobin 26 pg (25-35) Mean Corpuscular Hemoglobin Concent 33 g/dL (31-37) Red Cell Distribution Width 20.4 % (11.5-14.5) Platelet Count 252 x10^3/uL (140-400) Neutrophils (%) (Auto) 71 % (31-73) Lymphocytes (%) (Auto) 17 % (24-48) Monocytes (%) (Auto) 10 % (0-9) Eosinophils (%) (Auto) 2 % (0-3) Basophils (%) (Auto) 0 % (0-3) Neutrophils # (Auto) 6.6 x10^3/uL (1.8-7.7) Lymphocytes # (Auto) 1.5 x10^3/uL (1.0-4.8) Monocytes # (Auto) 0.9 x10^3/uL (0.0-1.1) Eosinophils # (Auto) 0.2 x10^3/uL (0.0-0.7) Basophils # (Auto) 0.0 x10^3/uL (0.0-0.2) Sodium Level 134 mmol/L (136-145) Potassium Level 4.9 mmol/L (3.5-5.1) Chloride Level 97 mmol/L (98-107) Carbon Dioxide Level 31 mmol/L (21-32) Anion Gap 6 (6-14) Blood Urea Nitrogen 28 mg/dL (7-20) Creatinine 0.8 mg/dL (0.6-1.0) Estimated GFR (Cockcroft-Gault) 69.2 Glucose Level 120 mg/dL (70-99) Calcium Level 8.1 mg/dL (8.5-10.1) Medications Active Scripts Medications Dose Route/Sig Max Daily Dose Days Date Category Lipitor (Atorvastatin Calcium) 10 Mg Tablet 1 Tab PO QHS 30 10/16/19 Rx Prednisone (Prednisone) 10 Mg Tablet 1 Tab PO BID 5 10/16/19 Rx Furosemide 40 Mg Tablet 40 Mg PO DAILY 30 10/16/19 Rx Culturelle (Lactobacillus Rhamnosus Gg) 1 Each Cap.sprink 1 Cap PO BID 30 08/13/19 Rx Lisinopril 10 Mg Tablet 1 Tab PO DAILY 08/08/19 Reported Prednisone 20 Mg Tablet 20 Mg PO DAILY 08/08/19 Reported [place] Saline Nasal Gel (Sodium Chloride/Aloe Vera) 14.1 Gm Gel..gram. 1 Kennedy NS PRN DAILY PRN 30 06/30/18 Rx Duoneb 0.5-3(2.5) Mg/3 Ml (Albuterol/Ipratropium) 3 Ml Ampul.neb 3 Ml NEB RTQID 30 06/30/18 Rx Comments IMPRESSION: Persistent interstitial opacities not significantly changed compared to the prior exam. Impression . IMPRESSION: 1. Acute on chronic hypoxemic respiratory failure-worsening 2. Acute exacerbation of underlying interstitial lung disease/pulmonaryfibrosis--ongoing 3. COVID-19 suspect-- COVID-19 negative 4. [id number] cor pulmonale. 5. Anxiety and depression. Plan . Case discussed with , Dr. Gary please see his note Patient not enamored with antianxiety medication, she thinks she is going to be addicted Supplemental oxygen as needed to keep sats above 92 %, now requiring 6 L nasal cannula NEBS SARS-CoV2 is negative Continue prednisone No need for antibiotics. Diurese. Encourage the patient to continue with anti-anxiety medicine as anxiety is a big component Discussed CODE STATUS with the patient she is in favor of a DO NOT RESUSCITATE/DO NOT INTUBATE however would like to confirm/discussed with her son. Spoke with her son and DOPA he is in agreeable with a DNR/DNI D/W RN and RT DENVER DAY MD Nov 12, 2019 09:05
--- NOTE | 2019-11-12 09:40 | PDOC ---
PULMONARY PROGRESS NOTES Vitals Vital Signs Date Time Temp Pulse Resp B/P (MAP) Pulse Ox O2 Delivery O2 Flow Rate FiO2 11/12/19 07:15 97.6 88 20 117/85 (96) 92 Nasal Cannula 5.0 97.6 ROS: No Nausea, No Chest Pain, No Abdominal Pain, No Increase Cough General: Alert, No acute distress Lungs: Crackles, Other (Diffuse crackles ) Cardiovascular: S1, S2 Abdomen: Soft Neuro Exam: Alert, Oriented Extremities: Other (+2 edema BLE ) Skin: Warm Labs Laboratory Tests Test 11/11/19 06:20 11/12/19 04:40 White Blood Count 9.3 x10^3/uL (4.0-11.0) 9.2 x10^3/uL (4.0-11.0) Red Blood Count 5.51 x10^6/uL (3.50-5.40) 5.71 x10^6/uL (3.50-5.40) Hemoglobin 14.0 g/dL (12.0-15.5) 14.7 g/dL (12.0-15.5) Hematocrit 43.8 % (36.0-47.0) 45.3 % (36.0-47.0) Mean Corpuscular Volume 80 fL (79-100) 79 fL (79-100) Mean Corpuscular Hemoglobin 26 pg (25-35) 26 pg (25-35) Mean Corpuscular Hemoglobin Concent 32 g/dL (31-37) 33 g/dL (31-37) Red Cell Distribution Width 20.0 % (11.5-14.5) 20.4 % (11.5-14.5) Platelet Count 228 x10^3/uL (140-400) 252 x10^3/uL (140-400) Neutrophils (%) (Auto) 68 % (31-73) 71 % (31-73) Lymphocytes (%) (Auto) 20 % (24-48) 17 % (24-48) Monocytes (%) (Auto) 9 % (0-9) 10 % (0-9) Eosinophils (%) (Auto) 2 % (0-3) 2 % (0-3) Basophils (%) (Auto) 1 % (0-3) 0 % (0-3) Neutrophils # (Auto) 6.3 x10^3/uL (1.8-7.7) 6.6 x10^3/uL (1.8-7.7) Lymphocytes # (Auto) 1.8 x10^3/uL (1.0-4.8) 1.5 x10^3/uL (1.0-4.8) Monocytes # (Auto) 0.9 x10^3/uL (0.0-1.1) 0.9 x10^3/uL (0.0-1.1) Eosinophils # (Auto) 0.2 x10^3/uL (0.0-0.7) 0.2 x10^3/uL (0.0-0.7) Basophils # (Auto) 0.1 x10^3/uL (0.0-0.2) 0.0 x10^3/uL (0.0-0.2) Segmented Neutrophils % 69 % (35-66) Band Neutrophils % 4 % (0-9) Lymphocytes % 17 % (24-48) Monocytes % 9 % (0-10) Eosinophils % 1 % (0-5) Platelet Estimate Adequate (ADEQUATE) Anisocytosis Slight Sodium Level 133 mmol/L (136-145) 134 mmol/L (136-145) Potassium Level 4.5 mmol/L (3.5-5.1) 4.9 mmol/L (3.5-5.1) Chloride Level 97 mmol/L (98-107) 97 mmol/L (98-107) Carbon Dioxide Level 32 mmol/L (21-32) 31 mmol/L (21-32) Anion Gap 4 (6-14) 6 (6-14) Blood Urea Nitrogen 26 mg/dL (7-20) 28 mg/dL (7-20) Creatinine 1.0 mg/dL (0.6-1.0) 0.8 mg/dL (0.6-1.0) Estimated GFR (Cockcroft-Gault) 53.5 69.2 Glucose Level 96 mg/dL (70-99) 120 mg/dL (70-99) Calcium Level 8.0 mg/dL (8.5-10.1) 8.1 mg/dL (8.5-10.1) Laboratory Tests Test 11/12/19 04:40 White Blood Count 9.2 x10^3/uL (4.0-11.0) Red Blood Count 5.71 x10^6/uL (3.50-5.40) Hemoglobin 14.7 g/dL (12.0-15.5) Hematocrit 45.3 % (36.0-47.0) Mean Corpuscular Volume 79 fL (79-100) Mean Corpuscular Hemoglobin 26 pg (25-35) Mean Corpuscular Hemoglobin Concent 33 g/dL (31-37) Red Cell Distribution Width 20.4 % (11.5-14.5) Platelet Count 252 x10^3/uL (140-400) Neutrophils (%) (Auto) 71 % (31-73) Lymphocytes (%) (Auto) 17 % (24-48) Monocytes (%) (Auto) 10 % (0-9) Eosinophils (%) (Auto) 2 % (0-3) Basophils (%) (Auto) 0 % (0-3) Neutrophils # (Auto) 6.6 x10^3/uL (1.8-7.7) Lymphocytes # (Auto) 1.5 x10^3/uL (1.0-4.8) Monocytes # (Auto) 0.9 x10^3/uL (0.0-1.1) Eosinophils # (Auto) 0.2 x10^3/uL (0.0-0.7) Basophils # (Auto) 0.0 x10^3/uL (0.0-0.2) Sodium Level 134 mmol/L (136-145) Potassium Level 4.9 mmol/L (3.5-5.1) Chloride Level 97 mmol/L (98-107) Carbon Dioxide Level 31 mmol/L (21-32) Anion Gap 6 (6-14) Blood Urea Nitrogen 28 mg/dL (7-20) Creatinine 0.8 mg/dL (0.6-1.0) Estimated GFR (Cockcroft-Gault) 69.2 Glucose Level 120 mg/dL (70-99) Calcium Level 8.1 mg/dL (8.5-10.1) Medications Active Scripts Medications Dose Route/Sig Max Daily Dose Days Date Category Lipitor (Atorvastatin Calcium) 10 Mg Tablet 1 Tab PO QHS 30 10/16/19 Rx Prednisone (Prednisone) 10 Mg Tablet 1 Tab PO BID 5 10/16/19 Rx Furosemide 40 Mg Tablet 40 Mg PO DAILY 30 10/16/19 Rx Culturelle (Lactobacillus Rhamnosus Gg) 1 Each Cap.sprink 1 Cap PO BID 30 08/13/19 Rx Lisinopril 10 Mg Tablet 1 Tab PO DAILY 08/08/19 Reported Prednisone 20 Mg Tablet 20 Mg PO DAILY 08/08/19 Reported [place] Saline Nasal Gel (Sodium Chloride/Aloe Vera) 14.1 Gm Gel..gram. 1 Kennedy NS PRN DAILY PRN 30 06/30/18 Rx Duoneb 0.5-3(2.5) Mg/3 Ml (Albuterol/Ipratropium) 3 Ml Ampul.neb 3 Ml NEB RTQID 30 06/30/18 Rx Comments IMPRESSION: 1. Acute on chronic respiratory failure 2.Progressive idiopathic pulmonary fibrosis 3.cor pulmonale 4. anxiety Comment: I have cared for Ms. Crowe for about the past year and one half. Overall her fibrosis has been progressive. Her course may have slowed sig nificantly with prednisone although that is not clear. Her CT scan is stable from earlier this year but progressive from 2018. Her subjective status is greatly affected by her anxiety. Her PFTs are also not very reliable due to anxiety and difficulty with cooperation. I once again had a long discussion with Ms. Crowe reviewing those points. Impression . Plan . Plan: 1. I told Ms. Crowe that I agree with her decision for DNR. 2.When discharging her, leave her on 20 mg prednisone per day. I have tried to reduce that when discharged recently, and she has returned to hospital quickly. It may not make a difference, but I would try keeping her on 20 mg daily. 3.I did suggest using an anxiolytic on her given that anxiety is a major part of her discomfort. I noted that anxiolytics are not habit forming in the way that opiodes are. I would go low and slow on the dose, and she can stop if she does not like the effect. KEITH FLEMING MD Nov 12, 2019 09:40
[2019-11-12] MEDS: predniSONE 10 MG TABLET PO SCH (10:53)
[2019-11-12] MEDS: DOXYCYCLINE HYCLATE 100 MG TABLET PO SCH ×2 (10:54→20:37)
[2019-11-12] MEDS: LACTOBACILLUS RHAMNOSUS GG 1 CAPSULE. PO SCH ×2 (10:54→20:37)
[2019-11-12] MEDS: FUROSEMIDE 40 MG TABLET. PO SCH (10:54)
[2019-11-12] MEDS: LOSARTAN POTASSIUM 25 MG TABLET. PO SCH (10:57)
[2019-11-12 11:00] VITALS: BP 110/77
[2019-11-12] MEDS ORDERED: BENZOCAINE/MENTHOL LOZENGE. PO PRN (11:00)
[2019-11-12] MEDS ORDERED: busPIRone 5 MG TABLET. PO PRN (11:00)
--- NOTE | 2019-11-12 11:58 | NUR ---
SW following. Discussed with RN and Dr. Tinsley. Pt from home, 5L oxygen. Some discussion about hospice, however pt requesting PT/OT, would like to go to rehab. PT/OT ordered. SW will continue to follow.
[2019-11-12 15:00] VITALS: BP 118/88
--- NOTE | 2019-11-12 16:00 | EKG ---
[facility] [address] [place] [address] Test Date: 2019-11-08 Test Time: 21:51:43 Pat Name: KILO DIEZ Department: Room: Gender: F Carton Stapler: : 1940 Requested By: RODNEY GOMEZ Order Number: [id number] Reading MD: Measurements Intervals [place] Rate: 111 P: 5 TN: 170 QRS: 47 QRSD: 74 T: 26 QT: 370 QTc: 507 Interpretive Statements SINUS TACHYCARDIA NO SPECIFIC ECG ABNORMALITIES RI6.01 No previous ECG available for comparison
[2019-11-12 19:00] VITALS: BP 100/74
[2019-11-12] MEDS: ATORVASTATIN CALCIUM 10 MG TABLET. PO SCH ×2 (20:37→20:48)
[2019-11-12 23:00] VITALS: BP 127/93
[2019-11-13 03:00] VITALS: BP 99/65
[2019-11-13 06:05] LABS: BASO % 0 % (0-3); EOS # 0.2 x10^3/uL (0.0-0.7); EOS % 2 % (0-3); HEMATOCRIT 44.7 % (36.0-47.0); HEMOGLOBIN 14.4 g/dL (12.0-15.5); LYMPH # 1.6 x10^3/uL (1.0-4.8); LYMPH % 19 % (24-48); MEAN CORPUSCULAR HEMOGLOBIN 26 pg (25-35); MEAN CORPUSCULAR HGB CONC 32 g/dL (31-37); MEAN CORPUSCULAR VOLUME 80 fL (79-100); MONO # 0.8 x10^3/uL (0.0-1.1); MONO % 9 % (0-9); NEUT # 5.9 x10^3/uL (1.8-7.7); NEUT % 70 % (31-73); PLATELET COUNT 242 x10^3/uL (140-400); RED BLOOD COUNT 5.61 x10^6/uL (3.50-5.40); RED CELL DISTRIBUTION WIDTH 20.1 % (11.5-14.5); WHITE BLOOD COUNT 8.5 x10^3/uL (4.0-11.0)
[2019-11-13 06:20] LABS: CALCIUM 8.1 mg/dL (8.5-10.1); CREATININE 0.8 mg/dL (0.6-1.0); GFR 69.2; POTASSIUM 4.7 mmol/L (3.5-5.1)
[2019-11-13 07:00] VITALS: BP 116/85
--- NOTE | 2019-11-13 07:23 | PDOC ---
PROGRESS NOTES Chief Complaint Chief Complaint A/P: Acute on chronic respiratory failure. - Fulminant respiratory failure secondary to severe pulmonary fibrosis History of pulmonary fibrosis, interstitial lung disease. Abnormal x-ray, worsened interstitial infiltrates on today's x-ray. Protein malnutrition. Hyponatremia. Protein malnutrition. Covid-19 has now been officially ruled out Failure to thrive Right-sided heart failure Anxiety Depression I History of Present Illness History of Present Illness Ms Crowe is a 79 yo F w/ PMHx chronic hypoxic respiratory failure, pulmonary fibrosis/interstitial lung disease admitted with increasing shortness of breath failing outpatient increase in prednisone. 11/09: She is extremely short of breath appears uncomfortable 11/10: She is extremely short of breath and appears uncomfortable 11/11: She has conversational dyspnea. Afebrile. She is still using pure wick catheter for urination. She tells me she was placed into hospice after discharge from [facility] previously but transition to [facility], it is her goal to go back to this, but she thinks she needs acute rehab currently. Has not been out of bed since admission. Discussed with pulmonology to change to 20 mg prednisone. Afebrile, on 6 L. Tachycardic in the low 100s. Extremely weak. Desaturates into the 70s just when moving from bed to chair with therapy. She would like to try rehab, realistically she understand she has very little time left, but does not wish to return to hospice with people who don't know her and wants to see her 12 year old grandson before she dies. Plan: Referral for acute SNF vs home with home health If home with home health she will need norton catheter inserted Vitals Vitals Vital Signs Date Time Temp Pulse Resp B/P (MAP) Pulse Ox O2 Delivery O2 Flow Rate FiO2 11/13/19 03:00 97.7 89 20 99/65 (76) 92 Nasal Cannula 5.0 97.7 Physical Exam General: Alert, moderate distress, Other (Extremely short of breath) Heart: Other (Tachycardic at 100 bpm) Lungs: Crackles, Other (Diffuse crackles ) Abdomen: Normal bowel sounds Extremities: No clubbing Skin: No rashes Labs LABS Laboratory Tests Test 11/13/19 04:45 White Blood Count 8.5 x10^3/uL (4.0-11.0) Red Blood Count 5.61 x10^6/uL (3.50-5.40) Hemoglobin 14.4 g/dL (12.0-15.5) Hematocrit 44.7 % (36.0-47.0) Mean Corpuscular Volume 80 fL (79-100) Mean Corpuscular Hemoglobin 26 pg (25-35) Mean Corpuscular Hemoglobin Concent 32 g/dL (31-37) Red Cell Distribution Width 20.1 % (11.5-14.5) Platelet Count 242 x10^3/uL (140-400) Neutrophils (%) (Auto) 70 % (31-73) Lymphocytes (%) (Auto) 19 % (24-48) Monocytes (%) (Auto) 9 % (0-9) Eosinophils (%) (Auto) 2 % (0-3) Basophils (%) (Auto) 0 % (0-3) Neutrophils # (Auto) 5.9 x10^3/uL (1.8-7.7) Lymphocytes # (Auto) 1.6 x10^3/uL (1.0-4.8) Monocytes # (Auto) 0.8 x10^3/uL (0.0-1.1) Eosinophils # (Auto) 0.2 x10^3/uL (0.0-0.7) Basophils # (Auto) 0.0 x10^3/uL (0.0-0.2) Sodium Level 134 mmol/L (136-145) Potassium Level 4.7 mmol/L (3.5-5.1) Chloride Level 99 mmol/L (98-107) Carbon Dioxide Level 32 mmol/L (21-32) Anion Gap 3 (6-14) Blood Urea Nitrogen 28 mg/dL (7-20) Creatinine 0.8 mg/dL (0.6-1.0) Estimated GFR (Cockcroft-Gault) 69.2 Glucose Level 93 mg/dL (70-99) Calcium Level 8.1 mg/dL (8.5-10.1) Assessment and Plan Assessmemt and Plan Problems Medical Problems: (1) Acute and chronic respiratory failure with hypoxia Status: Acute (2) LEXI (acute kidney injury) Status: Acute (3) Pulmonary fibrosis Status: Acute Comment Review of Relevant I have reviewed the following items alyce (where applicable) has been applied. Labs Laboratory Tests Test 7/6/20 04:40 11/13/19 04:45 White Blood Count 9.2 x10^3/uL (4.0-11.0) 8.5 x10^3/uL (4.0-11.0) Red Blood Count 5.71 x10^6/uL (3.50-5.40) 5.61 x10^6/uL (3.50-5.40) Hemoglobin 14.7 g/dL (12.0-15.5) 14.4 g/dL (12.0-15.5) Hematocrit 45.3 % (36.0-47.0) 44.7 % (36.0-47.0) Mean Corpuscular Volume 79 fL (79-100) 80 fL (79-100) Mean Corpuscular Hemoglobin 26 pg (25-35) 26 pg (25-35) Mean Corpuscular Hemoglobin Concent 33 g/dL (31-37) 32 g/dL (31-37) Red Cell Distribution Width 20.4 % (11.5-14.5) 20.1 % (11.5-14.5) Platelet Count 252 x10^3/uL (140-400) 242 x10^3/uL (140-400) Neutrophils (%) (Auto) 71 % (31-73) 70 % (31-73) Lymphocytes (%) (Auto) 17 % (24-48) 19 % (24-48) Monocytes (%) (Auto) 10 % (0-9) 9 % (0-9) Eosinophils (%) (Auto) 2 % (0-3) 2 % (0-3) Basophils (%) (Auto) 0 % (0-3) 0 % (0-3) Neutrophils # (Auto) 6.6 x10^3/uL (1.8-7.7) 5.9 x10^3/uL (1.8-7.7) Lymphocytes # (Auto) 1.5 x10^3/uL (1.0-4.8) 1.6 x10^3/uL (1.0-4.8) Monocytes # (Auto) 0.9 x10^3/uL (0.0-1.1) 0.8 x10^3/uL (0.0-1.1) Eosinophils # (Auto) 0.2 x10^3/uL (0.0-0.7) 0.2 x10^3/uL (0.0-0.7) Basophils # (Auto) 0.0 x10^3/uL (0.0-0.2) 0.0 x10^3/uL (0.0-0.2) Sodium Level 134 mmol/L (136-145) 134 mmol/L (136-145) Potassium Level 4.9 mmol/L (3.5-5.1) 4.7 mmol/L (3.5-5.1) Chloride Level 97 mmol/L (98-107) 99 mmol/L (98-107) Carbon Dioxide Level 31 mmol/L (21-32) 32 mmol/L (21-32) Anion Gap 6 (6-14) 3 (6-14) Blood Urea Nitrogen 28 mg/dL (7-20) 28 mg/dL (7-20) Creatinine 0.8 mg/dL (0.6-1.0) 0.8 mg/dL (0.6-1.0) Estimated GFR (Cockcroft-Gault) 69.2 69.2 Glucose Level 120 mg/dL (70-99) 93 mg/dL (70-99) Calcium Level 8.1 mg/dL (8.5-10.1) 8.1 mg/dL (8.5-10.1) Laboratory Tests Test 11/13/19 04:45 White Blood Count 8.5 x10^3/uL (4.0-11.0) Red Blood Count 5.61 x10^6/uL (3.50-5.40) Hemoglobin 14.4 g/dL (12.0-15.5) Hematocrit 44.7 % (36.0-47.0) Mean Corpuscular Volume 80 fL (79-100) Mean Corpuscular Hemoglobin 26 pg (25-35) Mean Corpuscular Hemoglobin Concent 32 g/dL (31-37) Red Cell Distribution Width 20.1 % (11.5-14.5) Platelet Count 242 x10^3/uL (140-400) Neutrophils (%) (Auto) 70 % (31-73) Lymphocytes (%) (Auto) 19 % (24-48) Monocytes (%) (Auto) 9 % (0-9) Eosinophils (%) (Auto) 2 % (0-3) Basophils (%) (Auto) 0 % (0-3) Neutrophils # (Auto) 5.9 x10^3/uL (1.8-7.7) Lymphocytes # (Auto) 1.6 x10^3/uL (1.0-4.8) Monocytes # (Auto) 0.8 x10^3/uL (0.0-1.1) Eosinophils # (Auto) 0.2 x10^3/uL (0.0-0.7) Basophils # (Auto) 0.0 x10^3/uL (0.0-0.2) Sodium Level 134 mmol/L (136-145) Potassium Level 4.7 mmol/L (3.5-5.1) Chloride Level 99 mmol/L (98-107) Carbon Dioxide Level 32 mmol/L (21-32) Anion Gap 3 (6-14) Blood Urea Nitrogen 28 mg/dL (7-20) Creatinine 0.8 mg/dL (0.6-1.0) Estimated GFR (Cockcroft-Gault) 69.2 Glucose Level 93 mg/dL (70-99) Calcium Level 8.1 mg/dL (8.5-10.1) Medications Current Medications Fentanyl Citrate (Fentanyl 2ml Vial) 50 mcg PRN Q1HR PRN IV SEVERE PAIN 7-10; Start 11/09/19 at 00:15; Stop 11/10/19 at 00:14; Status DC Guaifenesin/ Codeine Phosphate (Robitussin Ac) 5 ml PRN Q6HRS PRN PO COUGH Last administered on 11/09/19at 20:49; Start 11/09/19 at 10:00 Atorvastatin Calcium (Lipitor) 10 mg QHS PO Last administered on 11/09/19at 20:49; Start 11/09/19 at 21:00 Furosemide (Lasix) 40 mg DAILY PO Last administered on 11/12/19at 10:54; Start 11/09/19 at 11:00 Lactobacillus Rhamnosus (Culturelle) 1 cap BID PO Last administered on 11/12/19at 20:37; Start 11/09/19 at 11:00 Lisinopril (Prinivil) 10 mg DAILY PO Last administered on 11/11/19at 10:13; Start 11/09/19 at 11:00; Stop 11/12/19 at 09:01; Status DC Prednisone (Prednisone) 10 mg BID PO Last administered on 11/09/19at 11:10; Start 11/09/19 at 11:00; Stop 11/09/19 at 13:19; Status DC Sodium Chloride ([place] Saline Nasal) 1 kennedy PRN DAILY PRN NS NASAL CONGESTION Last administered on 11/09/19at 11:10; Start 11/09/19 at 10:15 Albuterol/ Ipratropium (Duoneb) 3 ml RTQID NEB ; Start 11/09/19 at 12:00; Stop 11/09/19 at 15:01; Status DC Doxycycline Hyclate 100 mg/ Dextrose 100 ml @ 50 mls/hr Q12HR IV Last a dministered on 11/10/19at 08:23; Start 11/09/19 at 21:00; Stop 11/10/19 at 16:07; Status DC Doxycycline Hyclate 100 mg/ Dextrose 100 ml @ 50 mls/hr 1X ONCE IV Last administered on 11/09/19at 14:11; Start 11/09/19 at 13:15; Stop 11/09/19 at 15:14; Status DC Furosemide (Lasix) 20 mg 1X ONCE IVP Last administered on 11/09/19at 14:12; Start 11/09/19 at 13:15; Stop 11/09/19 at 13:27; Status DC Furosemide (Lasix) 20 mg DAILY IVP Last administered on 11/11/19at 10:12; Start 11/10/19 at 09:00 Prednisone (Prednisone) 30 mg DAILY PO Last administered on 11/12/19at 10:53; Start 11/09/19 at 13:30 Albuterol Sulfate (Ventolin Neb Soln) 2.5 mg PRN Q4HRS PRN NEB SHORTNESS OF BREATH; Start 11/09/19 at 15:15 Alprazolam (Xanax) 0.25 mg PRN Q6HRS PRN PO ANXIETY / AGITATION Last admini stered on 11/11/19at 20:14; Start 11/09/19 at 16:45; Stop 11/12/19 at 10:58; Status DC Doxycycline Hyclate (Vibra-Tab) 100 mg BID PO Last administered on 11/12/19at 20:37; Start 11/10/19 at 21:00 Ondansetron HCl (Zofran Odt) 4 mg PRN Q6HRS PRN PO NAUSEA/VOMITING; Start 11/10/19 at 19:00 Losartan Potassium (Cozaar) 25 mg DAILY PO Last administered on 11/12/19at 10:57; Start 11/12/19 at 09:00 Buspirone HCl (Buspar) 5 mg PRN TID PRN PO anxiety; Start 11/12/19 at 11:00 Throat Lozenges (Cepacol Sore Throat Lozenge) 1 paige PRN Q2HRS PRN PO SORE THROAT Last administered on 11/13/19at 01:01; Start 11/12/19 at 11:00 Active Scripts Active Lipitor (Atorvastatin Calcium) 10 Mg Tablet 1 Tab PO QHS 30 Days Prednisone (Prednisone) 10 Mg Tablet 1 Tab PO BID 5 Days Furosemide 40 Mg Tablet 40 Mg PO DAILY 30 Days Culturelle (Lactobacillus Rhamnosus Gg) 1 Each Cap.sprink 1 Cap PO BID 30 Days [place] Saline Nasal Gel (Sodium Chloride/Aloe Vera) 14.1 Gm Gel..gram. 1 Kennedy NS PRN DAILY PRN 30 Days Duoneb 0.5-3(2.5) Mg/3 Ml (Albuterol/Ipratropium) 3 Ml Ampul.neb 3 Ml NEB RTQID 30 Days Reported Lisinopril 10 Mg Tablet 1 Tab PO DAILY Prednisone 20 Mg Tablet 20 Mg PO DAILY Vitals/I & O Vital Sign - Last 24 Hours 11/12/19 11/12/19 11/12/19 11/12/19 08:00 10:57 11:00 15:00 Temp 97.5 97.9 97.5 97.9 Pulse 88 99 100 Resp 20 20 B/P (MAP) 117/85 110/77 (88) 118/88 (98) Pulse Ox 92 92 O2 Delivery Nasal Cannula Nasal Cannula Nasal Cannula O2 Flow Rate 5.0 5.0 5.0 11/12/19 11/12/19 11/12/19 11/13/19 19:00 20:00 23:00 03:00 Temp 98.0 97.5 97.7 98.0 97.5 97.7 Pulse 115 105 89 Resp 22 20 20 B/P (MAP) 100/74 (83) 127/93 (104) 99/65 (76) Pulse Ox 89 88 92 O2 Delivery Nasal Cannula Nasal Cannula Nasal Cannula Nasal Cannula O2 Flow Rate 5.0 5.0 5.0 5.0 Intake and Output 11/12/19 11/12/19 11/13/19 15:00 23:00 07:00 Intake Total 1100 ml 240 ml Output Total 1000 ml 400 ml Balance 100 ml -160 ml Justicifation of Admission Dx: Justifications for Admission: Justification of Admission Dx: Yes Respiratory Failure: Severe Resp Distress Aspiration Pneumonia: Hypoxemia Acute COPD Exacerbation: Acute COPD Exacerbation DEBORAH HERNANDEZ MD Nov 13, 2019 07:23
--- NOTE | 2019-11-13 08:48 | PDOC ---
PULMONARY PROGRESS NOTES Subjective Still short of air Vitals Vital Signs Date Time Temp Pulse Resp B/P (MAP) Pulse Ox O2 Delivery O2 Flow Rate FiO2 11/13/19 07:00 98.3 85 16 116/85 (95) 95 Room Air 98.3 11/13/19 03:00 5.0 ROS: No Nausea, No Chest Pain, No Abdominal Pain, No Increase Cough General: Alert, No acute distress Lungs: Crackles, Other (Diffuse crackles ) Cardiovascular: S1, S2 Abdomen: Soft Neuro Exam: Alert, Oriented Extremities: Other (+2 edema BLE ) Skin: Warm Labs Laboratory Tests Test 11/12/19 04:40 11/13/19 04:45 White Blood Count 9.2 x10^3/uL (4.0-11.0) 8.5 x10^3/uL (4.0-11.0) Red Blood Count 5.71 x10^6/uL (3.50-5.40) 5.61 x10^6/uL (3.50-5.40) Hemoglobin 14.7 g/dL (12.0-15.5) 14.4 g/dL (12.0-15.5) Hematocrit 45.3 % (36.0-47.0) 44.7 % (36.0-47.0) Mean Corpuscular Volume 79 fL (79-100) 80 fL (79-100) Mean Corpuscular Hemoglobin 26 pg (25-35) 26 pg (25-35) Mean Corpuscular Hemoglobin Concent 33 g/dL (31-37) 32 g/dL (31-37) Red Cell Distribution Width 20.4 % (11.5-14.5) 20.1 % (11.5-14.5) Platelet Count 252 x10^3/uL (140-400) 242 x10^3/uL (140-400) Neutrophils (%) (Auto) 71 % (31-73) 70 % (31-73) Lymphocytes (%) (Auto) 17 % (24-48) 19 % (24-48) Monocytes (%) (Auto) 10 % (0-9) 9 % (0-9) Eosinophils (%) (Auto) 2 % (0-3) 2 % (0-3) Basophils (%) (Auto) 0 % (0-3) 0 % (0-3) Neutrophils # (Auto) 6.6 x10^3/uL (1.8-7.7) 5.9 x10^3/uL (1.8-7.7) Lymphocytes # (Auto) 1.5 x10^3/uL (1.0-4.8) 1.6 x10^3/uL (1.0-4.8) Monocytes # (Auto) 0.9 x10^3/uL (0.0-1.1) 0.8 x10^3/uL (0.0-1.1) Eosinophils # (Auto) 0.2 x10^3/uL (0.0-0.7) 0.2 x10^3/uL (0.0-0.7) Basophils # (Auto) 0.0 x10^3/uL (0.0-0.2) 0.0 x10^3/uL (0.0-0.2) Sodium Level 134 mmol/L (136-145) 134 mmol/L (136-145) Potassium Level 4.9 mmol/L (3.5-5.1) 4.7 mmol/L (3.5-5.1) Chloride Level 97 mmol/L (98-107) 99 mmol/L (98-107) Carbon Dioxide Level 31 mmol/L (21-32) 32 mmol/L (21-32) Anion Gap 6 (6-14) 3 (6-14) Blood Urea Nitrogen 28 mg/dL (7-20) 28 mg/dL (7-20) Creatinine 0.8 mg/dL (0.6-1.0) 0.8 mg/dL (0.6-1.0) Estimated GFR (Cockcroft-Gault) 69.2 69.2 Glucose Level 120 mg/dL (70-99) 93 mg/dL (70-99) Calcium Level 8.1 mg/dL (8.5-10.1) 8.1 mg/dL (8.5-10.1) Laboratory Tests Test 11/13/19 04:45 White Blood Count 8.5 x10^3/uL (4.0-11.0) Red Blood Count 5.61 x10^6/uL (3.50-5.40) Hemoglobin 14.4 g/dL (12.0-15.5) Hematocrit 44.7 % (36.0-47.0) Mean Corpuscular Volume 80 fL (79-100) Mean Corpuscular Hemoglobin 26 pg (25-35) Mean Corpuscular Hemoglobin Concent 32 g/dL (31-37) Red Cell Distribution Width 20.1 % (11.5-14.5) Platelet Count 242 x10^3/uL (140-400) Neutrophils (%) (Auto) 70 % (31-73) Lymphocytes (%) (Auto) 19 % (24-48) Monocytes (%) (Auto) 9 % (0-9) Eosinophils (%) (Auto) 2 % (0-3) Basophils (%) (Auto) 0 % (0-3) Neutrophils # (Auto) 5.9 x10^3/uL (1.8-7.7) Lymphocytes # (Auto) 1.6 x10^3/uL (1.0-4.8) Monocytes # (Auto) 0.8 x10^3/uL (0.0-1.1) Eosinophils # (Auto) 0.2 x10^3/uL (0.0-0.7) Basophils # (Auto) 0.0 x10^3/uL (0.0-0.2) Sodium Level 134 mmol/L (136-145) Potassium Level 4.7 mmol/L (3.5-5.1) Chloride Level 99 mmol/L (98-107) Carbon Dioxide Level 32 mmol/L (21-32) Anion Gap 3 (6-14) Blood Urea Nitrogen 28 mg/dL (7-20) Creatinine 0.8 mg/dL (0.6-1.0) Estimated GFR (Cockcroft-Gault) 69.2 Glucose Level 93 mg/dL (70-99) Calcium Level 8.1 mg/dL (8.5-10.1) Medications Active Scripts Medications Dose Route/Sig Max Daily Dose Days Date Category Lipitor (Atorvastatin Calcium) 10 Mg Tablet 1 Tab PO QHS 30 10/16/19 Rx Prednisone (Prednisone) 10 Mg Tablet 1 Tab PO BID 5 10/16/19 Rx Furosemide 40 Mg Tablet 40 Mg PO DAILY 30 10/16/19 Rx Culturelle (Lactobacillus Rhamnosus Gg) 1 Each Cap.sprink 1 Cap PO BID 30 08/13/19 Rx Lisinopril 10 Mg Tablet 1 Tab PO DAILY 08/08/19 Reported Prednisone 20 Mg Tablet 20 Mg PO DAILY 08/08/19 Reported [place] Saline Nasal Gel (Sodium Chloride/Aloe Vera) 14.1 Gm Gel..gram. 1 [place] NS PRN DAILY PRN 30 06/30/18 Rx Duoneb 0.5-3(2.5) Mg/3 Ml (Albuterol/Ipratropium) 3 Ml Ampul.neb 3 Ml NEB RTQID 30 06/30/18 Rx Comments IMPRESSION: 1. Acute on chronic respiratory failure 2.Progressive idiopathic pulmonary fibrosis 3.cor pulmonale 4. anxiety Comment: I have cared for Ms. Crowe for about the past year and one half. Overall her fibrosis has been progressive. Her course may have slowed significantly with prednisone although that is not clear. Her CT scan is stable from earlier this year but progressive from 2019. Her subjective status is greatly affected by her anxiety. Her PFTs are also not very reliable due to anxiety and difficulty with cooperation. I once again had a long discussion with Ms. Crowe reviewing those points. Impression . Plan . Discussed with team, transfer to either fdc unit on home with home health Patient not enamored with antianxiety medication, she thinks she is going to be addicted Supplemental oxygen as needed to keep sats above 92 %, now requiring 6 L nasal cannula NEBS SARS-CoV2 is negative Continue prednisone No need for antibiotics. Diurese. Encourage the patient to continue with anti-anxiety medicine as anxiety is a big component Discussed CODE STATUS with the patient she is in favor of a DO NOT RESUSCITATE/DO NOT INTUBATE however would like to confirm/discussed with her son. Spoke with her son and DOPA he is in agreeable with a DNR/DNI D/W RN and RT DENVER DAY MD Nov 13, 2019 08:48
[2019-11-13] MEDS: FUROSEMIDE 20 MG/2 ML VIAL. IVP SCH (09:00)
[2019-11-13] MEDS: DOXYCYCLINE HYCLATE 100 MG TABLET PO SCH (09:39)
[2019-11-13] MEDS: LACTOBACILLUS RHAMNOSUS GG 1 CAPSULE. PO SCH (09:39)
[2019-11-13] MEDS: predniSONE 10 MG TABLET PO SCH (09:39)
[2019-11-13] MEDS: FUROSEMIDE 40 MG TABLET. PO SCH (09:40)
[2019-11-13] MEDS: LOSARTAN POTASSIUM 25 MG TABLET. PO SCH (09:40)
[2019-11-13 11:00] VITALS: BP 117/81
[2019-11-13] MEDS ORDERED: GUAI120L35 PO (12:10)
[2019-11-13] MEDS ORDERED: DOXY100T PO (12:10)
[2019-11-13] MEDS ORDERED: PRED20TA PO (12:10)
--- NOTE | 2019-11-13 12:14 | SNU/HH DC ---
DISCHARGE WITH HOME HEALTH DISCHARGE INFORMATION: Discharge Date: Nov 13, 2019 Final Diagnosis: Problems Medical Problems: (1) Acute and chronic respiratory failure with hypoxia Status: Acute (2) LEXI (acute kidney injury) Status: Acute (3) Pulmonary fibrosis Status: Acute Condition on Discharge: Guarded CODE STATUS: Code Status: DNR/DNI HOME HEALTH: Face to Face: I certify this patient is under my care and that I, or a nurse practitioner or physician's therapist's assistant working with me, had a face to face encounter that meets the physician face to face encounter requirements with this patient on 11/13/2019. Medical Complications: COPD, Other (Pulmonary fibrosis) RN For Eval/Treatment: Yes Physical Therapy For: Evalulation/Treatment Occupational Therapy For: Evaluation/Treatment Home Health Aide For: Self-care BANQUET STEWARDESS For: Community Resources Pt Meets Homebound Status: Limited distance walking POST DISCHARGE ORDERS: Activity Instructions for Disc: Activity as tolerated Weight Bearing Status after Di: No restrictions DIET AFTER DISCHARGE: Regular CHECKS AFTER DISCHARGE: Checks after discharge: Check blood press - daily, Weigh Yourself Daily FOLLOW-UP: Follow up with: Dr. Lebron Gray TREATMENT/EQUIPMENT ORDERS: Adaptive Equipment Issued: None Discharge Respiratory Equipmen: Oxygen, Nebulizer CERTIFICATION STATEMENT: Certification Statement: Certification Statement: Based on the above finding, I certify that this patient is confined to the home and needs intermittent mcc care, physical therapy and/or speech therapy, or continues to need occupational therapy.~ This patient is under my care, and I have initiated the establishment of the plan of care.~ This patient will be followed by myself or a community physician who will periodically review the plan of care. Home Meds Active Scripts Pantoprazole Sodium (PROTONIX ) 40 Mg Tablet.dr, 40 MG PO DAILYAC for GERD for 30 Days, #30 TAB 2 Refills Prov:DEBORAH HERNANDEZ MD 11/13/19 Lorazepam (ATIVAN) 0.5 Mg Tablet, 0.5 MG PO PRN TID PRN for ANXIETY / AGITATION for 10 Days, #30 TAB 2 Refills Prov:DEBORAH HERNANDEZ MD 11/13/19 Guaifenesin/Codeine Phosphate (Codeine-Guaifen 10-100 mg/5 ml) 120 Ml Liquid, 5 ML PO PRN Q6HRS PRN for COUGH for 10 Days, #240 LIQUID 2 Refills Prov:DEBORAH HERNANDEZ MD 11/13/19 Doxycycline Hyclate (DOXYCYCLINE HYCLATE) 100 Mg Tablet, 100 MG PO BID for Bronchitis for 5 Days, #10 TAB Prov:DEBORAH HERNANDEZ MD 11/13/19 Prednisone (PREDNISONE) 20 Mg Tablet, 20 MG PO DAILY for pulmb fibrosis for 30 Days, #30 TAB 2 Refills Prov:DEBORAH HERNANDEZ MD 11/13/19 Atorvastatin Calcium (LIPITOR) 10 Mg Tablet, 1 TAB PO QHS for HLP, for 30 Days, #30 TAB 3 Refills Prov:BEAR RODRIGUEZ CALENDER MACHINE OPERATOR 10/16/19 Furosemide (FUROSEMIDE) 40 Mg Tablet, 40 MG PO DAILY for CHF for 30 Days, #30 TAB Prov:AIXA MCCALLUM MD 10/16/19 Lactobacillus Rhamnosus Gg (CULTURELLE) 1 Each Cap.sprink, 1 CAP PO BID for probiotic for 30 Days, #60 CAP Prov:AIXA MCCALLUM MD 08/13/19 Sodium Chloride/Aloe Vera (AYR SALINE NASAL GEL) 14.1 Gm Gel..gram., 1 QUANG NS PRN DAILY PRN for NASAL CONGESTION for 30 Days, #30 EACH Prov:DEBORAH HERNANDEZ MD 06/30/18 Ipratropium/Albuterol Sulfate (DUONEB 0.5-3(2.5) MG/3 ML) 3 Ml Ampul.neb, 3 ML NEB RTQID for Pulm Fibrosis for 30 Days, #120 EACH 2 Refills Prov:DEBORAH HERNANDEZ MD 06/30/18 Reported Medications Lisinopril (LISINOPRIL) 10 Mg Tablet, 1 TAB PO DAILY for HTN, #30 TAB 5 Refills 08/08/19 Discontinued Scripts Prednisone (PREDNISONE ) 10 Mg Tablet, 1 TAB PO BID for Dyspnea for 5 Days, #10 TAB 0 Refills Prov:AIXA MCCALLUM MD 10/16/19 DEBORAH HERNANDEZ MD Nov 13, 2019 12:14
[2019-11-13] MEDS ORDERED: PANT40TA77 PO (12:15)
[2019-11-13] MEDS ORDERED: LORA0.5T96 PO (12:15)
--- NOTE | 2019-11-13 12:20 | PDOC3 ---
Discharge Summary Visit Information Date of Admission: Nov 09, 2019 Date of Discharge: Nov 13, 2019 Admitting Diagnosis: Acute on chronic hypoxic respiratory failure Final Diagnosis Problems Medical Problems: (1) Acute and chronic respiratory failure with hypoxia Status: Acute (2) LEXI (acute kidney injury) Status: Acute (3) Pulmonary fibrosis Status: Acute Brief Hospital Course Allergies Allergies Coded Allergies Type Severity Reaction Last Updated Verified gluten Adverse Reaction Mild Diarrhea 09/09/18 Yes Vital Signs Vital Signs Date Time Temp Pulse Resp B/P (MAP) Pulse Ox O2 Delivery O2 Flow Rate FiO2 11/13/19 11:00 98.2 96 18 117/81 (93) 90 Nasal Cannula 5.0 98.2 Lab Results Laboratory Tests Test 11/12/19 04:40 11/13/19 04:45 White Blood Count 9.2 x10^3/uL (4.0-11.0) 8.5 x10^3/uL (4.0-11.0) Red Blood Count 5.71 x10^6/uL (3.50-5.40) 5.61 x10^6/uL (3.50-5.40) Hemoglobin 14.7 g/dL (12.0-15.5) 14.4 g/dL (12.0-15.5) Hematocrit 45.3 % (36.0-47.0) 44.7 % (36.0-47.0) Mean Corpuscular Volume 79 fL (79-100) 80 fL (79-100) Mean Corpuscular Hemoglobin 26 pg (25-35) 26 pg (25-35) Mean Corpuscular Hemoglobin Concent 33 g/dL (31-37) 32 g/dL (31-37) Red Cell Distribution Width 20.4 % (11.5-14.5) 20.1 % (11.5-14.5) Platelet Count 252 x10^3/uL (140-400) 242 x10^3/uL (140-400) Neutrophils (%) (Auto) 71 % (31-73) 70 % (31-73) Lymphocytes (%) (Auto) 17 % (24-48) 19 % (24-48) Monocytes (%) (Auto) 10 % (0-9) 9 % (0-9) Eosinophils (%) (Auto) 2 % (0-3) 2 % (0-3) Basophils (%) (Auto) 0 % (0-3) 0 % (0-3) Neutrophils # (Auto) 6.6 x10^3/uL (1.8-7.7) 5.9 x10^3/uL (1.8-7.7) Lymphocytes # (Auto) 1.5 x10^3/uL (1.0-4.8) 1.6 x10^3/uL (1.0-4.8) Monocytes # (Auto) 0.9 x10^3/uL (0.0-1.1) 0.8 x10^3/uL (0.0-1.1) Eosinophils # (Auto) 0.2 x10^3/uL (0.0-0.7) 0.2 x10^3/uL (0.0-0.7) Basophils # (Auto) 0.0 x10^3/uL (0.0-0.2) 0.0 x10^3/uL (0.0-0.2) Sodium Level 134 mmol/L (136-145) 134 mmol/L (136-145) Potassium Level 4.9 mmol/L (3.5-5.1) 4.7 mmol/L (3.5-5.1) Chloride Level 97 mmol/L (98-107) 99 mmol/L (98-107) Carbon Dioxide Level 31 mmol/L (21-32) 32 mmol/L (21-32) Anion Gap 6 (6-14) 3 (6-14) Blood Urea Nitrogen 28 mg/dL (7-20) 28 mg/dL (7-20) Creatinine 0.8 mg/dL (0.6-1.0) 0.8 mg/dL (0.6-1.0) Estimated GFR (Cockcroft-Gault) 69.2 69.2 Glucose Level 120 mg/dL (70-99) 93 mg/dL (70-99) Calcium Level 8.1 mg/dL (8.5-10.1) 8.1 mg/dL (8.5-10.1) Laboratory Tests Test 11/13/19 04:45 White Blood Count 8.5 x10^3/uL (4.0-11.0) Red Blood Count 5.61 x10^6/uL (3.50-5.40) Hemoglobin 14.4 g/dL (12.0-15.5) Hematocrit 44.7 % (36.0-47.0) Mean Corpuscular Volume 80 fL (79-100) Mean Corpuscular Hemoglobin 26 pg (25-35) Mean Corpuscular Hemoglobin Concent 32 g/dL (31-37) Red Cell Distribution Width 20.1 % (11.5-14.5) Platelet Count 242 x10^3/uL (140-400) Neutrophils (%) (Auto) 70 % (31-73) Lymphocytes (%) (Auto) 19 % (24-48) Monocytes (%) (Auto) 9 % (0-9) Eosinophils (%) (Auto) 2 % (0-3) Basophils (%) (Auto) 0 % (0-3) Neutrophils # (Auto) 5.9 x10^3/uL (1.8-7.7) Lymphocytes # (Auto) 1.6 x10^3/uL (1.0-4.8) Monocytes # (Auto) 0.8 x10^3/uL (0.0-1.1) Eosinophils # (Auto) 0.2 x10^3/uL (0.0-0.7) Basophils # (Auto) 0.0 x10^3/uL (0.0-0.2) Sodium Level 134 mmol/L (136-145) Potassium Level 4.7 mmol/L (3.5-5.1) Chloride Level 99 mmol/L (98-107) Carbon Dioxide Level 32 mmol/L (21-32) Anion Gap 3 (6-14) Blood Urea Nitrogen 28 mg/dL (7-20) Creatinine 0.8 mg/dL (0.6-1.0) Estimated GFR (Cockcroft-Gault) 69.2 Glucose Level 93 mg/dL (70-99) Calcium Level 8.1 mg/dL (8.5-10.1) Brief Hospital Course Ms Crowe is a 79 yo F w/ PMHx chronic hypoxic respiratory failure, pulmonary fibrosis/interstitial lung disease admitted with increasing shortness of breath failing outpatient increase in prednisone. 7/4: She is extremely short of breath appears uncomfortable 7/5: She is extremely short of breath and appears uncomfortable 7/6: She has conversational dyspnea. Afebrile. She is still using pure wick catheter for urination. She tells me she was placed into hospice after discharge from [facility] previously but transition to [facility], it is her goal to go back to this, but she thinks she needs acute rehab currently. Has not been out of bed since admission. Discussed with pulmonology to change to 20 mg prednisone. Afebrile, on 6 L. Tachycardic in the low 100s. Extremely weak. Desaturates into the 70s just when moving from bed to chair with therapy. She would like to try rehab, realistically she understand she has very little time left, but does not wish to return to hospice with people who don't know her and wants to see her 12 year old grandson before she dies. Consults: Pulm Problem list: Acute on chronic respiratory failure. - Fulminant respiratory failure secondary to severe pulmonary fibrosis History of pulmonary fibrosis, interstitial lung disease. Abnormal x-ray, worsened interstitial infiltrates on today's x-ray. Protein malnutrition. Hyponatremia. Protein malnutrition. Covid-19 has now been officially ruled out Failure to thrive Right-sided heart failure Anxiety Depression Plan: Referral for acute SNF vs home with home health If home with home health she will need norton catheter inserted Greater than 30 minutes spent on d/c home with home health, overall grim prognosis with end-stage pulmonary fibrosis, palliative home health is appropriate Discharge Information Condition at Discharge: Stable Follow Up: Weeks Disposition/Orders: D/C to Home w/ HH Scheduled Atorvastatin Calcium (Lipitor) 10 Mg Tablet, 1 TAB PO QHS for HLP, for 30 Days, #30 Ref 3 Prescribed by: BEAR RODRIGUEZ on 10/16/19 1238 Last Action: Continued on 11/09/19 1010 by LOTTIE BONILLA Doxycycline Hyclate (Doxycycline Hyclate) 100 Mg Tablet, 100 MG PO BID for Bronchitis for 5 Days, #10 Prescribed by: DEBORAH HERNANDEZ MD on 11/13/19 1210 Furosemide (Furosemide) 40 Mg Tablet, 40 MG PO DAILY for CHF for 30 Days, #30 Prescribed by: AIXA MCCALLUM MD on 10/16/19 1000 Last Action: Continued on 11/09/19 1010 by LOTTIE BONILLA Ipratropium/Albuterol Sulfate (Duoneb 0.5-3(2.5) Mg/3 Ml) 3 Ml Ampul.neb, 3 ML NEB RTQID for Pulm Fibrosis for 30 Days, #120 Ref 2 Prescribed by: DEBORAH HERNANDEZ MD on 06/30/18 1254 Last Action: Continued on 11/09/19 1129 by CAROLINA DANIEL Lactobacillus Rhamnosus Gg (Culturelle) 1 Each Cap.sprink, 1 CAP PO BID for probiotic for 30 Days, #60 Prescribed by: AIXA MCCALLUM MD on 08/13/19 1034 Last Action: Continued on 11/09/19 1010 by LOTTIE BONILLA Lisinopril (Lisinopril) 10 Mg Tablet, 1 TAB PO DAILY for HTN, #30 Ref 5 (Reported) Entered as Reported by: KAYLA BORJA on 08/08/19 1234 Last Action: Continued on 11/09/19 1010 by LOTTIE BONILLA Pantoprazole Sodium (Protonix ) 40 Mg Tablet.dr, 40 MG PO DAILYAC for GERD for 30 Days, #30 Ref 2 Prescribed by: DEBORAH HERNANDEZ MD on 11/13/19 1215 Prednisone (Prednisone) 20 Mg Tablet, 20 MG PO DAILY for pulmb fibrosis for 30 Days, #30 Ref 2 Prescribed by: DEBORAH HERNANDEZ MD on 11/13/19 1210 Scheduled PRN Guaifenesin/Codeine Phosphate (Codeine-Guaifen 10-100 mg/5 ml) 120 Ml Liquid, 5 ML PO PRN Q6HRS PRN for COUGH for 10 Days, #240 Ref 2 Prescribed by: DEBORAH HERNANDEZ MD on 11/13/19 1211 Lorazepam (Ativan) 0.5 Mg Tablet, 0.5 MG PO PRN TID PRN for ANXIETY / AGITATION for 10 Days, #30 Ref 2 Prescribed by: DEBORAH HERNANDEZ MD on 11/13/19 1216 Sodium Chloride/Aloe Vera ([place] Saline Nasal Gel) 14.1 Gm Gel..gram., 1 QUANG NS PRN DAILY PRN for NASAL CONGESTION for 30 Days, #30 Prescribed by: DEBORAH HERNANDEZ MD on 06/30/18 1254 Last Action: Continued on 11/09/19 1010 by LOTTIE BONILLA Discontinued Medications Prednisone (Prednisone ) 10 Mg Tablet, 1 TAB PO BID for Dyspnea for 5 Days, #10 Ref 0 Prescribed by: AIXA MCCALLUM MD on 10/16/19 1007 Last Action: Continued on 11/09/19 1010 by LOTTIE BONILLA Justicifation of Admission Dx: Justifications for Admission: Justification of Admission Dx: Yes Respiratory Failure: Severe Resp Distress Aspiration Pneumonia: Hypoxemia Acute COPD Exacerbation: Acute COPD Exacerbation DEBORAH HERNANDEZ MD Nov 13, 2019 12:20
--- NOTE | 2019-11-13 13:59 | SNU/HH DC ---
DISCHARGE ORDERS DISCHARGE INFORMATION: DISCHARGE DATE: Nov 13, 2019 FINAL DIAGNOSIS Problems Medical Problems: (1) Acute and chronic respiratory failure with hypoxia Status: Acute (2) LEXI (acute kidney injury) Status: Acute (3) Pulmonary fibrosis Status: Acute CONDITION ON DISCHARGE: Guarded CODE STATUS: Code Status: DNR/DNI POST DISCHARGE ORDERS: ACTIVITY ORDERS: Activity as tolerated WEIGHT BEARING STATUS: No restrictions DIET AFTER DISCHARGE: Regular CHECKS AFTER DISCHARGE: CHECKS AFTER DISCHARGE: Check blood press - daily, Weigh Yourself Daily FOLLOW-UP: PHYSICIAN FOLLOW-UP: Dr. Lebron Gray TREATMENT/EQUIPMENT ORDERS: ADAPTIVE EQUIPMENT NEEDED: None RESPIRATORY EQUIPMENT NEEDED: Oxygen, Nebulizer Physical Therapy For: Evalulation/Treatment Occupational Therapy For: Evaluation/Treatment Speech Language Pathology For: Evaluation/Treatment DISCHARGE MEDICATIONS: Home Meds Active Scripts Pantoprazole Sodium (PROTONIX ) 40 Mg Tablet.dr, 40 MG PO DAILYAC for GERD for 30 Days, #30 TAB 2 Refills Prov:DEBORAH HERNANDEZ MD 11/13/19 Lorazepam (ATIVAN) 0.5 Mg Tablet, 0.5 MG PO PRN TID PRN for ANXIETY / AGITATION for 10 Days, #30 TAB 2 Refills Prov:DEBORAH HERNANDEZ MD 11/13/19 Guaifenesin/Codeine Phosphate (Codeine-Guaifen 10-100 mg/5 ml) 120 Ml Liquid, 5 ML PO PRN Q6HRS PRN for COUGH for 10 Days, #240 LIQUID 2 Refills Prov:DEBORAH HERNANDEZ MD 11/13/19 Doxycycline Hyclate (DOXYCYCLINE HYCLATE) 100 Mg Tablet, 100 MG PO BID for Bronchitis for 5 Days, #10 TAB Prov:DEBORAH HERNANDEZ MD 11/13/19 Prednisone (PREDNISONE) 20 Mg Tablet, 20 MG PO DAILY for pulmb fibrosis for 30 Days, #30 TAB 2 Refills Prov:DEBORAH HERNANDEZ MD 11/13/19 Atorvastatin Calcium (LIPITOR) 10 Mg Tablet, 1 TAB PO QHS for HLP, for 30 Days, #30 TAB 3 Refills Prov:BEAR RODRIGUEZ APRN 10/16/19 Furosemide (FUROSEMIDE) 40 Mg Tablet, 40 MG PO DAILY for CHF for 30 Days, #30 TAB Prov:AIXA MCCALLUM MD 10/16/19 Lactobacillus Rhamnosus Gg (CULTURELLE) 1 Each Cap.sprink, 1 CAP PO BID for probiotic for 30 Days, #60 CAP Prov:AIXA MCCALLUM MD 08/13/19 Sodium Chloride/Aloe Vera (AYR SALINE NASAL GEL) 14.1 Gm Gel..gram., 1 QUANG NS PRN DAILY PRN for NASAL CONGESTION for 30 Days, #30 EACH Prov:DEBORAH HERNANDEZ MD 06/30/18 Ipratropium/Albuterol Sulfate (DUONEB 0.5-3(2.5) MG/3 ML) 3 Ml Ampul.neb, 3 ML NEB RTQID for Pulm Fibrosis for 30 Days, #120 EACH 2 Refills Prov:DEBORAH HERNANDEZ MD 06/30/18 Reported Medications Lisinopril (LISINOPRIL) 10 Mg Tablet, 1 TAB PO DAILY for HTN, #30 TAB 5 Refills 08/08/19 Discontinued Scripts Prednisone (PREDNISONE ) 10 Mg Tablet, 1 TAB PO BID for Dyspnea for 5 Days, #10 TAB 0 Refills Prov:AIXA MCCALLUM MD 10/16/19 DEBORAH HERNANDEZ MD Nov 13, 2019 13:59
--- NOTE | 2019-11-13 14:00 | NUR ---
RUDY following. Discussed with RN. PT/OT recommending SNU. RUDY met with pt (no isolation precautions at the time), pt would like to go to SNU, wants to be close by, does not have a preference. Pt agreeable for referral to [facility]. If pt is not accepted for SNU, plan is for discharge home with [facility] - discussed with Dr. Tinsley. RUDY faxed referral to [facility], awaiting acceptance decision. Addendum: 11/13/19 at 1542 by ADAMS GRANT Pt accepted at [facility], pt discharged to [facility] at 1415 via [facility] transportation. RUDY notified pt's son, Maurizio.
--- NOTE | 2019-11-13 14:29 | NUR ---
Pt discharged to . Called and gave report. Pt belongings were packed and sent with the patient. Assisted to wheelchair and was taken by transportation.
== END 2019-11-13 14:57 | DRG 196 ==
LOC: ER 21:43 → 6 SOUTH 11-09 00:23 → 4 NORTH 11-10 16:49
PROVIDERS: ADMIT Internal Medicine; ATTEND Internal Medicine
DX: J84.112 Idiopathic pulmonary fibrosis (principal); N17.0 Acute kidney failure with tubular necrosis; J96.21 Acute and chronic respiratory failure with hypoxia; E46 Unspecified protein-calorie malnutrition; E87.1 Hypo-osmolality and hyponatremia; I50.32 Chronic diastolic (congestive) heart failure; I11.0 Hypertensive heart disease with heart failure; E78.00 Pure hypercholesterolemia, unspecified; E78.5 Hyperlipidemia, unspecified; F32.9 Major depressive disorder, single episode, unspecified; F41.9 Anxiety disorder, unspecified; I27.81 Cor pulmonale (chronic); I50.82 Biventricular heart failure; R62.7 Adult failure to thrive; Z20.828 Contact with and (suspected) exposure to other viral communicable diseases; Z82.49 Family history of ischemic heart disease and other diseases of the circulatory system; K21.9 Gastro-esophageal reflux disease without esophagitis; M19.90 Unspecified osteoarthritis, unspecified site; Z68.22 Body mass index [BMI] 22.0-22.9, adult; Z88.8 Allergy status to other drugs, medicaments and biological substances
CPT/HCPCS: 36415; 36600; 71045; 80048; 80053; 82805; 83880; 84484; 85007; 85025; 93005; 94760; J1940; J3490; J7060; J7512; 99285-25; G0378; U0003-CS

== ENCOUNTER 2020-04-14 15:55 | Emergency (ER) | payer MEDICARE ==
[~2020-04-14] VITALS: Ht 152.4 cm; Wt 51.0 kg
[~2020-04-14 15:55] MED LIST changes: +DOXY100T PO; +GUAI120L35 PO; +LORA0.5T96 PO; +PANT40TA77 PO
--- NOTE | 2020-04-14 16:31 | EKG ---
[facility] [address] [place] [id number] Test Date: 2020-04-14 Test Time: 16:19:54 Pat Name: KILO DIEZ Department: Room: Gender: F Trauma Registrar: : 1940 Requested By: NEGRITA KWOK Order Number: [id number] Reading MD: Measurements Intervals [place] Rate: 188 P: [place]: QRS: 66 QRSD: 258 T: 180 QT: 316 QTc: 564 Interpretive Statements IRREGULAR RHYTHM, NO P-WAVE FOUND RIGHT BUNDLE BRANCH BLOCK ABNORMAL ECG RI6.02 No previous ECG available for comparison
[2020-04-14 17:02] LABS: BASO % 0 % (0-3); EOS % 0 % (0-3); HEMATOCRIT 61.7 % (36.0-47.0); HEMOGLOBIN 20.3 g/dL (12.0-15.5); LYMPH # 0.3 x10^3/uL (1.0-4.8); LYMPH % 2 % (24-48); MEAN CORPUSCULAR HEMOGLOBIN 29 pg (25-35); MEAN CORPUSCULAR HGB CONC 33 g/dL (31-37); MEAN CORPUSCULAR VOLUME 87 fL (79-100); MONO # 0.8 x10^3/uL (0.0-1.1); MONO % 6 % (0-9); NEUT # 13.3 x10^3/uL (1.8-7.7); NEUT % 93 % (31-73); PLATELET COUNT 240 x10^3/uL (140-400); RED BLOOD COUNT 7.09 x10^6/uL (3.50-5.40); RED CELL DISTRIBUTION WIDTH 18.2 % (11.5-14.5); WHITE BLOOD COUNT 14.3 x10^3/uL (4.0-11.0)
--- NOTE | 2020-04-14 17:15 | PHYS DOC ---
Past Medical History Past Medical History: Anxiety, Arthritis, Constipation, Depression, GERD, High Cholesterol, Hypertension, Other Additional Past Medical Histor: PULMONARY FIBROSIS, CATARACTS Past Surgical History: Other Additional Past Surgical Histo: EGD, cataracts Smoking Status: Never Smoker Alcohol Use: None Drug Use: None General Adult EDM: Chief Complaint: SHORTNESS OF BREATH HPI: HPI: Patient is a 80 year old female presents emergency department reporting a chief complaint of increased bilateral lower extremity edema and pressure. Patient feels as if her legs are weeping more fluid than normal. Patient also states that she has noticed over the past 3 days that she gets more short of breath with exertion such as going to the restroom or getting in and out of bed. Patient is usually on 3 L of O2 per nasal cannula for a 2-year history of pulmonary fibrosis, patient states that lately she is having to increase her O2 at home to return to a more comfortable state of breathing. Patient does deny short of breath at rest, however states that she does get short of breath with exertion. Patient denies any chest pains or chest discomfort denies chest palpitations. Patient states that she transports herself around the house per wheelchair, patient used her personal wheelchair to come to the emergency department today. Patient denies any recent fever or chills, cough, nasal congestion, chest congestion, abdominal pains. Patient denies any urinary problems, patient states she urinates all the time because she takes 40 milligrams of Lasix twice a day. Patient was unable to attach a number of pain to her lower extremities, patient does states that she does feels an increase of pressure when she tries to walk around which is not normal for her. Patient denies any COVID-19 symptoms. Review of Systems: Review of Systems: 14 body systems of review of systems have been reviewed. See HPI for pertinent positives and negative responses, otherwise all other systems are negative, nonpertinent or noncontributory. Heart Score: Risk Factors: Risk Factors: DM, Current or recent (<one month) smoker, HTN, HLP, family history of CAD, obesity. Risk Scores: Score 0 - 3: 2.5% MACE over next 6 weeks - Discharge Home Score 4 - 6: 20.3% MACE over next 6 weeks - Admit for Clinical Observation Score 7 - 10: 72.7% MACE over next 6 weeks - Early Invasive Strategies Current Medications: Patient reports her home medications as 40 mg Lasix twice daily at morning time and 3 PM p.o., Prednisone 20 mg p.o. daily, and a mineral supplement daily. Allergies: Allergies: Allergies Coded Allergies Type Severity Reaction Last Updated Verified gluten Adverse Reaction Mild Diarrhea 09/09/18 Yes Physical Exam: PE: Constitutional: Well developed, well nourished, patient is in mild respiratory distress, non-toxic appearance. HENT: Normocephalic, atraumatic, bilateral external ears normal, oropharynx moist, no oral exudates, nose normal. Eyes: PERRLA, EOMI, conjunctiva normal, no discharge. Neck: Normal range of motion, no tenderness, supple, no stridor. Cardiovascular:Heart rate regular rhythm, no murmur Lungs & Thorax: Bilateral breath sounds coarse inspiratory expiratory crackles bilateral upper lobes, diminished lung sounds right middle lobe bilateral lower lobes, no other adventitious lung sounds appreciated per auscultation. Abdomen: Bowel sounds normal, soft, no tenderness, no masses, no pulsatile masses. Skin: Warm, dry, no erythema, no rash. Back: No tenderness, no CVA tenderness. Extremities: No tenderness, no clubbing, ROM intact, mild cyanosis to upper extremities upon initial exam while patient was in mild respiratory distress, O2 sat was 80% on 3 L, O2 was increased to 6 L per nasal cannula for the remainder of the exam. Bilateral lower extremities from knees to tops of feet 4+ pitting edema, distal cap refill approximately 10 to 12 seconds bilateral feet. 2+ dorsalis pedis pulses and posterior tibial pulses, serous skin weeping from 2 cm stage II pressure ulcer right lower extremity distal lateral tib-fib area without signs of infectious process. Bilateral lower extremities markedly erythematous, patient had pressure stockings on that were placed by her primary care physician, patient states her primary care physician has been closely following her edema, however patient feels as if her edema is getting worse, patient states that the redness of her lower extremities are not any worse than they have been for the past 3 or so months. Neurologic: Alert and oriented X 3, normal motor function, normal sensory function, no focal deficits noted. Psychologic: Affect normal, judgement normal, mood normal. Current Patient Data: Labs: Laboratory Tests Test 04/14/20 14:50 12/7/20 17:35 04/14/20 17:36 White Blood Count 14.3 x10^3/uL Red Blood Count 7.09 x10^6/uL Hemoglobin 20.3 g/dL Hematocrit 61.7 % Mean Corpuscular Volume 87 fL Mean Corpuscular Hemoglobin 29 pg Mean Corpuscular Hemoglobin Concent 33 g/dL Red Cell Distribution Width 18.2 % Platelet Count 240 x10^3/uL Neutrophils (%) (Auto) 93 % Lymphocytes (%) (Auto) 2 % Monocytes (%) (Auto) 6 % Eosinophils (%) (Auto) 0 % Basophils (%) (Auto) 0 % Neutrophils # (Auto) 13.3 x10^3/uL Lymphocytes # (Auto) 0.3 x10^3/uL Monocytes # (Auto) 0.8 x10^3/uL Eosinophils # (Auto) 0.0 x10^3/uL Basophils # (Auto) 0.0 x10^3/uL Segmented Neutrophils % 93 % Band Neutrophils % 2 % Lymphocytes % 2 % Monocytes % 3 % Platelet Estimate Adequate Lactic Acid Level 1.5 mmol/L Sodium Level 134 mmol/L Potassium Level 5.7 mmol/L Chloride Level 98 mmol/L Carbon Dioxide Level 28 mmol/L Anion Gap 3 Blood Urea Nitrogen 56 mg/dL Creatinine 1.8 mg/dL Estimated GFR (Cockcroft-Gault) 27.1 BUN/Creatinine Ratio 31 Glucose Level 187 mg/dL Calcium Level 8.9 mg/dL Magnesium Level 2.8 mg/dL Total Bilirubin 0.9 mg/dL Aspartate Amino Transf (AST/SGOT) 65 U/L Alanine Aminotransferase (ALT/SGPT) 81 U/L Alkaline Phosphatase 193 U/L Creatine Kinase 45 U/L Creatine Kinase MB (Mass) 2.2 ng/mL Creatine Kinase MB Relative Index % Troponin I Quantitative 0.034 ng/mL Total Protein 6.5 g/dL Albumin 3.0 g/dL Albumin/Globulin Ratio 0.9 Current Medications Medications (Trade) Dose Ordered Sig/Sugar Route PRN Reason Start Time Stop Time Status Last Admin Dose Admin Sodium Chloride 500 ml @ 500 mls/hr 1X ONCE IV 04/14/20 20:30 04/14/20 21:29 DC 04/14/20 20:58 Apixaban (Eliquis) 10 mg BID PO 04/14/20 21:00 04/14/20 22:35 DC 04/14/20 21:01 Vital Signs: Vital Signs Date Time Temp Pulse Resp B/P (MAP) Pulse Ox O2 Delivery O2 Flow Rate FiO2 04/14/20 16:22 97.8 98 36 118/82 (94) 92 Nasal Cannula 6.0 97.8 EKG: EKG: EKG performed at 1619 by ED staff, heart rate 90 shows normal sinus rhythm without ectopy, QTc interval 0.564, no STEMI noted no ACS noted no ischemia noted, EKG interpreted by ED attending physician Dr. Hemphill. Radiology/Procedures: Radiology/Procedures: []STATUS: REG ERORD. PHYSICIAN: NEGRITA KWOK APRN REASON: LOWER EXTREMITY EDEMA AND SWELLING PROCEDURE: VENOUS LOWER EXT BILATERAL INDICATION: Reason: LOWER EXTREMITY EDEMA AND SWELLING / Spl. Instructions: / History: COMPARISON: February 2014 TECHNIQUE: Grayscale, color and doppler ultrasound images were obtained of the bilateral lower extremity venous vasculature. RIGHT: Thrombus within portion of the right common femoral and popliteal vein. Portion of the calf veins not well seen. LEFT: No thrombus identified in the common femoral vein, femoral vein, popliteal vein or visualized calf veins. IMPRESSION: * Thrombus is seen within a portion of the right common femoral and popliteal vein. Report called to the emergency department at 5:22 PM on date of exam. Electronically signed by: Thierno Arias MD (04/14/2020 5:25 PM) [id number] DICTATED and SIGNED BY: THIERNO ARIAS MD DATE: 04/14/20 [id number] SEX: F EXAM STATUS: REG ER ORD. PHYSICIAN: NEGRITA KWOK APRN REASON: short of breath PROCEDURE: CHEST AP ONLY Exam: Chest one view INDICATION: Shortness of breath TECHNIQUE: Frontal view of the chest Comparisons: 10/09/2019 FINDINGS: The cardiomediastinal silhouette and pulmonary vessels are within normal limits. Increased interstitial opacities in lungs bilaterally. No pleural effusion. IMPRESSION: Stable diffuse interstitial opacities throughout the lungs without focal consolidation identified. Electronically signed by: Cristi Mendieta MD (04/14/2020 6:10 PM) [id number] DICTATED and SIGNED BY: CRISTI MENDIETA MD DATE: 04/14/20 [id number] 0 Course & Med Decision Making: Course & Med Decision Making Pertinent Labs and Imaging studies reviewed. (See chart for details) 80-year-old female presented to the emergency department with complaints of increasing bilateral lower extremity edema, vital signs are stable, physical exam concerning for an increased seen lower extremity edema most likely from venous insufficiency related to her 2-year history of pulmonary fibrosis. Upon reexamination of the patient, patient has been titrated down to 2 L per nasal cannula remains 100% room air saturation, patient is in no apparent d istress, in no respiratory distress, patient does not appear toxic. Duplex Doppler of bilateral lower extremities showed DVT of right lower extremity, labs concerning for leukocytosis, neutrophilia, hyperkalemia, dehydration, elevated creatinine, unable to perform CT angio chest related to elevated creatinine. Discussed case with Dr. Guzmán for possible admission, Dr. Guzmán recommended patient start on Eliquis, be discharged home, follow- up with her doctor tomorrow for possible consideration of adjustment of her Lasix dosing and potassium dosing at home along with a possible adjustment of her fluid restriction recommended by her primary care physician. Discussed with patient and patient's son Dr. Guzmán's recommendation for patient to be discharged home on Eliquis, patient is concerned that she cannot take care of herself at home since her home health care nursing ran out and her insurance will no longer pay for it. Patient states that she would rather be admitted to the hospital for a few days. Consulted with Dr. Minaya a second time, Dr. Guzmán reiterated that the patient does not meet inpatient criteria and can be discharged home on Eliquis as Eliquis was started in the emergency department. Relayed Dr. Guzmán's recommendation to patient. Patient and patient's son stated they will go to another facility for admission to the hospital. Patient gave verbal understanding of discharge home instructions, use of Eliquis at home, strict return to ER concerns, patient had no further questions or concerns, patient discharged home without incident. Patient uses her own wheelchair for transportation. Patient transferred to her wheelchair without assistance, patient remained in a nontoxic appearance, patient's vital signs were stable and within normal limits at time of discharge. Dragon Disclaimer: Dragon Disclaimer: This electronic medical record was generated, in whole or in part, using a voice recognition dictation system. Departure Departure Impression: Primary Impression: DVT (deep venous thrombosis) Qualified Codes: I82.431 - Acute embolism and thrombosis of right popliteal vein Additional Impressions: Dehydration Hyperkalemia Leukocytosis Qualified Codes: D72.829 - Elevated white blood cell count, unspecified Neutrophilia Disposition: 01 DC HOME SELF CARE/HOMELESS Condition: STABLE Referrals: GAYLA ELIZABETH MD (PCP) Patient Instructions: Deep Vein Thrombosis Additional Instructions: You have a blood clot in your right leg, this is called a DVT, you have been treated in the emergency department with Eliquis, Eliquis is a blood thinner that will help dissolve this clot. You have been given a prescription for Eliquis, please fill and start taking tomorrow as directed. See your doctor tomorrow to let her know that you have a blood clot, also let your doctor know that you were dehydrated, and your potassium level was high in the emergency department, your doctor may need to consider changing your Lasix dosing or fluid restriction. Your doctor may also need to consider rechecking your potassium level. Please return to the emergency department for worsening symptoms or other concerns. EMERGENCY DEPARTMENT GENERAL DISCHARGE INSTRUCTIONS Thank you for coming to [facility] Emergency Department (ED) today and trusting us with you care. We trust that you had a positive experience in our Emergency Department. If you wish to speak to the department management, you may call the Director at [phone]. YOUR FOLLOW UP INSTRUCTIONS ARE FOLLOWS: 1. Do you have a private Doctor? If you do not have a private doctor, please ask for a resource list of physicians or clinics that may be able to assist you with follow up care. 2. The Emergency Physicain has interpreted your x-rays. The X-Ray specialist will also review them. If there is a change in the findings, you will be notified in 48 hours when at all possible. 3. A lab test or culture has been done, your results will be reviewed and you will be notified if you need a change in treatment. ADDITIONAL INSTRUCTIONS AND INFORMATION: 1. Your care today has been supervised by a physician who is specially trained in emergency care. Many problems require more than one evaluation for a complete diagnosis and treatment. We recommend that you schedule your follow up appointment as recommended to ensure complete treatment of you illness or injury. If you are unable to obtain follow up care and continue to have a problem, or if your condition worsens, we recommend that you return to the ED. 2. We are not able to safely determine your condition over the phone nor are we able to give sound medical advice over the phone. For these safety reasons, if you call for medical advice we will ask you to come to the ED for further evaluation. 3. If you have any questions regarding these discharge instructions please call the ED at [phone]. SAFETY INFORMATION: In the interest of safety, wellness, and injury prevention; we encourage you to wear your sealbelt, if you smoke; quite smoking, and we encourage family to use a protective helmet for bicycling and other sporting events that present an increased risk for head injury. IF YOUR SYMPTOMS WORSEN OR NEW SYMPTOMS DEVELOP, OR YOU HAVE CONCERNS ABOUT YOUR CONDITION; OR IF YOUR CONDITION WORSENS WHILE YOU ARE WAITING FOR YOUR FOLLOW UP APPOINTMENT; EITHER CONTACT YOUR PRIMARY CARE DOCTOR, THE PHYSICIAN WHOSE NAME AND NUMBER YOU WERE GIVEN, OR RETURN TO THE ED IMMEDIATELY. Scripts Apixaban (ELIQUIS) 5 Mg Tablet 5 MG PO BID for DVT for 30 Days, #60 TAB 0 Refills Prov: NEGRITA KWOK APRN 04/14/20 Apixaban (ELIQUIS) 5 Mg Tablet 10 MG PO BID for DVT for 7 Days, #28 TAB 0 Refills Prov: NEGRITA KWOK APRN 04/14/20 NEGRITA KWOK APRN Apr 14, 2020 17:15
--- NOTE | 2020-04-14 17:28 | RAD ---
INDICATION: Reason: LOWER EXTREMITY EDEMA AND SWELLING / Spl. Instructions: / History: COMPARISON: February 2014 TECHNIQUE: Grayscale, color and doppler ultrasound images were obtained of the bilateral lower extremity venous vasculature. RIGHT: Thrombus within portion of the right common femoral and popliteal vein. Portion of the calf veins not well seen. LEFT: No thrombus identified in the common femoral vein, femoral vein, popliteal vein or visualized calf veins. IMPRESSION: * Thrombus is seen within a portion of the right common femoral and popliteal vein. Report called to the emergency department at 5:22 PM on date of exam. Electronically signed by: Kam Blanchard MD (04/14/2020 5:25 PM) [id number]
--- NOTE | 2020-04-14 18:13 | RAD ---
Exam: Chest one view INDICATION: Shortness of breath TECHNIQUE: Frontal view of the chest Comparisons: 10/09/2019 FINDINGS: The cardiomediastinal silhouette and pulmonary vessels are within normal limits. Increased interstitial opacities in lungs bilaterally. No pleural effusion. IMPRESSION: Stable diffuse interstitial opacities throughout the lungs without focal consolidation identified. Electronically signed by: Cristi Perez MD (04/14/2020 6:10 PM) [email or web address]
[2020-04-14 19:06] LABS: % BANDS 2 % (0-9); % LYMPHS 2 % (24-48); % MONOS 3 % (0-10); % SEGS 93 % (35-66); PLT ESTIMATE ADEQUATE (ADEQUATE)
[2020-04-14 19:12] LABS: ALBUMIN/GLOBULIN RATIO 0.9 (1.0-1.7); TOTAL PROTEIN 6.5 g/dL (6.4-8.2)
[2020-04-14 19:13] LABS: CALCIUM 8.9 mg/dL (8.5-10.1); CREATININE 1.8 mg/dL (0.6-1.0); GFR 27.1; POTASSIUM 5.7 mmol/L (3.5-5.1); TOTAL BILIRUBIN 0.9 mg/dL (0.2-1.0)
[2020-04-14 19:14] LABS: MAGNESIUM 2.8 mg/dL (1.8-2.4)
[2020-04-14 19:16] LABS: CREATINE KINASE 45 U/L (26-192)
[2020-04-14] MEDS ORDERED: IV NORMAL SALINE 500ML BAG 500 ML IV ONE (20:30)
[2020-04-14] MEDS ORDERED: APIXABAN 5 MG TABLET. PO SCH (21:00)
[2020-04-14] MEDS ORDERED: APIX5TAB PO (21:12)
[2020-04-14 21:33] VITALS: BP 105/70
== END 2020-04-14 22:30 | disposition home or self-care (01) ==
LOC: ER 17:15
DX: I82.431 Acute embolism and thrombosis of right popliteal vein (principal); E86.0 Dehydration; E87.5 Hyperkalemia; D72.829 Elevated white blood cell count, unspecified; D72.0 Genetic anomalies of leukocytes; R06.02 Shortness of breath; E78.00 Pure hypercholesterolemia, unspecified; K21.9 Gastro-esophageal reflux disease without esophagitis; I10 Essential (primary) hypertension; Z88.8 Allergy status to other drugs, medicaments and biological substances
CPT/HCPCS: 36415; 71045; 80053; 82553; 83605; 83735; 84484; 85007; 85025; 87040; 93005; 93970; 99285; J7040; 96360